=== PATIENT | male | born 1950 | race Caucasian/White ===

== ENCOUNTER 2017-12-23 18:12 | Emergency (ER) | payer MEDICARE, OTHER ==
[2017-12-23 18:33] VITALS: RESP 18
--- NOTE | 2017-12-23 18:52 | ED ---
General Adult HPI - General Chief complaint: Urogenital Stated complaint: hematuria Time Seen by Provider: 12/23/17 18:30 Source: patient, RN notes reviewed Mode of arrival: ambulatory Limitations: no limitations - History of Present Illness Initial comments: This a 67-year-old male presents emergency Department complaining of hematuria since Wednesday and urinary retention. Patient denies any blood thinners on board. Patient denies any fevers chills. Patient denies any swelling or redness. Patient denies any trauma to the ear. Patient states this happen once before a few years back and he had an infection any was treated and her breathing was okay since. 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 Patient denies any other symptoms at this time. - Related Data Previous Rx's Medication Instructions Recorded Sulfamethox-Tmp 800-160Mg [Bactrim 1 each PO Q12HR #14 tab 12/23/17 DS 800-160 mg] Allergies Allergy/AdvReac Type Severity Reaction Status Date / Time No Known Allergies Allergy Verified 12/23/17 20:33 Review of Systems ROS Statement: Those systems with pertinent positive or pertinent negative responses have been documented in the HPI. ROS Other: All systems not noted in ROS Statement are negative. 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 No history of previous myocardial infarction. No history of hypertension or diabetes. PT STATED HE DOES'NT HAVE A PCP. STATED WENT TO ER WHEN HE HAD A UTI BUT OUTSIDE OF THAT CAN'T REMEMBER WHEN HE SAW A DR LAST. 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 General Exam - General Exam Comments Initial Comments: GENERAL: Patient is well-developed and well-nourished. Patient is nontoxic and well- hydrated and is in mild distress. ENT: Neck is soft and supple. No significant lymphadenopathy is noted. Oropharynx is clear. Moist mucous membranes. Neck has full range of motion without eliciting any pain. EYES: The sclera were anicteric and conjunctiva were pink and moist. Extraocular movements were intact and pupils were equal round and reactive to light. Eyelids were unremarkable. PULMONARY: Unlabored respirations. Good breath sounds bilaterally. No audible rales rhonchi or wheezing was noted. CARDIOVASCULAR: There is a regular rate and rhythm without any murmurs gallops or rubs. ABDOMEN: Soft and nontender with normal bowel sounds. SKIN: Skin is clear with no lesions or rashes and otherwise unremarkable. NEUROLOGIC: Patient is alert and oriented x3. Cranial nerves II through XII are grossly intact. Motor and sensory are also intact. Normal speech, volume and content. Symmetrical smile. MUSCULOSKELETAL: Normal extremities with adequate strength and full range of motion. No lower extremity swelling or edema. No calf tenderness. LYMPHATICS: No significant lymphadenopathy is noted PSYCHIATRIC: Normal psychiatric evaluation. Normal interpersonal interactions appears functionally intact in deals appropriately with others. No signs of depression. No signs of anxiety. Limitations: no limitations Course Vital Signs 12/23/17 12/23/17 12/23/17 18:31 20:17 20:43 Temperature 98.0 F Pulse Rate 118 H 89 99 Respiratory 18 18 18 Rate Blood Pressure 136/80 116/68 120/79 O2 Sat by Pulse 99 97 96 Oximetry Medical Decision Making - Lab Data Result diagrams: 12/23/17 19:20 12/23/17 19:20 Lab Results 12/23/17 12/23/17 12/23/17 Range/Units 19:00 19:00 19:20 WBC 10.6 (3.8-10.6) k/uL RBC 4.53 (4.30-5.90) m/uL Hgb 13.2 (13.0-17.5) gm/dL Hct 39.9 (39.0-53.0) % MCV 88.2 (80.0-100.0) fL MCH 29.3 (25.0-35.0) pg MCHC 33.2 (31.0-37.0) g/dL RDW 13.3 (11.5-15.5) % Plt Count 364 (150-450) k/uL Neutrophils % 80 % Lymphocytes % 13 % Monocytes % 6 % Eosinophils % 0 % Basophils % 0 % Neutrophils # 8.5 H (1.3-7.7) k/uL Lymphocytes # 1.3 (1.0-4.8) k/uL Monocytes # 0.6 (0-1.0) k/uL Eosinophils # 0.0 (0-0.7) k/uL Basophils # 0.0 (0-0.2) k/uL PT 9.8 (9.0-12.0) sec INR 1.0 (<1.2) APTT 24.3 (22.0-30.0) sec Sodium (137-145) mmol/L Potassium (3.5-5.1) mmol/L Chloride (98-107) mmol/L Carbon Dioxide (22-30) mmol/L Anion Gap mmol/L BUN (9-20) mg/dL Creatinine (0.66-1.25) mg/dL Est GFR (CKD-EPI)AfAm (>60 ml/min/1.73 sqM) Est GFR (CKD-EPI)NonAf (>60 ml/min/1.73 sqM) Glucose (74-99) mg/dL Calcium (8.4-10.2) mg/dL Total Bilirubin (0.2-1.3) mg/dL AST (17-59) U/L ALT (21-72) U/L Alkaline Phosphatase (38-126) U/L Total Protein (6.3-8.2) g/dL Albumin (3.5-5.0) g/dL Urine Color Dark Red Urine Appearance Bloody (Clear) Urine RBC >182 H (0-5) /hpf 12/23/17 Range/Units 19:20 WBC (3.8-10.6) k/uL RBC (4.30-5.90) m/uL Hgb (13.0-17.5) gm/dL Hct (39.0-53.0) % MCV (80.0-100.0) fL MCH (25.0-35.0) pg MCHC (31.0-37.0) g/dL RDW (11.5-15.5) % Plt Count (150-450) k/uL Neutrophils % % Lymphocytes % % Monocytes % % Eosinophils % % Basophils % % Neutrophils # (1.3-7.7) k/uL Lymphocytes # (1.0-4.8) k/uL Monocytes # (0-1.0) k/uL Eosinophils # (0-0.7) k/uL Basophils # (0-0.2) k/uL PT (9.0-12.0) sec INR (<1.2) APTT (22.0-30.0) sec Sodium 139 (137-145) mmol/L Potassium 5.1 (3.5-5.1) mmol/L Chloride 106 (98-107) mmol/L Carbon Dioxide 23 (22-30) mmol/L Anion Gap 10 mmol/L BUN 20 (9-20) mg/dL Creatinine 1.20 (0.66-1.25) mg/dL Est GFR (CKD-EPI)AfAm 73 (>60 ml/min/1.73 sqM) Est GFR (CKD-EPI)NonAf 63 (>60 ml/min/1.73 sqM) Glucose 118 H (74-99) mg/dL Calcium 9.2 (8.4-10.2) mg/dL Total Bilirubin 0.3 (0.2-1.3) mg/dL AST 24 (17-59) U/L ALT 26 (21-72) U/L Alkaline Phosphatase 62 (38-126) U/L Total Protein 6.3 (6.3-8.2) g/dL Albumin 4.0 (3.5-5.0) g/dL Urine Color Urine Appearance (Clear) Urine RBC (0-5) /hpf Disposition Clinical Impression: Hematuria Disposition: HOME SELF-CARE Condition: Good Instructions: Urinary Tract Infection in Men (ED) Prescriptions: Sulfamethox-Tmp 800-160Mg [Bactrim DS 800-160 mg] 1 each PO Q12HR #14 tab Is patient prescribed a controlled substance at d/c from ED?: No Referrals: Dorian Kendrick MD [STAFF PHYSICIAN] - 1-2 days Time of Disposition: 20:56
[2017-12-23 19:35] LABS: RBC,Urine >182 /hpf (0-5)
[2017-12-23 19:42] LABS: Partial Thromboplastin Time 24.3 sec (22.0-30.0); Prothrombin Time 9.8 sec (9.0-12.0)
[2017-12-23 19:42] LABS: Calcium 9.2 mg/dL (8.4-10.2); Potassium 5.1 mmol/L (3.5-5.1); Total Bilirubin 0.3 mg/dL (0.2-1.3); Total Protein 6.3 g/dL (6.3-8.2)
[2017-12-23 19:53] LABS: Color,Urine Dark Red
[2017-12-23 19:54] LABS: Appearance,Urine Bloody (Clear)
[2017-12-23] MEDS ORDERED: cefTRIAXone 2,000 MG in SODIUM CHLORIDE 0.9% 100 ML IVPB STA (20:09)
[2017-12-23] MEDS ORDERED: cefTRIAXone IN SWFI 2,000 MG/20 ML SYRINGE IVP STA (20:11)
[2017-12-23 20:17] LABS: Basophils % (A) 0 %; Eosinophils % (A) 0 %; HCT 39.9 % (39.0-53.0); HGB 13.2 gm/dL (13.0-17.5); Lymphocytes # (A) 1.3 k/uL (1.0-4.8); Lymphocytes % (A) 13 %; MCH 29.3 pg (25.0-35.0); MCHC 33.2 g/dL (31.0-37.0); MCV 88.2 fL (80.0-100.0); Mean Platelet Volume 6.5; Monocytes # (A) 0.6 k/uL (0-1.0); Monocytes % (A) 6 %; Neutrophils # (A) 8.5 k/uL (1.3-7.7); Neutrophils % (A) 80 %; Platelet Count 364 k/uL (150-450); RBC 4.53 m/uL (4.30-5.90); RDW 13.3 % (11.5-15.5); WBC 10.6 k/uL (3.8-10.6)
[2017-12-23 21:22] VITALS: BP 135/79; PULSE 100; TEMP 97.5
== END 2017-12-23 21:34 | disposition home or self-care (01) ==
LOC: EC 18:12
DX: R31.9 Hematuria, unspecified (principal); R33.9 Retention of urine, unspecified; F17.200 Nicotine dependence, unspecified, uncomplicated; Z90.5 Acquired absence of kidney; Z95.5 Presence of coronary angioplasty implant and graft; Z98.890 Other specified postprocedural states
CPT/HCPCS: 51798; 36415; 80053; 85025; 85610; 85730; 81001; 87040; 87086; 99284; 51702; 96374; J0696

== ENCOUNTER 2017-12-25 00:03 | Inpatient (IN) | payer MEDICARE ==
--- NOTE | 2017-12-25 00:11 | ED ---
General Adult HPI - General Stated complaint: Blood in Urine Time Seen by Provider: 12/25/17 00:03 Source: RN notes reviewed - History of Present Illness Initial comments: This is a 67-year-old male who presents emergency Department with what he believes to be a catheter failure. Patient was in the emergency department yesterday for hematuria and was started on an antibiotic and had a catheter placed because he was having some urinary retention. Patient states all of a sudden tonight his bloody urine started to go around the catheter and down into his pants he did not reduce it came to the emergency department by ambulance. Patient denies any abdominal pain. Patient denies any fever chills. Patient states he has had bloody urine all day but not a lot. Patient states when the urine was going around his catheter he did feel little lightheaded but he does not feel lightheaded currently. Patient denies any shortness of breath or difficulty breathing. Patient denies any nausea vomiting or abdominal pain. - Related Data Previous Rx's Medication Instructions Recorded Sulfamethox-Tmp 800-160Mg [Bactrim 1 each PO Q12HR #14 tab 12/23/17 DS 800-160 mg] Allergies Allergy/AdvReac Type Severity Reaction Status Date / Time No Known Allergies Allergy Verified 12/23/17 20:33 Review of Systems ROS Statement: Those systems with pertinent positive or pertinent negative responses have been documented in the HPI. ROS Other: All systems not noted in ROS Statement are negative. 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 No history of previous myocardial infarction. No history of hypertension or diabetes. PT STATED HE DOES'NT HAVE A PCP. STATED WENT TO ER WHEN HE HAD A UTI BUT OUTSIDE OF THAT CAN'T REMEMBER WHEN HE SAW A DR GUERO. 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 General Exam - General Exam Comments Initial Comments: GENERAL: Patient is well-developed and well-nourished. Patient is nontoxic and well- hydrated and is in no acute distress. ENT: Neck is soft and supple. No significant lymphadenopathy is noted. Oropharynx is clear. Moist mucous membranes. EYES: The sclera were anicteric and conjunctiva were pink and moist. Extraocular movements were intact and pupils were equal round and reactive to light. Eyelids were unremarkable. PULMONARY: Unlabored respirations. Good breath sounds bilaterally. No audible rales rhonchi or wheezing was noted. CARDIOVASCULAR: There is a regular rate and rhythm without any murmurs gallops or rubs. ABDOMEN: Soft and nontender with normal bowel sounds. SKIN: Skin is clear with no lesions or rashes and otherwise unremarkable. NEUROLOGIC: Patient is alert and oriented x3. Cranial nerves II through XII are grossly intact. Motor and sensory are also intact. Normal speech, volume and content. Symmetrical smile. MUSCULOSKELETAL: Normal extremities with adequate strength and full range of motion. LYMPHATICS: No significant lymphadenopathy is noted PSYCHIATRIC: Normal psychiatric evaluation. Course Vital Signs 12/25/17 00:09 Temperature 98 F Pulse Rate 118 H Respiratory 18 Rate Blood Pressure 138/64 O2 Sat by Pulse 99 Oximetry Medical Decision Making - Medical Decision Making I spoke with Dr. Landaverde and he agreed to admit the patient admitted the patient consult neurology. I repeated CBCs every 6 hours - Lab Data Result diagrams: 12/25/17 00:34 Lab Results 12/25/17 Range/Units 00:34 WBC 13.5 H (3.8-10.6) k/uL RBC 3.04 L (4.30-5.90) m/uL Hgb 9.0 L D (13.0-17.5) gm/dL Hct 26.2 L (39.0-53.0) % MCV 86.3 (80.0-100.0) fL MCH 29.7 (25.0-35.0) pg MCHC 34.4 (31.0-37.0) g/dL RDW 13.6 (11.5-15.5) % Plt Count 333 (150-450) k/uL Neutrophils % 82 % Lymphocytes % 9 % Monocytes % 7 % Eosinophils % 1 % Basophils % 0 % Neutrophils # 11.1 H (1.3-7.7) k/uL Lymphocytes # 1.2 (1.0-4.8) k/uL Monocytes # 0.9 (0-1.0) k/uL Eosinophils # 0.1 (0-0.7) k/uL Basophils # 0.0 (0-0.2) k/uL Disposition Clinical Impression: Gross hematuria Disposition: ADMITTED IP TO THIS HOSP Referrals: None,Stated [Primary Care Provider] - 1-2 days Time of Disposition: 01:04
[2017-12-25] MEDS ORDERED: SODIUM CHLORIDE 0.9% 500 ML IV ONE (00:29)
[2017-12-25 00:47] LABS: Basophils % (A) 0 %; Eosinophils # (A) 0.1 k/uL (0-0.7); Eosinophils % (A) 1 %; HCT 26.2 % (39.0-53.0); Lymphocytes # (A) 1.2 k/uL (1.0-4.8); Lymphocytes % (A) 9 %; MCH 29.7 pg (25.0-35.0); MCHC 34.4 g/dL (31.0-37.0); MCV 86.3 fL (80.0-100.0); Mean Platelet Volume 6.9; Monocytes # (A) 0.9 k/uL (0-1.0); Monocytes % (A) 7 %; Neutrophils # (A) 11.1 k/uL (1.3-7.7); Neutrophils % (A) 82 %; Platelet Count 333 k/uL (150-450); RBC 3.04 m/uL (4.30-5.90); RDW 13.6 % (11.5-15.5); WBC 13.5 k/uL (3.8-10.6)
[2017-12-25 01:04] LABS: Albumin 3.5 g/dL (3.5-5.0); Calcium 8.5 mg/dL (8.4-10.2); Potassium 5.1 mmol/L (3.5-5.1); Total Bilirubin 0.2 mg/dL (0.2-1.3); Total Protein 5.5 g/dL (6.3-8.2)
[2017-12-25] MEDS ORDERED: SODIUM CHLORIDE 0.9% 1,000 ML IV ONE (01:04)
[2017-12-25] MEDS ORDERED: cefTRIAXone IN SWFI 1,000 MG/10 ML SYRINGE IVP STA (01:09)
--- NOTE | 2017-12-25 01:52 | US ---
EXAMINATION TYPE: US kidneys/renal and bladder DATE OF EXAM: 12/25/2017 COMPARISON: NONE CLINICAL HISTORY: pain. bladder pain, h/o left nephrectomy, gross hematuria that comes and goes EXAM MEASUREMENTS: Right Kidney: 9.9 x 4.3 x 4.0 cm Left Kidney: Surgically absent Right Kidney: No hydronephrosis or masses seen Left Kidney: Surgically absent Bladder: bae cath seen, extensive 8cm complex mass like area surrounding bae There is no evidence for hydronephrosis at this point in time. No nephrolithiasis is seen. No nanda s are identified. The urinary bladder is anechoic. Bilateral ureteral jets are seen. IMPRESSION: Right kidney appears normal without evidence of obstruction. The urinary bladder is filled with compl ex density that could be all blood clot that measures 9 x 8 cm. Bladder tumor is possible.
[2017-12-25] MEDS ORDERED: NALOXONE 0.4 MG/ML 1 ML VIAL IV PRN (06:42)
--- NOTE | 2017-12-25 06:55 | P.HPIM ---
History of Present Illness H&P Date: 12/25/17 Chief Complaint: hematuria 67-year-old male with history of CAD status post stents in 2016. Patient presented to the ER due to symptoms of dizziness lightheadedness almost passing out and exertional dyspnea along with worsening hematuria. He reports that ever since he donated the kidney back in 1999 he had felt bladder fullness and then eventually 2013 he had his first episode of hematuria for which he was diagnosed with UTI and treated with antibiotics. Since then he had couple other episodes of mild hematuria where he was treated with antibiotics. But this time for the past 3 days he started having dedrick hematuria with some bladder fullness without any dysuria fevers or chills without any nausea or vomiting without any abdominal pain he presented to the ED 2 days ago and was given antibiotics and Tierney catheter was discharged home. However his symptoms has worsened he started bleeding from around the Tierney catheter for which she decided to come back to the hospital. In the emergency department this time he was found to have dropped his hemoglobin by 4 g. And that his hematuria has worsened he was admitted also due to finding acute kidney injury. Renal ultrasound suggested healthy right kidney with no evidence of hydronephrosis, also found surgically removed left kidney. Multiple shadows found in the bladder suggestive of clots. Patient otherwise takes no blood thinners no aspirin no Plavix. He is not on anticoagulation. Patient is a smoker where he smokes a pack a day Patient denies any other sources of bleeding including GI bleeding. Patient denies any weight loss and he reports that over the past 20 years he he has been thin and around his weight Review of Systems Pertinent positives as noted in HPI. All other systems were reviewed and are negative Past Medical History Past Medical History: Myocardial Infarction ([place]) Additional Past Medical History / Comment(s): 07-08-15 ADMITTED WITH CHEST PAIN- WENT TO SOUND ENGINE[employer] HAD STENT PLACED TO RCA. No history of previous myocardial infarction. 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 Last Myocardial Infarction Date:: 06/2015 History of Any Multi-Drug Resistant Organisms: None Reported Past Surgical History: Heart Catheterization With Stent, Orthopedic Surgery Additional Past Surgical History / Comment(s): LT kidney donation 1999, finger surgery ON LT HAND, RHINOPLASY Past Anesthesia/Blood Transfusion Reactions: No Reported Reaction Date of Last Stent Placement:: 2015 Past Psychological History: No Psychological Hx Reported Smoking Status: Current every day smoker Past Alcohol Use History: None Reported Additional Past Alcohol Use History / Comment(s): STARTED SMOKING AT AGE 9, WORKED UP TO 1.5 PPD.(ROLLS HIS OWN) Past Drug Use History: None Reported Additional Drug Use History / Comment(s): DAILY USE - Past Family History Father Additional Family Medical History / Comment(s): FROM A BRAIN TUMOR and tb Mother Additional Family Medical History / Comment(s): FROM INJURIES SUSTAINED FROM MVA. Medications and Allergies Home Medications Medication Instructions Recorded Confirmed Type Sulfamethox-Tmp 800-160Mg [Bactrim 1 each PO Q12HR #14 tab 12/23/17 12/25/17 Rx DS 800-160 mg] Allergies Allergy/AdvReac Type Severity Reaction Status Date / Time No Known Allergies Allergy Verified 12/23/17 20:33 Physical Exam Vitals: Vital Signs Temp Pulse Pulse Resp BP BP Pulse Ox 12/25/17 02:23 98.1 F 106 H 18 131/59 100 12/25/17 01:46 99 F 104 H 16 119/58 97 12/25/17 00:09 98 F 118 H 18 138/64 99 Intake and Output 12/24/17 12/24/17 12/25/17 14:59 22:59 06:59 Intake Total 300 Output Total 475 Balance -175 Intake: IV 300 Sodium Chloride 0.9% 1, 300 000 ml @ 75 mls/hr IV . [id number] ONE Rx#:[id number] Output: Urine 475 Other: Voiding Method Indwelling Catheter Weight 44.5 kg Constitutional: No acute distress, conversant, pleasant Eyes: Anicteric sclerae, moist conjunctiva, no lid-lag Pupils equal round reactive to light ENMT: NC/AT Oropharynx clear, no erythema, or exudates Neck: Supple, FROM, no masses, or JVD No carotid bruits No thyromegaly Lungs: Clear to auscultation Clear to percussion Normal respiratory effort, no accessory muscle use Cardiovascular: Heart regular rhythm, tachycardia No murmurs, gallops, or rubs No peripheral edema Abdominal: Soft, discomfort to palpation of the suprapubic region Nontender, no guarding, rebound or rigidity Abdomen moving with respiration Normoactive bowel sounds No hepatomegaly, No splenomegaly No palpable mass No abdominal wall hernia noted Tierney catheter in place Skin: Normal temperature, tone, texture, turgor No induration No subcutaneous nodules No rash, lesions No ulcers Extremities: No digital cyanosis No clubbing Pedal pulses intact and symmetrical Radial pulses intact and symmetrical No calf tenderness Psychiatric: Alert and oriented to person, place and time Appropriate affect fair judgment Neuro Muscles Strength 5/5 in all 4 extremities Sensation to light touch grossly present throughout Cranial nerves II-XII grossly intact No focal sensory deficits Lymphatics: no palpable cervical or supraclavicular , or inguinal lymph nodes Results CBC & Chem 7: 12/25/17 00:34 12/25/17 00:34 Labs: Abnormal Lab Results - Last 24 Hours (Table) 12/25/17 12/25/17 Range/Units 00:34 00:34 WBC 13.5 H (3.8-10.6) k/uL RBC 3.04 L (4.30-5.90) m/uL Hgb 9.0 L D (13.0-17.5) gm/dL Hct 26.2 L (39.0-53.0) % Neutrophils # 11.1 H (1.3-7.7) k/uL Sodium 132 L (137-145) mmol/L Carbon Dioxide 17 L (22-30) mmol/L BUN 37 H (9-20) mg/dL Creatinine 2.60 H (0.66-1.25) mg/dL Glucose 116 H (74-99) mg/dL Total Protein 5.5 L (6.3-8.2) g/dL Thrombosis Risk Factor Assmnt - Choose All That Apply Any of the Below Risk Factors Present?: No Other Risk Factors: Yes Each Risk Factor Represents 2 Points: Age 61-74 years Other congenital or acquired thrombophilia - If yes, enter type in comment: No Thrombosis Risk Factor Assessment Total Risk Factor Score: 2 Thrombosis Risk Factor Assessment Level: Low Risk Assessment and Plan Assessment: 67 year old male with history of CAD, admitted as inpatient with anticipated length of stay of more than 48 hours for MANUELA, dedrick hematuria , and symptomatic anemia due to acute blood loss Plan: #Symptomatic anemia due to acute blood loss #Dedrick hematuria #Acute kidney injury Flush Tierney catheter Currently on Rocephin IV fluid hydration Renal ultrasound showed no evidence of hydronephrosis Urology consult History of CAD patient status post stent in 2016 Currently not on any aspirin or statin Patient is not taking any Plavix #Smoking Counseled to quit smoking Nicotine replacement therapy offered Unilateral kidney disease history of left kidney donation DVT prophylaxis mechanical due to active bleeding avoid pharmacologic dvT prophylaxis Surrogate decision-maker: Patient needs Manuela CODE STATUS: Full code Anticipated discharge: 48-[address]: Home A total of 50 minutes was spent on the care of this complex patient more than 50 % of the time was spent in counseling and care coordination.
[2017-12-25 07:46] LABS: Prothrombin Time 9.9 sec (9.0-12.0)
[2017-12-25 07:55] LABS: Basophils % (A) 0 %; Eosinophils % (A) 0 %; HCT 22.6 % (39.0-53.0); HGB 7.6 gm/dL (13.0-17.5); Lymphocytes # (A) 2.2 k/uL (1.0-4.8); Lymphocytes % (A) 18 %; MCH 29.4 pg (25.0-35.0); MCHC 33.7 g/dL (31.0-37.0); MCV 87.3 fL (80.0-100.0); Mean Platelet Volume 6.7; Monocytes # (A) 1.1 k/uL (0-1.0); Monocytes % (A) 9 %; Neutrophils # (A) 8.3 k/uL (1.3-7.7); Neutrophils % (A) 70 %; Platelet Count 311 k/uL (150-450); RBC 2.59 m/uL (4.30-5.90); RDW 13.5 % (11.5-15.5); WBC 11.9 k/uL (3.8-10.6)
[2017-12-25 07:59] LABS: Calcium 7.6 mg/dL (8.4-10.2); Potassium 4.6 mmol/L (3.5-5.1)
--- NOTE | 2017-12-25 09:53 | P.GSCN ---
History of Present Illness Consult date: 12/25/17 Reason for Consult: Hematuria Requesting physician: Ankit Miles History of present illness: The patient is a 67-year-old white male who presents with a six-day history of dysuria and gross hematuria. He was evaluated in the emergency room, but the urine was so bloody it was not possible to determine whether or not he had infection. He was placed on antibiotics, but returned 1 day later with persistent hematuria. A urine culture dated December 23 was negative. The hemoglobin level dropped from 13.2 to 9, and he was subsequently admitted. The hemoglobin level has decreased further to 7.6 this morning. Ultrasound shows a normal right kidney. A large echogenic masses seen within the bladder, representing clot and/or tumor. He reports suprapubic and right lower quadrant abdominal pain. He states that he has had intermittent hematuria since 2013. 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 He smokes 1 pack of cigarettes daily. Review of Systems - Constitutional Reports chills, Reports sweats, Denies fever - Cardiovascular Reports dyspnea on exertion, Denies chest pain - Gastrointestinal Denies nausea, Denies vomiting - Genitourinary Reports dysuria, Reports hematuria Past Medical History Past Medical History: Myocardial Infarction ([place]) Additional Past Medical History / Comment(s): 07-08-15 ADMITTED WITH CHEST PAIN- WENT TO [facility] FUN[facility] HAD STENT PLACED TO RCA. No history of previous myocardial infarction. 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 Last Myocardial Infarction Date:: 06/2015 History of Any Multi-Drug Resistant Organisms: None Reported Past Surgical History: Heart Catheterization With Stent, Orthopedic Surgery Additional Past Surgical History / Comment(s): LT kidney donation 1999, finger surgery ON LT HAND, RHINOPLASY Past Anesthesia/Blood Transfusion Reactions: No Reported Reaction Date of Last Stent Placement:: 2015 Past Psychological History: No Psychological Hx Reported Smoking Status: Current every day smoker Past Alcohol Use History: None Reported Additional Past Alcohol Use History / Comment(s): STARTED SMOKING AT AGE 9, WORKED UP TO 1.5 PPD.(ROLLS HIS OWN) Past Drug Use History: None Reported Additional Drug Use History / Comment(s): DAILY USE - Past Family History Father Additional Family Medical History / Comment(s): FROM A BRAIN TUMOR and tb Mother Additional Family Medical History / Comment(s): FROM INJURIES SUSTAINED FROM MVA. Medications and Allergies Home Medications Medication Instructions Recorded Confirmed Type Sulfamethox-Tmp 800-160Mg [Bactrim 1 each PO Q12HR #14 tab 12/23/17 12/25/17 Rx DS 800-160 mg] Allergies Allergy/AdvReac Type Severity Reaction Status Date / Time No Known Allergies Allergy Verified 12/23/17 20:33 Surgical - Exam Vital Signs Temp Pulse Resp BP Pulse Ox 98 F 118 H 18 138/64 99 12/25/17 00:09 12/25/17 00:09 12/25/17 00:09 12/25/17 00:09 12/25/17 00:09 - General well developed, well nourished, moderate distress - Respiratory normal respiratory effort - Abdomen Abdomen: soft, tender (Moderate suprapubic and right lower quadrant tenderness to palpation), no guarding, no rigid, no rebound, no distended - Genitourinary normal penis with no external lesions, testicles non-tender - Psychiatric oriented to time, oriented to person, oriented to place, speech is normal, memory intact Results - Labs 12/25/17 06:56 12/25/17 06:56 Abnormal Lab Results - Last 24 Hours (Table) 12/25/17 12/25/17 12/25/17 Range/Units 00:34 00:34 06:56 WBC 13.5 H (3.8-10.6) k/uL RBC 3.04 L (4.30-5.90) m/uL Hgb 9.0 L D (13.0-17.5) gm/dL Hct 26.2 L (39.0-53.0) % Neutrophils # 11.1 H (1.3-7.7) k/uL Monocytes # (0-1.0) k/uL Sodium 132 L 132 L (137-145) mmol/L Carbon Dioxide 17 L 17 L (22-30) mmol/L BUN 37 H 36 H (9-20) mg/dL Creatinine 2.60 H 2.34 H (0.66-1.25) mg/dL Glucose 116 H (74-99) mg/dL Calcium 7.6 L (8.4-10.2) mg/dL Total Protein 5.5 L (6.3-8.2) g/dL 12/25/17 Range/Units 06:56 WBC 11.9 H (3.8-10.6) k/uL RBC 2.59 L (4.30-5.90) m/uL Hgb 7.6 L (13.0-17.5) gm/dL Hct 22.6 L (39.0-53.0) % Neutrophils # 8.3 H (1.3-7.7) k/uL Monocytes # 1.1 H (0-1.0) k/uL Sodium (137-145) mmol/L Carbon Dioxide (22-30) mmol/L BUN (9-20) mg/dL Creatinine (0.66-1.25) mg/dL Glucose (74-99) mg/dL Calcium (8.4-10.2) mg/dL Total Protein (6.3-8.2) g/dL Diabetes panel 12/25/17 12/25/17 Range/Units 00:34 06:56 Sodium 132 L 132 L (137-145) mmol/L Potassium 5.1 4.6 (3.5-5.1) mmol/L Chloride 99 104 (98-107) mmol/L Carbon Dioxide 17 L 17 L (22-30) mmol/L BUN 37 H 36 H (9-20) mg/dL Creatinine 2.60 H 2.34 H (0.66-1.25) mg/dL Glucose 116 H 99 (74-99) mg/dL Calcium 8.5 7.6 L (8.4-10.2) mg/dL AST 32 (17-59) U/L ALT 26 (21-72) U/L Alkaline Phosphatase 45 (38-126) U/L Total Protein 5.5 L (6.3-8.2) g/dL Albumin 3.5 (3.5-5.0) g/dL Calcium panel 12/25/17 12/25/17 Range/Units 00:34 06:56 Calcium 8.5 7.6 L (8.4-10.2) mg/dL Albumin 3.5 (3.5-5.0) g/dL Pituitary panel 12/25/17 12/25/17 Range/Units 00:34 06:56 Sodium 132 L 132 L (137-145) mmol/L Potassium 5.1 4.6 (3.5-5.1) mmol/L Chloride 99 104 (98-107) mmol/L Carbon Dioxide 17 L 17 L (22-30) mmol/L BUN 37 H 36 H (9-20) mg/dL Creatinine 2.60 H 2.34 H (0.66-1.25) mg/dL Glucose 116 H 99 (74-99) mg/dL Calcium 8.5 7.6 L (8.4-10.2) mg/dL Adrenal panel 12/25/17 12/25/17 Range/Units 00:34 06:56 Sodium 132 L 132 L (137-145) mmol/L Potassium 5.1 4.6 (3.5-5.1) mmol/L Chloride 99 104 (98-107) mmol/L Carbon Dioxide 17 L 17 L (22-30) mmol/L BUN 37 H 36 H (9-20) mg/dL Creatinine 2.60 H 2.34 H (0.66-1.25) mg/dL Glucose 116 H 99 (74-99) mg/dL Calcium 8.5 7.6 L (8.4-10.2) mg/dL Total Bilirubin 0.2 (0.2-1.3) mg/dL AST 32 (17-59) U/L ALT 26 (21-72) U/L Alkaline Phosphatase 45 (38-126) U/L Total Protein 5.5 L (6.3-8.2) g/dL Albumin 3.5 (3.5-5.0) g/dL - Imaging US - kidney/bladder: report reviewed Assessment and Plan (1) Gross hematuria Current Visit: Yes Status: Acute Code(s): R31.0 - GROSS HEMATURIA SNOMED Code(s): 975541047 Plan: Cystoscopy, evacuation of clot. If the source of bleeding is intravesical, indicated procedures will be performed (ie, fulguration or bladder tumor resection). If urine is effluxing from the right ureter is bloody, a retrograde pyelogram and possible ureteroscopy will be performed. The rationale for this approach was discussed in detail with the patient. Potential risks were also reviewed. These include anesthesia, persistent bleeding, infection, bladder perforation, and ureteral injury. Time with Patient: Greater than 30
[2017-12-25] MEDS ORDERED: IV FLUID CONTINUATION 1,000 ML IV ONE (10:15)
[2017-12-25] MEDS ORDERED: ONDANSETRON 4 MG/2 ML VIAL ONE (10:29)
[2017-12-25] MEDS ORDERED: PROPOFOL 10 MG/ML 20 ML VIAL IV ONE (10:29)
[2017-12-25] MEDS ORDERED: PHENYLEPHRINE-0.9% NACL SYG 1 MG/10 ML SYRINGE ONE (10:29)
[2017-12-25] MEDS ORDERED: NEOSTIGMINE 1 MG/ML 10 ML VIAL ONE (10:29)
[2017-12-25] MEDS ORDERED: ePHEDrine SULFATE/0.9% NACL/PF 50 MG/5 ML SYRINGE IV ONE (10:29)
[2017-12-25] MEDS ORDERED: GLYCOPYRROLATE 0.2 MG/ML 2 ML VIAL ONE (10:29)
[2017-12-25] MEDS ORDERED: LIDOCAINE 1% INJ 10MG/ML (20 ML MDV) ONE (10:29)
[2017-12-25] MEDS ORDERED: fentaNYL (PF) 50 MCG/ML 2 ML AMP ONE (10:29)
[2017-12-25] MEDS ORDERED: ROCURONIUM BROMIDE 10 MG/ML 10 ML VIAL IV ONE (10:29)
[2017-12-25] MEDS ORDERED: MIDAZOLAM 2 MG/2 ML VIAL ONE (10:29)
[2017-12-25] MEDS ORDERED: LACTATED RINGERS 1,000 ML IV ONE ×3 (11:10→13:47)
--- NOTE | 2017-12-25 13:47 | P.OP ---
Date of Procedure: 12/25/17 Preoperative Diagnosis: Urinary Clot Retention Postoperative Diagnosis: Bladder Tumor, Bladder Perforation Procedure(s) Performed: Cystoscopy, evacuation of clot, transurethral resection of bladder tumor (Medium ), exploratory laparotomy, closure of bladder perforation Anesthesia: BRIAN Surgeon: Hong Kenny Estimated Blood Loss (ml): 75 IV fluids (ml): 1,300 Pathology: other (Bladder tumor fragments) Condition: stable Disposition: PACU Indications for Procedure: The patient is a 67-year-old male admitted with gross hematuria and clots. His hemoglobin level has dropped from 13.2 to 7.6 in the past 36 hours. Ultrasound shows a large echogenic structure within the bladder, representing tumor and/or clots. Operative Findings: 1) Approximately 1 L of clot was removed from the bladder. 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 3) Anterior bladder wall perforation. Description of Procedure: The patient was taken in the operating room and placed in the dorsal lithotomy position, with his legs supported in Bladimir stirrups. The external genitalia was prepped and draped sterilely. The 30 lens was used to introduce the 22- [place] Stortz cystoscopic sheath through the urethra and into the bladder under direct vision. the anterior urethra appeared normal. The prostatic urethra was unremarkable, showing no significant obstruction. Upon entering the bladder , a large amount of clot was noted. The Respi evacuator was used to remove approximately 1 L of clot from the bladder. The bladder was then inspected. A papillary tumor overlying the right hemitrigone, obscuring the right ureteral orifice. This was not actively bleeding. The left ureteral orifice appeared normal. No tumors were seen elsewhere in the bladder. The cystoscope was removed, and the 26-[place] Stortz resectoscope sheath was advanced into the bladder. Using the cutting loop, the tumor was resected down to the muscle. The resected tissue was saved and sent for pathologic analysis. There was no evidence of bladder perforation. The right ureteral orifice was not identified with certainty, so the use of electrocautery was avoided in the anticipated area of the right ureteral orifice. Excellent hemostasis was attained. At this time, the abdomen was noted to be distended. The bladder was inspected, and an apparent perforation was noted on the anterior bladder wall. An 18-[place] Tierney catheter was inserted. The return was blood-tinged. The abdomen was prepped and draped sterilely. The scalpel was used to make a midline infraumbilical skin incision. The Bovie electrocautery was used to incise the subcutaneous fat and linea alba in the midline. The space of Retzius was entered. The bladder was readily identified, and the anterior bladder perforation was seen. Fluid was drained from the space of Retzius. However, it was apparent that there was intraperitoneal fluid. A small opening was made in the peritoneum, and this fluid was drained. The peritoneal opening was then closed using 3-0 chromic suture in a running fashion. The bladder was carefully inspected. No additional perforations were seen. The anterior bladder wall perforation was closed in 2 layers. The mucosa was closed using 3- 0 Vicryl suture in a running fashion, and the muscle was closed using 2-0 Vicryl suture in a running fashion. A Miguel Angel-Elder drain was left within the space of Retzius. This was brought out through a separate stab incision to the right of the midline surgical incision. The drain was sutured to the skin using nylon suture, and was later attached to bulb suction. The linea alba was closed using #1 Vicryl suture in a running fashion. Hemostasis within the subcutaneous tissues was excellent. The skin was closed using francisco. A sterile gauze dressing was applied over the incision. All sponge and needle counts were correct. The patient tolerated the procedure well was taken to recovery was stable condition. As stated, approximately 1 L of clot was removed from the bladder. The tumor was not actively bleeding. The patient was quite tender preoperatively, and it is unclear whether the bladder perforation occurred spontaneously ( preoperatively) or intraoperatively. Blood loss during the procedure was minimal. He was transfused 1 unit of packed RBCs intraoperatively. A CBC will be checked in the recovery room.
[2017-12-25] MEDS ORDERED: LABETALOL 5 MG/ML VIAL MDV IV ONE ×2 (14:20→14:30)
[2017-12-25] MEDS ORDERED: FLUMAZENIL 0.1 MG/ML 5 ML VIAL IVP ONE (14:50)
[2017-12-25] MEDS ORDERED: hydrALAZINE HCL 20 MG/ML 1 ML VIAL IV ONE (14:55)
[2017-12-25 15:04] LABS: HCT 27.4 % (39.0-53.0); MCH 31.2 pg (25.0-35.0); MCHC 34.1 g/dL (31.0-37.0); MCV 91.6 fL (80.0-100.0); Mean Platelet Volume 7.2; Platelet Count 253 k/uL (150-450); RDW 14.7 % (11.5-15.5); WBC 24.9 k/uL (3.8-10.6)
[2017-12-25 15:09] LABS: HGB 9.4 gm/dL (13.0-17.5)
[2017-12-25 15:12] LABS: Calcium 6.2 mg/dL (8.4-10.2)
[2017-12-25] MEDS ORDERED: MIDAZOLAM 2 MG/2 ML VIAL IV ONE (15:20)
[2017-12-25 15:22] LABS: Band Neutrophils % 4 %; Eosinophils # (M) 0.25 k/uL (0-0.7); Lymphocytes # (M) 2.49 k/uL (1.0-4.8); Monocytes # (M) 1.99 k/uL (0-1.0); Neutrophils % (M) 78 %; Nucleated Red Blood Cells 0 /100 WBC (0-0); Total Cells Counted 200
[2017-12-25] MEDS: PROPOFOL 1,000 MG in EMPTY BAG 1 BAG IV SCH ×4 (15:30→23:42)
[2017-12-25 15:53] LABS: Potassium 5.3 mmol/L (3.5-5.1)
[2017-12-25 15:58] LABS: ABG Base Excess -13.2 mmol/L; ABG HCO3 15 mmol/L (21-25); ABG PCO2 39 mmHg (35-45); ABG PO2 339 mmHg (83-108); ABG TCO2 16 mmol/L (19-24)
[2017-12-25 16:08] LABS: ABG PH 7.19 (7.35-7.45)
--- NOTE | 2017-12-25 16:56 | P.CNPUL ---
History of Present Illness Consult date: 12/25/17 Reason for consult: other Chief complaint: Acute respiratory failure, History of present illness: 87-year-old male patient who is being seen in the recovery room as the patient failed postoperative extubation. The patient was taken to the operating room for gross hematuria. The patient was having significant amount of hematuria associated with drop in hemoglobin from 13.2 down to 9.0 since this current admission and earlier this morning his hemoglobin was down to 7.6. The patient has intermittent hematuria since 2013. 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 He is a chronic smoker. The patient underwent a cystoscopy and the patient was found to have a bladder tumor that was resected using a transurethral approach. Following that the patient was found to have a bladder perforation. This was not related to the tumor resection and apparently the tumor was a 4 cm papillary tumor overlying the right trigone of securing the right ureteral orifice and the perforation was in the anterior bladder wall. In any rate, the patient underwent expiratory laparotomy, evacuation of intra-abdominal fluid collection and closure of a bladder perforation. Estimated blood loss was 75 mL. Total amount of fluid was 1.3 L given during the surgery. The patient also received a total of 2 units of packed RBCs. I saw this patient in the recovery room. Apparently he was extubated in recovery however he had weak breathing effort and he subsequently went into respiratory failure. He was reintubated within 10 minutes. Post intubation blood gas showed a pH of 7.19 with a pCO2 of 39 and pO2 of 339. The patient accordingly was placed on assist controlled rate of 22 tidal volume was brought up from 350 up to 500 and FiO2 is up to 60%. Pulse ox remains above 90% on the monitor. The patient is on no pressors at this point in time. A triple-lumen catheter was inserted. An outlying catheter was inserted. The patient has a component of non-anion gap metabolic acidosis with a bicarb level of 14 and a anion gap level of 9 and the patient was started on bicarb drip with D5 3 amps of bicarb at the rate of 1 100 mL an hour. Note that the patient was in acute kidney injury in the creatinine was up to 0.6 and dropped down to 1.9 and his calcium level was at 8 point further down to 6.2 total non-ionize. Post intubation chest x-ray showed questionable air under the left hemidiaphragm. ET tube is in a good location. 2 triple-lumen cath is also in good location. Coagulation profile is within normal limits. The patient is known to have coronary artery disease. 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 Patient has a single kidney a day patient has an elevated a kidney many years back Last Myocardial Infarction Date:: 06/2015 History of Any Multi-Drug Resistant Organisms: None Reported Past Surgical History: Heart Catheterization With Stent, Orthopedic Surgery Additional Past Surgical History / Comment(s): LT kidney donation 1999, finger surgery ON LT HAND, RHINOPLASY Past Anesthesia/Blood Transfusion Reactions: No Reported Reaction Date of Last Stent Placement:: 2015 Past Psychological History: No Psychological Hx Reported Smoking Status: Current every day smoker Past Alcohol Use History: None Reported Additional Past Alcohol Use History / Comment(s): STARTED SMOKING AT AGE 9, WORKED UP TO 1.5 PPD.(ROLLS HIS OWN) Past Drug Use History: None Reported Additional Drug Use History / Comment(s): DAILY USE - Past Family History Father Additional Family Medical History / Comment(s): FROM A BRAIN TUMOR and tb Mother Additional Family Medical History / Comment(s): FROM INJURIES SUSTAINED FROM MVA. Medications and Allergies Home Medications Medication Instructions Recorded Confirmed Type Sulfamethox-Tmp 800-160Mg [Bactrim 1 each PO Q12HR #14 tab 12/23/17 12/25/17 Rx DS 800-160 mg] Allergies Allergy/AdvReac Type Severity Reaction Status Date / Time No Known Allergies Allergy Verified 12/25/17 11:25 Physical Exam Vitals: Vital Signs Temp Pulse Pulse Resp BP BP Pulse Ox 12/25/17 14:00 96.8 F L 93 10 L 182/86 100 12/25/17 10:16 99 F 96 16 124/67 98 12/25/17 08:35 98.1 F 96 20 135/78 98 12/25/17 02:23 98.1 F 106 H 18 131/59 100 12/25/17 01:46 99 F 104 H 16 119/58 97 12/25/17 00:09 98 F 118 H 18 138/64 99 Intake and Output 12/25/17 12/25/17 12/25/17 06:59 14:59 22:59 Intake Total 300 2020 0 Output Total 475 75 Balance -175 1945 0 Intake: IV 300 1400 Sodium Chloride 0.9% 1, 300 000 ml @ 75 mls/hr IV . [id number] ONE Rx#:[id number] Blood Product 620 0 Rc As-1 Unit 310 [id number] Rc As-1 Unit 0 [id number] Output: Urine 475 Estimated Blood Loss 75 Other: Voiding Method Indwelling Catheter Indwelling Catheter Weight 44.5 kg 44.5 kg Sedated, comfortable intubated on a mechanical ventilator. Looks older than his stated age. Head exam was generally normal. There was no scleral icterus or corneal arcus. Mucous membranes were moist. Endotracheal tube in place. Neck was supple and with jugular venous distension, thyromegaly, or carotid bruits. Carotids were easily palpable bilaterally. There was no adenopathy. Lungs were clear to auscultation and percussion, and with normal diaphragmatic excursion. No wheezes or rales were noted. Cardiac exam revealed the PMI to be normally situated and sized. The rhythm was regular and no extrasystoles were noted during several minutes of auscultation. The first and second heart sounds were normal and physiologic splitting of the second heart sound was noted. There were no murmurs, rubs, clicks, or gallops. abdomen is soft. There is a mid abdominal incision that is dry clean and intact and the JERMAINE drain is also in place. Abdomen is slightly distended. No direct tenderness. No rebound tenderness. No guarding. Hypoactive bowel sounds. Examination of the extremities revealed diminished pulses in all 4 extremities including radial, femoral and pedal pulses. There was no cyanosis, clubbing or edema. Neurologically the patient is sedated, comfortable Results - Laboratory Findings CBC and BMP: 12/25/17 14:45 12/25/17 14:45 ABG ABG pH 7.19 (7.35-7.45) L* 12/25/17 15:53 ABG pCO2 39 mmHg (35-45) 12/25/17 15:53 ABG pO2 339 mmHg (83-108) H 12/25/17 15:53 ABG O2 Saturation 100.0 % (94-97) H 12/25/17 15:53 PT/INR, D-dimer PT 9.9 sec (9.0-12.0) 12/25/17 06:57 INR 1.0 (<1.2) 12/25/17 06:57 Abnormal lab findings: Abnormal Labs 12/25/17 12/25/17 12/25/17 00:34 00:34 01:39 WBC 13.5 H RBC 3.04 L Hgb 9.0 L D Hct 26.2 L Neutrophils # 11.1 H Neutrophils # (Manual) Monocytes # Monocytes # (Manual) ABG pH ABG pO2 ABG HCO3 ABG Total CO2 ABG O2 Saturation Sodium 132 L Potassium Carbon Dioxide 17 L BUN 37 H Creatinine 2.60 H Glucose 116 H Calcium Total Protein 5.5 L Crossmatch See Detail 12/25/17 12/25/17 12/25/17 06:56 06:56 14:45 WBC 11.9 H 24.9 H RBC 2.59 L 3.00 L Hgb 7.6 L 9.4 L D Hct 22.6 L 27.4 L Neutrophils # 8.3 H Neutrophils # (Manual) 20.40 H Monocytes # 1.1 H Monocytes # (Manual) 1.99 H ABG pH ABG pO2 ABG HCO3 ABG Total CO2 ABG O2 Saturation Sodium 132 L Potassium Carbon Dioxide 17 L BUN 36 H Creatinine 2.34 H Glucose Calcium 7.6 L Total Protein Crossmatch 12/25/17 12/25/17 14:45 15:53 WBC RBC Hgb Hct Neutrophils # Neutrophils # (Manual) Monocytes # Monocytes # (Manual) ABG pH 7.19 L* ABG pO2 339 H ABG HCO3 15 L ABG Total CO2 16 L ABG O2 Saturation 100.0 H Sodium 123 L Potassium 5.3 H Carbon Dioxide 14 L BUN 31 H Creatinine 1.90 H Glucose 171 H Calcium 6.2 L* Total Protein Crossmatch - Diagnostic Findings Chest x-ray: image reviewed Assessment and Plan Plan: Assessment 1 acute hypoxic respiratory failure post general anesthesia, post bladder surgery. Exact cause is not clear. Could be that the patient was extubated prematurely prior to compared to being recovered from his anesthetic agents. Other causes need to be considered including severe metabolic acidosis which we have attributed to his respiratory failure. No history of any myasthenia gravis of any neuromuscular weakness or neuromuscular disorders. Neurologically , the patient was stated to be awake prior to surgery and the patient was apparently was moving all 4 extremities without any limitation. 2 massive hematuria secondary to bladder tumor 3 resection of a bladder tumor from the trigone, the patient underwent transurethral resection of the bladder tumor and the patient is postop day #0 4 bladder perforation, involving the anterior bladder wall, status post expiratory laparotomy and repair of a laceration. Patient is postop day #0 5 severe and non-anion gap metabolic acidosis 6 acute kidney injury, improving and creatinine is down to 1.9 7 anemia, secondary to blood loss from massive hematuria 8 coronary artery disease with decreased VT and stenting of RCA 9 smoker with possible COPD 10 hyponatremia, probably dilutional Plan Keep the patient sedated for now and the patient will be kept on Diprivan with the rest score of 0 to -1. The patient will be placed on a Bivona breast units [id number] 4 times a day. SCD for DVT prophylaxis. IV Protonix for GI prophylaxis. IV Zosyn as empiric antibiotic coverage. Monitor the hemoglobin and the patient is ready received 2 units of packed RBC transfusion. Put the patient on bicarb drip with D5 water and 3 ampules of of bicarb at the rate of 100 mL an hour. Monitor the blood gases in the necessary vent changes. Chest x -ray was noted. Condition is critical. We'll continue to follow.
[2017-12-25] MEDS ORDERED: SODIUM CHLORIDE 0.9% 1,000 ML IV SCH (17:00)
--- NOTE | 2017-12-25 17:05 | XR ---
EXAMINATION TYPE: XR chest 1V confirm line cox monett DATE OF EXAM: 12/25/2017 CLINICAL HISTORY: Tube and line placement. TECHNIQUE: Single AP portable supine view of the chest is obtained. COMPARISON: None FINDINGS: There is endotracheal tube with tip at superior aortic knob level, approximately 5 to 6 cm above brenna. There is new left subclavian central venous catheter terminating in right atrium. Ther e is increased left lung opacity with Annette B lines in the periphery. Right lung is clear. There is more focal left basilar atelectasis and/or infiltrate. Cardiac silhouette size is within normal limit s. Slight S-shaped scoliosis of spine is present. Surgical clips epigastric region are seen. There is suspicious lucent liver sign consistent with pneumoperitoneum in supine patient. IMPRESSION: 1. Endotracheal tube satisfactory in position. 2. Left subclavian central venous catheter terminating in right atrium. No convincing evidence of siz able pneumothorax on supine x-ray. 3. Suspect background mild interstitial fibrosis with mild increased left lung interstitial edema and probable mild alveolar edema and/or early infiltrates. Progress study advised. More focal left basil ar atelectasis and/or infiltrate is noted. 4. Pneumoperitoneum identified. Case discussed with oncology nurse, patient had intra-abdominal bladder surgery earlier today account ing for pneumoperitoneum.
[2017-12-25 17:20] LABS: Basophils % (A) 0 %; Eosinophils # (A) 0.1 k/uL (0-0.7); Eosinophils % (A) 1 %; HCT 25.4 % (39.0-53.0); HGB 8.9 gm/dL (13.0-17.5); Lymphocytes % (A) 8 %; MCH 32.2 pg (25.0-35.0); MCHC 34.9 g/dL (31.0-37.0); MCV 92.4 fL (80.0-100.0); Mean Platelet Volume 6.7; Monocytes # (A) 0.7 k/uL (0-1.0); Monocytes % (A) 5 %; Neutrophils % (A) 86 %; Platelet Count 185 k/uL (150-450); RBC 2.75 m/uL (4.30-5.90); RDW 14.6 % (11.5-15.5); WBC 12.8 k/uL (3.8-10.6)
[2017-12-25 17:58] LABS: Glucose,Whole Blood 144 mg/dL (75-99)
[2017-12-25] MEDS: DEXTROSE 5% IN WATER 1,000 ML with SODIUM BICARB (1 MEQ/ML) 150 ML IV SCH (18:00)
--- NOTE | 2017-12-25 18:02 | PCN ---
PROCEDURE NOTE PREOPERATIVE DIAGNOSIS: Acute respiratory failure. POSTOPERATIVE DIAGNOSIS: Acute respiratory failure. PROCEDURE #1: Insertion of triple-lumen catheter. Indication Hemodynamic monitoring/Intravenous access. A time-out was completed verifying correct patient, procedure, site, positioning, and implant(s) or special equipment if applicable. The patient was placed in a dependent position appropriate for triple lumen catheter placement based on the vein to be cannulated. The patient's left shoulder was prepped and draped in sterile fashion. 1% Lidocaine was used to anesthetize the surrounding skin area. A triple lumen 9F Cordis catheter was introduced into the subclavian vein using Seldinger technique. The catheter was threaded smoothly over the guide wire and appropriate blood return was obtained. Each lumen of the catheter was evacuated of air and flushed with sterile saline. The catheter was then sutured in place to the skin and a sterile dressing applied. Perfusion to the extremity distal to the point of catheter insertion was checked and found to be adequate. No complications. PROCEDURE #2: Arterial line placement Indications: Hemodynamic monitoring. A time-out was completed verifying correct patient, procedure, site, positioning, and implant(s) or special equipment if applicable. Bladimir's test was performed to ensure adequate perfusion. The patient's left wrist was prepped and draped in sterile fashion. 1% Lidocaine was used to anesthetize the area. An 18G Arrow arterial line was introduced into the radial artery. The catheter was threaded over the guide wire and the needle was removed with appropriate pulsatile blood return. Blood loss was minimal. The catheter was then sutured in place to the skin and a sterile dressing applied. Perfusion to the extremity distal to the point of catheter insertion was checked and found to be adequate. The patient tolerated the procedure well and there were no complications. MMODL / IJN: [id number] /
[2017-12-25 18:20] LABS: HCT 27.9 % (39.0-53.0); HGB 10.1 gm/dL (13.0-17.5); MCH 32.5 pg (25.0-35.0); MCHC 36.3 g/dL (31.0-37.0); MCV 89.4 fL (80.0-100.0); Mean Platelet Volume 6.6; Platelet Count 207 k/uL (150-450); RBC 3.12 m/uL (4.30-5.90); RDW 14.3 % (11.5-15.5); WBC 15.8 k/uL (3.8-10.6)
[2017-12-25 18:35] LABS: ABG Base Excess -11.3 mmol/L; ABG HCO3 15 mmol/L (21-25); ABG PCO2 29 mmHg (35-45); ABG PH 7.32 (7.35-7.45); ABG PO2 228 mmHg (83-108); ABG TCO2 16 mmol/L (19-24)
[2017-12-25] MEDS ORDERED: ACETAMINOPHEN IV (For NPO) 1,000 MG in EMPTY BAG 1 BAG IVPB PRN (18:41)
[2017-12-25 18:42] LABS: ALT 27 U/L (21-72); AST 104 U/L (17-59); Albumin 2.2 g/dL (3.5-5.0); Alkaline Phosphatase <20 U/L (38-126); Anion Gap 6 mmol/L; Blood Urea Nitrogen 30 mg/dL (9-20); Carbon Dioxide 16 mmol/L (22-30); Chloride 98 mmol/L (98-107); Glucose 109 mg/dL (74-99); Magnesium 1.2 mg/dL (1.6-2.3); Total Bilirubin 1.4 mg/dL (0.2-1.3); Total Protein 4.2 g/dL (6.3-8.2)
[2017-12-25 18:47] LABS: Calcium 5.8 mg/dL (8.4-10.2); Potassium 4.9 mmol/L (3.5-5.1); Sodium 120 mmol/L (137-145)
[2017-12-25] MEDS ORDERED: Magnesium Replacement Protocol 1 EACH MISC MISCELLANE PRN (18:50)
[2017-12-25] MEDS ORDERED: CALCIUM CHLORIDE 500 MG in SODIUM CHLORIDE 0.9% 50 ML IVPB ONE ×2 (18:50→22:21)
[2017-12-25] MEDS ORDERED: ONDANSETRON 4 MG/2 ML VIAL IVP PRN (18:55)
[2017-12-25] MEDS ORDERED: ALBUTEROL NEBULIZED 2.5 MG/3 ML INHALATION PRN (18:55)
--- NOTE | 2017-12-25 19:00 | P.PN ---
Subjective Progress Note Date: 12/25/17 Principal diagnosis: Hematuria Interval note: For full note on 12/25 see H and p by Dr. 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 On arrival to the ER he was tachycardic with a pulse of 118. Initial laboratory analysis showed a leukocytosis of 13.5, anemia with a hemoglobin of 9 (down from 13.2 in 48 hours) . He underwent ultrasound of the kidneys and bladder which showed normal- appearing right kidney without evidence of obstruction and a urinary bladder filled with complex density that could be blood clot versus bladder tumor. After admission his hemoglobin continued to downtrend. He was seen by Dr. Jose in the morning of 12/25 and taken for cystoscopy. Cystoscopy is on have a bladder tumor and anterior bladder perforation. He subsequently had an open closure of his latter perforation as well as a transurethral resection of his bladder tumor. He failed postoperative extubation, was reintubated, and was sent to the ICU. Dr. Wing saw the patient in PACU in order to serum bicarb drip after he found have a pH of 7.19. On arrival to the ICU he was 93.4 F and had lost a tooth. Patient seen and examined in the ICU he is sedated on the vent and unable to give any history. Objective - Vital Signs Vital signs: Vital Signs Temp 96.8 F L 12/25/17 14:00 Pulse 93 12/25/17 14:00 Resp 10 L 12/25/17 14:00 BP 182/86 12/25/17 14:00 Pulse Ox 100 12/25/17 14:00 Intake & Output 12/24/17 12/25/17 12/25/17 18:59 06:59 18:59 Intake Total 300 2020 Output Total 475 75 Balance -175 194 Weight 44.5 kg 44.5 kg Intake: IV 300 1400 Sodium Chloride 0.9% 1, 300 000 ml @ 75 mls/hr IV . [id number] ONE Rx#:[id number] Blood Product 620 Rc As-1 Unit 310 [id number] Rc As-1 Unit 0 [id number] Output: Urine 475 Estimated Blood Loss 75 Other: Voiding Method Indwelling Catheter Indwelling Catheter - Labs CBC & Chem 7: 12/25/17 16:50 12/25/17 14:45 Labs: Abnormal Lab Results - Last 24 Hours (Table) 12/25/17 12/25/17 12/25/17 Range/Units 00:34 00:34 01:39 WBC 13.5 H (3.8-10.6) k/uL RBC 3.04 L (4.30-5.90) m/uL Hgb 9.0 L D (13.0-17.5) gm/dL Hct 26.2 L (39.0-53.0) % Neutrophils # 11.1 H (1.3-7.7) k/uL Neutrophils # (Manual) (1.3-7.7) k/uL Monocytes # (0-1.0) k/uL Monocytes # (Manual) (0-1.0) k/uL ABG pH (7.35-7.45) ABG pO2 (83-108) mmHg ABG HCO3 (21-25) mmol/L ABG Total CO2 (19-24) mmol/L ABG O2 Saturation (94-97) % Sodium 132 L (137-145) mmol/L Potassium (3.5-5.1) mmol/L Carbon Dioxide 17 L (22-30) mmol/L BUN 37 H (9-20) mg/dL Creatinine 2.60 H (0.66-1.25) mg/dL Glucose 116 H (74-99) mg/dL Calcium (8.4-10.2) mg/dL Total Protein 5.5 L (6.3-8.2) g/dL Crossmatch See Detail 12/25/17 12/25/17 12/25/17 Range/Units 06:56 06:56 14:45 WBC 11.9 H 24.9 H (3.8-10.6) k/uL RBC 2.59 L 3.00 L (4.30-5.90) m/uL Hgb 7.6 L 9.4 L D (13.0-17.5) gm/dL Hct 22.6 L 27.4 L (39.0-53.0) % Neutrophils # 8.3 H (1.3-7.7) k/uL Neutrophils # (Manual) 20.40 H (1.3-7.7) k/uL Monocytes # 1.1 H (0-1.0) k/uL Monocytes # (Manual) 1.99 H (0-1.0) k/uL ABG pH (7.35-7.45) ABG pO2 (83-108) mmHg ABG HCO3 (21-25) mmol/L ABG Total CO2 (19-24) mmol/L ABG O2 Saturation (94-97) % Sodium 132 L (137-145) mmol/L Potassium (3.5-5.1) mmol/L Carbon Dioxide 17 L (22-30) mmol/L BUN 36 H (9-20) mg/dL Creatinine 2.34 H (0.66-1.25) mg/dL Glucose (74-99) mg/dL Calcium 7.6 L (8.4-10.2) mg/dL Total Protein (6.3-8.2) g/dL Crossmatch 12/25/17 12/25/17 12/25/17 Range/Units 14:45 15:53 16:50 WBC 12.8 H (3.8-10.6) k/uL RBC 2.75 L (4.30-5.90) m/uL Hgb 8.9 L (13.0-17.5) gm/dL Hct 25.4 L (39.0-53.0) % Neutrophils # 11.0 H (1.3-7.7) k/uL Neutrophils # (Manual) (1.3-7.7) k/uL Monocytes # (0-1.0) k/uL Monocytes # (Manual) (0-1.0) k/uL ABG pH 7.19 L* (7.35-7.45) ABG pO2 339 H (83-108) mmHg ABG HCO3 15 L (21-25) mmol/L ABG Total CO2 16 L (19-24) mmol/L ABG O2 Saturation 100.0 H (94-97) % Sodium 123 L (137-145) mmol/L Potassium 5.3 H (3.5-5.1) mmol/L Carbon Dioxide 14 L (22-30) mmol/L BUN 31 H (9-20) mg/dL Creatinine 1.90 H (0.66-1.25) mg/dL Glucose 171 H (74-99) mg/dL Calcium 6.2 L* (8.4-10.2) mg/dL Total Protein (6.3-8.2) g/dL Crossmatch Assessment and Plan Assessment: Bladder tumor and anterior latter perforation-status post repair and TURBT -Management per urology -Zosyn for prophylaxis Acute blood loss anemia -Status post 2 units of packed red blood cells -Follow with serial CBCs -Transfuse as needed Severe metabolic acidosis -On serum bicarb drip -Check stat electrolytes Hyperkalemia, mild -Should correct with sodium bicarb drip -Follow serial electrolytes Acute kidney injury -Has been improving throughout hospitalization -Avoid additional nephrotoxic agents -Renal ultrasound with bowel medical renal disease -If worsens in a.m. Will consult nephrology -Patient was on Bactrim as an outpatient for possible UTI and this was held on admission Coronary artery disease -No aspirin at this time secondary to bleeding DVT prophylaxis: SCDs Discussed with: Patient's RN in the ICU, additional hospitalist Anticipated discharge: undetermined Anticipated discharge place: undetermined A total of 45 minutes was spent on the care of this complex patient more than 50 % of the time was spent in counseling and care coordination. Stat lab reviewed Sodium 120 on bicarb at 100, ? pseudohyponatremia due to bladder irrigation low magnesium replacement protocol ordered Hypocacemia- Calcium chloride 500mg ordered Recheck bmp in 2 hours and then q4 hours
[2017-12-25 19:05] LABS: INR 1.1 (<1.2); Partial Thromboplastin Time 27.2 sec (22.0-30.0); Prothrombin Time 10.3 sec (9.0-12.0)
--- NOTE | 2017-12-25 19:37 | XR ---
EXAMINATION TYPE: XR chest 1V portable DATE OF EXAM: 12/25/2017 CLINICAL HISTORY: Diminished lung sounds TECHNIQUE: Single AP portable upright view of the chest is obtained. COMPARISON: Chest x-ray from earlier today FINDINGS: There is new orogastric tube projecting below left hemidiaphragm. There is stable appearan ce of endotracheal tube and left subclavian central venous catheter. Cardiac silhouette size is stable and within normal limits. S-shaped scoliosis is redemonstrated. Mi gical clips epigastric region are again seen. Pneumoperitoneum is once again noted. There is chronic emphysematous change with increased interstitial prominence in the left lung. Suspect focal left basi lar atelectasis and/or infiltrate with silhouetting of left hemidiaphragm redemonstrated. IMPRESSION: 1. New orogastric tube satisfactory in position. 2. Background chronic emphysematous change with scattered fibrosis, there is asymmetric more prominen t left lung interstitial edema redemonstrated. There is patchy left basilar atelectasis and/or infilt rate redemonstrated. Pneumoperitoneum is once again noted patient had abdominal surgery earlier today .
[2017-12-25] MEDS: IPRATROPIUM-ALBUTEROL 3 ML NEB INHALATION SCH (19:46)
[2017-12-25 19:47] LABS: T4, Free (Free Thyroxine) 1.91 ng/dL (0.78-2.19)
[2017-12-25] MEDS: MAGNESIUM SULFATE-D5W PMX 1 GM in DEXTROSE/WATER 1 100ML.BAG IVPB SCH ×4 (19:57→22:05)
[2017-12-25] MEDS: PANTOPRAZOLE 40 MG/10 ML VIAL IVP SCH (20:26)
[2017-12-25] MEDS: PIPERACILLIN-TAZOBACTAM 3.375 GM in DEXTROSE/WATER 1 50ML.BAG IVPB SCH (20:27)
[2017-12-25] MEDS: CHLORHEXIDINE GLUCONATE 15 ML CUP MUCOUS MEM SCH (20:27)
[2017-12-25] MEDS ORDERED: SODIUM CHLORIDE 0.9% 2,000 ML IV ONE (21:20)
[2017-12-25 22:13] LABS: Calcium 5.6 mg/dL (8.4-10.2)
[2017-12-26] MEDS: HYDROmorphone 0.5 MG/0.5 ML SYRINGE IVP PRN ×3 (01:38→14:44)
[2017-12-26 01:50] LABS: HCT 24.9 % (39.0-53.0); HGB 9.1 gm/dL (13.0-17.5); MCHC 36.6 g/dL (31.0-37.0); MCV 87.5 fL (80.0-100.0); Mean Platelet Volume 6.9; Platelet Count 172 k/uL (150-450); RBC 2.84 m/uL (4.30-5.90); RDW 14.3 % (11.5-15.5); WBC 9.8 k/uL (3.8-10.6)
[2017-12-26 02:02] LABS: Calcium 6.7 mg/dL (8.4-10.2); Potassium 4.1 mmol/L (3.5-5.1)
[2017-12-26 04:48] LABS: ABG Base Excess -6.2 mmol/L; ABG HCO3 18 mmol/L (21-25); ABG Oxygen Saturation 98.7 % (94-97); ABG PCO2 29 mmHg (35-45); ABG PH 7.41 (7.35-7.45); ABG PO2 105 mmHg (83-108); ABG TCO2 19 mmol/L (19-24)
[2017-12-26 05:19] LABS: Ionized Calcium 4.1 mg/dL (4.5-5.3)
[2017-12-26 05:28] LABS: Albumin 1.7 g/dL (3.5-5.0); Magnesium 2.6 mg/dL (1.6-2.3); Phosphorus 3.3 mg/dL (2.5-4.5); Potassium 4.1 mmol/L (3.5-5.1); Total Bilirubin 0.8 mg/dL (0.2-1.3); Total Protein 3.4 g/dL (6.3-8.2)
[2017-12-26] MEDS: NOREPINEPHRIN 16 MG-0.9%NS PMX 16 MG/250 ML ML IV SCH (05:35)
[2017-12-26 05:47] LABS: Calcium 6.3 mg/dL (8.4-10.2)
[2017-12-26 05:49] LABS: HCT 26.2 % (39.0-53.0); MCH 30.8 pg (25.0-35.0); MCHC 34.5 g/dL (31.0-37.0); MCV 89.2 fL (80.0-100.0); Mean Platelet Volume 6.9; Platelet Count 192 k/uL (150-450); RBC 2.93 m/uL (4.30-5.90); RDW 14.4 % (11.5-15.5)
[2017-12-26 08:00] LABS: Band Neutrophils % 9 %; Metamyelocytes % 1 %; Myelocytes % 1 %; Neutrophils % (M) 71 %; Nucleated Red Blood Cells 0 /100 WBC (0-0); Total Cells Counted 200; Toxic Granulation Present
--- NOTE | 2017-12-26 08:05 | XR ---
EXAMINATION TYPE: XR chest 1V portable DATE OF EXAM: 12/26/2017 HISTORY: Tube placement. REFERENCE: Previous study dated 12/25/2017. FINDINGS: The patient's nasogastric tube remains in place. Its tip is within the stomach. There is worsening left basilar airspace disease. The right lung remains clear. The heart is not enla rged. I cannot exclude a small left effusion. IMPRESSION: WORSENING LEFT BASILAR AIRSPACE DISEASE +/- SMALL EFFUSION.
[2017-12-26] MEDS ORDERED: CALCIUM CHLORIDE 1,000 MG in SODIUM CHLORIDE 0.9% 100 ML IVPB ONE (09:00)
[2017-12-26] MEDS ORDERED: CALCIUM CHLORIDE 500 MG in SODIUM CHLORIDE 0.9% 50 ML IVPB ONE (09:00)
[2017-12-26] MEDS: IPRATROPIUM-ALBUTEROL 3 ML NEB INHALATION SCH ×4 (09:04→20:39)
[2017-12-26] MEDS: DEXTROSE 5% IN WATER 1,000 ML with SODIUM BICARB (1 MEQ/ML) 150 ML IV SCH (09:04)
[2017-12-26] MEDS: PANTOPRAZOLE 40 MG/10 ML VIAL IVP SCH (09:13)
[2017-12-26] MEDS: CHLORHEXIDINE GLUCONATE 15 ML CUP MUCOUS MEM SCH ×2 (09:14→20:35)
[2017-12-26] MEDS: PIPERACILLIN-TAZOBACTAM 3.375 GM in DEXTROSE/WATER 1 50ML.BAG IVPB SCH ×2 (09:36→20:35)
--- NOTE | 2017-12-26 10:04 | P.PN ---
Subjective Progress Note Date: 12/26/17 Principal diagnosis: Hematuria Interval note: For full note on 12/25 see H and p by Dr. 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 On arrival to the ER he was tachycardic with a pulse of 118. Initial laboratory analysis showed a leukocytosis of 13.5, anemia with a hemoglobin of 9 (down from 13.2 in 48 hours) . He underwent ultrasound of the kidneys and bladder which showed normal- appearing right kidney without evidence of obstruction and a urinary bladder filled with complex density that could be blood clot versus bladder tumor. After admission his hemoglobin continued to downtrend. He was seen by Dr. Jose in the morning of 12/25 and taken for cystoscopy. Cystoscopy is on have a bladder tumor and anterior bladder perforation. He subsequently had an open closure of his latter perforation as well as a transurethral resection of his bladder tumor. He failed postoperative extubation, was reintubated, and was sent to the ICU. Dr. Wing saw the patient in PACU in order to serum bicarb drip after he found have a pH of 7.19. On arrival to the ICU he was 93.4 F and had lost a tooth. He was started on zosyn as prophylaxis. His blood pressure dropped early in the monring on 12/26 and he was started on levophed. Patient seen and examined in the ICU he is sedated all info from nursing. He was waking up and moving this morning but pulling at tubes and is sedated at this time. Objective - Vital Signs Vital signs: Vital Signs Temp 97.9 F 12/26/17 09:00 Pulse 81 12/26/17 09:15 Resp 22 12/26/17 09:00 BP 86/55 12/26/17 09:00 Pulse Ox 99 12/26/17 09:00 Intake & Output 12/25/17 12/26/17 12/26/17 18:59 06:59 18:59 Intake Total 3100 4818.639 318 Output Total 685 1603 520 Balance 2415 3215.639 -202 Weight 44.5 kg 54.4 kg Intake: IV 2480 4756.5 318 0.9 NaCl for Fluid Bolus 3000 Calcium Chloride 500 mg 150 In Sodium Chloride 0.9% 50 ml @ 200 mls/hr IVPB ONCE ONE Rx#:[id number] Dextrose 5% in Water 1, 75 1100 300 000 ml @ 100 mls/hr IV . [id number] THI with Sodium Bicarb (1 Meq/ml) 150 ml Rx#:[id number] Magnesium Sulfate-D5w Pmx 400 1 gm In Dextrose/Water 1 100ml.bag @ 100 mls/hr IVPB Q1H [facility] Rx#: [id number] Piperacillin-Tazobactam 3 37.5 .375 gm In Dextrose/Water 1 50ml.bag @ 12.5 mls/hr IVPB Q12HR [facility] Rx#: [id number] Pressure bag of 0.9 NaCl- 69 18 Intake, IV Titration 62.139 Amount Norepinephrin 16 mg-0.9% 1.719 Ns Pmx 16 mg In 250 ml @ Titrate IV .Q0M [facility] Rx#: [id number] Propofol 1,000 mg In 60.42 Empty Bag 1 bag @ Per Protocol IV .Q0M [facility] Rx#: [id number] Blood Product 620 Rc As-1 Unit 310 [id number] Rc As-1 Unit 0 [id number] Output: Drainage 110 85 60 Abdomen 110 85 60 Urine 500 1388 460 Oral Regurgitation 130 Estimated Blood Loss 75 Other: Voiding Method Indwelling Catheter Indwelling Catheter Indwelling Catheter ABP, PAP, CO, CI - Last Documented Arterial Blood Pressure 87/74 - Exam General: non toxic, mild distress, cachetic, appears older than stated age, appears at stated age Derm: warm, dry Head: atraumatic, normocephalic, symmetric Eyes: EOMI, no lid lag, anicteric sclera Mouth: no lip lesion, ET tube in place Cardiovascular: S1S2 reg, no murmur, positive posterior tibial pulse bilateral, Lungs: Course b/l, no rhonchi, no rales , no accessory muscle use Abdominal: soft, non distended, dressing and JERMAINE drain in placed. , no appreciable organomegaly Ext: no gross muscle atrophy, no edema, no contractures Neuro: moving b/l UE independently, Psych: Sedated on vent - Labs CBC & Chem 7: 12/26/17 04:48 12/26/17 04:48 Labs: Abnormal Lab Results - Last 24 Hours (Table) 12/25/17 12/25/17 12/25/17 Range/Units 01:39 14:45 14:45 WBC 24.9 H (3.8-10.6) k/uL RBC 3.00 L (4.30-5.90) m/uL Hgb 9.4 L D (13.0-17.5) gm/dL Hct 27.4 L (39.0-53.0) % Neutrophils # (1.3-7.7) k/uL Neutrophils # (Manual) 20.40 H (1.3-7.7) k/uL Monocytes # (Manual) 1.99 H (0-1.0) k/uL Metamyelocytes # (Man) (0) k/uL Myelocytes # (Manual) (0) k/uL ABG pH (7.35-7.45) ABG pCO2 (35-45) mmHg ABG pO2 (83-108) mmHg ABG HCO3 (21-25) mmol/L ABG Total CO2 (19-24) mmol/L ABG O2 Saturation (94-97) % Sodium 123 L (137-145) mmol/L Potassium 5.3 H (3.5-5.1) mmol/L Carbon Dioxide 14 L (22-30) mmol/L BUN 31 H (9-20) mg/dL Creatinine 1.90 H (0.66-1.25) mg/dL Glucose 171 H (74-99) mg/dL POC Glucose (mg/dL) (75-99) mg/dL Osmolality (280-301) mosm/kg Calcium 6.2 L* (8.4-10.2) mg/dL Ionized Calcium Salazar (4.5-5.3) mg/dL Magnesium (1.6-2.3) mg/dL Total Bilirubin (0.2-1.3) mg/dL AST (17-59) U/L Alkaline Phosphatase (38-126) U/L Total Protein (6.3-8.2) g/dL Albumin (3.5-5.0) g/dL Crossmatch See Detail 12/25/17 12/25/17 12/25/17 Range/Units 15:53 16:50 17:57 WBC 12.8 H (3.8-10.6) k/uL RBC 2.75 L (4.30-5.90) m/uL Hgb 8.9 L (13.0-17.5) gm/dL Hct 25.4 L (39.0-53.0) % Neutrophils # 11.0 H (1.3-7.7) k/uL Neutrophils # (Manual) (1.3-7.7) k/uL Monocytes # (Manual) (0-1.0) k/uL Metamyelocytes # (Man) (0) k/uL Myelocytes # (Manual) (0) k/uL ABG pH 7.19 L* (7.35-7.45) ABG pCO2 (35-45) mmHg ABG pO2 339 H (83-108) mmHg ABG HCO3 15 L (21-25) mmol/L ABG Total CO2 16 L (19-24) mmol/L ABG O2 Saturation 100.0 H (94-97) % Sodium (137-145) mmol/L Potassium (3.5-5.1) mmol/L Carbon Dioxide (22-30) mmol/L BUN (9-20) mg/dL Creatinine (0.66-1.25) mg/dL Glucose (74-99) mg/dL POC Glucose (mg/dL) 144 H (75-99) mg/dL Osmolality (280-301) mosm/kg Calcium (8.4-10.2) mg/dL Ionized Calcium Salazar (4.5-5.3) mg/dL Magnesium (1.6-2.3) mg/dL Total Bilirubin (0.2-1.3) mg/dL AST (17-59) U/L Alkaline Phosphatase (38-126) U/L Total Protein (6.3-8.2) g/dL Albumin (3.5-5.0) g/dL Crossmatch 12/25/17 12/25/17 12/25/17 Range/Units 18:05 18:05 18:33 WBC 15.8 H (3.8-10.6) k/uL RBC 3.12 L (4.30-5.90) m/uL Hgb 10.1 L (13.0-17.5) gm/dL Hct 27.9 L (39.0-53.0) % Neutrophils # (1.3-7.7) k/uL Neutrophils # (Manual) (1.3-7.7) k/uL Monocytes # (Manual) (0-1.0) k/uL Metamyelocytes # (Man) (0) k/uL Myelocytes # (Manual) (0) k/uL ABG pH 7.32 L (7.35-7.45) ABG pCO2 29 L (35-45) mmHg ABG pO2 228 H (83-108) mmHg ABG HCO3 15 L (21-25) mmol/L ABG Total CO2 16 L (19-24) mmol/L ABG O2 Saturation 100.0 H (94-97) % Sodium 120 L* (137-145) mmol/L Potassium (3.5-5.1) mmol/L Carbon Dioxide 16 L (22-30) mmol/L BUN 30 H (9-20) mg/dL Creatinine 1.73 H (0.66-1.25) mg/dL Glucose 109 H (74-99) mg/dL POC Glucose (mg/dL) (75-99) mg/dL Osmolality (280-301) mosm/kg Calcium 5.8 L* (8.4-10.2) mg/dL Ionized Calcium Salazar (4.5-5.3) mg/dL Magnesium 1.2 L (1.6-2.3) mg/dL Total Bilirubin 1.4 H (0.2-1.3) mg/dL AST 104 H (17-59) U/L Alkaline Phosphatase <20 L (38-126) U/L Total Protein 4.2 L (6.3-8.2) g/dL Albumin 2.2 L (3.5-5.0) g/dL Crossmatch 12/25/17 12/25/17 12/26/17 Range/Units 21:40 21:40 01:30 WBC (3.8-10.6) k/uL RBC 2.84 L (4.30-5.90) m/uL Hgb 9.1 L (13.0-17.5) gm/dL Hct 24.9 L (39.0-53.0) % Neutrophils # (1.3-7.7) k/uL Neutrophils # (Manual) (1.3-7.7) k/uL Monocytes # (Manual) (0-1.0) k/uL Metamyelocytes # (Man) (0) k/uL Myelocytes # (Manual) (0) k/uL ABG pH (7.35-7.45) ABG pCO2 (35-45) mmHg ABG pO2 (83-108) mmHg ABG HCO3 (21-25) mmol/L ABG Total CO2 (19-24) mmol/L ABG O2 Saturation (94-97) % Sodium 119 L* (137-145) mmol/L Potassium (3.5-5.1) mmol/L Carbon Dioxide 16 L (22-30) mmol/L BUN 29 H (9-20) mg/dL Creatinine 1.70 H (0.66-1.25) mg/dL Glucose 188 H (74-99) mg/dL POC Glucose (mg/dL) (75-99) mg/dL Osmolality 259 L (280-301) mosm/kg Calcium 5.6 L* (8.4-10.2) mg/dL Ionized Calcium Salazar (4.5-5.3) mg/dL Magnesium (1.6-2.3) mg/dL Total Bilirubin (0.2-1.3) mg/dL AST (17-59) U/L Alkaline Phosphatase (38-126) U/L Total Protein (6.3-8.2) g/dL Albumin (3.5-5.0) g/dL Crossmatch 12/26/17 12/26/17 12/26/17 Range/Units 01:30 04:46 04:48 WBC (3.8-10.6) k/uL RBC (4.30-5.90) m/uL Hgb (13.0-17.5) gm/dL Hct (39.0-53.0) % Neutrophils # (1.3-7.7) k/uL Neutrophils # (Manual) (1.3-7.7) k/uL Monocytes # (Manual) (0-1.0) k/uL Metamyelocytes # (Man) (0) k/uL Myelocytes # (Manual) (0) k/uL ABG pH (7.35-7.45) ABG pCO2 29 L (35-45) mmHg ABG pO2 (83-108) mmHg ABG HCO3 18 L (21-25) mmol/L ABG Total CO2 (19-24) mmol/L ABG O2 Saturation 98.7 H (94-97) % Sodium 121 L 122 L (137-145) mmol/L Potassium (3.5-5.1) mmol/L Carbon Dioxide 17 L 17 L (22-30) mmol/L BUN 29 H 27 H (9-20) mg/dL Creatinine 1.80 H 1.80 H (0.66-1.25) mg/dL Glucose 140 H 121 H (74-99) mg/dL POC Glucose (mg/dL) (75-99) mg/dL Osmolality (280-301) mosm/kg Calcium 6.7 L 6.3 L* (8.4-10.2) mg/dL Ionized Calcium Salazar 4.1 L (4.5-5.3) mg/dL Magnesium 2.6 H (1.6-2.3) mg/dL Total Bilirubin (0.2-1.3) mg/dL AST 102 H (17-59) U/L Alkaline Phosphatase 22 L (38-126) U/L Total Protein 3.4 L (6.3-8.2) g/dL Albumin 1.7 L (3.5-5.0) g/dL Crossmatch 12/26/17 Range/Units 04:48 WBC (3.8-10.6) k/uL RBC 2.93 L (4.30-5.90) m/uL Hgb 9.0 L (13.0-17.5) gm/dL Hct 26.2 L (39.0-53.0) % Neutrophils # (1.3-7.7) k/uL Neutrophils # (Manual) 8.00 H (1.3-7.7) k/uL Monocytes # (Manual) (0-1.0) k/uL Metamyelocytes # (Man) 0.10 H (0) k/uL Myelocytes # (Manual) 0.10 H (0) k/uL ABG pH (7.35-7.45) ABG pCO2 (35-45) mmHg ABG pO2 (83-108) mmHg ABG HCO3 (21-25) mmol/L ABG Total CO2 (19-24) mmol/L ABG O2 Saturation (94-97) % Sodium (137-145) mmol/L Potassium (3.5-5.1) mmol/L Carbon Dioxide (22-30) mmol/L BUN (9-20) mg/dL Creatinine (0.66-1.25) mg/dL Glucose (74-99) mg/dL POC Glucose (mg/dL) (75-99) mg/dL Osmolality (280-301) mosm/kg Calcium (8.4-10.2) mg/dL Ionized Calcium Salazar (4.5-5.3) mg/dL Magnesium (1.6-2.3) mg/dL Total Bilirubin (0.2-1.3) mg/dL AST (17-59) U/L Alkaline Phosphatase (38-126) U/L Total Protein (6.3-8.2) g/dL Albumin (3.5-5.0) g/dL Crossmatch Assessment and Plan Assessment: Hyponatremia - exact etiology undetermined with low serum osmol - nephrology consult - serial lytes - maintain current fluids - seizure precuations Bladder tumor and anterior Bladder perforation-status post repair and TURBT -Management per urology -Zosyn for prophylaxis Hypotension - exact etiology undermined - sepsis being ruled out - continue with levophed. Acute blood loss anemia secondary to tumor -Status post 2 units of packed red blood cells -Follow with serial CBCs -Transfuse as needed Metabolic acidosis -On serum bicarb drip -follow lytes Hypocalcemia - replace and continue to follow ionized calcium levels. Acute hypoxic respiratory failure - management as per pulmonary team Acute kidney injury seondary to ATN -IV fluids -Avoid additional nephrotoxic agents -Renal ultrasound without medical renal disease -nephrology recs - MAP optimized >65 -Patient was on Bactrim as an outpatient for possible UTI and this was held on admission Coronary artery disease -No aspirin at this time secondary to bleeding Hyperkalemia, resolved DVT prophylaxis: SCDs Discussed with: Patient's RN in the ICU, nephrology, Pulm/cc Anticipated discharge: undetermined Anticipated discharge place: undetermined A total of 45 minutes was spent on the care of this complex patient more than 50 % of the time was spent in counseling and care coordination.
[2017-12-26] MEDS: PROPOFOL 1,000 MG in EMPTY BAG 1 BAG IV SCH ×2 (10:08→18:14)
--- NOTE | 2017-12-26 10:58 | P.PN ---
Subjective Progress Note Date: 12/26/17 87-year-old male patient who is being seen in the recovery room as the patient failed postoperative extubation. The patient was taken to the operating room for gross hematuria. The patient was having significant amount of hematuria associated with drop in hemoglobin from 13.2 down to 9.0 since this current admission and earlier this morning his hemoglobin was down to 7.6. The patient has intermittent hematuria since 2013. 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 He is a chronic smoker. The patient underwent a cystoscopy and the patient was found to have a bladder tumor that was resected using a transurethral approach. Following that the patient was found to have a bladder perforation. This was not related to the tumor resection and apparently the tumor was a 4 cm papillary tumor overlying the right trigone of securing the right ureteral orifice and the perforation was in the anterior bladder wall. In any rate, the patient underwent expiratory laparotomy, evacuation of intra-abdominal fluid collection and closure of a bladder perforation. Estimated blood loss was 75 mL. Total amount of fluid was 1.3 L given during the surgery. The patient also received a total of 2 units of packed RBCs. I saw this patient in the recovery room. Apparently he was extubated in recovery however he had weak breathing effort and he subsequently went into respiratory failure. He was reintubated within 10 minutes. Post intubation blood gas showed a pH of 7.19 with a pCO2 of 39 and pO2 of 339. The patient accordingly was placed on assist controlled rate of 22 tidal volume was brought up from 350 up to 500 and FiO2 is up to 60%. Pulse ox remains above 90% on the monitor. The patient is on no pressors at this point in time. A triple-lumen catheter was inserted. An outlying catheter was inserted. The patient has a component of non-anion gap metabolic acidosis with a bicarb level of 14 and a anion gap level of 9 and the patient was started on bicarb drip with D5 3 amps of bicarb at the rate of 1 100 mL an hour. Note that the patient was in acute kidney injury in the creatinine was up to 0.6 and dropped down to 1.9 and his calcium level was at 8 point further down to 6.2 total non-ionize. Post intubation chest x-ray showed questionable air under the left hemidiaphragm. ET tube is in a good location. 2 triple-lumen cath is also in good location. Coagulation profile is within normal limits. The patient is known to have coronary artery disease. On 12/27/2007 and I'm seeing this patient for a follow-up. The patient remains intubated on a mechanical ventilator. Currently is an assist-control mode at the rate of 22 with a tidal volume of 500 and FiO2 has been weaned down to order percent with a PEEP of 5. Morning blood gases showed a pH of 7.41 with a pCO2 of 29 and pO2 of 105. The patient's chest x-ray shows adequate positioning of the 82. The patient has a small left-sided pleural effusion. He is sedated with propofol and is calm and comfortable. Abdominal wound is dry clean and intact. There is some bruising around the JERMAINE drain site. The drain has without approximately 200 mL of serosanguineous and bloody drainage over the past 8 hours. The patient is producing adequate amount of urine output. And the urine output for now is approximately 2.2 L since he arrived to the intensive care units. The patient overnight was resuscitated with IV fluids. He received several boluses and he remained borderline lower blood pressure with a systolic in the mid 90s. Subsequently this morning he dropped down to a systolic of 78. He was started on and after infusion and currently the patient's BP is under better control with a map of around 65-70. The patient has also component of non-anion gap metabolic acidosis and hyponatremia. The hyponatremia probably due to excessive fluid irrigation of the bladder which probably get absorbed into his system and intravascular system and his sodium is at 122. The patient is currently on a bicarb drip with D5 with 3 ampules of bicarb running at 100 mL an hour. The patient also is on empiric antibiotic coverage with IV Zosyn. The patient was noted to have a low calcium and he will be given a gram of calcium chloride. Not ready for any weaning at this point in time. Function continues to improve and the creatinine is down to 1.8 from a baseline of 2.6 at time of admission. The hematuria is also improving. Objective - Vital Signs Vital signs: Vital Signs Temp 97.9 F 12/26/17 09:00 Pulse 84 12/26/17 10:00 Resp 22 12/26/17 10:00 BP 78/51 12/26/17 10:00 Pulse Ox 100 12/26/17 10:00 Intake & Output 12/25/17 12/26/17 12/26/17 18:59 06:59 18:59 Intake Total 3100 4818.639 681.344 Output Total 685 1603 570 Balance 2415 3215.639 111.344 Weight 44.5 kg 54.4 kg Intake: IV 2480 4756.5 536.5 0.9 NaCl for Fluid Bolus 3000 Calcium Chloride 100 Calcium Chloride 500 mg 150 In Sodium Chloride 0.9% 50 ml @ 200 mls/hr IVPB ONCE ONE Rx#:[id number] Dextrose 5% in Water 1, 75 1100 400 000 ml @ 100 mls/hr IV . [id number] THI with Sodium Bicarb (1 Meq/ml) 150 ml Rx#:[id number] Magnesium Sulfate-D5w Pmx 400 1 gm In Dextrose/Water 1 100ml.bag @ 100 mls/hr IVPB Q1H [facility] Rx#: [id number] Piperacillin-Tazobactam 3 37.5 12.5 .375 gm In Dextrose/Water 1 50ml.bag @ 12.5 mls/hr IVPB Q12HR [facility] Rx#: [id number] Pressure bag of 0.9 NaCl- 69 24 Intake, IV Titration 62.139 144.844 Amount Norepinephrin 16 mg-0.9% 1.719 44.844 Ns Pmx 16 mg In 250 ml @ Titrate IV .Q0M [facility] Rx#: [id number] Propofol 1,000 mg In 60.42 100 Empty Bag 1 bag @ Per Protocol IV .Q0M [facility] Rx#: [id number] Blood Product 620 As-1 Unit 310 [id number] As-1 Unit 0 [id number] Output: Drainage 110 85 60 Abdomen 110 85 60 Urine 500 1388 510 Oral Regurgitation 130 Estimated Blood Loss 75 Other: Voiding Method Indwelling Catheter Indwelling Catheter Indwelling Catheter ABP, PAP, CO, CI - Last Documented Arterial Blood Pressure 91/79 - Exam Sedated, comfortable intubated on a mechanical ventilator. Looks older than his stated age. Head exam was generally normal. There was no scleral icterus or corneal arcus. Mucous membranes were moist. Endotracheal tube in place. Neck was supple and with jugular venous distension, thyromegaly, or carotid bruits. Carotids were easily palpable bilaterally. There was no adenopathy. Lungs were clear to auscultation and percussion, and with normal diaphragmatic excursion. No wheezes or rales were noted. Cardiac exam revealed the PMI to be normally situated and sized. The rhythm was regular and no extrasystoles were noted during several minutes of auscultation. The first and second heart sounds were normal and physiologic splitting of the second heart sound was noted. There were no murmurs, rubs, clicks, or gallops. abdomen is soft. There is a mid abdominal incision that is dry clean and intact and the JERMAINE drain is also in place. Abdomen is slightly distended. No direct tenderness. No rebound tenderness. No guarding. Hypoactive bowel sounds. Examination of the extremities revealed diminished pulses in all 4 extremities including radial, femoral and pedal pulses. There was no cyanosis, clubbing or edema. Neurologically the patient is sedated, comfortable - Labs CBC & Chem 7: 12/26/17 04:48 12/26/17 04:48 Labs: Abnormal Lab Results - Last 24 Hours (Table) 12/25/17 12/25/17 12/25/17 Range/Units 01:39 14:45 14:45 WBC 24.9 H (3.8-10.6) k/uL RBC 3.00 L (4.30-5.90) m/uL Hgb 9.4 L D (13.0-17.5) gm/dL Hct 27.4 L (39.0-53.0) % Neutrophils # (1.3-7.7) k/uL Neutrophils # (Manual) 20.40 H (1.3-7.7) k/uL Monocytes # (Manual) 1.99 H (0-1.0) k/uL Metamyelocytes # (Man) (0) k/uL Myelocytes # (Manual) (0) k/uL ABG pH (7.35-7.45) ABG pCO2 (35-45) mmHg ABG pO2 (83-108) mmHg ABG HCO3 (21-25) mmol/L ABG Total CO2 (19-24) mmol/L ABG O2 Saturation (94-97) % Sodium 123 L (137-145) mmol/L Potassium 5.3 H (3.5-5.1) mmol/L Carbon Dioxide 14 L (22-30) mmol/L BUN 31 H (9-20) mg/dL Creatinine 1.90 H (0.66-1.25) mg/dL Glucose 171 H (74-99) mg/dL POC Glucose (mg/dL) (75-99) mg/dL Osmolality (280-301) mosm/kg Calcium 6.2 L* (8.4-10.2) mg/dL Ionized Calcium Salazar (4.5-5.3) mg/dL Magnesium (1.6-2.3) mg/dL Total Bilirubin (0.2-1.3) mg/dL AST (17-59) U/L Alkaline Phosphatase (38-126) U/L Total Protein (6.3-8.2) g/dL Albumin (3.5-5.0) g/dL Crossmatch See Detail 12/25/17 12/25/17 12/25/17 Range/Units 15:53 16:50 17:57 WBC 12.8 H (3.8-10.6) k/uL RBC 2.75 L (4.30-5.90) m/uL Hgb 8.9 L (13.0-17.5) gm/dL Hct 25.4 L (39.0-53.0) % Neutrophils # 11.0 H (1.3-7.7) k/uL Neutrophils # (Manual) (1.3-7.7) k/uL Monocytes # (Manual) (0-1.0) k/uL Metamyelocytes # (Man) (0) k/uL Myelocytes # (Manual) (0) k/uL ABG pH 7.19 L* (7.35-7.45) ABG pCO2 (35-45) mmHg ABG pO2 339 H (83-108) mmHg ABG HCO3 15 L (21-25) mmol/L ABG Total CO2 16 L (19-24) mmol/L ABG O2 Saturation 100.0 H (94-97) % Sodium (137-145) mmol/L Potassium (3.5-5.1) mmol/L Carbon Dioxide (22-30) mmol/L BUN (9-20) mg/dL Creatinine (0.66-1.25) mg/dL Glucose (74-99) mg/dL POC Glucose (mg/dL) 144 H (75-99) mg/dL Osmolality (280-301) mosm/kg Calcium (8.4-10.2) mg/dL Ionized Calcium Salazar (4.5-5.3) mg/dL Magnesium (1.6-2.3) mg/dL Total Bilirubin (0.2-1.3) mg/dL AST (17-59) U/L Alkaline Phosphatase (38-126) U/L Total Protein (6.3-8.2) g/dL Albumin (3.5-5.0) g/dL Crossmatch 12/25/17 12/25/17 12/25/17 Range/Units 18:05 18:05 18:33 WBC 15.8 H (3.8-10.6) k/uL RBC 3.12 L (4.30-5.90) m/uL Hgb 10.1 L (13.0-17.5) gm/dL Hct 27.9 L (39.0-53.0) % Neutrophils # (1.3-7.7) k/uL Neutrophils # (Manual) (1.3-7.7) k/uL Monocytes # (Manual) (0-1.0) k/uL Metamyelocytes # (Man) (0) k/uL Myelocytes # (Manual) (0) k/uL ABG pH 7.32 L (7.35-7.45) ABG pCO2 29 L (35-45) mmHg ABG pO2 228 H (83-108) mmHg ABG HCO3 15 L (21-25) mmol/L ABG Total CO2 16 L (19-24) mmol/L ABG O2 Saturation 100.0 H (94-97) % Sodium 120 L* (137-145) mmol/L Potassium (3.5-5.1) mmol/L Carbon Dioxide 16 L (22-30) mmol/L BUN 30 H (9-20) mg/dL Creatinine 1.73 H (0.66-1.25) mg/dL Glucose 109 H (74-99) mg/dL POC Glucose (mg/dL) (75-99) mg/dL Osmolality (280-301) mosm/kg Calcium 5.8 L* (8.4-10.2) mg/dL Ionized Calcium Salazar (4.5-5.3) mg/dL Magnesium 1.2 L (1.6-2.3) mg/dL Total Bilirubin 1.4 H (0.2-1.3) mg/dL AST 104 H (17-59) U/L Alkaline Phosphatase <20 L (38-126) U/L Total Protein 4.2 L (6.3-8.2) g/dL Albumin 2.2 L (3.5-5.0) g/dL Crossmatch 12/25/17 12/25/17 12/26/17 Range/Units 21:40 21:40 01:30 WBC (3.8-10.6) k/uL RBC 2.84 L (4.30-5.90) m/uL Hgb 9.1 L (13.0-17.5) gm/dL Hct 24.9 L (39.0-53.0) % Neutrophils # (1.3-7.7) k/uL Neutrophils # (Manual) (1.3-7.7) k/uL Monocytes # (Manual) (0-1.0) k/uL Metamyelocytes # (Man) (0) k/uL Myelocytes # (Manual) (0) k/uL ABG pH (7.35-7.45) ABG pCO2 (35-45) mmHg ABG pO2 (83-108) mmHg ABG HCO3 (21-25) mmol/L ABG Total CO2 (19-24) mmol/L ABG O2 Saturation (94-97) % Sodium 119 L* (137-145) mmol/L Potassium (3.5-5.1) mmol/L Carbon Dioxide 16 L (22-30) mmol/L BUN 29 H (9-20) mg/dL Creatinine 1.70 H (0.66-1.25) mg/dL Glucose 188 H (74-99) mg/dL POC Glucose (mg/dL) (75-99) mg/dL Osmolality 259 L (280-301) mosm/kg Calcium 5.6 L* (8.4-10.2) mg/dL Ionized Calcium Salazar (4.5-5.3) mg/dL Magnesium (1.6-2.3) mg/dL Total Bilirubin (0.2-1.3) mg/dL AST (17-59) U/L Alkaline Phosphatase (38-126) U/L Total Protein (6.3-8.2) g/dL Albumin (3.5-5.0) g/dL Crossmatch 12/26/17 12/26/17 12/26/17 Range/Units 01:30 04:46 04:48 WBC (3.8-10.6) k/uL RBC (4.30-5.90) m/uL Hgb (13.0-17.5) gm/dL Hct (39.0-53.0) % Neutrophils # (1.3-7.7) k/uL Neutrophils # (Manual) (1.3-7.7) k/uL Monocytes # (Manual) (0-1.0) k/uL Metamyelocytes # (Man) (0) k/uL Myelocytes # (Manual) (0) k/uL ABG pH (7.35-7.45) ABG pCO2 29 L (35-45) mmHg ABG pO2 (83-108) mmHg ABG HCO3 18 L (21-25) mmol/L ABG Total CO2 (19-24) mmol/L ABG O2 Saturation 98.7 H (94-97) % Sodium 121 L 122 L (137-145) mmol/L Potassium (3.5-5.1) mmol/L Carbon Dioxide 17 L 17 L (22-30) mmol/L BUN 29 H 27 H (9-20) mg/dL Creatinine 1.80 H 1.80 H (0.66-1.25) mg/dL Glucose 140 H 121 H (74-99) mg/dL POC Glucose (mg/dL) (75-99) mg/dL Osmolality (280-301) mosm/kg Calcium 6.7 L 6.3 L* (8.4-10.2) mg/dL Ionized Calcium Salazar 4.1 L (4.5-5.3) mg/dL Magnesium 2.6 H (1.6-2.3) mg/dL Total Bilirubin (0.2-1.3) mg/dL AST 102 H (17-59) U/L Alkaline Phosphatase 22 L (38-126) U/L Total Protein 3.4 L (6.3-8.2) g/dL Albumin 1.7 L (3.5-5.0) g/dL Crossmatch 12/26/17 Range/Units 04:48 WBC (3.8-10.6) k/uL RBC 2.93 L (4.30-5.90) m/uL Hgb 9.0 L (13.0-17.5) gm/dL Hct 26.2 L (39.0-53.0) % Neutrophils # (1.3-7.7) k/uL Neutrophils # (Manual) 8.00 H (1.3-7.7) k/uL Monocytes # (Manual) (0-1.0) k/uL Metamyelocytes # (Man) 0.10 H (0) k/uL Myelocytes # (Manual) 0.10 H (0) k/uL ABG pH (7.35-7.45) ABG pCO2 (35-45) mmHg ABG pO2 (83-108) mmHg ABG HCO3 (21-25) mmol/L ABG Total CO2 (19-24) mmol/L ABG O2 Saturation (94-97) % Sodium (137-145) mmol/L Potassium (3.5-5.1) mmol/L Carbon Dioxide (22-30) mmol/L BUN (9-20) mg/dL Creatinine (0.66-1.25) mg/dL Glucose (74-99) mg/dL POC Glucose (mg/dL) (75-99) mg/dL Osmolality (280-301) mosm/kg Calcium (8.4-10.2) mg/dL Ionized Calcium Salazar (4.5-5.3) mg/dL Magnesium (1.6-2.3) mg/dL Total Bilirubin (0.2-1.3) mg/dL AST (17-59) U/L Alkaline Phosphatase (38-126) U/L Total Protein (6.3-8.2) g/dL Albumin (3.5-5.0) g/dL Crossmatch Assessment and Plan Plan: Assessment 1 acute hypoxic respiratory failure post general anesthesia, post bladder surgery. Exact cause is not clear. Could be that the patient was extubated prematurely prior to compared to being recovered from his anesthetic agents. Other causes need to be considered including severe metabolic acidosis which we have attributed to his respiratory failure. No history of any myasthenia gravis of any neuromuscular weakness or neuromuscular disorders. Neurologically , the patient was stated to be awake prior to surgery and the patient was apparently was moving all 4 extremities without any limitation. 2 massive hematuria secondary to bladder tumor, status post transurethral resection of a bladder tumor 3 resection of a bladder tumor from the trigone, the patient underwent transurethral resection of the bladder tumor and the patient is postop day #1 4 bladder perforation, involving the anterior bladder wall, status post expiratory laparotomy and repair of a laceration. Patient is postop day #1 5 severe and non-anion gap metabolic acidosis him a currently on a bicarb drip 6 acute kidney injury, improving and creatinine is down trending for now 7 anemia, secondary to blood loss from massive hematuria, status post packed RBC transfusion the patient's hemoglobin is stable 8 coronary artery disease with decreased MO and stenting of RCA 9 smoker with possible COPD 10 hyponatremia, probably dilutional, secondary to extensive letter irrigation and fluid leaking into the abdominal cavity. The patient is currently on a bicarb drip. Sodium level is at 122. Nephrology has been consult on the case. 11 hypocalcemia 12 hypotension currently on pressors after being resuscitated adequately with IV fluids. Rule out underlying septic event and the patient is covered with empiric antibiotics with IV Zosyn. Echocardiogram in a.m. Plan Keep sedation. Continue vent support. Continue bicarb drip is continued IV Zosyn. Monitor hemoglobin. Monitor renal function. Nephrology consultation. Ultrasound the kidneys. Initiate tube feeds. Contusion remains critical and the patient will be continued to be monitored here in the ICU. No weaning trials for today especially with his underlying hyponatremia and ongoing metabolic acidosis and hemodynamic instability. Echo in a.m. Wean off pressors if possible. Continue IV fluids. We'll continue to follow. Cardiac evaluation more than 30 minutes. Time with Patient: Greater than 30
--- NOTE | 2017-12-26 11:04 | P.NPCON ---
History of Present Illness - Reason for Consult hyponatremia - History of Present Illness Reason for consultation: Acute kidney injury and hyponatremia History of present illness: Patient is a 67-year-old male seen in renal consultation for hyponatremia and acute kidney injury. Patient has chronic kidney disease stage III with baseline creatinine near 1.2 secondary to solitary right kidney. Patient's sodium on admission was 132. Patient had noticed hematuria around his catheter site which prompted him to come to the hospital. Patient was taken to the or by urology on December 25 and underwent a cystoscopy and evacuation of 1 L of clot from the bladder. Additionally he was noted to have anterior bladder wall perforation which was repaired. Patient was given 3 L of IV fluids intraoperatively and received an additional 3 L post surgery. His sodium level before surgery was 132 and was down to 119 after the surgery. He is currently maintained on isotonic sodium bicarbonate drip and sodium levels of 122 this morning. He is requiring 12 mics of Levophed. He is also received FFP and blood transfusion. He is nonoliguric. He is currently intubated and sedated. Vital signs: Stable. Currently on vasopressors. General: The patient appeared well nourished and normally developed. Intubated. HEENT: Head exam is unremarkable. Neck is without jugular venous distension. LUNGS: Lungs are clear to auscultation and percussion. Breath sounds decreased. HEART: Rate and Rhythm are regular. First and second heart sounds normal. No murmurs, rubs or gallops. ABDOMEN: Abdominal exam reveals normal bowel sounds. Non-tender and non- distended. No evidence of peritonitis. EXTREMITITES: No clubbing, cyanosis, or edema. 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 Patient has a single kidney a day patient has an elevated a kidney many years back Last Myocardial Infarction Date:: 06/2015 History of Any Multi-Drug Resistant Organisms: None Reported Past Surgical History: Heart Catheterization With Stent, Orthopedic Surgery Additional Past Surgical History / Comment(s): LT kidney donation 1999, finger surgery ON LT HAND, RHINOPLASY Past Anesthesia/Blood Transfusion Reactions: No Reported Reaction Date of Last Stent Placement:: 2015 Past Psychological History: No Psychological Hx Reported Smoking Status: Current every day smoker Past Alcohol Use History: None Reported Additional Past Alcohol Use History / Comment(s): STARTED SMOKING AT AGE 9, WORKED UP TO 1.5 PPD.(ROLLS HIS OWN) Past Drug Use History: None Reported Additional Drug Use History / Comment(s): DAILY USE - Past Family History Father Additional Family Medical History / Comment(s): FROM A BRAIN TUMOR and tb Mother Additional Family Medical History / Comment(s): FROM INJURIES SUSTAINED FROM MVA. Medications and Allergies Home Medications Medication Instructions Recorded Confirmed Type Sulfamethox-Tmp 800-160Mg [Bactrim 1 each PO Q12HR #14 tab 12/23/17 12/25/17 Rx DS 800-160 mg] Allergies Allergy/AdvReac Type Severity Reaction Status Date / Time No Known Allergies Allergy Verified 12/25/17 11:25 Physical Exam Vitals: Vital Signs Temp Pulse Pulse Resp BP BP Pulse Ox 12/26/17 10:00 84 22 78/51 100 12/26/17 09:30 104 H 22 91/55 100 12/26/17 09:15 81 12/26/17 09:04 79 12/26/17 09:00 97.9 F 99 22 86/55 99 12/26/17 08:30 77 22 98/61 100 12/26/17 08:00 77 22 92/58 100 12/26/17 07:30 73 22 94/55 100 12/26/17 07:00 77 22 109/63 100 12/26/17 06:30 79 24 99/60 100 12/26/17 06:00 79 22 98/58 100 12/26/17 05:30 74 22 100 12/26/17 05:00 73 22 100 12/26/17 04:30 75 22 100 12/26/17 04:00 97.9 F 77 22 85/52 100 12/26/17 03:30 72 22 100 12/26/17 03:00 73 22 82/55 100 12/26/17 02:30 79 22 100 12/26/17 02:00 77 22 92/53 100 12/26/17 01:30 70 22 107/64 100 07/15/18 01:00 72 22 107/64 100 07/15/18 00:30 71 22 101/58 100 07/15/18 00:00 98.4 F 76 22 101/58 100 07/14/18 23:30 78 22 101/63 100 07/14/18 23:00 76 22 101/63 100 07/14/18 22:30 80 22 97/60 100 07/14/18 22:00 87 22 97/60 99 07/14/18 21:30 98 22 102/63 98 07/14/18 21:00 99.1 F 91 22 102/63 99 07/14/18 20:30 84 22 100 07/14/18 20:20 82 22 100 07/14/18 20:10 81 22 100 07/14/18 20:00 79 22 114/76 100 07/14/18 19:58 80 07/14/18 19:50 81 22 100 /14/18 19:46 81 /14/18 19:40 77 22 100 07/14/18 19:30 76 22 100 07/14/18 19:20 78 22 100 07/14/18 19:10 75 22 100 07/14/18 19:00 71 22 113/75 100 07/14/18 18:50 71 22 100 07/14/18 18:40 70 22 100 07/14/18 18:30 93.4 F L 67 22 100 07/14/18 18:20 68 22 100 07/14/18 18:10 69 22 135/80 100 07/14/18 17:45 62 10 L 110/67 100 14/18 17:30 63 14 108/59 10 L 14/18 17:00 61 14 114/62 10 L 07/14/18 16:45 61 119/68 07/14/18 16:30 64 14 119/64 100 07/14/18 16:15 62 14 139/70 100 07/14/18 16:00 63 14 149/68 100 14/18 15:45 65 14 155/75 100 07/14/18 15:30 79 14 160/79 100 07/14/18 15:15 79 14 180/69 95 07/14/18 15:00 80 14 172/89 93 L 07/14/18 14:45 63 14 168/90 93 L 07/14/18 14:30 69 14 179/111 12/25/17 14:28 69 179/111 12/25/17 14:20 71 10 L 166/102 100 12/25/17 14:15 92 10 L 194/106 100 12/25/17 14:10 99 10 L 199/101 100 12/25/17 14:05 96 10 L 206/105 100 12/25/17 14:00 96.8 F L 93 10 L 182/86 100 Intake and Output 12/25/17 12/26/17 12/26/17 22:59 06:59 14:59 Intake Total 1976.0 2922.639 681.344 Output Total 758 1455 570 Balance 1218.0 1467.639 111.344 Intake: IV 1976.0 2860.5 536.5 0.9 NaCl for Fluid Bolus 1000 2000 Calcium Chloride 100 Calcium Chloride 500 mg 50 100 In Sodium Chloride 0.9% 50 ml @ 200 mls/hr IVPB ONCE ONE Rx#:[id number] Dextrose 5% in Water 1, 475 700 400 000 ml @ 100 mls/hr IV . [id number] THI with Sodium Bicarb (1 Meq/ml) 150 ml Rx#:[id number] Magnesium Sulfate-D5w Pmx 400 1 gm In Dextrose/Water 1 100ml.bag @ 100 mls/hr IVPB Q1H [facility] Rx#: [id number] Piperacillin-Tazobactam 3 25.0 12.5 12.5 .375 gm In Dextrose/Water 1 50ml.bag @ 12.5 mls/hr IVPB Q12HR [facility] Rx#: [id number] Pressure bag of 0.9 NaCl- 21 48 24 Intake, IV Titration 62.139 144.844 Amount Norepinephrin 16 mg-0.9% 1.719 44.844 Ns Pmx 16 mg In 250 ml @ Titrate IV .Q0M [facility] Rx#: [id number] Propofol 1,000 mg In 60.42 100 Empty Bag 1 bag @ Per Protocol IV .Q0M [facility] Rx#: [id number] Blood Product 0 Rc As-1 Unit 0 [id number] Output: Drainage 110 85 60 Abdomen 110 85 60 Urine 648 1240 510 Oral Regurgitation 130 Other: Voiding Method Indwelling Catheter Indwelling Catheter Indwelling Catheter Weight 53.2 kg 54.4 kg ABP, PAP, CO, CI - Last 8 Hours Arterial Blood Pressure 91/79 Arterial Blood Pressure 87/74 Arterial Blood Pressure 119/78 Arterial Blood Pressure 139/56 Arterial Blood Pressure 82/76 Arterial Blood Pressure 92/53 Arterial Blood Pressure 116/54 Arterial Blood Pressure 110/50 Arterial Blood Pressure 110/51 Results - Lab Results Most recent lab results ABG pH 7.41 (7.35-7.45) 12/26/17 04:46 ABG pCO2 29 mmHg (35-45) L 12/26/17 04:46 ABG pO2 105 mmHg (83-108) 12/26/17 04:46 ABG HCO3 18 mmol/L (21-25) L 12/26/17 04:46 ABG O2 Saturation 98.7 % (94-97) H 12/26/17 04:46 Calcium 6.3 mg/dL (8.4-10.2) L* 12/26/17 04:48 Phosphorus 3.3 mg/dL (2.5-4.5) 12/26/17 04:48 Magnesium 2.6 mg/dL (1.6-2.3) H 12/26/17 04:48 12/26/17 04:48 12/26/17 04:48 Assessment and Plan Plan: Assessment: 1. Acute hyponatremia. Serum osmolality is low. There was concern that the patient had absorbed the irrigation solution used during the surgery yesterday into his extracellular space leading to transurethral resection syndrome. However the serum osmolality would be expected to be near normal as the solution used for irrigation is typically isosmotic but nonsodium containing. He is currently maintained on sodium bicarbonate drip. Sodium level is up to 122 this morning. 2. Bladder cancer status post cystoscopy, evacuation of clot, transurethral resection of bladder tumor and closure of bladder perforation on 12/25/2017. 3. Acute blood loss anemia status post blood transfusion. 4. Nonoliguric acute kidney injury secondary to ATN secondary to hemodynamic instability and anemia. Creatinine 1.8 today. 5. Chronic kidney disease stage III with baseline creatinine near 1.2 secondary to solitary right kidney. 6. Metabolic acidosis secondary to acute kidney injury and IV fluids maintained on bicarb drip. 7. Hypocalcemia secondary to acute kidney injury and chelation from blood transfusion. However his albumin is also low and his corrected sodium this morning is 7.9. Plan: Continue bicarb drip at 100 mL an hour. Wean vasopressors. Check urine sodium and urine osmolality. Repeat electrolytes this afternoon. Continue to monitor renal function and urine output. Avoid nephrotoxic agents and hypotensive episodes. Check iron studies. There is no need to slowly correct the sodium as this is acute hyponatremia. Thank you for the consultation. I will continue to follow the patient with you during his hospital stay.
--- NOTE | 2017-12-26 11:22 | P.PN ---
Subjective Progress Note Date: 12/26/17 Principal diagnosis: POD #1, s/p TUR-BT and Closure of Bladder Laceration Mr. Merchant remains on the ventilator, and is currently sedated. He continues to receive Levothroid for his hypotension. His Tierney catheter required irrigation overnight, but is now draining clear yellow urine. Objective - Vital Signs Vital signs: Vital Signs Temp 97.9 F 12/26/17 09:00 Pulse 84 12/26/17 10:00 Resp 22 12/26/17 10:00 BP 78/51 12/26/17 10:00 Pulse Ox 100 12/26/17 10:00 Intake & Output 12/25/17 12/26/17 12/26/17 18:59 06:59 18:59 Intake Total 3100 4818.639 683.594 Output Total 685 1603 570 Balance 2415 3215.639 113.594 Weight 44.5 kg 54.4 kg Intake: IV 2480 4756.5 536.5 0.9 NaCl for Fluid Bolus 3000 Calcium Chloride 100 Calcium Chloride 500 mg 150 In Sodium Chloride 0.9% 50 ml @ 200 mls/hr IVPB ONCE ONE Rx#:[id number] Dextrose 5% in Water 1, 75 1100 400 000 ml @ 100 mls/hr IV . [id number] THI with Sodium Bicarb (1 Meq/ml) 150 ml Rx#:[id number] Magnesium Sulfate-D5w Pmx 400 1 gm In Dextrose/Water 1 100ml.bag @ 100 mls/hr IVPB Q1H [facility] Rx#: [id number] Piperacillin-Tazobactam 3 37.5 12.5 .375 gm In Dextrose/Water 1 50ml.bag @ 12.5 mls/hr IVPB Q12HR [facility] Rx#: [id number] Pressure bag of 0.9 NaCl- 69 24 Intake, IV Titration 62.139 147.094 Amount Norepinephrin 16 mg-0.9% 1.719 47.094 Ns Pmx 16 mg In 250 ml @ Titrate IV .Q0M [facility] Rx#: [id number] Propofol 1,000 mg In 60.42 100 Empty Bag 1 bag @ Per Protocol IV .Q0M [facility] Rx#: [id number] Blood Product 620 Rc As-1 Unit 310 [id number] Rc As-1 Unit 0 [id number] Output: Drainage 110 85 60 Abdomen 110 85 60 Urine 500 1388 510 Oral Regurgitation 130 Estimated Blood Loss 75 Other: Voiding Method Indwelling Catheter Indwelling Catheter Indwelling Catheter ABP, PAP, CO, CI - Last Documented Arterial Blood Pressure 91/79 - Constitutional General appearance: Present: cooperative, no acute distress - Gastrointestinal Gastrointestinal Comment(s): Incision intact, with minimal serous drainage. General gastrointestinal: Present: soft - Labs CBC & Chem 7: 12/26/17 04:48 12/26/17 04:48 Labs: Abnormal Lab Results - Last 24 Hours (Table) 12/25/17 12/25/17 12/25/17 Range/Units 01:39 14:45 14:45 WBC 24.9 H (3.8-10.6) k/uL RBC 3.00 L (4.30-5.90) m/uL Hgb 9.4 L D (13.0-17.5) gm/dL Hct 27.4 L (39.0-53.0) % Neutrophils # (1.3-7.7) k/uL Neutrophils # (Manual) 20.40 H (1.3-7.7) k/uL Monocytes # (Manual) 1.99 H (0-1.0) k/uL Metamyelocytes # (Man) (0) k/uL Myelocytes # (Manual) (0) k/uL ABG pH (7.35-7.45) ABG pCO2 (35-45) mmHg ABG pO2 (83-108) mmHg ABG HCO3 (21-25) mmol/L ABG Total CO2 (19-24) mmol/L ABG O2 Saturation (94-97) % Sodium 123 L (137-145) mmol/L Potassium 5.3 H (3.5-5.1) mmol/L Carbon Dioxide 14 L (22-30) mmol/L BUN 31 H (9-20) mg/dL Creatinine 1.90 H (0.66-1.25) mg/dL Glucose 171 H (74-99) mg/dL POC Glucose (mg/dL) (75-99) mg/dL Osmolality (280-301) mosm/kg Calcium 6.2 L* (8.4-10.2) mg/dL Ionized Calcium Salazar (4.5-5.3) mg/dL Magnesium (1.6-2.3) mg/dL Total Bilirubin (0.2-1.3) mg/dL AST (17-59) U/L Alkaline Phosphatase (38-126) U/L Total Protein (6.3-8.2) g/dL Albumin (3.5-5.0) g/dL Crossmatch See Detail 12/25/17 12/25/17 12/25/17 Range/Units 15:53 16:50 17:57 WBC 12.8 H (3.8-10.6) k/uL RBC 2.75 L (4.30-5.90) m/uL Hgb 8.9 L (13.0-17.5) gm/dL Hct 25.4 L (39.0-53.0) % Neutrophils # 11.0 H (1.3-7.7) k/uL Neutrophils # (Manual) (1.3-7.7) k/uL Monocytes # (Manual) (0-1.0) k/uL Metamyelocytes # (Man) (0) k/uL Myelocytes # (Manual) (0) k/uL ABG pH 7.19 L* (7.35-7.45) ABG pCO2 (35-45) mmHg ABG pO2 339 H (83-108) mmHg ABG HCO3 15 L (21-25) mmol/L ABG Total CO2 16 L (19-24) mmol/L ABG O2 Saturation 100.0 H (94-97) % Sodium (137-145) mmol/L Potassium (3.5-5.1) mmol/L Carbon Dioxide (22-30) mmol/L BUN (9-20) mg/dL Creatinine (0.66-1.25) mg/dL Glucose (74-99) mg/dL POC Glucose (mg/dL) 144 H (75-99) mg/dL Osmolality (280-301) mosm/kg Calcium (8.4-10.2) mg/dL Ionized Calcium Salazar (4.5-5.3) mg/dL Magnesium (1.6-2.3) mg/dL Total Bilirubin (0.2-1.3) mg/dL AST (17-59) U/L Alkaline Phosphatase (38-126) U/L Total Protein (6.3-8.2) g/dL Albumin (3.5-5.0) g/dL Crossmatch 12/25/17 12/25/17 12/25/17 Range/Units 18:05 18:05 18:33 WBC 15.8 H (3.8-10.6) k/uL RBC 3.12 L (4.30-5.90) m/uL Hgb 10.1 L (13.0-17.5) gm/dL Hct 27.9 L (39.0-53.0) % Neutrophils # (1.3-7.7) k/uL Neutrophils # (Manual) (1.3-7.7) k/uL Monocytes # (Manual) (0-1.0) k/uL Metamyelocytes # (Man) (0) k/uL Myelocytes # (Manual) (0) k/uL ABG pH 7.32 L (7.35-7.45) ABG pCO2 29 L (35-45) mmHg ABG pO2 228 H (83-108) mmHg ABG HCO3 15 L (21-25) mmol/L ABG Total CO2 16 L (19-24) mmol/L ABG O2 Saturation 100.0 H (94-97) % Sodium 120 L* (137-145) mmol/L Potassium (3.5-5.1) mmol/L Carbon Dioxide 16 L (22-30) mmol/L BUN 30 H (9-20) mg/dL Creatinine 1.73 H (0.66-1.25) mg/dL Glucose 109 H (74-99) mg/dL POC Glucose (mg/dL) (75-99) mg/dL Osmolality (280-301) mosm/kg Calcium 5.8 L* (8.4-10.2) mg/dL Ionized Calcium Salazar (4.5-5.3) mg/dL Magnesium 1.2 L (1.6-2.3) mg/dL Total Bilirubin 1.4 H (0.2-1.3) mg/dL AST 104 H (17-59) U/L Alkaline Phosphatase <20 L (38-126) U/L Total Protein 4.2 L (6.3-8.2) g/dL Albumin 2.2 L (3.5-5.0) g/dL Crossmatch 12/25/17 12/25/17 12/26/17 Range/Units 21:40 21:40 01:30 WBC (3.8-10.6) k/uL RBC 2.84 L (4.30-5.90) m/uL Hgb 9.1 L (13.0-17.5) gm/dL Hct 24.9 L (39.0-53.0) % Neutrophils # (1.3-7.7) k/uL Neutrophils # (Manual) (1.3-7.7) k/uL Monocytes # (Manual) (0-1.0) k/uL Metamyelocytes # (Man) (0) k/uL Myelocytes # (Manual) (0) k/uL ABG pH (7.35-7.45) ABG pCO2 (35-45) mmHg ABG pO2 (83-108) mmHg ABG HCO3 (21-25) mmol/L ABG Total CO2 (19-24) mmol/L ABG O2 Saturation (94-97) % Sodium 119 L* (137-145) mmol/L Potassium (3.5-5.1) mmol/L Carbon Dioxide 16 L (22-30) mmol/L BUN 29 H (9-20) mg/dL Creatinine 1.70 H (0.66-1.25) mg/dL Glucose 188 H (74-99) mg/dL POC Glucose (mg/dL) (75-99) mg/dL Osmolality 259 L (280-301) mosm/kg Calcium 5.6 L* (8.4-10.2) mg/dL Ionized Calcium Salazar (4.5-5.3) mg/dL Magnesium (1.6-2.3) mg/dL Total Bilirubin (0.2-1.3) mg/dL AST (17-59) U/L Alkaline Phosphatase (38-126) U/L Total Protein (6.3-8.2) g/dL Albumin (3.5-5.0) g/dL Crossmatch 12/26/17 12/26/17 12/26/17 Range/Units 01:30 04:46 04:48 WBC (3.8-10.6) k/uL RBC (4.30-5.90) m/uL Hgb (13.0-17.5) gm/dL Hct (39.0-53.0) % Neutrophils # (1.3-7.7) k/uL Neutrophils # (Manual) (1.3-7.7) k/uL Monocytes # (Manual) (0-1.0) k/uL Metamyelocytes # (Man) (0) k/uL Myelocytes # (Manual) (0) k/uL ABG pH (7.35-7.45) ABG pCO2 29 L (35-45) mmHg ABG pO2 (83-108) mmHg ABG HCO3 18 L (21-25) mmol/L ABG Total CO2 (19-24) mmol/L ABG O2 Saturation 98.7 H (94-97) % Sodium 121 L 122 L (137-145) mmol/L Potassium (3.5-5.1) mmol/L Carbon Dioxide 17 L 17 L (22-30) mmol/L BUN 29 H 27 H (9-20) mg/dL Creatinine 1.80 H 1.80 H (0.66-1.25) mg/dL Glucose 140 H 121 H (74-99) mg/dL POC Glucose (mg/dL) (75-99) mg/dL Osmolality (280-301) mosm/kg Calcium 6.7 L 6.3 L* (8.4-10.2) mg/dL Ionized Calcium Salazar 4.1 L (4.5-5.3) mg/dL Magnesium 2.6 H (1.6-2.3) mg/dL Total Bilirubin (0.2-1.3) mg/dL AST 102 H (17-59) U/L Alkaline Phosphatase 22 L (38-126) U/L Total Protein 3.4 L (6.3-8.2) g/dL Albumin 1.7 L (3.5-5.0) g/dL Crossmatch 12/26/17 Range/Units 04:48 WBC (3.8-10.6) k/uL RBC 2.93 L (4.30-5.90) m/uL Hgb 9.0 L (13.0-17.5) gm/dL Hct 26.2 L (39.0-53.0) % Neutrophils # (1.3-7.7) k/uL Neutrophils # (Manual) 8.00 H (1.3-7.7) k/uL Monocytes # (Manual) (0-1.0) k/uL Metamyelocytes # (Man) 0.10 H (0) k/uL Myelocytes # (Manual) 0.10 H (0) k/uL ABG pH (7.35-7.45) ABG pCO2 (35-45) mmHg ABG pO2 (83-108) mmHg ABG HCO3 (21-25) mmol/L ABG Total CO2 (19-24) mmol/L ABG O2 Saturation (94-97) % Sodium (137-145) mmol/L Potassium (3.5-5.1) mmol/L Carbon Dioxide (22-30) mmol/L BUN (9-20) mg/dL Creatinine (0.66-1.25) mg/dL Glucose (74-99) mg/dL POC Glucose (mg/dL) (75-99) mg/dL Osmolality (280-301) mosm/kg Calcium (8.4-10.2) mg/dL Ionized Calcium Salazar (4.5-5.3) mg/dL Magnesium (1.6-2.3) mg/dL Total Bilirubin (0.2-1.3) mg/dL AST (17-59) U/L Alkaline Phosphatase (38-126) U/L Total Protein (6.3-8.2) g/dL Albumin (3.5-5.0) g/dL Crossmatch Assessment and Plan (1) Gross hematuria Current Visit: Yes Status: Acute Code(s): R31.0 - GROSS HEMATURIA SNOMED Code(s): 892410294 Plan: Mr. Merchant is urologically stable. His hyponatremia is due to the fact that sterile water was used as a bladder irrigant during his procedure, and some of this fluid undoubtedly remained intraperitoneal following his laparotomy. The cause of his hypotension is somewhat unclear. Urine and blood cultures obtained December 23 are negative. However, the Tierney catheter was placed on December 23, and he presented back to the ER the following evening due to catheter occlusion. He may have had bacterial colonization of the bladder prior to his bladder tumor resection, that one would not expect that to result in sepsis this early. The Tierney catheter is currently draining clear yellow urine, and the catheter may be irrigated to maintain patency.
[2017-12-26 14:55] LABS: Calcium 7.1 mg/dL (8.4-10.2); Potassium 4.1 mmol/L (3.5-5.1)
[2017-12-26] MEDS: SODIUM CHLORIDE 0.9% 1,000 ML IV SCH (18:12)
--- NOTE | 2017-12-26 18:29 | CT ---
EXAMINATION TYPE: CT brain wo con DATE OF EXAM: 12/26/2017 COMPARISON: HISTORY: Seizure activity CT DLP: 1031.6 mGycm Automated exposure control for dose reduction was used. Helical imaging through the brain FINDINGS: Cortical atrophy is likely age-related. Periventricular white matter low-attenuation likely represent s demyelination. Cerebral vascular calcifications are present. The orbits show symmetric appearance. Calvarium is intact. Left frontal sinus, ethmoid air cells, sphenoid sinuses show inflammatory change as does the left maxillary sinus. IMPRESSION: AGE-RELATED CHANGES OF ATROPHY AND PROBABLE CHRONIC SMALL VESSEL ISCHEMIA. SINUS DISEASE. CONSIDER MR I INDICATED.
[2017-12-26 21:29] LABS: Potassium 4.1 mmol/L (3.5-5.1)
[2017-12-27 04:25] LABS: Albumin 2.1 g/dL (3.5-5.0); Calcium 7.1 mg/dL (8.4-10.2); Magnesium 2.6 mg/dL (1.6-2.3); Phosphorus 3.4 mg/dL (2.5-4.5); Potassium 4.4 mmol/L (3.5-5.1); Total Bilirubin 0.8 mg/dL (0.2-1.3); Total Protein 3.9 g/dL (6.3-8.2)
[2017-12-27 04:34] LABS: Ionized Calcium 4.3 mg/dL (4.5-5.3)
[2017-12-27 05:57] LABS: ABG Base Excess 0.7 mmol/L; ABG HCO3 24 mmol/L (21-25); ABG Oxygen Saturation 99.1 % (94-97); ABG PCO2 33 mmHg (35-45); ABG PH 7.48 (7.35-7.45); ABG PO2 108 mmHg (83-108); ABG TCO2 25 mmol/L (19-24)
[2017-12-27 06:05] LABS: Basophils % (A) 0 %; Eosinophils # (A) 0.1 k/uL (0-0.7); Eosinophils % (A) 1 %; HCT 25.7 % (39.0-53.0); HGB 8.7 gm/dL (13.0-17.5); Lymphocytes # (A) 1.3 k/uL (1.0-4.8); Lymphocytes % (A) 9 %; MCH 30.6 pg (25.0-35.0); MCHC 33.9 g/dL (31.0-37.0); MCV 90.3 fL (80.0-100.0); Mean Platelet Volume 6.9; Monocytes # (A) 1.2 k/uL (0-1.0); Monocytes % (A) 8 %; Neutrophils # (A) 11.5 k/uL (1.3-7.7); Neutrophils % (A) 80 %; Platelet Count 230 k/uL (150-450); RBC 2.85 m/uL (4.30-5.90); RDW 15.4 % (11.5-15.5); WBC 14.3 k/uL (3.8-10.6)
[2017-12-27] MEDS: NOREPINEPHRIN 16 MG-0.9%NS PMX 16 MG/250 ML ML IV SCH (07:41)
[2017-12-27] MEDS: IPRATROPIUM-ALBUTEROL 3 ML NEB INHALATION SCH ×4 (07:48→19:46)
--- NOTE | 2017-12-27 07:49 | XR ---
EXAMINATION TYPE: XR chest 1V portable DATE OF EXAM: 12/27/2017 COMPARISON: 12/26/2017 HISTORY: Ventilatory dependent respiratory failure TECHNIQUE: Single frontal view of the chest is obtained. FINDINGS: There is improved aeration of the left lung base in comparison the prior exam with persist ent obscuration of the left costophrenic angle and blurring of the hemidiaphragm. Remainder the lungs appear clear. Endotracheal tube and enteric tubes are similar in position, properly placed. Cardia m ediastinal silhouette is within normal limits. Osseous structures appear intact. Note sizable pneumot horax. IMPRESSION: Improved aeration of the left lung base with persistent trace left pleural effusion and retrocardiac airspace disease that may represent pneumonia or atelectasis.
[2017-12-27] MEDS: PIPERACILLIN-TAZOBACTAM 3.375 GM in DEXTROSE/WATER 1 50ML.BAG IVPB SCH ×2 (08:41→20:18)
[2017-12-27] MEDS: PANTOPRAZOLE 40 MG/10 ML VIAL IVP SCH ×2 (08:43→20:15)
[2017-12-27] MEDS: PROPOFOL 1,000 MG in EMPTY BAG 1 BAG IV SCH ×2 (08:43→20:11)
[2017-12-27] MEDS: CHLORHEXIDINE GLUCONATE 15 ML CUP MUCOUS MEM SCH ×2 (08:43→20:17)
--- NOTE | 2017-12-27 09:37 | P.PN ---
Subjective Patient is seen in follow-up for acute kidney injury and hyponatremia. Patient had developed acute hyponatremia after bladder surgery which is improving with IV hydration. Sodium level up to 1:30 this morning. Patient's currently intubated and sedated. Creatinine a little improved at 1.7. Currently on 8 mics of Levophed. Patient has chronic kidney disease stage III secondary to solitary right kidney with baseline creatinine near 1.2. Patient was noted to have seizure-like activity yesterday. CT of the brain was negative. Vital signs are stable. On vasopressors. General: The patient appeared well nourished and normally developed. HEENT: Head exam is unremarkable. Neck is without jugular venous distension. Intubated. LUNGS: Lungs are clear to auscultation and percussion. Breath sounds decreased. HEART: Rate and Rhythm are regular. First and second heart sounds normal. No murmurs, rubs or gallops. ABDOMEN: Abdominal exam reveals normal bowel sounds. Non-tender and non- distended. No evidence of peritonitis. EXTREMITITES: No clubbing, cyanosis, or edema. Objective - Vital Signs Vital signs: Vital Signs Temp 98.7 F 12/27/17 08:00 Pulse 68 12/27/17 08:45 Resp 20 12/27/17 08:45 BP 98/52 12/27/17 08:45 Pulse Ox 100 12/27/17 08:45 Intake & Output 12/26/17 12/27/17 12/27/17 18:59 06:59 18:59 Intake Total 1712.879 957.262 124.25 Output Total 1730 1630 265 Balance -17.121 -672.738 -140.75 Weight 54.2 kg Intake: IV 1384.5 751.5 106 0.9 NACL 50 650 100 Calcium Chloride 100 Dextrose 5% in Water 1, 1100 000 ml @ 100 mls/hr IV . [id number] THI with Sodium Bicarb (1 Meq/ml) 150 ml Rx#:[id number] Piperacillin-Tazobactam 3 62.5 62.5 .375 gm In Dextrose/Water 1 50ml.bag @ 12.5 mls/hr IVPB Q12HR THI Rx#: [id number] Pressure bag of 0.9 NaCl- 72 39 6 Intake, IV Titration 328.379 205.762 18.25 Amount Norepinephrin 16 mg-0.9% 142.519 105.762 18.25 Ns Pmx 16 mg In 250 ml @ Titrate IV .Q0M THI Rx#: [id number] Propofol 1,000 mg In 185.860 100.000 Empty Bag 1 bag @ Per Protocol IV .Q0M THI Rx#: [id number] Output: Drainage 60 Abdomen 60 Urine 1670 1630 265 Other: Voiding Method Indwelling Catheter Indwelling Catheter ABP, PAP, CO, CI - Last Documented Arterial Blood Pressure 91/79 - Labs CBC & Chem 7: 12/27/17 05:43 12/27/17 04:04 Labs: Abnormal Lab Results - Last 24 Hours (Table) 12/26/17 12/26/17 12/27/17 Range/Units 14:36 20:50 04:04 WBC (3.8-10.6) k/uL RBC (4.30-5.90) m/uL Hgb (13.0-17.5) gm/dL Hct (39.0-53.0) % Neutrophils # (1.3-7.7) k/uL Monocytes # (0-1.0) k/uL ABG pH (7.35-7.45) ABG pCO2 (35-45) mmHg ABG Total CO2 (19-24) mmol/L ABG O2 Saturation (94-97) % Sodium 128 L 129 L 130 L (137-145) mmol/L BUN 25 H 23 H (9-20) mg/dL Creatinine 1.79 H 1.70 H (0.66-1.25) mg/dL Glucose 115 H 107 H (74-99) mg/dL Calcium 7.1 L 7.1 L (8.4-10.2) mg/dL Ionized Calcium Salazar 4.3 L (4.5-5.3) mg/dL Magnesium 2.6 H (1.6-2.3) mg/dL AST 117 H (17-59) U/L Total Protein 3.9 L (6.3-8.2) g/dL Albumin 2.1 L (3.5-5.0) g/dL 12/27/17 12/27/17 Range/Units 05:43 05:52 WBC 14.3 H (3.8-10.6) k/uL RBC 2.85 L (4.30-5.90) m/uL Hgb 8.7 L (13.0-17.5) gm/dL Hct 25.7 L (39.0-53.0) % Neutrophils # 11.5 H (1.3-7.7) k/uL Monocytes # 1.2 H (0-1.0) k/uL ABG pH 7.48 H (7.35-7.45) ABG pCO2 33 L (35-45) mmHg ABG Total CO2 25 H (19-24) mmol/L ABG O2 Saturation 99.1 H (94-97) % Sodium (137-145) mmol/L BUN (9-20) mg/dL Creatinine (0.66-1.25) mg/dL Glucose (74-99) mg/dL Calcium (8.4-10.2) mg/dL Ionized Calcium Salazar (4.5-5.3) mg/dL Magnesium (1.6-2.3) mg/dL AST (17-59) U/L Total Protein (6.3-8.2) g/dL Albumin (3.5-5.0) g/dL Assessment and Plan Plan: Assessment: 1. Acute hyponatremia. Serum osmolality is low. There was concern that the patient had absorbed the irrigation solution used during the surgery yesterday into his extracellular space leading to transurethral resection syndrome. However the serum osmolality would be expected to be near normal as the solution used for irrigation is typically isosmotic but nonsodium containing. He is currently maintained on normal saline at 50 mL an hour. Sodium level is up to 130 this morning. Urine osmolality low at 117. 2. Bladder cancer status post cystoscopy, evacuation of clot, transurethral resection of bladder tumor and closure of bladder perforation on 12/25/2017. 3. Acute blood loss anemia status post blood transfusion. 4. Nonoliguric acute kidney injury secondary to ATN secondary to hemodynamic instability and anemia. Creatinine 1.7 today. 5. Chronic kidney disease stage III with baseline creatinine near 1.2 secondary to solitary right kidney. 6. Metabolic acidosis secondary to acute kidney injury and IV fluids. Improved. 7. Hypocalcemia secondary to acute kidney injury and chelation from blood transfusion. However his albumin is also low and his corrected sodium this morning is 8.7. Plan: Continue normal saline at 50 mL an hour. Wean vasopressors. Continue to monitor renal function and urine output. Avoid nephrotoxic agents and hypotensive episodes. Follow-up iron studies. EEG pending.
[2017-12-27] MEDS ORDERED: SODIUM CHLORIDE 0.9% 1,000 ML IV ONE (09:45)
[2017-12-27] MEDS ORDERED: HYDROCORTISONE SUCCINATE 100 MG/2 ML VIAL IV STA (09:51)
--- NOTE | 2017-12-27 10:20 | ECHOF ---
Referral Reason:hypotension MEASUREMENTS -------- HEIGHT: 160.0 cm WEIGHT: 54.0 kg BP: 108/50 RVIDd: 2.2 cm (< 3.3) IVSd: 0.8 cm (0.6 - 1.1) LVIDd: 3.2 cm (3.9 - 5.3) LVPWd: 0.8 cm (0.6 - 1.1) IVSs: 1.0 cm LVIDs: 2.3 cm LVPWs: 1.4 cm Ao Diam: 3.8 cm (2.0 - 3.7) AV Cusp: 2.1 cm (1.5 - 2.6) LA Diam: 2.2 cm (2.7 - 3.8) MV EXCURSION: 18.221 mm (> 18.000) MV EF SLOPE: 115 mm/s (70 - 150) EPSS: 1.0 cm MV E Donte: 0.93 m/s MV DecT: 222 ms MV A Donte: 0.69 m/s MV E/A Ratio: 1.35 RAP: 5.00 mmHg RVSP: 34.50 mmHg FINDINGS -------- Sinus rhythm. This was a technically adequate study. Pt. on a vent. The left ventricular size is normal. Left ventricular wall thickness is normal. Overall left vent ricular systolic function is normal with, an EF between 55 - 60 %. The right ventricle is normal in size and function. The left atrium is normal in size. The right atrium is normal in size. The aortic valve is trileaflet, and appears structurally normal. No aortic stenosis or regurgitation. There is trace mitral regurgitation. Trace tricuspid regurgitation present. The right ventricular systolic pressure, as measured by Dopp ler, is 34.50mmHg. Pulmonic valve appears structurally normal. 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 CONCLUSIONS -------- 1. Sinus rhythm. 2. This was a technically adequate study. 3. Pt. on a vent. 4. The left ventricular size is normal. 5. Left ventricular wall thickness is normal. 6. Overall left ventricular systolic function is normal with, an EF between 55 - 60 %. 7. The right ventricle is normal in size and function. 8. The left atrium is normal in size. 9. The right atrium is normal in size. 10. The aortic valve is trileaflet, and appears structurally normal. No aortic stenosis or regurgitat ion. 11. There is trace mitral regurgitation. 12. Trace tricuspid regurgitation present. 13. The right ventricular systolic pressure, as measured by Doppler, is 34.50mmHg. 14. Pulmonic valve appears structurally normal. 15. The aortic root is dilated measuring 3.8 cm 16. The pericardium is normal. HAMMERSMITH HELPER: Shi Otero RDCS
[2017-12-27 10:42] LABS: Iron Saturation 74.02 (15.00-50.00)
--- NOTE | 2017-12-27 11:04 | P.PN ---
Subjective Progress Note Date: 12/27/17 Principal diagnosis: Acute hypoxic respiratory failure post-bladder surgery. 87-year-old male patient who is being seen in the recovery room as the patient failed postoperative extubation. The patient was taken to the operating room for gross hematuria. The patient was having significant amount of hematuria associated with drop in hemoglobin from 13.2 down to 9.0 since this current admission and earlier this morning his hemoglobin was down to 7.6. The patient has intermittent hematuria since 2013. 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 He is a chronic smoker. The patient underwent a cystoscopy and the patient was found to have a bladder tumor that was resected using a transurethral approach. Following that the patient was found to have a bladder perforation. This was not related to the tumor resection and apparently the tumor was a 4 cm papillary tumor overlying the right trigone of securing the right ureteral orifice and the perforation was in the anterior bladder wall. In any rate, the patient underwent expiratory laparotomy, evacuation of intra-abdominal fluid collection and closure of a bladder perforation. Estimated blood loss was 75 mL. Total amount of fluid was 1.3 L given during the surgery. The patient also received a total of 2 units of packed RBCs. I saw this patient in the recovery room. Apparently he was extubated in recovery however he had weak breathing effort and he subsequently went into respiratory failure. He was reintubated within 10 minutes. Post intubation blood gas showed a pH of 7.19 with a pCO2 of 39 and pO2 of 339. The patient accordingly was placed on assist controlled rate of 22 tidal volume was brought up from 350 up to 500 and FiO2 is up to 60%. Pulse ox remains above 90% on the monitor. The patient is on no pressors at this point in time. A triple-lumen catheter was inserted. An outlying catheter was inserted. The patient has a component of non-anion gap metabolic acidosis with a bicarb level of 14 and a anion gap level of 9 and the patient was started on bicarb drip with D5 3 amps of bicarb at the rate of 1 100 mL an hour. Note that the patient was in acute kidney injury in the creatinine was up to 0.6 and dropped down to 1.9 and his calcium level was at 8 point further down to 6.2 total non-ionize. Post intubation chest x-ray showed questionable air under the left hemidiaphragm. ET tube is in a good location. 2 triple-lumen cath is also in good location. Coagulation profile is within normal limits. The patient is known to have coronary artery disease. On 12/27/2007 and I'm seeing this patient for a follow-up. The patient remains intubated on a mechanical ventilator. Currently is an assist-control mode at the rate of 22 with a tidal volume of 500 and FiO2 has been weaned down to order percent with a PEEP of 5. Morning blood gases showed a pH of 7.41 with a pCO2 of 29 and pO2 of 105. The patient's chest x-ray shows adequate positioning of the 82. The patient has a small left-sided pleural effusion. He is sedated with propofol and is calm and comfortable. Abdominal wound is dry clean and intact. There is some bruising around the JERMAINE drain site. The drain has without approximately 200 mL of serosanguineous and bloody drainage over the past 8 hours. The patient is producing adequate amount of urine output. And the urine output for now is approximately 2.2 L since he arrived to the intensive care units. The patient overnight was resuscitated with IV fluids. He received several boluses and he remained borderline lower blood pressure with a systolic in the mid 90s. Subsequently this morning he dropped down to a systolic of 78. He was started on and after infusion and currently the patient's BP is under better control with a map of around 65-70. The patient has also component of non-anion gap metabolic acidosis and hyponatremia. The hyponatremia probably due to excessive fluid irrigation of the bladder which probably get absorbed into his system and intravascular system and his sodium is at 122. The patient is currently on a bicarb drip with D5 with 3 ampules of bicarb running at 100 mL an hour. The patient also is on empiric antibiotic coverage with IV Zosyn. The patient was noted to have a low calcium and he will be given a gram of calcium chloride. Not ready for any weaning at this point in time. Function continues to improve and the creatinine is down to 1.8 from a baseline of 2.6 at time of admission. The hematuria is also improving. Reevaluated today on 12/27/2017, patient remains on mechanical ventilation, and his ventilator settings are assist control rate of 22, tidal volume of 500, FiO2 of 40%, and PEEP is 5. Patient is hemodynamically unstable, requiring levo fed at 40 mcg/m. Patient will be given more fluid boluses, apparently he received so far at least 6 L of fluids his urine output is over 200 mL per hour. Remains on antibiotics empirically, today I recommended a dose of Solu- Cortef, and I plan to change his arterial line since it doesn't seem to be functional. Family is at bedside including his 2 nieces, and his condition was discussed with both of them. ABG showed a pO2 of 108 pCO2 of 33 pH of 7.48. Patient is arousable, and he was following simple instructions quite well. Noted to have some coffee ground material in the nasogastric tube, hence his Protonix dose was doubled. Labs were reviewed, sodium is a bit low at 130. BUN is 23 creatinine is 1.70. WBC count is 14.3 hemoglobin is 8.7. Gastric aspirate is Hemoccult positive. Chest x-ray showed minimal left pleural effusion and minimal atelectasis at the left base. No evidence of pneumonia. His echocardiogram is relatively normal. Surgical pathology is still pending from his bladder tumor. Brain CT is unremarkable, EEG is being done for questionable witnessed seizure, results of which are pending. Blood cultures were sent, and urine cultures were sent today. Patient is presently off propofol, arousable, followed simple instructions, but blood pressure remains low. Hence we will continue norepinephrine and continue fluid boluses. Objective - Vital Signs Vital signs: Vital Signs Temp 98.7 F 12/27/17 08:00 Pulse 87 12/27/17 10:30 Resp 21 12/27/17 10:30 BP 115/48 12/27/17 10:30 Pulse Ox 97 12/27/17 10:30 Intake & Output 12/26/17 12/27/17 12/27/17 18:59 06:59 18:59 Intake Total 1712.879 957.262 134.32 Output Total 1730 1630 265 Balance -17.121 -672.738 -130.68 Weight 54.2 kg 54.2 kg Intake: IV 1384.5 751.5 106 0.9 NACL 50 650 100 Calcium Chloride 100 Dextrose 5% in Water 1, 1100 000 ml @ 100 mls/hr IV . [id number] THI with Sodium Bicarb (1 Meq/ml) 150 ml Rx#:[id number] Piperacillin-Tazobactam 3 62.5 62.5 .375 gm In Dextrose/Water 1 50ml.bag @ 12.5 mls/hr IVPB Q12HR THI Rx#: [id number] Pressure bag of 0.9 NaCl- 72 39 6 Intake, IV Titration 328.379 205.762 28.32 Amount Norepinephrin 16 mg-0.9% 142.519 105.762 18.25 Ns Pmx 16 mg In 250 ml @ Titrate IV .Q0M THI Rx#: [id number] Propofol 1,000 mg In 185.860 100.000 10.07 Empty Bag 1 bag @ Per Protocol IV .Q0M THI Rx#: [id number] Output: Drainage 60 Abdomen 60 Urine 1670 1630 265 Other: Voiding Method Indwelling Catheter Indwelling Catheter Indwelling Catheter ABP, PAP, CO, CI - Last Documented Arterial Blood Pressure 91/79 - Exam Physical Exam: Revealed a 67-year-old white male, in no distress, remains on mechanical ventilation. Looks a bit older than his stated age. Head: Atraumatic, normocephalic. Endotracheal tube and orogastric tube are both intact. HEENT:[Neck is supple.] [No neck masses.] [No thyromegaly.] [No JVD.] Moist mucous membranes, no icterus, PERRLA, EOMI. Tubes were noted to be intact. Chest: [Clear throughout, no crackles, no rhonchi, no wheezes.] Cardiac Exam: [Normal S1 and S2, no S3 gallop, no murmur.] Abdomen: [Soft, nontender, no megaly, no rebound, no guarding,] Mid abdominal incision is dry clean and intact, JERMAINE drain is noted in place. No rebound no guarding. Hypoactive bowel sounds. Extremities: [No clubbing, no edema, no cyanosis.] Neurological Exam: [No focal neurologic deficit. Patient is arousable, sleepy, followed simple instructions like wiggling his toes. Psychiatric: Patient is arousable, but sleepy. Cannot be fully assessed. Lymphatics: No lymphadenopathy. Musculoskeletal: Grossly intact.] - Labs CBC & Chem 7: 12/27/17 05:43 12/27/17 04:04 Labs: Abnormal Lab Results - Last 24 Hours (Table) 12/26/17 12/26/17 12/27/17 Range/Units 14:36 20:50 04:04 WBC (3.8-10.6) k/uL RBC (4.30-5.90) m/uL Hgb (13.0-17.5) gm/dL Hct (39.0-53.0) % Neutrophils # (1.3-7.7) k/uL Monocytes # (0-1.0) k/uL ABG pH (7.35-7.45) ABG pCO2 (35-45) mmHg ABG Total CO2 (19-24) mmol/L ABG O2 Saturation (94-97) % Sodium 128 L 129 L 130 L (137-145) mmol/L BUN 25 H 23 H (9-20) mg/dL Creatinine 1.79 H 1.70 H (0.66-1.25) mg/dL Glucose 115 H 107 H (74-99) mg/dL Calcium 7.1 L 7.1 L (8.4-10.2) mg/dL Ionized Calcium Salazar 4.3 L (4.5-5.3) mg/dL Magnesium 2.6 H (1.6-2.3) mg/dL AST 117 H (17-59) U/L Total Protein 3.9 L (6.3-8.2) g/dL Albumin 2.1 L (3.5-5.0) g/dL 12/27/17 12/27/17 Range/Units 05:43 05:52 WBC 14.3 H (3.8-10.6) k/uL RBC 2.85 L (4.30-5.90) m/uL Hgb 8.7 L (13.0-17.5) gm/dL Hct 25.7 L (39.0-53.0) % Neutrophils # 11.5 H (1.3-7.7) k/uL Monocytes # 1.2 H (0-1.0) k/uL ABG pH 7.48 H (7.35-7.45) ABG pCO2 33 L (35-45) mmHg ABG Total CO2 25 H (19-24) mmol/L ABG O2 Saturation 99.1 H (94-97) % Sodium (137-145) mmol/L BUN (9-20) mg/dL Creatinine (0.66-1.25) mg/dL Glucose (74-99) mg/dL Calcium (8.4-10.2) mg/dL Ionized Calcium Salazar (4.5-5.3) mg/dL Magnesium (1.6-2.3) mg/dL AST (17-59) U/L Total Protein (6.3-8.2) g/dL Albumin (3.5-5.0) g/dL Assessment and Plan Assessment: 1 acute hypoxic respiratory failure post general anesthesia, post bladder surgery. Exact cause is not clear. Could be that the patient was extubated prematurely prior to compared to being recovered from his anesthetic agents. Other causes need to be considered including severe metabolic acidosis which we have attributed to his respiratory failure. No history of any myasthenia gravis of any neuromuscular weakness or neuromuscular disorders. Neurologically , the patient was stated to be awake prior to surgery and the patient was apparently was moving all 4 extremities without any limitation. 2 massive hematuria secondary to bladder tumor, status post transurethral resection of a bladder tumor 3 resection of a bladder tumor from the trigone, the patient underwent transurethral resection of the bladder tumor and the patient is postop day #2 4 bladder perforation, involving the anterior bladder wall, status post expiratory laparotomy and repair of a laceration. Patient is postop day #2 5 severe and non-anion gap metabolic acidosis him a currently on a bicarb drip 6 acute kidney injury, improving and creatinine is down trending for now 7 anemia, secondary to blood loss from massive hematuria, status post packed RBC transfusion the patient's hemoglobin is stable 8 coronary artery disease with decreased NH and stenting of RCA 9 smoker with possible COPD 10 hyponatremia, probably dilutional, secondary to extensive letter irrigation and fluid leaking into the abdominal cavity. The patient is currently on a bicarb drip. Sodium level is at 122. Nephrology has been consult on the case. 11 hypocalcemia 12 hypotension currently on pressors after being resuscitated adequately with IV fluids. Rule out underlying septic event and the patient is covered with empiric antibiotics with IV Zosyn. Echocardiogram is unremarkable 13 suspected upper GI bleeding, has Protonix dose was doubled. Continue to monitor closely, if bleeding gets any worse, may have to consider EGD. Recommendation: Continue ventilatory support, continue antibiotics empirically, continue to monitor renal status closely, address nutritional support today, patient will be placed on enteral feeding, considering his hypertension, patient remains critically ill, requiring a high dose of norepinephrine, not quite ready for weaning, more fluid boluses will be given, serum cortisol level was ordered, patient will be given Solu-Cortef as a test dose 100 mg IV push 1 , may or may not continue Solu-Cortef depending on response of blood pressure. We'll continue to follow closely. Discussed his condition with family/niece is at bedside, critical care time is 45 minutes. Time with Patient: Greater than 30
--- NOTE | 2017-12-27 11:44 | P.PN ---
Subjective Progress Note Date: 12/27/17 Principal diagnosis: POD #2, s/p TUR-BT and Closure of Bladder Laceration Mr. Merchant remains on the ventilator, and is currently sedated. He continues to receive Levothroid for his hypotension. His Tierney catheter is draining clear yellow urine. Objective - Vital Signs Vital signs: Vital Signs Temp 98.7 F 12/27/17 08:00 Pulse 80 12/27/17 11:15 Resp 22 12/27/17 11:15 BP 122/62 12/27/17 11:15 Pulse Ox 100 12/27/17 11:15 Intake & Output 12/26/17 12/27/17 12/27/17 18:59 06:59 18:59 Intake Total 1712.879 777.443 9916.664 Output Total 1730 1630 790 Balance -17.121 -672.738 491.664 Weight 54.2 kg 54.2 kg Intake: IV 1384.5 751.5 1212 0.9 NACL 50 650 200 Calcium Chloride 100 Dextrose 5% in Water 1, 1100 000 ml @ 100 mls/hr IV . [id number] THI with Sodium Bicarb (1 Meq/ml) 150 ml Rx#:[id number] Piperacillin-Tazobactam 3 62.5 62.5 .375 gm In Dextrose/Water 1 50ml.bag @ 12.5 mls/hr IVPB Q12HR [facility] Rx#: [id number] Pressure bag of 0.9 NaCl- 72 39 12 Sodium Chloride 0.9% 1, 1000 000 ml @ 999 mls/hr IV . Q1H1M ONE Rx#:[id number] Intake, IV Titration 328.379 205.762 69.664 Amount Norepinephrin 16 mg-0.9% 142.519 105.762 59.594 Ns Pmx 16 mg In 250 ml @ Titrate IV .Q0M [facility] Rx#: [id number] Propofol 1,000 mg In 185.860 100.000 10.07 Empty Bag 1 bag @ Per Protocol IV .Q0M [facility] Rx#: [id number] Output: Gastric Drainage 200 Drainage 60 Abdomen 60 Urine 1670 1630 590 Other: Voiding Method Indwelling Catheter Indwelling Catheter Indwelling Catheter ABP, PAP, CO, CI - Last Documented Arterial Blood Pressure 91/79 - Gastrointestinal Gastrointestinal Comment(s): Soft, nondistended. The incision is intact, with no erythema. There is no incisional drainage, but serous drainage around the JERMAINE drain is noted. Abdomen with minimal ecchymosis is noted within the lateral aspects of the abdomen and extending onto the left thigh. - Labs CBC & Chem 7: 12/27/17 05:43 12/27/17 04:04 Labs: Abnormal Lab Results - Last 24 Hours (Table) 12/26/17 12/26/17 12/26/17 Range/Units 01:30 14:36 20:50 WBC (3.8-10.6) k/uL RBC (4.30-5.90) m/uL Hgb (13.0-17.5) gm/dL Hct (39.0-53.0) % Neutrophils # (1.3-7.7) k/uL Monocytes # (0-1.0) k/uL ABG pH (7.35-7.45) ABG pCO2 (35-45) mmHg ABG Total CO2 (19-24) mmol/L ABG O2 Saturation (94-97) % Sodium 128 L 129 L (137-145) mmol/L BUN 25 H (9-20) mg/dL Creatinine 1.79 H (0.66-1.25) mg/dL Glucose 115 H (74-99) mg/dL Calcium 7.1 L (8.4-10.2) mg/dL Ionized Calcium Salazar (4.5-5.3) mg/dL Magnesium (1.6-2.3) mg/dL TIBC 204 L (228-460) ug/dL Iron Saturation 74.02 H (15.00-50.00) AST (17-59) U/L Total Protein (6.3-8.2) g/dL Albumin (3.5-5.0) g/dL 12/27/17 12/27/17 12/27/17 Range/Units 04:04 05:43 05:52 WBC 14.3 H (3.8-10.6) k/uL RBC 2.85 L (4.30-5.90) m/uL Hgb 8.7 L (13.0-17.5) gm/dL Hct 25.7 L (39.0-53.0) % Neutrophils # 11.5 H (1.3-7.7) k/uL Monocytes # 1.2 H (0-1.0) k/uL ABG pH 7.48 H (7.35-7.45) ABG pCO2 33 L (35-45) mmHg ABG Total CO2 25 H (19-24) mmol/L ABG O2 Saturation 99.1 H (94-97) % Sodium 130 L (137-145) mmol/L BUN 23 H (9-20) mg/dL Creatinine 1.70 H (0.66-1.25) mg/dL Glucose 107 H (74-99) mg/dL Calcium 7.1 L (8.4-10.2) mg/dL Ionized Calcium Salazar 4.3 L (4.5-5.3) mg/dL Magnesium 2.6 H (1.6-2.3) mg/dL TIBC (228-460) ug/dL Iron Saturation (15.00-50.00) AST 117 H (17-59) U/L Total Protein 3.9 L (6.3-8.2) g/dL Albumin 2.1 L (3.5-5.0) g/dL Assessment and Plan (1) Gross hematuria Current Visit: Yes Status: Acute Code(s): R31.0 - GROSS HEMATURIA SNOMED Code(s): 402184594 Plan: Mr. Merchant is urologically stable. The cause of his hypotension remains unclear. I am hopeful that he will begin to mobilize some of the third spaced fluid in the next 24-48 hours, and this may help this hypotension. He may also benefit from administration of albumin, but I will defer this decision to Dr. Hinton.
--- NOTE | 2017-12-27 13:06 | P.PN ---
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 On arrival to the ER he was tachycardic with a pulse of 118. Initial laboratory analysis showed a leukocytosis of 13.5, anemia with a hemoglobin of 9 (down from 13.2 in 48 hours) . He underwent ultrasound of the kidneys and bladder which showed normal- appearing right kidney without evidence of obstruction and a urinary bladder filled with complex density that could be blood clot versus bladder tumor. After admission his hemoglobin continued to downtrend. He was seen by Dr. Jose in the morning of 12/25 and taken for cystoscopy. Cystoscopy is on have a bladder tumor and anterior bladder perforation. He subsequently had an open closure of his latter perforation as well as a transurethral resection of his bladder tumor. He failed postoperative extubation, was reintubated, and was sent to the ICU. Dr. Wing saw the patient in PACU in order to serum bicarb drip after he found have a pH of 7.19. On arrival to the ICU he was 93.4 F and had lost a tooth. He was started on zosyn as prophylaxis. His blood pressure dropped early in the monring on 12/26 and he was started on levophed Patient is currently mechanically ventilated and intubated, and sedated on propofol, and did well with his sedation vacation. But continues to be hemodynamically stable requiring levophed. Patient apparently had a positive occult from his OG tube and was started on Protonix. His leukocytosis continues to improve as well as his hyponatremia afebrile, with good urine output Objective - Vital Signs Vital signs: Vital Signs Temp 98.7 F 12/27/17 08:00 Pulse 72 12/27/17 12:05 Resp 22 12/27/17 12:05 BP 122/62 12/27/17 11:15 Pulse Ox 100 12/27/17 11:15 Intake & Output 12/26/17 12/27/17 12/27/17 18:59 06:59 18:59 Intake Total 1712.879 035.428 0500.664 Output Total 1730 1630 920 Balance -17.121 -672.738 464.664 Weight 54.2 kg 54.2 kg Intake: IV 1384.5 751.5 1315 0.9 NACL 50 650 250 Calcium Chloride 100 Dextrose 5% in Water 1, 1100 000 ml @ 100 mls/hr IV . [id number] [facility] with Sodium Bicarb (1 Meq/ml) 150 ml Rx#:[id number] Piperacillin-Tazobactam 3 62.5 62.5 50 .375 gm In Dextrose/Water 1 50ml.bag @ 12.5 mls/hr IVPB Q12HR [facility] Rx#: [id number] Pressure bag of 0.9 NaCl- 72 39 15 Sodium Chloride 0.9% 1, 1000 000 ml @ 999 mls/hr IV . Q1H1M [facility] Rx#:[id number] Intake, IV Titration 328.379 205.762 69.664 Amount Norepinephrin 16 mg-0.9% 142.519 105.762 59.594 Ns Pmx 16 mg In 250 ml @ Titrate IV .Q0M [facility] Rx#: [id number] Propofol 1,000 mg In 185.860 100.000 10.07 Empty Bag 1 bag @ Per Protocol IV .Q0M [facility] Rx#: [id number] Output: Gastric Drainage 200 Drainage 60 Abdomen 60 Urine 1670 1630 720 Other: Voiding Method Indwelling Catheter Indwelling Catheter Indwelling Catheter ABP, PAP, CO, CI - Last Documented Arterial Blood Pressure 91/79 - Exam General: non toxic, mild distress, cachetic, appears older than stated age, appears at stated age Derm: warm, dry Head: atraumatic, normocephalic, symmetric Eyes: EOMI, no lid lag, anicteric sclera Mouth: no lip lesion, ET tube in place Cardiovascular: S1S2 reg, no murmur, positive posterior tibial pulse bilateral, Lungs: Course b/l, no rhonchi, no rales , no accessory muscle use Abdominal: soft, non distended, dressing and JERMAINE drain in placed. , no appreciable organomegaly Ext: no gross muscle atrophy, no edema, no contractures Neuro: moving b/l UE independently, Psych: Sedated on vent - Labs CBC & Chem 7: 12/27/17 05:43 12/27/17 04:04 Labs: Abnormal Lab Results - Last 24 Hours (Table) 12/26/17 12/26/17 12/26/17 Range/Units 01:30 14:36 20:50 WBC (3.8-10.6) k/uL RBC (4.30-5.90) m/uL Hgb (13.0-17.5) gm/dL Hct (39.0-53.0) % Neutrophils # (1.3-7.7) k/uL Monocytes # (0-1.0) k/uL ABG pH (7.35-7.45) ABG pCO2 (35-45) mmHg ABG Total CO2 (19-24) mmol/L ABG O2 Saturation (94-97) % Sodium 128 L 129 L (137-145) mmol/L BUN 25 H (9-20) mg/dL Creatinine 1.79 H (0.66-1.25) mg/dL Glucose 115 H (74-99) mg/dL Calcium 7.1 L (8.4-10.2) mg/dL Ionized Calcium Salazar (4.5-5.3) mg/dL Magnesium (1.6-2.3) mg/dL TIBC 204 L (228-460) ug/dL Iron Saturation 74.02 H (15.00-50.00) AST (17-59) U/L Total Protein (6.3-8.2) g/dL Albumin (3.5-5.0) g/dL 12/27/17 12/27/17 12/27/17 Range/Units 04:04 05:43 05:52 WBC 14.3 H (3.8-10.6) k/uL RBC 2.85 L (4.30-5.90) m/uL Hgb 8.7 L (13.0-17.5) gm/dL Hct 25.7 L (39.0-53.0) % Neutrophils # 11.5 H (1.3-7.7) k/uL Monocytes # 1.2 H (0-1.0) k/uL ABG pH 7.48 H (7.35-7.45) ABG pCO2 33 L (35-45) mmHg ABG Total CO2 25 H (19-24) mmol/L ABG O2 Saturation 99.1 H (94-97) % Sodium 130 L (137-145) mmol/L BUN 23 H (9-20) mg/dL Creatinine 1.70 H (0.66-1.25) mg/dL Glucose 107 H (74-99) mg/dL Calcium 7.1 L (8.4-10.2) mg/dL Ionized Calcium Salazar 4.3 L (4.5-5.3) mg/dL Magnesium 2.6 H (1.6-2.3) mg/dL TIBC (228-460) ug/dL Iron Saturation (15.00-50.00) AST 117 H (17-59) U/L Total Protein 3.9 L (6.3-8.2) g/dL Albumin 2.1 L (3.5-5.0) g/dL Assessment and Plan Plan: Hyponatremia - exact etiology undetermined with low serum osmol - nephrology consult - serial lytes - maintain current fluids - seizure precuations Bladder tumor and anterior Bladder perforation-status post repair and TURBT -Management per urology -Zosyn for prophylaxis Hypotension - exact etiology undermined - sepsis being ruled out - continue with levophed. Acute blood loss anemia secondary to tumor -Status post 2 units of packed red blood cells -Follow with serial CBCs -Transfuse as needed Metabolic acidosis -On serum bicarb drip -follow lytes Hypocalcemia - replace and continue to follow ionized calcium levels. Acute hypoxic respiratory failure - management as per pulmonary team Acute kidney injury seondary to ATN -IV fluids -Avoid additional nephrotoxic agents -Renal ultrasound without medical renal disease -nephrology recs - MAP optimized >65 -Patient was on Bactrim as an outpatient for possible UTI and this was held on admission Coronary artery disease -No aspirin at this time secondary to bleeding Hyperkalemia, resolved DVT prophylaxis: SCDs Discussed with: Patient's RN in the ICU, nephrology, Pulm/cc Anticipated discharge: undetermined Anticipated discharge place: undetermined
[2017-12-27] MEDS: SODIUM CHLORIDE 0.9% 1,000 ML IV SCH (14:11)
[2017-12-28] MEDS: PROPOFOL 1,000 MG in EMPTY BAG 1 BAG IV SCH (03:23)
[2017-12-28 04:42] LABS: Basophils % (A) 0 %; Eosinophils # (A) 0.1 k/uL (0-0.7); Eosinophils % (A) 1 %; HCT 21.6 % (39.0-53.0); HGB 7.4 gm/dL (13.0-17.5); Lymphocytes # (A) 1.5 k/uL (1.0-4.8); Lymphocytes % (A) 12 %; MCH 31.1 pg (25.0-35.0); MCHC 34.3 g/dL (31.0-37.0); MCV 90.8 fL (80.0-100.0); Mean Platelet Volume 7.1; Monocytes # (A) 0.8 k/uL (0-1.0); Monocytes % (A) 7 %; Neutrophils # (A) 9.3 k/uL (1.3-7.7); Neutrophils % (A) 79 %; Platelet Count 228 k/uL (150-450); RBC 2.38 m/uL (4.30-5.90); RDW 15.4 % (11.5-15.5); WBC 11.9 k/uL (3.8-10.6)
[2017-12-28 04:50] LABS: Ionized Calcium 4.5 mg/dL (4.5-5.3)
[2017-12-28 04:54] LABS: Albumin 1.9 g/dL (3.5-5.0); Magnesium 2.6 mg/dL (1.6-2.3); Phosphorus 3.2 mg/dL (2.5-4.5); Potassium 3.7 mmol/L (3.5-5.1); Total Bilirubin 0.4 mg/dL (0.2-1.3); Total Protein 3.7 g/dL (6.3-8.2)
[2017-12-28] MEDS ORDERED: POTASSIUM BICARBONATE/CIT AC 20 MEQ TABLET.EFF NG-TUBE SCH (07:00)
[2017-12-28] MEDS: IPRATROPIUM-ALBUTEROL 3 ML NEB INHALATION SCH ×4 (07:34→19:12)
[2017-12-28 07:40] LABS: ABG Base Excess -0.8 mmol/L; ABG HCO3 23 mmol/L (21-25); ABG Oxygen Saturation 99.6 % (94-97); ABG PCO2 30 mmHg (35-45); ABG PH 7.48 (7.35-7.45); ABG PO2 164 mmHg (83-108); ABG TCO2 24 mmol/L (19-24)
--- NOTE | 2017-12-28 07:47 | P.PN ---
Subjective Progress Note Date: 12/28/17 Principal diagnosis: POD #3, s/p TUR-BT and Closure of Bladder Laceration Mr. Merchant remains on the ventilator, and is currently sedated. He continues to receive Levophed for his hypotension, but the Levophed dosage has been decreased. His Tierney catheter is draining clear yellow urine. Objective - Vital Signs Vital signs: Vital Signs Temp 98.0 F 12/28/17 04:00 Pulse 70 12/28/17 07:43 Resp 21 12/28/17 07:00 BP 112/65 12/28/17 07:00 Pulse Ox 100 12/28/17 04:15 Intake & Output 12/27/17 12/28/17 12/28/17 18:59 06:59 18:59 Intake Total 2094.704 1219.960 73 Output Total 1310 565 50 Balance 784.704 654.960 23 Weight 54.2 kg 57.8 kg Intake: IV 1583 686 53 0.9 NACL 500 600 50 Piperacillin-Tazobactam 3 50 50 .375 gm In Dextrose/Water 1 50ml.bag @ 12.5 mls/hr IVPB Q12HR [facility] Rx#: [id number] Pressure bag of 0.9 NaCl- 33 36 3 Sodium Chloride 0.9% 1, 1000 000 ml @ 999 mls/hr IV . Q1H1M [facility] Rx#:[id number] Intake, IV Titration 191.704 243.960 Amount Norepinephrin 16 mg-0.9% 113.594 128.470 Ns Pmx 16 mg In 250 ml @ Titrate IV .Q0M [facility] Rx#: [id number] Propofol 1,000 mg In 78.110 115.49 Empty Bag 1 bag @ Per Protocol IV .Q0M [facility] Rx#: [id number] Tube Feeding 10 200 20 Blood Product 310 Rc As-1 Unit 310 [id number] Other 90 Output: Gastric Drainage 200 Urine 1110 565 50 Other: Voiding Method Indwelling Catheter Indwelling Catheter ABP, PAP, CO, CI - Last Documented Arterial Blood Pressure 91/79 - Constitutional General appearance: Present: no acute distress - Gastrointestinal General gastrointestinal: Present: soft. Absent: distended (The incision is clean and dry. Mild serous drainage around the JERMAINE drain is noted. Edema with mild ecchymosis is noted in the dependent lateral abdomen and the proximal thighs.) - Labs CBC & Chem 7: 12/28/17 03:55 12/28/17 03:55 Labs: Abnormal Lab Results - Last 24 Hours (Table) 12/25/17 12/26/17 12/28/17 Range/Units 01:39 01:30 03:55 WBC 11.9 H (3.8-10.6) k/uL RBC 2.38 L (4.30-5.90) m/uL Hgb 7.4 L (13.0-17.5) gm/dL Hct 21.6 L (39.0-53.0) % Neutrophils # 9.3 H (1.3-7.7) k/uL ABG pH (7.35-7.45) ABG pCO2 (35-45) mmHg ABG pO2 (83-108) mmHg ABG O2 Saturation (94-97) % Sodium (137-145) mmol/L Chloride (98-107) mmol/L Carbon Dioxide (22-30) mmol/L Creatinine (0.66-1.25) mg/dL Calcium (8.4-10.2) mg/dL Magnesium (1.6-2.3) mg/dL TIBC 204 L (228-460) ug/dL Iron Saturation 74.02 H (15.00-50.00) AST (17-59) U/L Total Protein (6.3-8.2) g/dL Albumin (3.5-5.0) g/dL Crossmatch See Detail 12/28/17 12/28/17 Range/Units 03:55 07:39 WBC (3.8-10.6) k/uL RBC (4.30-5.90) m/uL Hgb (13.0-17.5) gm/dL Hct (39.0-53.0) % Neutrophils # (1.3-7.7) k/uL ABG pH 7.48 H (7.35-7.45) ABG pCO2 30 L (35-45) mmHg ABG pO2 164 H (83-108) mmHg ABG O2 Saturation 99.6 H (94-97) % Sodium 136 L (137-145) mmol/L Chloride 109 H (98-107) mmol/L Carbon Dioxide 21 L (22-30) mmol/L Creatinine 1.60 H (0.66-1.25) mg/dL Calcium 7.0 L (8.4-10.2) mg/dL Magnesium 2.6 H (1.6-2.3) mg/dL TIBC (228-460) ug/dL Iron Saturation (15.00-50.00) AST 96 H (17-59) U/L Total Protein 3.7 L (6.3-8.2) g/dL Albumin 1.9 L (3.5-5.0) g/dL Crossmatch Assessment and Plan (1) Gross hematuria Current Visit: Yes Status: Acute Code(s): R31.0 - GROSS HEMATURIA SNOMED Code(s): 831542479 Plan: Mr. Merchant is urologically stable. The cause of his hypotension remains unclear , but the Levophed dosage has been decreased and I remain hopeful that he will begin to mobilize some of the third spaced fluid soon. I believe the decrease in his hemoglobin level is delusional. Continue medical management per Dr. Hinton.
--- NOTE | 2017-12-28 08:00 | P.PN ---
Subjective Patient is seen in follow-up for acute kidney injury and hyponatremia. Patient had developed acute hyponatremia after bladder surgery which is improving with IV hydration. Sodium level up to 136 this morning. Patient's currently intubated and sedated. Creatinine down to 1.6. Still requiring Levophed. Patient has chronic kidney disease stage III secondary to solitary right kidney with baseline creatinine near 1.2. Vital signs are stable. On vasopressors. General: The patient appeared well nourished and normally developed. HEENT: Head exam is unremarkable. Neck is without jugular venous distension. Intubated. LUNGS: Lungs are clear to auscultation and percussion. Breath sounds decreased. HEART: Rate and Rhythm are regular. First and second heart sounds normal. No murmurs, rubs or gallops. ABDOMEN: Abdominal exam reveals normal bowel sounds. Non-tender and non- distended. No evidence of peritonitis. EXTREMITITES: No clubbing, cyanosis, or edema. Objective - Vital Signs Vital signs: Vital Signs Temp 98.0 F 12/28/17 04:00 Pulse 70 12/28/17 07:43 Resp 21 12/28/17 07:00 BP 112/65 12/28/17 07:00 Pulse Ox 100 12/28/17 04:15 Intake & Output 12/27/17 12/28/17 12/28/17 18:59 06:59 18:59 Intake Total 2094.704 1219.960 73 Output Total 1310 565 50 Balance 784.704 654.960 23 Weight 54.2 kg 57.8 kg Intake: IV 1583 686 53 0.9 NACL 500 600 50 Piperacillin-Tazobactam 3 50 50 .375 gm In Dextrose/Water 1 50ml.bag @ 12.5 mls/hr IVPB Q12HR [facility] Rx#: [id number] Pressure bag of 0.9 NaCl- 33 36 3 Sodium Chloride 0.9% 1, 1000 000 ml @ 999 mls/hr IV . Q1H1M [facility] Rx#:[id number] Intake, IV Titration 191.704 243.960 Amount Norepinephrin 16 mg-0.9% 113.594 128.470 Ns Pmx 16 mg In 250 ml @ Titrate IV .Q0M [facility] Rx#: [id number] Propofol 1,000 mg In 78.110 115.49 Empty Bag 1 bag @ Per Protocol IV .Q0M [facility] Rx#: [id number] Tube Feeding 10 200 20 Blood Product 310 Rc As-1 Unit 310 [id number] Other 90 Output: Gastric Drainage 200 Urine 1110 565 50 Other: Voiding Method Indwelling Catheter Indwelling Catheter ABP, PAP, CO, CI - Last Documented Arterial Blood Pressure 91/79 - Labs CBC & Chem 7: 12/28/17 03:55 12/28/17 03:55 Labs: Abnormal Lab Results - Last 24 Hours (Table) 12/25/17 12/26/17 12/28/17 Range/Units 01:39 01:30 03:55 WBC 11.9 H (3.8-10.6) k/uL RBC 2.38 L (4.30-5.90) m/uL Hgb 7.4 L (13.0-17.5) gm/dL Hct 21.6 L (39.0-53.0) % Neutrophils # 9.3 H (1.3-7.7) k/uL ABG pH (7.35-7.45) ABG pCO2 (35-45) mmHg ABG pO2 (83-108) mmHg ABG O2 Saturation (94-97) % Sodium (137-145) mmol/L Chloride (98-107) mmol/L Carbon Dioxide (22-30) mmol/L Creatinine (0.66-1.25) mg/dL Calcium (8.4-10.2) mg/dL Magnesium (1.6-2.3) mg/dL TIBC 204 L (228-460) ug/dL Iron Saturation 74.02 H (15.00-50.00) AST (17-59) U/L Total Protein (6.3-8.2) g/dL Albumin (3.5-5.0) g/dL Crossmatch See Detail 12/28/17 12/28/17 Range/Units 03:55 07:39 WBC (3.8-10.6) k/uL RBC (4.30-5.90) m/uL Hgb (13.0-17.5) gm/dL Hct (39.0-53.0) % Neutrophils # (1.3-7.7) k/uL ABG pH 7.48 H (7.35-7.45) ABG pCO2 30 L (35-45) mmHg ABG pO2 164 H (83-108) mmHg ABG O2 Saturation 99.6 H (94-97) % Sodium 136 L (137-145) mmol/L Chloride 109 H (98-107) mmol/L Carbon Dioxide 21 L (22-30) mmol/L Creatinine 1.60 H (0.66-1.25) mg/dL Calcium 7.0 L (8.4-10.2) mg/dL Magnesium 2.6 H (1.6-2.3) mg/dL TIBC (228-460) ug/dL Iron Saturation (15.00-50.00) AST 96 H (17-59) U/L Total Protein 3.7 L (6.3-8.2) g/dL Albumin 1.9 L (3.5-5.0) g/dL Crossmatch Assessment and Plan Plan: Assessment: 1. Acute hyponatremia. Serum osmolality is low. There was concern that the patient had absorbed the irrigation solution used during the surgery yesterday into his extracellular space leading to transurethral resection syndrome. However the serum osmolality would be expected to be near normal as the solution used for irrigation is typically isosmotic but nonsodium containing. He is currently maintained on normal saline at 50 mL an hour. Sodium level is up to 136 this morning. Urine osmolality low at 117. 2. Bladder cancer status post cystoscopy, evacuation of clot, transurethral resection of bladder tumor and closure of bladder perforation on 12/25/2017. 3. Acute blood loss anemia status post blood transfusion. Iron replete. 4. Nonoliguric acute kidney injury secondary to ATN secondary to hemodynamic instability and anemia. Creatinine 1.6 today. 5. Chronic kidney disease stage III with baseline creatinine near 1.2 secondary to solitary right kidney. 6. Metabolic acidosis secondary to acute kidney injury and IV fluids. Improved. 7. Hypocalcemia secondary to acute kidney injury and chelation from blood transfusion. His corrected calcium for albumin is in the normal range. Plan: Continue normal saline at 50 mL an hour. Wean vasopressors. Continue to monitor renal function and urine output. Avoid nephrotoxic agents and hypotensive episodes.
--- NOTE | 2017-12-28 08:14 | XR ---
EXAMINATION TYPE: XR chest 1V portable DATE OF EXAM: 12/28/2017 Comparison: 12/27/2017 Clinical History: 67-year-old male tube placement. Findings: ET tube is satisfactory. NG tube courses below the diaphragm. Left subclavian CVC tip at the uppermos t right atrium. Heart remains normal size. Upper lungs remain clear. Small bilateral pleural effusions, left greater than right with adjacent opacities increased in the interval. Impression: Small left greater than right pleural effusions with adjacent atelectasis and/or consolidation slight ly increased in the interval.
[2017-12-28] MEDS: PIPERACILLIN-TAZOBACTAM 3.375 GM in DEXTROSE/WATER 1 50ML.BAG IVPB SCH ×2 (09:31→22:42)
[2017-12-28] MEDS: CHLORHEXIDINE GLUCONATE 15 ML CUP MUCOUS MEM SCH (09:32)
[2017-12-28] MEDS: PANTOPRAZOLE 40 MG/10 ML VIAL IVP SCH ×2 (09:32→22:49)
[2017-12-28] MEDS: SODIUM CHLORIDE 0.9% 1,000 ML IV SCH (09:35)
[2017-12-28] MEDS: NOREPINEPHRIN 16 MG-0.9%NS PMX 16 MG/250 ML ML IV SCH (10:04)
--- NOTE | 2017-12-28 10:47 | CDI ---
zzLast Revision, May 2017 Documentation Clarification Form Date: 12/28/2017 12:00:00 AM From: Yvette Leblanc RN, CCDS Admit Date: 12/25/2017 1:04:00 AM Patient Name: Spencer Merchant Visit Number: [id number] Discharge Date: ATTENTION: The Clinical Documentation Specialists (CDI) and [facility] Coding Staff appreciate your assistance in clarifying documentation. Please respond to the clarification below the line at the bottom and electronically sign. The CDI & [facility] Coding staff will review the response and follow-up if needed. Please note: Queries are made part of the Legal Health Record. If you have any questions, please contact the author of this message via ITS. Dr. Hong Kenny Closure of bladder perforation is documented in the operative note on 12/25/17 12/26/17 closure of bladder Laceration is in your ongoing progress notes Patients Admitting Diagnosis: Urinary clot retention, Bladder Tumor Post-Operative Diagnosis: Urinary clot retention, Bladder Tumor Procedure performed: Cystoscopy, evacuation of clot, transurethral resection of bladder tumor (Medium), exploratory laparotomy, and closure of bladder perforation History/Risk Factors: Hematuria, CKD stage III, Coronary Artery disease, MD, Clinical Indicators: Present with gross hematuria and clots. A papillary tumor overlying the right hemitrigone, obscuring the right ureteral orifice was resected. Initially no evidence of bladder perforation was noted. On reevaluation an anterior bladder wall perforation was found. Treatment: Fluid was drained from the space of Retzius and the anterior bladder perforation was closed. Consult: Pulmonary: (Dr. Wing) Following (resected bladder tumor) the patient was found to have a bladder perforation. This was not related to the tumor resection and apparently the tumor was a 4 cm papillary tumor overlying the right trigone of the right ureteral orifice and the perforation was in the anterior wall. In order to accurately reflect this patients severity of illness, please further clarify if the post-operative diagnosis anterior bladder perforation/ laceration is? An expected post-procedural or post-surgical condition; Integral to the procedure; Inherent to the procedure; An unexpected post-procedural or post-surgical condition related to surgical care; Other, please specify Unable to determine Please continue to document in your progress notes and discharge summary in order to capture severity of illness and risk of mortality. Include clinical findings that support your diagnosis. The bladder perforation is an unexpected post-procedural condition. It is not clear that it resulted from the surgery. The bladder was markedly distended with clots prior to surgery, and the rupture may have occurred pre-operatively. The perforation was recognized intraoperatively. CLEMENTE
[2017-12-28] MEDS: HYDROmorphone 0.5 MG/0.5 ML SYRINGE IVP PRN (10:57)
--- NOTE | 2017-12-28 11:23 | EEG ---
ELECTROENCEPHALOGRAM REPORT DATE OF EE12/27/2017 ELECTROENCEPHALOGRAPHIC EXAMINATION REPORT: INDICATION FOR EXAMINATION: This patient is a 67-year-old male being evaluated for new onset seizure activity. AGE: 67. EEG FINDINGS: A routine 21 channel awake digital EEG recording was accomplished utilizing the 10-20 international system with bipolar and referential montages. The background activity in the most alert resting state consists of a poorly-developed and poorly-sustained 3-4 Hz activity over the posterior head regions. Muscle and movement artifact was observed on several occasions throughout the tracing. Hyperventilation was not performed. Photic stimulation at flash frequencies of 2-30 Hz produced a minimal occipital driving response. Toward the latter portion of the tracing, the patient does drift into spontaneous drowsiness. No epileptiform discharges were seen. IMPRESSION: This EEG gives evidence of a severe widespread diffuse disturbance in cerebral function. The EEG failed to reveal any focal, lateralized, or epileptiform abnormalities. If clinically indicated, a followup EEG is recommended. Clinical correlation is recommended. MMWINSOME / JESSICAN: [id number] /
[2017-12-28 11:36] LABS: ABG Base Excess -0.1 mmol/L; ABG HCO3 24 mmol/L (21-25); ABG Oxygen Saturation 99.3 % (94-97); ABG PCO2 33 mmHg (35-45); ABG PH 7.46 (7.35-7.45); ABG PO2 124 mmHg (83-108); ABG TCO2 25 mmol/L (19-24)
[2017-12-28] MEDS ORDERED: SODIUM CHLORIDE 0.9% 500 ML IV ONE ×2 (12:20→14:26)
--- NOTE | 2017-12-28 13:02 | P.PN ---
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 On arrival to the ER he was tachycardic with a pulse of 118. Initial laboratory analysis showed a leukocytosis of 13.5, anemia with a hemoglobin of 9 (down from 13.2 in 48 hours) . He underwent ultrasound of the kidneys and bladder which showed normal- appearing right kidney without evidence of obstruction and a urinary bladder filled with complex density that could be blood clot versus bladder tumor. After admission his hemoglobin continued to downtrend. He was seen by Dr. Jose in the morning of 12/25 and taken for cystoscopy. Cystoscopy is on have a bladder tumor and anterior bladder perforation. He subsequently had an open closure of his latter perforation as well as a transurethral resection of his bladder tumor. He failed postoperative extubation, was reintubated, and was sent to the ICU. Dr. Wing saw the patient in PACU in order to serum bicarb drip after he found have a pH of 7.19. On arrival to the ICU he was 93.4 F and had lost a tooth. He was started on zosyn as prophylaxis. His blood pressure dropped early in the monring on 12/26 and he was started on levophed Patient is currently mechanically ventilated and intubated, and sedated on propofol, and did well with his sedation vacation. Able to follow commands squeezing my hand, still on Levophed now down to 8 mcg/min Patient apparently had a positive occult from his OG tube and was started on Protonix. His leukocytosis continues to improve as well as his hyponatremia afebrile, with good urine output Objective - Vital Signs Vital signs: Vital Signs Temp 97.9 F 12/28/17 12:00 Pulse 103 H 12/28/17 12:15 Resp 18 12/28/17 12:15 BP 122/64 12/28/17 12:15 Pulse Ox 98 12/28/17 12:15 Intake & Output 12/27/17 12/28/17 12/28/17 18:59 06:59 18:59 Intake Total 2094.704 1219.960 515.936 Output Total 1310 565 435 Balance 784.704 654.960 80.936 Weight 54.2 kg 57.8 kg Intake: IV 1583 686 318 0.9 NACL 500 600 300 Piperacillin-Tazobactam 3 50 50 .375 gm In Dextrose/Water 1 50ml.bag @ 12.5 mls/hr IVPB Q12HR [facility] Rx#: [id number] Pressure bag of 0.9 NaCl- 33 36 18 Sodium Chloride 0.9% 1, 1000 000 ml @ 999 mls/hr IV . Q1H1M [facility] Rx#:[id number] Intake, IV Titration 191.704 243.960 7.936 Amount Norepinephrin 16 mg-0.9% 113.594 128.470 7.936 Ns Pmx 16 mg In 250 ml @ Titrate IV .Q0M [facility] Rx#: [id number] Propofol 1,000 mg In 78.110 115.49 Empty Bag 1 bag @ Per Protocol IV .Q0M [facility] Rx#: [id number] Tube Feeding 10 200 100 Blood Product 310 Rc As-1 Unit 310 [id number] Other 90 90 Output: Gastric Drainage 200 Drainage 20 Abdomen 20 Urine 1110 565 415 Other: Voiding Method Indwelling Catheter Indwelling Catheter Indwelling Catheter ABP, PAP, CO, CI - Last Documented Arterial Blood Pressure 91/79 - Exam General: non toxic, mild distress, cachetic, appears older than stated age, appears at stated age Derm: warm, dry Head: atraumatic, normocephalic, symmetric Eyes: EOMI, no lid lag, anicteric sclera Mouth: no lip lesion, ET tube in place Cardiovascular: S1S2 reg, no murmur, positive posterior tibial pulse bilateral, Lungs: Course b/l, no rhonchi, no rales , no accessory muscle use Abdominal: soft, non distended, dressing and JERMAINE drain in placed. , no appreciable organomegaly, his incisions and francisco look clean dry and intact Ext: no gross muscle atrophy, no edema, no contractures Neuro: moving b/l UE independently, Psych: Sedated on vent - Labs CBC & Chem 7: 12/28/17 03:55 12/28/17 03:55 Labs: Abnormal Lab Results - Last 24 Hours (Table) 12/25/17 12/28/17 12/28/17 Range/Units 01:39 03:55 03:55 WBC 11.9 H (3.8-10.6) k/uL RBC 2.38 L (4.30-5.90) m/uL Hgb 7.4 L (13.0-17.5) gm/dL Hct 21.6 L (39.0-53.0) % Neutrophils # 9.3 H (1.3-7.7) k/uL ABG pH (7.35-7.45) ABG pCO2 (35-45) mmHg ABG pO2 (83-108) mmHg ABG Total CO2 (19-24) mmol/L ABG O2 Saturation (94-97) % Sodium 136 L (137-145) mmol/L Chloride 109 H (98-107) mmol/L Carbon Dioxide 21 L (22-30) mmol/L Creatinine 1.60 H (0.66-1.25) mg/dL Calcium 7.0 L (8.4-10.2) mg/dL Magnesium 2.6 H (1.6-2.3) mg/dL AST 96 H (17-59) U/L Total Protein 3.7 L (6.3-8.2) g/dL Albumin 1.9 L (3.5-5.0) g/dL Crossmatch See Detail 12/28/17 12/28/17 Range/Units 07:39 11:35 WBC (3.8-10.6) k/uL RBC (4.30-5.90) m/uL Hgb (13.0-17.5) gm/dL Hct (39.0-53.0) % Neutrophils # (1.3-7.7) k/uL ABG pH 7.48 H 7.46 H (7.35-7.45) ABG pCO2 30 L 33 L (35-45) mmHg ABG pO2 164 H 124 H (83-108) mmHg ABG Total CO2 25 H (19-24) mmol/L ABG O2 Saturation 99.6 H 99.3 H (94-97) % Sodium (137-145) mmol/L Chloride (98-107) mmol/L Carbon Dioxide (22-30) mmol/L Creatinine (0.66-1.25) mg/dL Calcium (8.4-10.2) mg/dL Magnesium (1.6-2.3) mg/dL AST (17-59) U/L Total Protein (6.3-8.2) g/dL Albumin (3.5-5.0) g/dL Crossmatch Assessment and Plan Plan: Hyponatremia - exact etiology undetermined with low serum osmol - nephrology consult - serial lytes - maintain current fluids - seizure precuations Bladder tumor and anterior Bladder perforation-status post repair and TURBT -Management per urology -Zosyn for prophylaxis Hypotension - exact etiology undermined - sepsis being ruled out - continue with levophed. Acute blood loss anemia secondary to tumor -Hemoglobin 7.4 today we'll type and cross transfuse 1 unit of packed RBCs this will be his third unit -Follow with serial CBCs -Transfuse as needed Metabolic acidosis -On serum bicarb drip -follow lytes Hypocalcemia - replace and continue to follow ionized calcium levels. Acute hypoxic respiratory failure - management as per pulmonary team Acute kidney injury seondary to ATN * Creatinine improving -IV fluids -Avoid additional nephrotoxic agents -Renal ultrasound without medical renal disease -nephrology recs - MAP optimized >65 -Patient was on Bactrim as an outpatient for possible UTI and this was held on admission Coronary artery disease -No aspirin at this time secondary to bleeding Hyperkalemia, resolved DVT prophylaxis: SCDs Discussed with: Patient's RN in the ICU, nephrology, Pulm/cc Anticipated discharge: undetermined Anticipated discharge place: undetermined
--- NOTE | 2017-12-28 13:30 | P.PN ---
Subjective Progress Note Date: 12/28/17 Principal diagnosis: Acute hypoxic respiratory failure post-bladder surgery. 87-year-old male patient who is being seen in the recovery room as the patient failed postoperative extubation. The patient was taken to the operating room for gross hematuria. The patient was having significant amount of hematuria associated with drop in hemoglobin from 13.2 down to 9.0 since this current admission and earlier this morning his hemoglobin was down to 7.6. The patient has intermittent hematuria since 2013. 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 He is a chronic smoker. The patient underwent a cystoscopy and the patient was found to have a bladder tumor that was resected using a transurethral approach. Following that the patient was found to have a bladder perforation. This was not related to the tumor resection and apparently the tumor was a 4 cm papillary tumor overlying the right trigone of securing the right ureteral orifice and the perforation was in the anterior bladder wall. In any rate, the patient underwent expiratory laparotomy, evacuation of intra-abdominal fluid collection and closure of a bladder perforation. Estimated blood loss was 75 mL. Total amount of fluid was 1.3 L given during the surgery. The patient also received a total of 2 units of packed RBCs. I saw this patient in the recovery room. Apparently he was extubated in recovery however he had weak breathing effort and he subsequently went into respiratory failure. He was reintubated within 10 minutes. Post intubation blood gas showed a pH of 7.19 with a pCO2 of 39 and pO2 of 339. The patient accordingly was placed on assist controlled rate of 22 tidal volume was brought up from 350 up to 500 and FiO2 is up to 60%. Pulse ox remains above 90% on the monitor. The patient is on no pressors at this point in time. A triple-lumen catheter was inserted. An outlying catheter was inserted. The patient has a component of non-anion gap metabolic acidosis with a bicarb level of 14 and a anion gap level of 9 and the patient was started on bicarb drip with D5 3 amps of bicarb at the rate of 1 100 mL an hour. Note that the patient was in acute kidney injury in the creatinine was up to 0.6 and dropped down to 1.9 and his calcium level was at 8 point further down to 6.2 total non-ionize. Post intubation chest x-ray showed questionable air under the left hemidiaphragm. ET tube is in a good location. 2 triple-lumen cath is also in good location. Coagulation profile is within normal limits. The patient is known to have coronary artery disease. On 12/27/2007 and I'm seeing this patient for a follow-up. The patient remains intubated on a mechanical ventilator. Currently is an assist-control mode at the rate of 22 with a tidal volume of 500 and FiO2 has been weaned down to order percent with a PEEP of 5. Morning blood gases showed a pH of 7.41 with a pCO2 of 29 and pO2 of 105. The patient's chest x-ray shows adequate positioning of the 82. The patient has a small left-sided pleural effusion. He is sedated with propofol and is calm and comfortable. Abdominal wound is dry clean and intact. There is some bruising around the JERMAINE drain site. The drain has without approximately 200 mL of serosanguineous and bloody drainage over the past 8 hours. The patient is producing adequate amount of urine output. And the urine output for now is approximately 2.2 L since he arrived to the intensive care units. The patient overnight was resuscitated with IV fluids. He received several boluses and he remained borderline lower blood pressure with a systolic in the mid 90s. Subsequently this morning he dropped down to a systolic of 78. He was started on and after infusion and currently the patient's BP is under better control with a map of around 65-70. The patient has also component of non-anion gap metabolic acidosis and hyponatremia. The hyponatremia probably due to excessive fluid irrigation of the bladder which probably get absorbed into his system and intravascular system and his sodium is at 122. The patient is currently on a bicarb drip with D5 with 3 ampules of bicarb running at 100 mL an hour. The patient also is on empiric antibiotic coverage with IV Zosyn. The patient was noted to have a low calcium and he will be given a gram of calcium chloride. Not ready for any weaning at this point in time. Function continues to improve and the creatinine is down to 1.8 from a baseline of 2.6 at time of admission. The hematuria is also improving. Reevaluated today on 12/27/2017, patient remains on mechanical ventilation, and his ventilator settings are assist control rate of 22, tidal volume of 500, FiO2 of 40%, and PEEP is 5. Patient is hemodynamically unstable, requiring levo fed at 40 mcg/m. Patient will be given more fluid boluses, apparently he received so far at least 6 L of fluids his urine output is over 200 mL per hour. Remains on antibiotics empirically, today I recommended a dose of Solu- Cortef, and I plan to change his arterial line since it doesn't seem to be functional. Family is at bedside including his 2 nieces, and his condition was discussed with both of them. ABG showed a pO2 of 108 pCO2 of 33 pH of 7.48. Patient is arousable, and he was following simple instructions quite well. Noted to have some coffee ground material in the nasogastric tube, hence his Protonix dose was doubled. Labs were reviewed, sodium is a bit low at 130. BUN is 23 creatinine is 1.70. WBC count is 14.3 hemoglobin is 8.7. Gastric aspirate is Hemoccult positive. Chest x-ray showed minimal left pleural effusion and minimal atelectasis at the left base. No evidence of pneumonia. His echocardiogram is relatively normal. Surgical pathology is still pending from his bladder tumor. Brain CT is unremarkable, EEG is being done for questionable witnessed seizure, results of which are pending. Blood cultures were sent, and urine cultures were sent today. Patient is presently off propofol, arousable, followed simple instructions, but blood pressure remains low. Hence we will continue norepinephrine and continue fluid boluses. Reevaluated today on 12/28/2017, remains on mechanical ventilation, sedated, on propofol, remains on levo fed at 70 mcg/m. His ventilator settings are tidal volume of 500 assist control rate of 2240% FiO2 and PEEP of 5. His ABG showed a pO2 of 164, pCO2 of 30, PH of 7.48. Hence the patient was cut down to FiO2 of 30%, and INR of the patient, with held his propofol, and I'm planning to give him a spontaneous breathing trial, and possibly extubate the patient today. Chest x-ray was reviewed all left-sided pleural effusion was noted, and a smaller effusion was noted on the right side. Rest of the labs were noted to be unremarkable, creatinine is improving down to 1.60. Basic metabolic profile is normal CBC is relatively normal except for hemoglobin of 7.4. Objective - Vital Signs Vital signs: Vital Signs Temp 97.9 F 12/28/17 12:00 Pulse 103 H 12/28/17 12:15 Resp 18 12/28/17 12:15 BP 122/64 12/28/17 12:15 Pulse Ox 98 12/28/17 12:15 Intake & Output 12/27/17 12/28/17 12/28/17 18:59 06:59 18:59 Intake Total 2094.704 1219.960 515.936 Output Total 1310 565 435 Balance 784.704 654.960 80.936 Weight 54.2 kg 57.8 kg Intake: IV 1583 686 318 0.9 NACL 500 600 300 Piperacillin-Tazobactam 3 50 50 .375 gm In Dextrose/Water 1 50ml.bag @ 12.5 mls/hr IVPB Q12HR [facility] Rx#: [id number] Pressure bag of 0.9 NaCl- 33 36 18 Sodium Chloride 0.9% 1, 1000 000 ml @ 999 mls/hr IV . Q1H1M [facility] Rx#:[id number] Intake, IV Titration 191.704 243.960 7.936 Amount Norepinephrin 16 mg-0.9% 113.594 128.470 7.936 Ns Pmx 16 mg In 250 ml @ Titrate IV .Q0M [facility] Rx#: [id number] Propofol 1,000 mg In 78.110 115.49 Empty Bag 1 bag @ Per Protocol IV .Q0M [facility] Rx#: [id number] Tube Feeding 10 200 100 Blood Product 310 Rc As-1 Unit 310 [id number] Other 90 90 Output: Gastric Drainage 200 Drainage 20 Abdomen 20 Urine 1110 565 415 Other: Voiding Method Indwelling Catheter Indwelling Catheter Indwelling Catheter ABP, PAP, CO, CI - Last Documented Arterial Blood Pressure 91/79 - Exam Physical Exam: Revealed a 67-year-old white male, in no distress, remains on mechanical ventilation. Head: Atraumatic, normocephalic. Endotracheal tube and orogastric tube are both intact. HEENT:[Neck is supple.] [No neck masses.] [No thyromegaly.] [No JVD.] Moist mucous membranes, no icterus, PERRLA, EOMI. Tubes were noted to be intact. Chest: [Clear throughout, no crackles, no rhonchi, no wheezes.] Cardiac Exam: [Normal S1 and S2, no S3 gallop, no murmur.] Abdomen: [Soft, nontender, no megaly, no rebound, no guarding,] Mid abdominal incision is dry clean and intact, JERMAINE drain is noted in place. No rebound no guarding. Hypoactive bowel sounds. Extremities: [No clubbing, no edema, no cyanosis.] Neurological Exam: [No focal neurologic deficit. Patient is arousable, sleepy, Psychiatric: Patient is arousable, but sleepy. Lymphatics: No lymphadenopathy. Musculoskeletal: Grossly intact.] - Labs CBC & Chem 7: 12/28/17 03:55 12/28/17 03:55 Labs: Abnormal Lab Results - Last 24 Hours (Table) 12/25/17 12/28/17 12/28/17 Range/Units 01:39 03:55 03:55 WBC 11.9 H (3.8-10.6) k/uL RBC 2.38 L (4.30-5.90) m/uL Hgb 7.4 L (13.0-17.5) gm/dL Hct 21.6 L (39.0-53.0) % Neutrophils # 9.3 H (1.3-7.7) k/uL ABG pH (7.35-7.45) ABG pCO2 (35-45) mmHg ABG pO2 (83-108) mmHg ABG Total CO2 (19-24) mmol/L ABG O2 Saturation (94-97) % Sodium 136 L (137-145) mmol/L Chloride 109 H (98-107) mmol/L Carbon Dioxide 21 L (22-30) mmol/L Creatinine 1.60 H (0.66-1.25) mg/dL Calcium 7.0 L (8.4-10.2) mg/dL Magnesium 2.6 H (1.6-2.3) mg/dL AST 96 H (17-59) U/L Total Protein 3.7 L (6.3-8.2) g/dL Albumin 1.9 L (3.5-5.0) g/dL Crossmatch See Detail 12/28/17 12/28/17 Range/Units 07:39 11:35 WBC (3.8-10.6) k/uL RBC (4.30-5.90) m/uL Hgb (13.0-17.5) gm/dL Hct (39.0-53.0) % Neutrophils # (1.3-7.7) k/uL ABG pH 7.48 H 7.46 H (7.35-7.45) ABG pCO2 30 L 33 L (35-45) mmHg ABG pO2 164 H 124 H (83-108) mmHg ABG Total CO2 25 H (19-24) mmol/L ABG O2 Saturation 99.6 H 99.3 H (94-97) % Sodium (137-145) mmol/L Chloride (98-107) mmol/L Carbon Dioxide (22-30) mmol/L Creatinine (0.66-1.25) mg/dL Calcium (8.4-10.2) mg/dL Magnesium (1.6-2.3) mg/dL AST (17-59) U/L Total Protein (6.3-8.2) g/dL Albumin (3.5-5.0) g/dL Crossmatch Assessment and Plan Assessment: 1 acute hypoxic respiratory failure post general anesthesia, post bladder surgery. Exact cause is not clear. Could be that the patient was extubated prematurely prior to compared to being recovered from his anesthetic agents. Other causes need to be considered including severe metabolic acidosis which we have attributed to his respiratory failure. No history of any myasthenia gravis of any neuromuscular weakness or neuromuscular disorders. Neurologically , the patient was stated to be awake prior to surgery and the patient was apparently was moving all 4 extremities without any limitation. 2 massive hematuria secondary to bladder tumor, status post transurethral resection of a bladder tumor 3 resection of a bladder tumor from the trigone, the patient underwent transurethral resection of the bladder tumor and the patient is postop day #2 4 bladder perforation, involving the anterior bladder wall, status post expiratory laparotomy and repair of a laceration. Patient is postop day #2 5 severe and non-anion gap metabolic acidosis him a currently on a bicarb drip 6 acute kidney injury, improving and creatinine is down trending for now 7 anemia, secondary to blood loss from massive hematuria, status post packed RBC transfusion the patient's hemoglobin is stable 8 coronary artery disease with decreased CT and stenting of RCA 9 smoker with possible COPD 10 hyponatremia, probably dilutional, secondary to extensive letter irrigation and fluid leaking into the abdominal cavity. The patient is currently on a bicarb drip. Sodium level is at 122. Nephrology has been consult on the case. 11 hypocalcemia 12 hypotension currently on pressors after being resuscitated adequately with IV fluids. Rule out underlying septic event and the patient is covered with empiric antibiotics with IV Zosyn. Echocardiogram is unremarkable 13 suspected upper GI bleeding, has Protonix dose was doubled. Continue to monitor closely, if bleeding gets any worse, may have to consider EGD. Recommendation: My plan today is to consider spontaneous breathing trial and propofol will be placed on hold. Continue norepinephrine for the time being, and titrate accordingly keep a mean arterial pressure of 65, another fluid bolus will be given today, and if the patient tolerates a good spontaneous breathing trial, I may proceed to extubating the patient. Discussed his condition with his niece at bedside. Patient will be monitored in the ICU post extubation for few hours and may have to be transferred out of the ICU if he continues to do well and if we could get him off norepinephrine. We'll continue to follow closely. Critical care time is 35 minutes. Time with Patient: Greater than 30
[2017-12-28 22:46] LABS: Calcium 7.2 mg/dL (8.4-10.2); Potassium 3.8 mmol/L (3.5-5.1)
[2017-12-29] MEDS ORDERED: HYDROmorphone 0.5 MG/0.5 ML SYRINGE ONE (01:26)
[2017-12-29 02:32] LABS: Basophils % (A) 0 %; Eosinophils # (A) 0.1 k/uL (0-0.7); Eosinophils % (A) 1 %; HCT 24.9 % (39.0-53.0); HGB 8.2 gm/dL (13.0-17.5); Lymphocytes # (A) 1.3 k/uL (1.0-4.8); Lymphocytes % (A) 13 %; MCHC 32.8 g/dL (31.0-37.0); MCV 94.6 fL (80.0-100.0); Mean Platelet Volume 6.9; Monocytes # (A) 0.7 k/uL (0-1.0); Monocytes % (A) 7 %; Neutrophils # (A) 7.6 k/uL (1.3-7.7); Neutrophils % (A) 77 %; Platelet Count 307 k/uL (150-450); RBC 2.63 m/uL (4.30-5.90); RDW 15.9 % (11.5-15.5); WBC 9.9 k/uL (3.8-10.6)
[2017-12-29 02:39] LABS: Ionized Calcium 4.8 mg/dL (4.5-5.3)
[2017-12-29 04:10] LABS: Albumin 2.2 g/dL (3.5-5.0); Calcium 7.5 mg/dL (8.4-10.2); Magnesium 2.3 mg/dL (1.6-2.3); Phosphorus 2.8 mg/dL (2.5-4.5); Total Bilirubin 0.5 mg/dL (0.2-1.3); Total Protein 4.1 g/dL (6.3-8.2)
[2017-12-29 05:24] LABS: Creatine Kinase MB 2.3 ng/mL (0.0-2.4); Troponin I 0.025 ng/mL (0.000-0.034)
[2017-12-29 05:52] LABS: Glucose,Whole Blood 92 mg/dL (75-99)
[2017-12-29] MEDS: SODIUM CHLORIDE 0.9% 1,000 ML IV SCH (06:54)
[2017-12-29] MEDS: DILTIAZEM 50 MG in SODIUM CHLORIDE 0.9% 40 ML IV SCH ×4 (06:55→20:51)
--- NOTE | 2017-12-29 07:02 | P.PN ---
Progress Note - Text Progress Note Date: 12/29/17 patient developed afib with RVR, increase oxygen requirement , and chest pain EKG showed afib with rvr, st depression over lateral precordial leads afib with RVR did not respond to 1 L ns bolus Cardizem drip started, and bolus dose of cardizem given , this has helped bringing his heart rate to low 100s labs showed improvement in Hgb after blood transfusion on 12/28 cardiac enzymes negative continue to monitor vital signs, and cardiac enzymes case discussed with cardiology
--- NOTE | 2017-12-29 07:54 | P.PN ---
Subjective Progress Note Date: 12/29/17 Principal diagnosis: POD #4, s/p TUR-BT and Closure of Bladder Laceration Mr. Merchant was extubated yesterday and transferred out of the ICU. This morning , he developed atrial fibrillation with RVR. He is currently receiving oxygen. He is resting in bed, and reports only minimal incisional discomfort. His Tierney catheter is draining clear yellow urine. Objective - Vital Signs Vital signs: Vital Signs Temp 98 F 12/29/17 00:00 Pulse 124 H 12/29/17 06:07 Resp 14 12/29/17 04:00 BP 105/63 12/29/17 04:00 Pulse Ox 92 L 12/29/17 00:00 Intake & Output 12/28/17 12/29/17 12/29/17 18:59 06:59 18:59 Intake Total 1774.686 203 Output Total 1350 1650 Balance 424.686 -1447 Weight 58.5 kg Intake: IV 1544 53 0.9 NACL 1520 50 Pressure bag of 0.9 NaCl- 24 3 Intake, IV Titration 40.686 Amount Norepinephrin 16 mg-0.9% 40.686 Ns Pmx 16 mg In 250 ml @ Titrate IV .Q0M [facility] Rx#: [id number] Oral 150 Tube Feeding 100 Other 90 Output: Drainage 20 Abdomen 20 Urine 1330 1650 Other: Voiding Method Indwelling Catheter Indwelling Catheter ABP, PAP, CO, CI - Last Documented Arterial Blood Pressure 91/79 - Constitutional General appearance: Present: cooperative, no acute distress - Gastrointestinal Gastrointestinal Comment(s): Soft, nondistended. Incision clean and dry. Mild serous drainage around JERMAINE drain. Lateral abdominal wall edema and edema of the thigh appears to be somewhat improved. - Labs CBC & Chem 7: 12/29/17 02:26 12/29/17 02:26 Labs: Abnormal Lab Results - Last 24 Hours (Table) 12/28/17 12/28/17 12/28/17 Range/Units 11:35 14:37 22:20 RBC (4.30-5.90) m/uL Hgb (13.0-17.5) gm/dL Hct (39.0-53.0) % RDW (11.5-15.5) % ABG pH 7.46 H (7.35-7.45) ABG pCO2 33 L (35-45) mmHg ABG pO2 124 H (83-108) mmHg ABG Total CO2 25 H (19-24) mmol/L ABG O2 Saturation 99.3 H (94-97) % Chloride 116 H (98-107) mmol/L Creatinine 1.40 H (0.66-1.25) mg/dL Glucose 68 L (74-99) mg/dL Calcium 7.2 L (8.4-10.2) mg/dL AST (17-59) U/L Total Creatine Kinase (55-170) U/L Total Protein (6.3-8.2) g/dL Albumin (3.5-5.0) g/dL Crossmatch See Detail 12/29/17 12/29/17 12/29/17 Range/Units 02:26 02:26 02:26 RBC 2.63 L (4.30-5.90) m/uL Hgb 8.2 L (13.0-17.5) gm/dL Hct 24.9 L (39.0-53.0) % RDW 15.9 H (11.5-15.5) % ABG pH (7.35-7.45) ABG pCO2 (35-45) mmHg ABG pO2 (83-108) mmHg ABG Total CO2 (19-24) mmol/L ABG O2 Saturation (94-97) % Chloride 115 H (98-107) mmol/L Creatinine 1.40 H (0.66-1.25) mg/dL Glucose 61 L (74-99) mg/dL Calcium 7.5 L (8.4-10.2) mg/dL AST 96 H (17-59) U/L Total Creatine Kinase 2124 H (55-170) U/L Total Protein 4.1 L (6.3-8.2) g/dL Albumin 2.2 L (3.5-5.0) g/dL Crossmatch Assessment and Plan (1) Gross hematuria Current Visit: Yes Status: Acute Code(s): R31.0 - GROSS HEMATURIA SNOMED Code(s): 879221565 Plan: Mr. Merchant is urologically stable. Clear liquid diet was started, as he passed a swallowing study. However, his oral intake should be minimal at this time. The atrial fibrillation will be managed by Internal Medicine.
--- NOTE | 2017-12-29 08:30 | XR ---
EXAMINATION TYPE: XR chest 1V portable DATE OF EXAM: 12/29/2017 CLINICAL HISTORY: Difficulty breathing progress study. TECHNIQUE: Single AP portable frontal view of the chest is obtained. COMPARISON: Chest x-ray from one day earlier and older studies. FINDINGS: There is interval removal of endotracheal and orogastric tubes. There is stable left-sided subclavian central venous catheter. There is background chronic emphysematous change with small bilateral pleural effusions and left grea ter than right bibasilar opacity felt to reflect atelectasis and/or infiltrate. There is background c hronic emphysematous change with developing bilateral mild to moderate interstitial edema, some more focal developing interstitial infiltrate right suprahilar region is difficult to exclude. Osseous str uctures are intact. Resolving pneumoperitoneum felt present with improving lucent liver sign noted. IMPRESSION: Interval extubation. Persistent small bilateral pleural effusions with left greater than right bibasilar atelectasis and/or infiltrate. New mild to moderate bilateral interstitial edema with possible developing focal right suprahilar interstitial infiltrate. Progress study advised.
[2017-12-29] MEDS ORDERED: FUROSEMIDE 10 MG/ML 4 ML VIAL IV STA (08:43)
[2017-12-29] MEDS: IPRATROPIUM-ALBUTEROL 3 ML NEB INHALATION SCH ×4 (09:14→20:14)
[2017-12-29] MEDS: PIPERACILLIN-TAZOBACTAM 3.375 GM in DEXTROSE/WATER 1 50ML.BAG IVPB SCH ×2 (09:35→20:52)
[2017-12-29] MEDS: PANTOPRAZOLE 40 MG/10 ML VIAL IVP SCH ×2 (09:35→20:52)
[2017-12-29] MEDS: HYDROmorphone 0.5 MG/0.5 ML SYRINGE IVP PRN (09:40)
--- NOTE | 2017-12-29 10:01 | P.PN ---
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 On arrival to the ER he was tachycardic with a pulse of 118. Initial laboratory analysis showed a leukocytosis of 13.5, anemia with a hemoglobin of 9 (down from 13.2 in 48 hours) . He underwent ultrasound of the kidneys and bladder which showed normal- appearing right kidney without evidence of obstruction and a urinary bladder filled with complex density that could be blood clot versus bladder tumor. After admission his hemoglobin continued to downtrend. He was seen by Dr. Jose in the morning of 12/25 and taken for cystoscopy. Cystoscopy is on have a bladder tumor and anterior bladder perforation. He subsequently had an open closure of his latter perforation as well as a transurethral resection of his bladder tumor. He failed postoperative extubation, was reintubated, and was sent to the ICU. Dr. Wing saw the patient in PACU in order to serum bicarb drip after he found have a pH of 7.19. On arrival to the ICU he was 93.4 F and had lost a tooth. He was started on zosyn as prophylaxis. His blood pressure dropped early in the monring on 12/26 and he was started on levophed Patient extubated yesterday and was transferred to the medical floor, apparently last night the patient might can complain of chest pain, and was noted to be in A. fib with RVR was started on Cardizem. Patient also in respiratory distress having increasing oxygen requirements. Rapid response team called Objective - Vital Signs Vital signs: Vital Signs Temp 97.6 F 12/29/17 08:56 Pulse 128 H 12/29/17 09:27 Resp 14 12/29/17 04:00 BP 114/67 12/29/17 08:56 Pulse Ox 92 L 12/29/17 08:56 Intake & Output 12/28/17 12/29/17 12/29/17 18:59 06:59 18:59 Intake Total 1774.686 203 Output Total 1350 1650 Balance 424.686 -1447 Weight 58.5 kg Intake: IV 1544 53 0.9 NACL 1520 50 Pressure bag of 0.9 NaCl- 24 3 Intake, IV Titration 40.686 Amount Norepinephrin 16 mg-0.9% 40.686 Ns Pmx 16 mg In 250 ml @ Titrate IV .[facility] Rx#: [id number] Oral 150 Tube Feeding 100 Other 90 Output: Drainage 20 Abdomen 20 Urine 1330 1650 Other: Voiding Method Indwelling Catheter Indwelling Catheter ABP, PAP, CO, CI - Last Documented Arterial Blood Pressure 91/79 - Exam General: non toxic, moderate to severe respiratory distress, cachetic, appears older than stated age, appears at stated age Derm: warm, dry Head: atraumatic, normocephalic, symmetric Eyes: EOMI, no lid lag, anicteric sclera Mouth: no lip lesion, ET tube in place Cardiovascular: Irregularly irregular no murmur, positive posterior tibial pulse bilateral, Lungs: Course b/l, no rhonchi, no rales , using accessory muscle currently on airvlo @ 45 L / min Abdominal: soft, non distended, dressing and JERMAINE drain in placed. , no appreciable organomegaly, his incisions and francisco look clean dry and intact Ext: no gross muscle atrophy, no edema, no contractures Neuro: moving b/l UE independently, Psych: Sedated on vent - Labs CBC & Chem 7: 12/29/17 02:26 12/29/17 02:26 Labs: Abnormal Lab Results - Last 24 Hours (Table) 12/28/17 12/28/17 12/28/17 Range/Units 11:35 14:37 22:20 RBC (4.30-5.90) m/uL Hgb (13.0-17.5) gm/dL Hct (39.0-53.0) % RDW (11.5-15.5) % ABG pH 7.46 H (7.35-7.45) ABG pCO2 33 L (35-45) mmHg ABG pO2 124 H (83-108) mmHg ABG Total CO2 25 H (19-24) mmol/L ABG O2 Saturation 99.3 H (94-97) % Chloride 116 H (98-107) mmol/L Creatinine 1.40 H (0.66-1.25) mg/dL Glucose 68 L (74-99) mg/dL Calcium 7.2 L (8.4-10.2) mg/dL AST (17-59) U/L Total Creatine Kinase (55-170) U/L Total Protein (6.3-8.2) g/dL Albumin (3.5-5.0) g/dL Crossmatch See Detail 12/29/17 12/29/17 12/29/17 Range/Units 02:26 02:26 02:26 RBC 2.63 L (4.30-5.90) m/uL Hgb 8.2 L (13.0-17.5) gm/dL Hct 24.9 L (39.0-53.0) % RDW 15.9 H (11.5-15.5) % ABG pH (7.35-7.45) ABG pCO2 (35-45) mmHg ABG pO2 (83-108) mmHg ABG Total CO2 (19-24) mmol/L ABG O2 Saturation (94-97) % Chloride 115 H (98-107) mmol/L Creatinine 1.40 H (0.66-1.25) mg/dL Glucose 61 L (74-99) mg/dL Calcium 7.5 L (8.4-10.2) mg/dL AST 96 H (17-59) U/L Total Creatine Kinase 2124 H (55-170) U/L Total Protein 4.1 L (6.3-8.2) g/dL Albumin 2.2 L (3.5-5.0) g/dL Crossmatch Assessment and Plan Plan: A. fib with RVR * Cardiology consulted for further recommendations * Continue Cardizem drip, patient will likely not a candidate for anticoagulation given his anemia and requiring multiple blood transfusions * Echocardiogram showing a normal ejection fraction of 55-60% Acute hypoxic respiratory failure -Patient on airflow in significant respiratory distress * Chest x-ray showing volume overload moderate bilateral interstitial edema with possible developing right focal suprahilar infiltrate * Continue with Lasix 40 mg IV twice a day Acute blood loss anemia secondary to tumor -Hemoglobin 8.2 today s/p 3 u pRBCS transfusion -Follow with serial CBCs -Transfuse as needed Hyponatremia - exact etiology undetermined with low serum osmol - nephrology consult - serial lytes - maintain current fluids - seizure precuations Bladder tumor and anterior Bladder perforation-status post repair and TURBT -Management per urology -Zosyn for prophylaxis Hypotension with shock (resolved) - Multifactorial due to acute blood anemia superimposed on hematuria - sepsis ruled out - doing well off levophed Metabolic acidosis -On serum bicarb drip -follow lytes Hypocalcemia - replace and continue to follow ionized calcium levels. Acute kidney injury seondary to ATN * Creatinine improving -IV fluids -Avoid additional nephrotoxic agents -Renal ultrasound without medical renal disease -nephrology recs - MAP optimized >65 -Patient was on Bactrim as an outpatient for possible UTI and this was held on admission Coronary artery disease -No aspirin at this time secondary to bleeding Hyperkalemia, resolved DVT prophylaxis: SCDs Discussed with: Patient's RN in the ICU, nephrology, Pulm/cc Anticipated discharge: undetermined Anticipated discharge place: undetermined
--- NOTE | 2017-12-29 10:31 | P.PN ---
Subjective Patient is seen in follow-up for acute kidney injury and hyponatremia. Patient had developed acute hyponatremia after bladder surgery which is improved with IV hydration. Sodium level up to 140 this morning. Patient was extubated on December 28 and has been transferred out of the intensive care unit. Creatinine down to 1.4. Patient has chronic kidney disease stage III secondary to solitary right kidney with baseline creatinine near 1.2. Feels dyspneic. He has been started on Lasix 40 mg IV twice daily. Currently maintained on Cardizem drip for A. fib with RVR. Vital signs are stable. General: The patient appeared well nourished and normally developed. HEENT: Head exam is unremarkable. Neck is without jugular venous distension. LUNGS: Lungs are clear to auscultation and percussion. Breath sounds decreased. HEART: Irregular rate and rhythm. ABDOMEN: Abdominal exam reveals normal bowel sounds. Non-tender and non- distended. No evidence of peritonitis. EXTREMITITES: No clubbing, cyanosis, or edema. Objective - Vital Signs Vital signs: Vital Signs Temp 97.6 F 12/29/17 08:56 Pulse 128 H 12/29/17 09:27 Resp 28 H 12/29/17 08:56 BP 114/67 12/29/17 08:56 Pulse Ox 92 L 12/29/17 08:56 Intake & Output 12/28/17 12/29/17 12/29/17 18:59 06:59 18:59 Intake Total 1774.686 203 Output Total 1350 1650 Balance 424.686 -1447 Weight 58.5 kg Intake: IV 1544 53 0.9 NACL 1520 50 Pressure bag of 0.9 NaCl- 24 3 Intake, IV Titration 40.686 Amount Norepinephrin 16 mg-0.9% 40.686 Ns Pmx 16 mg In 250 ml @ Titrate IV .Q0M [facility] Rx#: [id number] Oral 150 Tube Feeding 100 Other 90 Output: Drainage 20 Abdomen 20 Urine 1330 1650 Other: Voiding Method Indwelling Catheter Indwelling Catheter ABP, PAP, CO, CI - Last Documented Arterial Blood Pressure 91/79 - Labs CBC & Chem 7: 12/29/17 02:26 12/29/17 02:26 Labs: Abnormal Lab Results - Last 24 Hours (Table) 12/28/17 12/28/17 12/28/17 Range/Units 11:35 14:37 22:20 RBC (4.30-5.90) m/uL Hgb (13.0-17.5) gm/dL Hct (39.0-53.0) % RDW (11.5-15.5) % ABG pH 7.46 H (7.35-7.45) ABG pCO2 33 L (35-45) mmHg ABG pO2 124 H (83-108) mmHg ABG Total CO2 25 H (19-24) mmol/L ABG O2 Saturation 99.3 H (94-97) % Chloride 116 H (98-107) mmol/L Creatinine 1.40 H (0.66-1.25) mg/dL Glucose 68 L (74-99) mg/dL Calcium 7.2 L (8.4-10.2) mg/dL AST (17-59) U/L Total Creatine Kinase (55-170) U/L Total Protein (6.3-8.2) g/dL Albumin (3.5-5.0) g/dL Crossmatch See Detail 12/29/17 12/29/17 12/29/17 Range/Units 02:26 02:26 02:26 RBC 2.63 L (4.30-5.90) m/uL Hgb 8.2 L (13.0-17.5) gm/dL Hct 24.9 L (39.0-53.0) % RDW 15.9 H (11.5-15.5) % ABG pH (7.35-7.45) ABG pCO2 (35-45) mmHg ABG pO2 (83-108) mmHg ABG Total CO2 (19-24) mmol/L ABG O2 Saturation (94-97) % Chloride 115 H (98-107) mmol/L Creatinine 1.40 H (0.66-1.25) mg/dL Glucose 61 L (74-99) mg/dL Calcium 7.5 L (8.4-10.2) mg/dL AST 96 H (17-59) U/L Total Creatine Kinase 2124 H (55-170) U/L Total Protein 4.1 L (6.3-8.2) g/dL Albumin 2.2 L (3.5-5.0) g/dL Crossmatch Assessment and Plan Plan: Assessment: 1. Acute hyponatremia. Serum osmolality is low. There was concern that the patient had absorbed the irrigation solution used during the surgery yesterday into his extracellular space leading to transurethral resection syndrome. However the serum osmolality would be expected to be near normal as the solution used for irrigation is typically isosmotic but nonsodium containing. Improved with IV fluids. Sodium level is up to 140 this morning. Urine osmolality low at 117. 2. Bladder cancer status post cystoscopy, evacuation of clot, transurethral resection of bladder tumor and closure of bladder perforation on 12/25/2017. 3. Acute blood loss anemia status post blood transfusion. Iron replete. 4. Nonoliguric acute kidney injury secondary to ATN secondary to hemodynamic instability and anemia. Creatinine 1.6 today. 5. Chronic kidney disease stage III with baseline creatinine near 1.2 secondary to solitary right kidney. 6. Metabolic acidosis secondary to acute kidney injury and IV fluids. Improved. 7. Hypocalcemia secondary to acute kidney injury and chelation from blood transfusion. His corrected calcium for albumin is in the normal range. 8. Volume overload. 9. A. fib with RVR maintain on Cardizem drip. Plan: Continue Lasix 40 mg IV twice daily. Continue to monitor renal function and urine output. Avoid nephrotoxic agents and hypotensive episodes.
--- NOTE | 2017-12-29 11:48 | P.PN ---
Subjective Progress Note Date: 12/29/17 Principal diagnosis: Acute hypoxic respiratory failure secondary to fluid volume overload. 87-year-old male patient who is being seen in the recovery room as the patient failed postoperative extubation. The patient was taken to the operating room for gross hematuria. The patient was having significant amount of hematuria associated with drop in hemoglobin from 13.2 down to 9.0 since this current admission and earlier this morning his hemoglobin was down to 7.6. The patient has intermittent hematuria since 2013. 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 He is a chronic smoker. The patient underwent a cystoscopy and the patient was found to have a bladder tumor that was resected using a transurethral approach. Following that the patient was found to have a bladder perforation. This was not related to the tumor resection and apparently the tumor was a 4 cm papillary tumor overlying the right trigone of securing the right ureteral orifice and the perforation was in the anterior bladder wall. In any rate, the patient underwent expiratory laparotomy, evacuation of intra-abdominal fluid collection and closure of a bladder perforation. Estimated blood loss was 75 mL. Total amount of fluid was 1.3 L given during the surgery. The patient also received a total of 2 units of packed RBCs. I saw this patient in the recovery room. Apparently he was extubated in recovery however he had weak breathing effort and he subsequently went into respiratory failure. He was reintubated within 10 minutes. Post intubation blood gas showed a pH of 7.19 with a pCO2 of 39 and pO2 of 339. The patient accordingly was placed on assist controlled rate of 22 tidal volume was brought up from 350 up to 500 and FiO2 is up to 60%. Pulse ox remains above 90% on the monitor. The patient is on no pressors at this point in time. A triple-lumen catheter was inserted. An outlying catheter was inserted. The patient has a component of non-anion gap metabolic acidosis with a bicarb level of 14 and a anion gap level of 9 and the patient was started on bicarb drip with D5 3 amps of bicarb at the rate of 1 100 mL an hour. Note that the patient was in acute kidney injury in the creatinine was up to 0.6 and dropped down to 1.9 and his calcium level was at 8 point further down to 6.2 total non-ionize. Post intubation chest x-ray showed questionable air under the left hemidiaphragm. ET tube is in a good location. 2 triple-lumen cath is also in good location. Coagulation profile is within normal limits. The patient is known to have coronary artery disease. On 12/27/2007 and I'm seeing this patient for a follow-up. The patient remains intubated on a mechanical ventilator. Currently is an assist-control mode at the rate of 22 with a tidal volume of 500 and FiO2 has been weaned down to order percent with a PEEP of 5. Morning blood gases showed a pH of 7.41 with a pCO2 of 29 and pO2 of 105. The patient's chest x-ray shows adequate positioning of the 82. The patient has a small left-sided pleural effusion. He is sedated with propofol and is calm and comfortable. Abdominal wound is dry clean and intact. There is some bruising around the JERMAINE drain site. The drain has without approximately 200 mL of serosanguineous and bloody drainage over the past 8 hours. The patient is producing adequate amount of urine output. And the urine output for now is approximately 2.2 L since he arrived to the intensive care units. The patient overnight was resuscitated with IV fluids. He received several boluses and he remained borderline lower blood pressure with a systolic in the mid 90s. Subsequently this morning he dropped down to a systolic of 78. He was started on and after infusion and currently the patient's BP is under better control with a map of around 65-70. The patient has also component of non-anion gap metabolic acidosis and hyponatremia. The hyponatremia probably due to excessive fluid irrigation of the bladder which probably get absorbed into his system and intravascular system and his sodium is at 122. The patient is currently on a bicarb drip with D5 with 3 ampules of bicarb running at 100 mL an hour. The patient also is on empiric antibiotic coverage with IV Zosyn. The patient was noted to have a low calcium and he will be given a gram of calcium chloride. Not ready for any weaning at this point in time. Function continues to improve and the creatinine is down to 1.8 from a baseline of 2.6 at time of admission. The hematuria is also improving. Reevaluated today on 12/27/2017, patient remains on mechanical ventilation, and his ventilator settings are assist control rate of 22, tidal volume of 500, FiO2 of 40%, and PEEP is 5. Patient is hemodynamically unstable, requiring levo fed at 40 mcg/m. Patient will be given more fluid boluses, apparently he received so far at least 6 L of fluids his urine output is over 200 mL per hour. Remains on antibiotics empirically, today I recommended a dose of Solu- Cortef, and I plan to change his arterial line since it doesn't seem to be functional. Family is at bedside including his 2 nieces, and his condition was discussed with both of them. ABG showed a pO2 of 108 pCO2 of 33 pH of 7.48. Patient is arousable, and he was following simple instructions quite well. Noted to have some coffee ground material in the nasogastric tube, hence his Protonix dose was doubled. Labs were reviewed, sodium is a bit low at 130. BUN is 23 creatinine is 1.70. WBC count is 14.3 hemoglobin is 8.7. Gastric aspirate is Hemoccult positive. Chest x-ray showed minimal left pleural effusion and minimal atelectasis at the left base. No evidence of pneumonia. His echocardiogram is relatively normal. Surgical pathology is still pending from his bladder tumor. Brain CT is unremarkable, EEG is being done for questionable witnessed seizure, results of which are pending. Blood cultures were sent, and urine cultures were sent today. Patient is presently off propofol, arousable, followed simple instructions, but blood pressure remains low. Hence we will continue norepinephrine and continue fluid boluses. Reevaluated today on 12/28/2017, remains on mechanical ventilation, sedated, on propofol, remains on levo fed at 70 mcg/m. His ventilator settings are tidal volume of 500 assist control rate of 2240% FiO2 and PEEP of 5. His ABG showed a pO2 of 164, pCO2 of 30, PH of 7.48. Hence the patient was cut down to FiO2 of 30%, and INR of the patient, with held his propofol, and I'm planning to give him a spontaneous breathing trial, and possibly extubate the patient today. Chest x-ray was reviewed all left-sided pleural effusion was noted, and a smaller effusion was noted on the right side. Rest of the labs were noted to be unremarkable, creatinine is improving down to 1.60. Basic metabolic profile is normal CBC is relatively normal except for hemoglobin of 7.4. The patient is seen today 12/29/2017 in follow-up on the selective care unit. He was extubated yesterday and transferred here last evening. Earlier this morning he developed increasing shortness of breath. His chest x-ray showed persistent small bilateral effusions left greater than right with bibasilar atelectasis. There was a new mild to moderate bilateral interstitial edema and developing focal right suprahilar interstitial infiltrate. He did receive 40 mg of Lasix IV push and placed on AirVo oxygenation high flow at 45 L and 65% FiO2. Ultrasound of the left chest with markings are pending. White count 9.9. Hemoglobin 8.2. Bicarb 22. Creatinine 1.40. Currently in a -1550 ML balance. Remains in atrial fibrillation somewhat tachycardic and Cardizem drip is at 10 mg per hour. Objective - Vital Signs Vital signs: Vital Signs Temp 97.6 F 12/29/17 08:56 Pulse 128 H 12/29/17 09:27 Resp 28 H 12/29/17 08:56 BP 114/67 12/29/17 08:56 Pulse Ox 92 L 12/29/17 08:56 Intake & Output 12/28/17 12/29/17 12/29/17 18:59 06:59 18:59 Intake Total 1774.686 203 41.333 Output Total 1350 1650 Balance 424.686 -1447 41.333 Weight 58.5 kg Intake: IV 1544 53 0.9 NACL 1520 50 Pressure bag of 0.9 NaCl- 24 3 Intake, IV Titration 40.686 41.333 Amount Diltiazem 50 mg In Sodium 41.333 Chloride 0.9% 40 ml @ 10 MG/HR 10 mls/hr IV .Q5H [facility] Rx#:[id number] Norepinephrin 16 mg-0.9% 40.686 Ns Pmx 16 mg In 250 ml @ Titrate IV .Q0M [facility] Rx#: [id number] Oral 150 Tube Feeding 100 Other 90 Output: Drainage 20 Abdomen 20 Urine 1330 1650 Other: Voiding Method Indwelling Catheter Indwelling Catheter ABP, PAP, CO, CI - Last Documented Arterial Blood Pressure 91/79 - Exam GENERAL EXAM: Frail, cachectic. Alert, fairly comfortable in slight respiratory distress. HEAD: Normocephalic. EYES: Normal reaction of pupils, equal size. NOSE: Clear with pink turbinates. THROAT: No erythema or exudates. NECK: No masses, no JVD. CHEST: No chest wall deformity. LUNGS: Equal air entry with a basilar crackles more so on the left. CVS: S1 and S2 normal with no audible murmur, irregular rhythm. ABDOMEN: Surgical site clean dry well approximate. JERMAINE drain in place. . SPINE: No scoliosis or deformity SKIN: No rashes CENTRAL NERVOUS SYSTEM: No focal deficits, tone is normal in all 4 extremities. EXTREMITIES: There is no peripheral edema. No clubbing, no cyanosis. Peripheral pulses are intact. - Labs CBC & Chem 7: 12/29/17 02:26 12/29/17 02:26 Labs: Abnormal Lab Results - Last 24 Hours (Table) 12/28/17 12/28/17 12/28/17 Range/Units 11:35 14:37 22:20 RBC (4.30-5.90) m/uL Hgb (13.0-17.5) gm/dL Hct (39.0-53.0) % RDW (11.5-15.5) % ABG pH 7.46 H (7.35-7.45) ABG pCO2 33 L (35-45) mmHg ABG pO2 124 H (83-108) mmHg ABG Total CO2 25 H (19-24) mmol/L ABG O2 Saturation 99.3 H (94-97) % Chloride 116 H (98-107) mmol/L Creatinine 1.40 H (0.66-1.25) mg/dL Glucose 68 L (74-99) mg/dL Calcium 7.2 L (8.4-10.2) mg/dL AST (17-59) U/L Total Creatine Kinase (55-170) U/L Total Protein (6.3-8.2) g/dL Albumin (3.5-5.0) g/dL Crossmatch See Detail 12/29/17 12/29/17 12/29/17 Range/Units 02:26 02:26 02:26 RBC 2.63 L (4.30-5.90) m/uL Hgb 8.2 L (13.0-17.5) gm/dL Hct 24.9 L (39.0-53.0) % RDW 15.9 H (11.5-15.5) % ABG pH (7.35-7.45) ABG pCO2 (35-45) mmHg ABG pO2 (83-108) mmHg ABG Total CO2 (19-24) mmol/L ABG O2 Saturation (94-97) % Chloride 115 H (98-107) mmol/L Creatinine 1.40 H (0.66-1.25) mg/dL Glucose 61 L (74-99) mg/dL Calcium 7.5 L (8.4-10.2) mg/dL AST 96 H (17-59) U/L Total Creatine Kinase 2124 H (55-170) U/L Total Protein 4.1 L (6.3-8.2) g/dL Albumin 2.2 L (3.5-5.0) g/dL Crossmatch Assessment and Plan Assessment: 1 acute hypoxic respiratory failure post general anesthesia, post bladder surgery. Exact cause is not clear. Could be that the patient was extubated prematurely prior to compared to being recovered from his anesthetic agents. Other causes need to be considered including severe metabolic acidosis which we have attributed to his respiratory failure. No history of any myasthenia gravis of any neuromuscular weakness or neuromuscular disorders. Neurologically , the patient was stated to be awake prior to surgery and the patient was apparently was moving all 4 extremities without any limitation. 12/29/2017: The patient was extubated yesterday to 4 L/m per nasal cannula. He developed increasing shortness of breath requiring AirVo high flow oxygenation at 45 L and 65% FiO2. Chest x-ray reveals evidence of pulmonary edema. 2 massive hematuria secondary to bladder tumor, status post transurethral resection of a bladder tumor 3 resection of a bladder tumor from the trigone, the patient underwent transurethral resection of the bladder tumor and the patient is postop day #2 4 bladder perforation, involving the anterior bladder wall, status post expiratory laparotomy and repair of a laceration. Patient is postop day #2 5 severe and non-anion gap metabolic acidosis him a currently on a bicarb drip 6 acute kidney injury, improving and creatinine is down trending for now 7 anemia, secondary to blood loss from massive hematuria, status post packed RBC transfusion the patient's hemoglobin is stable 8 coronary artery disease with decreased ME and stenting of RCA 9 smoker with possible COPD 10 hyponatremia, probably dilutional, secondary to extensive letter irrigation and fluid leaking into the abdominal cavity. Nephrology has been consult on the case. 11 hypocalcemia 12 hypotension currently on pressors after being resuscitated adequately with IV fluids. Rule out underlying septic event and the patient is covered with empiric antibiotics with IV Zosyn. Echocardiogram is unremarkable 13 suspected upper GI bleeding, has Protonix dose was doubled. Continue to monitor closely, if bleeding gets any worse, may have to consider EGD. Recommendation: The patient was seen and evaluated by Dr. Hinton. We did give Lasix 40 mg IV push times one. Continue every 12 hours. Initiated AirVo high flow oxygen currently at 65% FiO2. Obtain an ultrasound of the left chest to rule out significant fluid that may require thoracentesis. He remains on Cardizem drip at 10 mg per hour for rate control. We'll repeat a chest x-ray in the a.m. Overall prognosis remains guarded. We'll continue to follow. I, the cosigning physician, performed a history & physical examination of the patient. Lungs sounds have bilateral crackles more so on the left. Maintaining good O2 saturations in the 90s on 625% FiO2. I discussed the assessment and plan of care with my nurse practitioner, Constance May. I attest to the above note as dictated by her.
--- NOTE | 2017-12-29 14:20 | US ---
EXAMINATION TYPE: US chest DATE OF EXAM: 12/29/2017 COMPARISON: Same day chest x-ray CLINICAL HISTORY: Left pleural effusion, hypoxia. EXAM MEASUREMENTS: Left Pleural Effusion fluid pocket: 1.5 cm Left skin to fluid thickness: 5.9 cm Left side marked for possible thoracentesis outside the dept. Pulmonologists are able to review the images in the patient?s EMR. Last 6 images confirm at least moderate size left pleural effusion or fluid collection slightly more prominent than suspected on comparison chest x-ray IMPRESSIONS: As above
[2017-12-29] MEDS ORDERED: LIDOCAINE 2% INJ 20 MG/ML (20 ML MDV) ONE (15:11)
[2017-12-29] MEDS ORDERED: LIDOCAINE 1% INJ 10MG/ML (20 ML MDV) SQ ONE (15:17)
--- NOTE | 2017-12-29 15:18 | P.CRDCN ---
History of Present Illness Consult date: 12/29/17 Requesting physician: Jeremias Ortiz Reason for Consult (text): Bowen. 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 Initially presented to the emergency room with complaints of lightheadedness, dizziness and hematuria. He was tachycardic and found to have leukocytosis and anemia with a hemoglobin of 9 which is down from 13.2 48 hours prior. He underwent cystoscopy which showed a bladder tumor and anterior bladder perforation. He subsequently underwent open closure of the bladder perforation as well as transurethral resection of his bladder tumor. Had a complicated postoperative course with difficulties extubation. Patient was extubated yesterday and was transferred to the medical floor. We were consulted due to patient going into atrial fibrillation with rapid ventricular response. Complaining of chest burning and shortness of breath was found to be in respiratory distress and having increased oxygen requirements. On Cardizem drip at 10 mg an hour. TSH was normal at 2.42. Echocardiogram done during this admission showed normal LV systolic function with ejection fraction between 55-60% and no significant valvular abnormalities. On examination, patient is resting comfortably in bed with high flow oxygen. She denies further complaints of chest burning, shortness of breath, denies palpitations, dizziness or lightheadedness. 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 Patient has a single kidney a day patient has an elevated a kidney many years back Last Myocardial Infarction Date:: 06/2015 History of Any Multi-Drug Resistant Organisms: None Reported Past Surgical History: Heart Catheterization With Stent, Orthopedic Surgery Additional Past Surgical History / Comment(s): LT kidney donation 1999, finger surgery ON LT HAND, RHINOPLASY Past Anesthesia/Blood Transfusion Reactions: No Reported Reaction Date of Last Stent Placement:: 2015 Past Psychological History: No Psychological Hx Reported Smoking Status: Current every day smoker Past Alcohol Use History: None Reported Additional Past Alcohol Use History / Comment(s): STARTED SMOKING AT AGE 9, WORKED UP TO 1.5 PPD.(ROLLS HIS OWN) Past Drug Use History: None Reported Additional Drug Use History / Comment(s): DAILY USE - Past Family History Father Additional Family Medical History / Comment(s): FROM A BRAIN TUMOR and tb Mother Additional Family Medical History / Comment(s): FROM INJURIES SUSTAINED FROM MVA. Medications and Allergies Home Medications Medication Instructions Recorded Confirmed Type Sulfamethox-Tmp 800-160Mg [Bactrim 1 each PO Q12HR #14 tab 12/23/17 12/25/17 Rx DS 800-160 mg] Allergies Allergy/AdvReac Type Severity Reaction Status Date / Time No Known Allergies Allergy Verified 12/25/17 11:25 Physical Exam Vitals: Vital Signs Temp Pulse Pulse Pulse Resp BP BP 12/29/17 14:01 92 12/29/17 13:45 87 12/29/17 09:27 128 H 12/29/17 09:15 124 H 12/29/17 08:56 97.6 F 139 H 28 H 114/67 12/29/17 08:40 12/29/17 06:07 124 H 12/29/17 05:51 127 H 12/29/17 04:00 138 H 14 105/63 12/29/17 00:00 98 F 79 14 117/58 12/28/17 21:40 12/28/17 21:19 97.6 F 103 H 16 124/59 12/28/17 18:00 84 16 99/59 12/28/17 17:00 90 16 113/58 12/28/17 16:00 97.9 F 92 14 96/54 12/28/17 15:39 78 12/28/17 15:24 78 12/28/17 15:18 25 H 12/28/17 15:00 98 25 H 96/53 Pulse Ox 12/29/17 14:01 12/29/17 13:45 12/29/17 09:27 12/29/17 09:15 12/29/17 08:56 92 L 12/29/17 08:40 90 L 12/29/17 06:07 12/29/17 05:51 12/29/17 04:00 12/29/17 00:00 92 L 12/28/17 21:40 98 12/28/17 21:19 87 L 12/28/17 18:00 99 12/28/17 17:00 96 12/28/17 16:00 98 12/28/17 15:39 12/28/17 15:24 12/28/17 15:18 12/28/17 15:00 98 Intake and Output 12/28/17 12/29/17 12/29/17 22:59 06:59 14:59 Intake Total 1349 41.333 Output Total 665 1550 Balance 684 -1550 41.333 Intake: IV 1199 0.9 NACL 1190 Pressure bag of 0.9 NaCl- 9 Intake, IV Titration 41.333 Amount Diltiazem 50 mg In Sodium 41.333 Chloride 0.9% 40 ml @ 10 MG/HR 10 mls/hr IV .Q5H [facility] Rx#:[id number] Oral 150 Output: Urine 665 1550 Other: Voiding Method Indwelling Catheter Indwelling Catheter Weight 58.5 kg PHYSICAL EXAMINATION: HEENT: Head is atraumatic, normocephalic. Pupils equal, round. Neck is supple. There is no elevated jugular venous pressure. HEART EXAMINATION: Heart sounds irregularly irregular, S1 and S2 normal. No murmur or gallop heard. CHEST EXAMINATION: Lungs reveal diminished air entry bilaterally. No chest wall tenderness is noted on palpation or with deep breathing. ABDOMEN: Soft, nontender. Bowel sounds are heard. No organomegaly noted. Incision and francisco clean and dry, intact. EXTREMITIES: 2+ peripheral pulses with no evidence of peripheral edema and no calf tenderness noted. NEUROLOGIC patient is awake, alert and oriented x3. . Results 12/29/17 02:26 12/29/17 02:26 Cardiac Enzymes 12/29/17 12/29/17 Range/Units 02:26 02:26 AST 96 H (17-59) U/L CK-MB (CK-2) 2.3 (0.0-2.4) ng/mL Troponin I 0.025 (0.000-0.034) ng/mL CBC 12/29/17 Range/Units 02:26 WBC 9.9 (3.8-10.6) k/uL RBC 2.63 L (4.30-5.90) m/uL Hgb 8.2 L (13.0-17.5) gm/dL Hct 24.9 L (39.0-53.0) % Plt Count 307 (150-450) k/uL Comprehensive Metabolic Panel 12/28/17 12/29/17 Range/Units 22:20 02:26 Sodium 140 140 (137-145) mmol/L Potassium 3.8 4.0 (3.5-5.1) mmol/L Chloride 116 H 115 H (98-107) mmol/L Carbon Dioxide 22 22 (22-30) mmol/L BUN 16 16 (9-20) mg/dL Creatinine 1.40 H 1.40 H (0.66-1.25) mg/dL Glucose 68 L 61 L (74-99) mg/dL Calcium 7.2 L 7.5 L (8.4-10.2) mg/dL AST 96 H (17-59) U/L ALT 50 (21-72) U/L Alkaline Phosphatase 56 (38-126) U/L Total Protein 4.1 L (6.3-8.2) g/dL Albumin 2.2 L (3.5-5.0) g/dL Current Medications Generic Name Dose Route Start Last Admin Trade Name Freq PRN Reason Stop Dose Admin Albuterol Sulfate 2.5 mg 12/25/17 18:55 12/29/17 05:51 Ventolin Nebulized INHALATION 2.5 mg RT-QID PRN Administration Shortness Of Breath Or Wheezing Albuterol/Ipratropium 3 ml 12/25/17 20:00 12/29/17 13:45 Duoneb 0.5 Mg-3 Mg/3 Ml Soln INHALATION 3 ml RT-QID [facility] Administration Furosemide 40 mg 12/29/17 21:00 Lasix IV Q12HR [facility] Hydromorphone HCl 0.5 mg 12/25/17 14:36 12/29/17 09:40 Dilaudid IVP 0.5 mg Q2HR PRN Administration Pain Piperacillin/Tazobactam/ 50 mls @ 12.5 mls/hr 12/25/17 21:00 12/29/17 09:35 Dextrose 3.375 gm/ IV Solution IVPB 12.5 mls/hr Q12HR [facility] Administration Acetaminophen 1,000 mg/ IV 100 mls @ 400 mls/hr 12/25/17 18:41 Solution IVPB Q6HR PRN Fever and/ or Pain Diltiazem HCl 50 mg/ Sodium 50 mls @ 10 mls/hr 12/29/17 04:45 12/29/17 11:03 Chloride IV 10 mg/hr .Q5H [facility] 10 mls/hr Administration 10 MG/HR Miscellaneous Information 1 each 12/25/17 18:50 Magnesium Per Protocol MISCELLANE DAILY PRN Per Protocol Protocol Naloxone HCl 0.2 mg 12/25/17 06:42 Narcan IV Q2M PRN Opioid Reversal Ondansetron HCl 4 mg 12/25/17 18:55 Zofran IVP Q6H PRN Nausea Pantoprazole Sodium 40 mg 12/27/17 21:00 12/29/17 09:35 Protonix IVP 40 mg BID [facility]I Administration Intake and Output 12/28/17 12/29/17 12/29/17 22:59 06:59 14:59 Intake Total 1349 41.333 Output Total 665 1550 Balance 684 -1550 41.333 Intake: IV 1199 0.9 NACL 1190 Pressure bag of 0.9 NaCl- 9 Intake, IV Titration 41.333 Amount Diltiazem 50 mg In Sodium 41.333 Chloride 0.9% 40 ml @ 10 MG/HR 10 mls/hr IV .Q5H [facility] Rx#:[id number] Oral 150 Output: Urine 665 1550 Other: Voiding Method Indwelling Catheter Indwelling Catheter Weight 58.5 kg 12/29/17 02:26 12/29/17 02:26 EKG Interpretations (text) Atrial fibrillation with rapid ventricular response Assessment and Plan Assessment: #1 new onset atrial fibrillation with rapid ventricular response, likely paroxysmal currently on Cardizem drip #2 acute hypoxic respiratory failure #3 acute blood loss anemia secondary to bladder tumor and perforation #4 hyponatremia #5 Bladder tumor and anterior bladder perforation, status post repair and TURBT #6 acute kidney injury Plan: From cardiology perspective, we will hold off on anticoagulation at this time due to anemia and positive gastric occult blood as well as hematuria. We will start by mouth metoprolol and attempt to wean Cardizem drip. We will continue to follow the patient provide further recommendations accordingly. VOUCHER CLERK note has been reviewed, I agree with a documented findings and plan of care. Patient was seen and examined.
--- NOTE | 2017-12-29 16:05 | XR ---
EXAMINATION TYPE: XR chest 1V portable DATE OF EXAM: 12/29/2017 CLINICAL HISTORY: Post left-sided thoracentesis. TECHNIQUE: Single AP portable upright view of the chest is obtained. COMPARISON: Chest x-ray from earlier today. FINDINGS: There is stable left subclavian central venous catheter. Improved aeration left lung base is seen after thoracentesis. No sizable pneumothorax. Stable right basilar opacity. Cardiac silhouett e size is stable and within normal limits. Osseous structures are intact. Surgical clips epigastric r egion are redemonstrated. IMPRESSION: No sizable left-sided pneumothorax after thoracentesis. Improved aeration left lung base noted.
[2017-12-29 16:17] LABS: Total Protein 4.1 g/dL (6.3-8.2)
[2017-12-29] MEDS ORDERED: HYDROmorphone 1 MG/ML 1 ML SYRINGE IVP PRN (18:18)
--- NOTE | 2017-12-29 18:42 | PCN ---
PROCEDURE NOTE PROCEDURE PERFORMED: Left-sided thoracentesis. PREOPERATIVE DIAGNOSIS: Left pleural effusion. POSTOP DIAGNOSIS: Left pleural effusion. ANESTHESIA: 4 mL of 1% lidocaine. PROCEDURE: Patient was placed in a sitting upright position, the area below the left scapula was prepared in a sterile fashion and drapes were applied. At the level of 9th intercostal space and tip of the scapula, the area was locally anesthetized and it was earlier localized by ultrasound guidance. Then, a 26-gauge needle was inserted at the same site, advanced into the pleural space. The fluid was localized by the needle. Then a standard thoracentesis catheter and needle were used. Needle inserted at the same site, advanced into the pleural space. Once the fluid was obtained, the catheter was advanced out of the needle into the pleural space, and the needle was pulled out of the pleural space. Free-flowing fluid was removed, roughly 1100 mL of slightly serosanguineous fluid was removed from the left pleural space. Procedure was well tolerated, no evidence of any immediate complications. Chest x-ray showed no postoperative complications and no evidence of pneumothorax with complete resolution of the pleural effusion. MMODL / IJN: [id number] /
[2017-12-29] MEDS: FUROSEMIDE 10 MG/ML 4 ML VIAL IV SCH (20:52)
[2017-12-29] MEDS: METOPROLOL TARTRATE 25 MG TAB PO SCH (20:53)
[2017-12-30] MEDS: DILTIAZEM 50 MG in SODIUM CHLORIDE 0.9% 40 ML IV SCH ×4 (00:42→16:03)
[2017-12-30] MEDS: IPRATROPIUM-ALBUTEROL 3 ML NEB INHALATION SCH ×4 (08:43→20:10)
[2017-12-30] MEDS: FUROSEMIDE 10 MG/ML 4 ML VIAL IV SCH (09:06)
[2017-12-30] MEDS: METOPROLOL TARTRATE 25 MG TAB PO SCH (09:06)
[2017-12-30] MEDS: PANTOPRAZOLE 40 MG/10 ML VIAL IVP SCH ×2 (09:07→19:50)
[2017-12-30] MEDS: PIPERACILLIN-TAZOBACTAM 3.375 GM in DEXTROSE/WATER 1 50ML.BAG IVPB SCH ×2 (09:11→16:06)
[2017-12-30 09:39] LABS: Calcium 7.5 mg/dL (8.4-10.2)
--- NOTE | 2017-12-30 09:40 | P.PN ---
Subjective Patient is seen in follow-up for acute kidney injury and hyponatremia. Patient had developed acute hyponatremia after bladder surgery which is improved with IV hydration. Sodium level up to 140 as of yesterday. Patient was extubated on December 28 and has been transferred out of the intensive care unit. Creatinine down to 1.4. Patient has chronic kidney disease stage III secondary to solitary right kidney with baseline creatinine near 1.2. Feels dyspneic. He has been started on Lasix 40 mg IV twice daily. Currently maintained on Cardizem drip for A. fib with RVR. HR controlled. Patient had left-sided thoracentesis done on December 29 with 1.1 L removed. Currently maintained on Lasix 40 mg IV twice daily. Urine output near 3 L. Vital signs are stable. General: The patient appeared well nourished and normally developed. HEENT: Head exam is unremarkable. Neck is without jugular venous distension. LUNGS: Lungs are clear to auscultation and percussion. Breath sounds decreased. HEART: Irregular rate and rhythm. ABDOMEN: Abdominal exam reveals normal bowel sounds. Non-tender and non- distended. No evidence of peritonitis. EXTREMITITES: No clubbing, cyanosis, or edema. Objective - Vital Signs Vital signs: Vital Signs Temp 97.9 F 12/30/17 08:00 Pulse 97 12/30/17 08:57 Resp 18 12/30/17 04:00 BP 104/60 12/30/17 04:00 Pulse Ox 92 L 12/30/17 08:44 Intake & Output 12/29/17 12/30/17 12/30/17 18:59 06:59 18:59 Intake Total 931.333 161.333 Output Total 4900 Balance -3968.667 161.333 Weight 51 kg Intake: IV 40 30 Invasive Line 2 20 30 Invasive Line 4 20 Intake, IV Titration 91.333 131.333 Amount Diltiazem 50 mg In Sodium 91.333 131.333 Chloride 0.9% 40 ml @ 10 MG/HR 10 mls/hr IV .Q5H [facility] Rx#:[id number] Oral 800 Output: Urine 4900 Other: Voiding Method Indwelling Catheter Indwelling Catheter # Bowel Movements 1 ABP, PAP, CO, CI - Last Documented Arterial Blood Pressure 91/79 - Labs CBC & Chem 7: 12/29/17 02:26 12/29/17 02:26 Labs: Abnormal Lab Results - Last 24 Hours (Table) 12/28/17 12/29/17 Range/Units 14:37 02:26 Lactate Dehydrogenase 1078 H (313-618) U/L Total Protein 4.1 L (6.3-8.2) g/dL Crossmatch See Detail Assessment and Plan Plan: Assessment: 1. Acute hyponatremia. Serum osmolality is low. There was concern that the patient had absorbed the irrigation solution used during the surgery yesterday into his extracellular space leading to transurethral resection syndrome. However the serum osmolality would be expected to be near normal as the solution used for irrigation is typically isosmotic but nonsodium containing. Improved with IV fluids. Sodium level is up to 140 this morning. Urine osmolality low at 117. 2. Bladder cancer status post cystoscopy, evacuation of clot, transurethral resection of bladder tumor and closure of bladder perforation on 12/25/2017. 3. Acute blood loss anemia status post blood transfusion. Iron replete. 4. Nonoliguric acute kidney injury secondary to ATN secondary to hemodynamic instability and anemia. Creatinine 1.4 yesterday. 5. Chronic kidney disease stage III with baseline creatinine near 1.2 secondary to solitary right kidney. 6. Metabolic acidosis secondary to acute kidney injury and IV fluids. Improved. 7. Hypocalcemia secondary to acute kidney injury and chelation from blood transfusion. His corrected calcium for albumin is in the normal range. 8. Volume overload. 9. A. fib with RVR maintained on Cardizem drip. Plan: I will decrease the dose of Lasix to 40 mg IV once daily. Continue to monitor renal function and urine output. Avoid nephrotoxic agents and hypotensive episodes. Morning labs pending.
--- NOTE | 2017-12-30 10:11 | P.PN ---
Subjective Progress Note Date: 12/30/17 Principal diagnosis: Hematuria Interval note: For full note on 12/25 see H and p by Dr. 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 On arrival to the ER he was tachycardic with a pulse of 118. Initial laboratory analysis showed a leukocytosis of 13.5, anemia with a hemoglobin of 9 (down from 13.2 in 48 hours) . He underwent ultrasound of the kidneys and bladder which showed normal- appearing right kidney without evidence of obstruction and a urinary bladder filled with complex density that could be blood clot versus bladder tumor. After admission his hemoglobin continued to downtrend. He was seen by Dr. Jose in the morning of 12/25 and taken for cystoscopy. Cystoscopy is on have a bladder tumor and anterior bladder perforation. He subsequently had an open closure of his latter perforation as well as a transurethral resection of his bladder tumor. He failed postoperative extubation, was reintubated, and was sent to the ICU. Dr. Wing saw the patient in PACU in order to serum bicarb drip after he found have a pH of 7.19. On arrival to the ICU he was 93.4 F and had lost a tooth. He was started on zosyn as prophylaxis. His blood pressure dropped early in the monring on 12/26 and he was started on levophed. He was extubated on the morning of 12/28 and transferred to selective care. He hen developed A fib with RVR and was placed on a cardizem gtt and cardio was consulted. He has a positive gastoroccult and was started on protonix. He had 1 episode of possible seizure activity but his EEG showed diffuse slowing no definitive seizure activity, he has not had any seizure since extubation. Patient seen and examined. He is feeling much better than yesterday. He denies any chest pain. He is not having any shortness of breath when laying flat but when he tries to move around he does feel short of breath. No lightheadedness or dizziness. He has not other complaints currently. Had bowel movement yesterday. Tolerating his clear liquid diet. Objective - Vital Signs Vital signs: Vital Signs Temp 97.9 F 12/30/17 08:00 Pulse 97 12/30/17 08:57 Resp 18 12/30/17 04:00 BP 104/60 12/30/17 04:00 Pulse Ox 92 L 12/30/17 08:44 Intake & Output 12/29/17 12/30/17 12/30/17 18:59 06:59 18:59 Intake Total 931.333 161.333 300 Output Total 4900 Balance -3968.667 161.333 300 Weight 51 kg Intake: IV 40 30 Invasive Line 2 20 30 Invasive Line 4 20 Intake, IV Titration 91.333 131.333 Amount Diltiazem 50 mg In Sodium 91.333 131.333 Chloride 0.9% 40 ml @ 10 MG/HR 10 mls/hr IV .Q5H [facility] Rx#:[id number] Oral 800 300 Output: Urine 4900 Other: Voiding Method Indwelling Catheter Indwelling Catheter # Bowel Movements 1 ABP, PAP, CO, CI - Last Documented Arterial Blood Pressure 91/79 - Exam General: ill appearing, mild distress, appears at stated age Derm: warm, dry Head: atraumatic, normocephalic, symmetric Eyes: EOMI, no lid lag, anicteric sclera Mouth: no lip lesion, mucus membranes moist Cardiovascular: S1S2 irreg, no murmur, positive posterior tibial pulse bilateral , Lungs: decreased bs b/l, no rhonchi, no rales , no accessory muscle use Abdominal: soft, + TTP LLQ and RLQ, no guarding, no appreciable organomegaly Ext: + gross muscle atrophy, no edema, no contractures Neuro: CN II-XI grossly intact, no focal neuro deficits Psych: Alert, oriented, appropriate affect - Labs CBC & Chem 7: 12/29/17 02:26 12/30/17 02:26 Labs: Abnormal Lab Results - Last 24 Hours (Table) 12/28/17 12/29/17 12/30/17 Range/Units 14:37 02:26 02:26 Chloride 116 H (98-107) mmol/L Carbon Dioxide 21 L (22-30) mmol/L Creatinine 1.39 H (0.66-1.25) mg/dL Glucose 62 L (74-99) mg/dL Calcium 7.5 L (8.4-10.2) mg/dL Lactate Dehydrogenase 1078 H (313-618) U/L Total Protein 4.1 L (6.3-8.2) g/dL Crossmatch See Detail Assessment and Plan Assessment: A fib with RVR - on cardizem gtt, d/w nurse giving morning metoprolol and decreasing gtt - no anticoagulation due to recent bleeding and surgery. Hypoglycemia in AM - start accucheck - encourage ora intake, advanced to full liquid diet today Bladder tumor and anterior Bladder perforation-status post repair and TURBT with urothelial carcinoma - d/w Dr. Negron plan will be to D/C with bae and follow-up in the office. -Urology recs appreciate -Zosyn for prophylaxis Possible GI bleed - on protonix - HgB stable. Will continue to follow Acute blood loss anemia secondary to tumor -Status post 2 units of packed red blood cells -Follow with serial CBCs Left Pleural effusion - s/p thora 12/28, likely due to fluid resuscitation - pulmonary recs Acute hypoxic respiratory failure - management as per pulmonary team Acute kidney injury seondary to ATN on CKD III baseline Cr 1.2 -Avoid additional nephrotoxic agents -Renal ultrasound without medical renal disease -nephrology recs Coronary artery disease -No aspirin at this time secondary to bleeding Hyperkalemia, resolved Hyponatremia, resolved Metabolic acidosis, improved Hypocalcemia, resolved Hypotension, resolved DVT prophylaxis: SCDs Discussed with: Patient's RN in the ICU, nephrology, Pulm/cc Anticipated discharge: undetermined Anticipated discharge place: undetermined A total of 45 minutes was spent on the care of this complex patient more than 50 % of the time was spent in counseling and care coordination.
--- NOTE | 2017-12-30 11:50 | P.PN ---
Subjective Progress Note Date: 12/30/17 Principal diagnosis: Acute hypoxic respiratory failure secondary to fluid volume overload. 87-year-old male patient who is being seen in the recovery room as the patient failed postoperative extubation. The patient was taken to the operating room for gross hematuria. The patient was having significant amount of hematuria associated with drop in hemoglobin from 13.2 down to 9.0 since this current admission and earlier this morning his hemoglobin was down to 7.6. The patient has intermittent hematuria since 2013. 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 He is a chronic smoker. The patient underwent a cystoscopy and the patient was found to have a bladder tumor that was resected using a transurethral approach. Following that the patient was found to have a bladder perforation. This was not related to the tumor resection and apparently the tumor was a 4 cm papillary tumor overlying the right trigone of securing the right ureteral orifice and the perforation was in the anterior bladder wall. In any rate, the patient underwent expiratory laparotomy, evacuation of intra-abdominal fluid collection and closure of a bladder perforation. Estimated blood loss was 75 mL. Total amount of fluid was 1.3 L given during the surgery. The patient also received a total of 2 units of packed RBCs. I saw this patient in the recovery room. Apparently he was extubated in recovery however he had weak breathing effort and he subsequently went into respiratory failure. He was reintubated within 10 minutes. Post intubation blood gas showed a pH of 7.19 with a pCO2 of 39 and pO2 of 339. The patient accordingly was placed on assist controlled rate of 22 tidal volume was brought up from 350 up to 500 and FiO2 is up to 60%. Pulse ox remains above 90% on the monitor. The patient is on no pressors at this point in time. A triple-lumen catheter was inserted. An outlying catheter was inserted. The patient has a component of non-anion gap metabolic acidosis with a bicarb level of 14 and a anion gap level of 9 and the patient was started on bicarb drip with D5 3 amps of bicarb at the rate of 1 100 mL an hour. Note that the patient was in acute kidney injury in the creatinine was up to 0.6 and dropped down to 1.9 and his calcium level was at 8 point further down to 6.2 total non-ionize. Post intubation chest x-ray showed questionable air under the left hemidiaphragm. ET tube is in a good location. 2 triple-lumen cath is also in good location. Coagulation profile is within normal limits. The patient is known to have coronary artery disease. On 12/27/2007 and I'm seeing this patient for a follow-up. The patient remains intubated on a mechanical ventilator. Currently is an assist-control mode at the rate of 22 with a tidal volume of 500 and FiO2 has been weaned down to order percent with a PEEP of 5. Morning blood gases showed a pH of 7.41 with a pCO2 of 29 and pO2 of 105. The patient's chest x-ray shows adequate positioning of the 82. The patient has a small left-sided pleural effusion. He is sedated with propofol and is calm and comfortable. Abdominal wound is dry clean and intact. There is some bruising around the JERMAINE drain site. The drain has without approximately 200 mL of serosanguineous and bloody drainage over the past 8 hours. The patient is producing adequate amount of urine output. And the urine output for now is approximately 2.2 L since he arrived to the intensive care units. The patient overnight was resuscitated with IV fluids. He received several boluses and he remained borderline lower blood pressure with a systolic in the mid 90s. Subsequently this morning he dropped down to a systolic of 78. He was started on and after infusion and currently the patient's BP is under better control with a map of around 65-70. The patient has also component of non-anion gap metabolic acidosis and hyponatremia. The hyponatremia probably due to excessive fluid irrigation of the bladder which probably get absorbed into his system and intravascular system and his sodium is at 122. The patient is currently on a bicarb drip with D5 with 3 ampules of bicarb running at 100 mL an hour. The patient also is on empiric antibiotic coverage with IV Zosyn. The patient was noted to have a low calcium and he will be given a gram of calcium chloride. Not ready for any weaning at this point in time. Function continues to improve and the creatinine is down to 1.8 from a baseline of 2.6 at time of admission. The hematuria is also improving. Reevaluated today on 12/27/2017, patient remains on mechanical ventilation, and his ventilator settings are assist control rate of 22, tidal volume of 500, FiO2 of 40%, and PEEP is 5. Patient is hemodynamically unstable, requiring levo fed at 40 mcg/m. Patient will be given more fluid boluses, apparently he received so far at least 6 L of fluids his urine output is over 200 mL per hour. Remains on antibiotics empirically, today I recommended a dose of Solu- Cortef, and I plan to change his arterial line since it doesn't seem to be functional. Family is at bedside including his 2 nieces, and his condition was discussed with both of them. ABG showed a pO2 of 108 pCO2 of 33 pH of 7.48. Patient is arousable, and he was following simple instructions quite well. Noted to have some coffee ground material in the nasogastric tube, hence his Protonix dose was doubled. Labs were reviewed, sodium is a bit low at 130. BUN is 23 creatinine is 1.70. WBC count is 14.3 hemoglobin is 8.7. Gastric aspirate is Hemoccult positive. Chest x-ray showed minimal left pleural effusion and minimal atelectasis at the left base. No evidence of pneumonia. His echocardiogram is relatively normal. Surgical pathology is still pending from his bladder tumor. Brain CT is unremarkable, EEG is being done for questionable witnessed seizure, results of which are pending. Blood cultures were sent, and urine cultures were sent today. Patient is presently off propofol, arousable, followed simple instructions, but blood pressure remains low. Hence we will continue norepinephrine and continue fluid boluses. Reevaluated today on 12/28/2017, remains on mechanical ventilation, sedated, on propofol, remains on levo fed at 70 mcg/m. His ventilator settings are tidal volume of 500 assist control rate of 2240% FiO2 and PEEP of 5. His ABG showed a pO2 of 164, pCO2 of 30, PH of 7.48. Hence the patient was cut down to FiO2 of 30%, and INR of the patient, with held his propofol, and I'm planning to give him a spontaneous breathing trial, and possibly extubate the patient today. Chest x-ray was reviewed all left-sided pleural effusion was noted, and a smaller effusion was noted on the right side. Rest of the labs were noted to be unremarkable, creatinine is improving down to 1.60. Basic metabolic profile is normal CBC is relatively normal except for hemoglobin of 7.4. The patient is seen today 12/29/2017 in follow-up on the selective care unit. He was extubated yesterday and transferred here last evening. Earlier this morning he developed increasing shortness of breath. His chest x-ray showed persistent small bilateral effusions left greater than right with bibasilar atelectasis. There was a new mild to moderate bilateral interstitial edema and developing focal right suprahilar interstitial infiltrate. He did receive 40 mg of Lasix IV push and placed on AirVo oxygenation high flow at 45 L and 65% FiO2. Ultrasound of the left chest with markings are pending. White count 9.9. Hemoglobin 8.2. Bicarb 22. Creatinine 1.40. Currently in a -1550 ML balance. Remains in atrial fibrillation somewhat tachycardic and Cardizem drip is at 10 mg per hour. The patient is seen again today 12/30/2017 in follow-up on the selective care unit. He is awake and alert in no acute distress. He is breathing quite a bit better today as compared to yesterday. He did undergo thoracentesis with Dr. Hinton in approximately 1100 ML's of serosanguineous fluid was removed. Analysis pending. He is continuing to require 15 L high flow nasal cannula to maintain O2 saturations in the 90s. Afebrile. His rate is better controlled. He remains on a Cardizem drip. Remains on IV Lasix. Creatinine 1.39. Objective - Vital Signs Vital signs: Vital Signs Temp 97.9 F 12/30/17 08:00 Pulse 97 12/30/17 08:57 Resp 18 12/30/17 04:00 BP 104/60 12/30/17 04:00 Pulse Ox 92 L 12/30/17 08:44 Intake & Output 12/29/17 12/30/17 12/30/17 18:59 06:59 18:59 Intake Total 931.333 161.333 510 Output Total 4900 Balance -3968.667 161.333 510 Weight 51 kg 51 kg Intake: IV 40 30 10 Invasive Line 2 20 30 10 Invasive Line 4 20 Intake, IV Titration 91.333 131.333 Amount Diltiazem 50 mg In Sodium 91.333 131.333 Chloride 0.9% 40 ml @ 10 MG/HR 10 mls/hr IV .Q5H [facility] Rx#:[id number] Oral 800 300 Tube Feeding 200 Output: Urine 4900 Other: Voiding Method Indwelling Catheter Indwelling Catheter Indwelling Catheter # Bowel Movements 1 ABP, PAP, CO, CI - Last Documented Arterial Blood Pressure 91/79 - Exam GENERAL EXAM: Frail, cachectic. Alert, fairly comfortable in slight respiratory distress. HEAD: Normocephalic. EYES: Normal reaction of pupils, equal size. NOSE: Clear with pink turbinates. THROAT: No erythema or exudates. NECK: No masses, no JVD. CHEST: No chest wall deformity. LUNGS: Equal air entry with a basilar crackles more so on the left. CVS: S1 and S2 normal with no audible murmur, irregular rhythm. ABDOMEN: Surgical site clean dry well approximate. JERMAINE drain in place. . SPINE: No scoliosis or deformity SKIN: No rashes CENTRAL NERVOUS SYSTEM: No focal deficits, tone is normal in all 4 extremities. EXTREMITIES: There is no peripheral edema. No clubbing, no cyanosis. Peripheral pulses are intact. - Labs CBC & Chem 7: 12/29/17 02:26 12/30/17 02:26 Labs: Abnormal Lab Results - Last 24 Hours (Table) 12/28/17 12/29/17 12/30/17 Range/Units 14:37 02:26 02:26 Chloride 116 H (98-107) mmol/L Carbon Dioxide 21 L (22-30) mmol/L Creatinine 1.39 H (0.66-1.25) mg/dL Glucose 62 L (74-99) mg/dL Calcium 7.5 L (8.4-10.2) mg/dL Lactate Dehydrogenase 1078 H (313-618) U/L Total Protein 4.1 L (6.3-8.2) g/dL Crossmatch See Detail Assessment and Plan Assessment: 1 acute hypoxic respiratory failure post general anesthesia, post bladder surgery. Exact cause is not clear. Could be that the patient was extubated prematurely prior to compared to being recovered from his anesthetic agents. Other causes need to be considered including severe metabolic acidosis which we have attributed to his respiratory failure. No history of any myasthenia gravis of any neuromuscular weakness or neuromuscular disorders. Neurologically , the patient was stated to be awake prior to surgery and the patient was apparently was moving all 4 extremities without any limitation. 12/29/2017: The patient was extubated yesterday to 4 L/m per nasal cannula. He developed increasing shortness of breath requiring AirVo high flow oxygenation at 45 L and 65% FiO2. Chest x-ray reveals evidence of pulmonary edema. 12/30/2017: Patient did undergo thoracentesis of the left chest with approximately 1100 ML's removed. Analysis pending. Breathing easier today. Currently on 15 L high flow nasal cannula. 2 massive hematuria secondary to bladder tumor, status post transurethral resection of a bladder tumor 3 resection of a bladder tumor from the trigone, the patient underwent transurethral resection of the bladder tumor and the patient is postop day #2 4 bladder perforation, involving the anterior bladder wall, status post expiratory laparotomy and repair of a laceration. Patient is postop day #2 5 severe and non-anion gap metabolic acidosis him a currently on a bicarb drip 6 acute kidney injury, improving and creatinine is down trending for now 7 anemia, secondary to blood loss from massive hematuria, status post packed RBC transfusion the patient's hemoglobin is stable 8 coronary artery disease with decreased [place] and stenting of RCA 9 smoker with possible COPD 10 hyponatremia, probably dilutional, secondary to extensive letter irrigation and fluid leaking into the abdominal cavity. Nephrology has been consult on the case. 11 hypocalcemia 12 hypotension currently on pressors after being resuscitated adequately with IV fluids. Rule out underlying septic event and the patient is covered with empiric antibiotics with IV Zosyn. Echocardiogram is unremarkable 13 suspected upper GI bleeding, has Protonix dose was doubled. Continue to monitor closely, if bleeding gets any worse, may have to consider EGD. Recommendation: The patient was seen and evaluated by Dr. Hinton. The patient is doing better status post left thoracentesis of 1100 ML's removed yesterday. Analysis is pending. He is currently on 15 L high flow nasal cannula. Continue IV Lasix. We'll continue to follow. I, the cosigning physician, performed a history & physical examination of the patient. Lungs sounds have bilateral crackles. Maintaining good O2 saturations in the 90s on 15 L high flow nasal cannula.. I discussed the assessment and plan of care with my nurse practitioner, Constance May. I attest to the above note as dictated by her.
--- NOTE | 2017-12-30 12:03 | P.PN ---
Subjective Progress Note Date: 12/30/17 Principal diagnosis: POD #5, s/p TUR-BT and Closure of Bladder Laceration Mr. Merchant underwent thoracentesis yesterday. He feels better today. He denies dyspnea. He reports minimal incisional pain. He is hungry, and is passing flatus. He states that he has had a bowel movement. He is weak. His Tierney catheter is draining clear yellow urine. Objective - Vital Signs Vital signs: Vital Signs Temp 97.9 F 12/30/17 08:00 Pulse 97 12/30/17 08:57 Resp 18 12/30/17 04:00 BP 104/60 12/30/17 04:00 Pulse Ox 92 L 12/30/17 08:44 Intake & Output 12/29/17 12/30/17 12/30/17 18:59 06:59 18:59 Intake Total 931.333 161.333 510 Output Total 4900 Balance -3968.667 161.333 510 Weight 51 kg 51 kg Intake: IV 40 30 10 Invasive Line 2 20 30 10 Invasive Line 4 20 Intake, IV Titration 91.333 131.333 Amount Diltiazem 50 mg In Sodium 91.333 131.333 Chloride 0.9% 40 ml @ 10 MG/HR 10 mls/hr IV .Q5H [facility] Rx#:[id number] Oral 800 300 Tube Feeding 200 Output: Urine 4900 Other: Voiding Method Indwelling Catheter Indwelling Catheter Indwelling Catheter # Bowel Movements 1 ABP, PAP, CO, CI - Last Documented Arterial Blood Pressure 91/79 - Constitutional General appearance: Present: cooperative, no acute distress - Gastrointestinal Gastrointestinal Comment(s): Soft, nondistended. Incision clean and dry. Minimal serous drainage around JERMAINE drain. The abdominal wall edema has resolved. - Labs CBC & Chem 7: 12/29/17 02:26 12/30/17 02:26 Labs: Abnormal Lab Results - Last 24 Hours (Table) 12/28/17 12/29/17 12/30/17 Range/Units 14:37 02:26 02:26 Chloride 116 H (98-107) mmol/L Carbon Dioxide 21 L (22-30) mmol/L Creatinine 1.39 H (0.66-1.25) mg/dL Glucose 62 L (74-99) mg/dL Calcium 7.5 L (8.4-10.2) mg/dL Lactate Dehydrogenase 1078 H (313-618) U/L Total Protein 4.1 L (6.3-8.2) g/dL Crossmatch See Detail Assessment and Plan (1) Gross hematuria Current Visit: Yes Status: Acute Code(s): R31.0 - GROSS HEMATURIA SNOMED Code(s): 554221049 Plan: Mr. Merchant is urologically stable. He is tolerating clear liquid diet, and diet will be advanced. 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 This was discussed with the patient. I explained to him that the chance of recurrent bladder cancer is diminished if he successfully quit smoking. Arrangements will be made for him to undergo surveillance cystoscopy in 3 months in the office.
--- NOTE | 2017-12-30 12:46 | P.PN ---
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 Initially presented to the emergency room with complaints of lightheadedness, dizziness and hematuria. He was tachycardic and found to have leukocytosis and anemia with a hemoglobin of 9 which is down from 13.2 48 hours prior. He underwent cystoscopy which showed a bladder tumor and anterior bladder perforation. He subsequently underwent open closure of the bladder perforation as well as transurethral resection of his bladder tumor. Had a complicated postoperative course with difficulties extubation. Patient was extubated yesterday and was transferred to the medical floor. We were consulted due to patient going into atrial fibrillation with rapid ventricular response. Complaining of chest burning and shortness of breath was found to be in respiratory distress and having increased oxygen requirements. Echocardiogram done during this admission showed normal LV systolic function with ejection fraction between 55-60% and no significant valvular abnormalities. on follow-up with the patient today, he is feeling overall better. He is converted to normal sinus mechanism. He is on metoprolol at 25 mg by mouth twice a day and Cardizem and drip at 10 mg per hour. I am going to increase the metoprolol to 50 mg by mouth 3 times a day and try to wean him from the Cardizem drip. The patient, be started on any anticoagulation at this point in view of the low hemoglobin and bleeding. Objective - Vital Signs Vital signs: Vital Signs Temp 97.9 F 12/30/17 08:00 Pulse 87 12/30/17 12:23 Resp 18 12/30/17 04:00 BP 104/60 12/30/17 04:00 Pulse Ox 98 12/30/17 12:17 Intake & Output 12/29/17 12/30/17 12/30/17 18:59 06:59 18:59 Intake Total 931.333 161.333 510 Output Total 4900 Balance -3968.667 161.333 510 Weight 51 kg 51 kg Intake: IV 40 30 10 Invasive Line 2 20 30 10 Invasive Line 4 20 Intake, IV Titration 91.333 131.333 Amount Diltiazem 50 mg In Sodium 91.333 131.333 Chloride 0.9% 40 ml @ 10 MG/HR 10 mls/hr IV .Q5H [facility] Rx#:[id number] Oral 800 300 Tube Feeding 200 Output: Urine 4900 Other: Voiding Method Indwelling Catheter Indwelling Catheter Indwelling Catheter # Bowel Movements 1 ABP, PAP, CO, CI - Last Documented Arterial Blood Pressure 91/79 - Constitutional General appearance: Present: no acute distress - Respiratory Respiratory: bilateral: diminished - Cardiovascular Rhythm: regular Heart sounds: normal: S1, S2 - Labs CBC & Chem 7: 12/29/17 02:26 12/30/17 02:26 Labs: Abnormal Lab Results - Last 24 Hours (Table) 12/28/17 12/29/17 12/30/17 Range/Units 14:37 02:26 02:26 Chloride 116 H (98-107) mmol/L Carbon Dioxide 21 L (22-30) mmol/L Creatinine 1.39 H (0.66-1.25) mg/dL Glucose 62 L (74-99) mg/dL Calcium 7.5 L (8.4-10.2) mg/dL Lactate Dehydrogenase 1078 H (313-618) U/L Total Protein 4.1 L (6.3-8.2) g/dL Crossmatch See Detail Assessment and Plan Assessment: assessment #1 paroxysmal atrial fibrillation #2 anemia secondary to bleeding #3 acute hypoxic respiratory failure which is better #4 coronary artery disease #5 multiple comorbid conditions Plan #1 the patient is converted to normal sinus mechanism #2 increase the dose of metoprolol and wean the patient from Cardizem #3 hold any kind of anticoagulation #4 follow-up with the patient
--- NOTE | 2017-12-30 14:17 | XR ---
EXAMINATION TYPE: XR chest 1V portable DATE OF EXAM: 12/30/2017 COMPARISON: Prior chest 12/29/2017 HISTORY: Pleural effusion, congestive heart failure TECHNIQUE: Single frontal view of the chest is obtained. FINDINGS: Left subclavian central venous catheter is present. There are overlying cardiac leads. No evident pneumothorax. Bibasilar increased density persists, there are likely effusions and associated atelectasis. Cardiomediastinal silhouette, pulmonary vascularity and ashlee show similar appearance. I nterstitium mildly increased. IMPRESSION: Findings similar to prior exam. Bibasilar effusions and associated atelectasis versus e dais, correlate to exclude pneumonia
[2017-12-30] MEDS: METOPROLOL TARTRATE 50 MG TAB PO SCH ×2 (14:49→22:37)
[2017-12-30] MEDS ORDERED: METOPROLOL TARTRATE 25 MG TAB PO SCH (16:00)
[2017-12-30] MEDS: methylPREDNISolone SOD SUCCI 40 MG/ML 1 ML VIAL IV SCH (16:06)
[2017-12-30 17:51] LABS: Glucose,Whole Blood 186 mg/dL (75-99)
[2017-12-30 20:53] LABS: Glucose,Whole Blood 211 mg/dL (75-99)
[2017-12-31] MEDS ORDERED: methylPREDNISolone SOD SUCCI 40 MG/ML 1 ML VIAL ONE
[2017-12-31] MEDS: PIPERACILLIN-TAZOBACTAM 3.375 GM in DEXTROSE/WATER 1 50ML.BAG IVPB SCH ×4 (05:23→23:13)
[2017-12-31] MEDS: methylPREDNISolone SOD SUCCI 40 MG/ML 1 ML VIAL IV SCH ×4 (05:23→23:14)
[2017-12-31] MEDS ORDERED: DILTIAZEM 50 MG in SODIUM CHLORIDE 0.9% 40 ML IV SCH (05:30)
[2017-12-31 05:47] LABS: Glucose,Whole Blood 180 mg/dL (75-99)
[2017-12-31 06:07] LABS: HGB 8.4 gm/dL (13.0-17.5); MCH 30.3 pg (25.0-35.0); MCHC 32.5 g/dL (31.0-37.0); MCV 93.4 fL (80.0-100.0); Mean Platelet Volume 6.7; Platelet Count 373 k/uL (150-450); RBC 2.78 m/uL (4.30-5.90); RDW 14.6 % (11.5-15.5); WBC 10.9 k/uL (3.8-10.6)
[2017-12-31 06:35] LABS: Calcium 8.3 mg/dL (8.4-10.2); Magnesium 1.7 mg/dL (1.6-2.3)
--- NOTE | 2017-12-31 07:33 | P.PN ---
Subjective Progress Note Date: 12/31/17 Principal diagnosis: POD #6, s/p TUR-BT and Closure of Bladder Laceration Mr. Merchant experienced tachycardia this morning, and is now on a Cardizem drip. He is tolerating diet. He is very weak and has yet to ambulate since his surgery. He is weak. His Tierney catheter is draining clear yellow urine. Objective - Vital Signs Vital signs: Vital Signs Temp 98.2 F 12/31/17 04:00 Pulse 129 H 12/31/17 04:00 Resp 22 12/31/17 04:00 BP 103/68 12/31/17 04:00 Pulse Ox 97 12/31/17 04:00 Intake & Output 12/30/17 12/31/17 12/31/17 18:59 06:59 18:59 Intake Total 2430 10 Output Total 800 5700 Balance 1630 -5690 Weight 51 kg 51 kg Intake: IV 190 10 0.9 NACL 160 Invasive Line 2 30 10 Intake, IV Titration 100 Amount Diltiazem 50 mg In Sodium 50 Chloride 0.9% 40 ml @ 10 MG/HR 10 mls/hr IV .Q5H [facility] Rx#:[id number] Piperacillin-Tazobactam 3 50 .375 gm In Dextrose/Water 1 50ml.bag @ 12.5 mls/hr IVPB Q8HR [facility] Rx#: [id number] Oral 1940 Tube Feeding 200 Output: Urine 800 5700 Uretheral (Tierney) 800 2700 Other: Voiding Method Indwelling Catheter Indwelling Catheter # Bowel Movements 1 2 ABP, PAP, CO, CI - Last Documented Arterial Blood Pressure 91/79 - Constitutional General appearance: Present: cooperative, no acute distress - Gastrointestinal Gastrointestinal Comment(s): Soft, nondistended. Incision clean and dry. Scant drainage around JERMAINE drain. - Labs CBC & Chem 7: 12/31/17 05:25 12/31/17 05:25 Labs: Abnormal Lab Results - Last 24 Hours (Table) 12/30/17 12/30/17 12/30/17 Range/Units 02:26 17:49 20:52 WBC (3.8-10.6) k/uL RBC (4.30-5.90) m/uL Hgb (13.0-17.5) gm/dL Hct (39.0-53.0) % Sodium (137-145) mmol/L Chloride 116 H (98-107) mmol/L Carbon Dioxide 21 L (22-30) mmol/L BUN (9-20) mg/dL Creatinine 1.39 H (0.66-1.25) mg/dL Glucose 62 L (74-99) mg/dL POC Glucose (mg/dL) 186 H 211 H (75-99) mg/dL Calcium 7.5 L (8.4-10.2) mg/dL Creatine Kinase (55-170) U/L 12/31/17 12/31/17 12/31/17 Range/Units 05:25 05:25 05:46 WBC 10.9 H (3.8-10.6) k/uL RBC 2.78 L (4.30-5.90) m/uL Hgb 8.4 L (13.0-17.5) gm/dL Hct 26.0 L (39.0-53.0) % Sodium 134 L (137-145) mmol/L Chloride (98-107) mmol/L Carbon Dioxide (22-30) mmol/L BUN 22 H (9-20) mg/dL Creatinine (0.66-1.25) mg/dL Glucose 155 H (74-99) mg/dL POC Glucose (mg/dL) 180 H (75-99) mg/dL Calcium 8.3 L (8.4-10.2) mg/dL Creatine Kinase 811 H (55-170) U/L Assessment and Plan (1) Gross hematuria Current Visit: Yes Status: Acute Code(s): R31.0 - GROSS HEMATURIA SNOMED Code(s): 850331795 Plan: Mr. Merchant is urologically stable. He is tolerating diet. His JERMAINE drain will be removed. Surgical francisco will be removed in several days. Arrangements will be made for him to undergo a cystogram next week, and if it shows no extravasation of contrast the Tierney catheter will be removed. He will undergo surveillance cystoscopy in 3 months.
[2017-12-31] MEDS: IPRATROPIUM-ALBUTEROL 3 ML NEB INHALATION SCH ×4 (09:01→19:48)
[2017-12-31] MEDS: FUROSEMIDE 10 MG/ML 4 ML VIAL IV SCH (09:33)
[2017-12-31] MEDS: METOPROLOL TARTRATE 50 MG TAB PO SCH ×3 (09:34→21:02)
[2017-12-31] MEDS: PANTOPRAZOLE 40 MG/10 ML VIAL IVP SCH ×2 (09:34→19:45)
--- NOTE | 2017-12-31 10:17 | P.PN ---
Subjective Progress Note Date: 12/31/17 Principal diagnosis: Hematuria Interval note: For full note on 12/25 see H and p by Dr. 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 On arrival to the ER he was tachycardic with a pulse of 118. Initial laboratory analysis showed a leukocytosis of 13.5, anemia with a hemoglobin of 9 (down from 13.2 in 48 hours) . He underwent ultrasound of the kidneys and bladder which showed normal- appearing right kidney without evidence of obstruction and a urinary bladder filled with complex density that could be blood clot versus bladder tumor. After admission his hemoglobin continued to downtrend. He was seen by Dr. Negron in the morning of 12/25 and taken for cystoscopy. On Cystoscopy he was found to have a bladder tumor and anterior bladder perforation. He subsequently had an open closure of his bladder perforation as well as a transurethral resection of his bladder tumor. He failed postoperative extubation, was reintubated, and was sent to the ICU. Dr. Wing saw the patient in PACU in order to serum bicarb drip after he found have a pH of 7.19. On arrival to the ICU he was 93.4 F and had lost a tooth. He was started on zosyn as prophylaxis. His blood pressure dropped early in the morning on 12/26 and he was started on levophed. He was extubated on the morning of 12/28 and transferred to selective care. He hen developed A fib with RVR and was placed on a cardizem gtt and cardio was consulted. He has a positive gastoroccult and was started on protonix. He had 1 episode of possible seizure activity but his EEG showed diffuse slowing no definitive seizure activity, he has not had any seizure since extubation. Has improved slowly. He converted to normal sinus rhythm. Patient seen and examined. Feeling well today. Able to walk to the bathroom. No shortness of breath or chest pain. No nausea or vomiting. No other complaints currently. Had a BM yesterday and is tolerating his diet without nausea. Objective - Vital Signs Vital signs: Vital Signs Temp 98.2 F 12/31/17 04:00 Pulse 80 12/31/17 09:15 Resp 22 12/31/17 04:00 BP 103/68 12/31/17 04:00 Pulse Ox 97 12/31/17 09:04 Intake & Output 12/30/17 12/31/17 12/31/17 18:59 06:59 18:59 Intake Total 2430 10 Output Total 800 5700 Balance 1630 -5690 Weight 51 kg 51 kg Intake: IV 190 10 0.9 NACL 160 Invasive Line 2 30 10 Intake, IV Titration 100 Amount Diltiazem 50 mg In Sodium 50 Chloride 0.9% 40 ml @ 10 MG/HR 10 mls/hr IV .Q5H [facility] Rx#:[id number] Piperacillin-Tazobactam 3 50 .375 gm In Dextrose/Water 1 50ml.bag @ 12.5 mls/hr IVPB Q8HR [facility] Rx#: [id number] Oral 1940 Tube Feeding 200 Output: Urine 800 5700 Uretheral (Bae) 800 2700 Other: Voiding Method Indwelling Catheter Indwelling Catheter # Bowel Movements 1 2 ABP, PAP, CO, CI - Last Documented Arterial Blood Pressure 91/79 - Exam General: ill appearing, no distress, appears at stated age Derm: warm, dry Head: atraumatic, normocephalic, symmetric Eyes: EOMI, no lid lag, anicteric sclera Mouth: no lip lesion, mucus membranes moist Cardiovascular: S1S2 irreg, no murmur, positive posterior tibial pulse bilateral , Lungs: decreased bs b/l, no rhonchi, no rales , no accessory muscle use Abdominal: soft, NTTP, no guarding, no appreciable organomegaly Ext: + gross muscle atrophy, no edema, no contractures Neuro: CN II-XI grossly intact, no focal neuro deficits Psych: Alert, oriented, appropriate affect - Labs CBC & Chem 7: 12/31/17 05:25 12/31/17 05:25 Labs: Abnormal Lab Results - Last 24 Hours (Table) 12/30/17 12/30/17 12/31/17 Range/Units 17:49 20:52 05:25 WBC (3.8-10.6) k/uL RBC (4.30-5.90) m/uL Hgb (13.0-17.5) gm/dL Hct (39.0-53.0) % Sodium 134 L (137-145) mmol/L BUN 22 H (9-20) mg/dL Glucose 155 H (74-99) mg/dL POC Glucose (mg/dL) 186 H 211 H (75-99) mg/dL Calcium 8.3 L (8.4-10.2) mg/dL Creatine Kinase 811 H (55-170) U/L 12/31/17 12/31/17 Range/Units 05:25 05:46 WBC 10.9 H (3.8-10.6) k/uL RBC 2.78 L (4.30-5.90) m/uL Hgb 8.4 L (13.0-17.5) gm/dL Hct 26.0 L (39.0-53.0) % Sodium (137-145) mmol/L BUN (9-20) mg/dL Glucose (74-99) mg/dL POC Glucose (mg/dL) 180 H (75-99) mg/dL Calcium (8.4-10.2) mg/dL Creatine Kinase (55-170) U/L Assessment and Plan Assessment: A fib with RVR - on cardizem gtt needs to come off - cardio recs - no anticoagulation due to recent bleeding and surgery. Bladder tumor and anterior Bladder perforation-status post repair and TURBT with urothelial carcinoma - d/w Dr. Negron plan will be to D/C with bae and follow-up in the office for cystoscopy -Urology recs appreciate -Zosyn for prophylaxis Leukocytosis due to steroids - follow for fevers - follow CBC Possible GI bleed - on protonix - HgB stable. Will continue to follow Acute blood loss anemia secondary to tumor -Status post 2 units of packed red blood cells -Follow with serial CBCs Left Pleural effusion - s/p thora 12/28, likely due to fluid resuscitation - pulmonary recs Acute hypoxic respiratory failure - management as per pulmonary team Acute kidney injury secondary to ATN on CKD III baseline Cr 1.2 -Avoid additional nephrotoxic agents -Renal ultrasound without medical renal disease -nephrology recs Coronary artery disease -No aspirin at this time secondary to bleeding Hyperkalemia, resolved Hyponatremia, resolved Metabolic acidosis, improved Hypocalcemia, resolved Hypotension, resolved Hypoglycemia, resolved DVT prophylaxis: SCDs Discussed with: Patient Anticipated discharge: undetermined Anticipated discharge place: undetermined A total of 25 minutes was spent on the care of this complex patient more than 50 % of the time was spent in counseling and care coordination.
[2017-12-31 10:43] LABS: Appearance,BF Cloudy; Color,BF Brown; Nucleated Cells, Body Fluid 1200 /uL; RBC, Body Fluid 6900 /uL
[2017-12-31 10:49] LABS: Mononuclear WBC,Body Fluid 31 %; Polynuclear WBC,Body Fluid 69 %; Total Cells Counted,Body Fluid 100
[2017-12-31 11:54] LABS: Glucose,Whole Blood 316 mg/dL (75-99)
--- NOTE | 2017-12-31 12:04 | CDI ---
Last Revision, May 2017 Documentation Clarification Form Date: 12/31/2017 12:00:00 AM From: Yvette Leblanc RN, CCDS Admit Date: 12/25/2017 1:04:00 AM Patient Name: Spencer Merchant Visit Number: [id number] Discharge Date: ATTENTION: The Clinical Documentation Specialists (CDI) and [facility] Coding Staff appreciate your assistance in clarifying documentation. Please respond to the clarification below the line at the bottom and electronically sign. The CDI & [facility] Coding staff will review the response and follow-up if needed. Please note: Queries are made part of the Legal Health Record. If you have any questions, please contact the author of this message via ITS. Dr. Dajuan Arrington A 67 year-old male patient with no prior history of atrial fibrillation was admitted for gross hematuria and bladder tumor, had cystoscopy, evacuation of clot, transuretheral resection of bladder tumor, exploratory laparotomy, closure of bladder perforation. Cardiology was consulted for "new onset atrial fibrillation with RVR". Your 12/31/17 progress notes has, this patient had a complicated postoperative course with difficulties extubation. The patient was four days post op. Patient history/risk factors: Coronary Artery disease, [place] 06/2005 ECHO: Normal LV systolic EF 55-60 % Vital signs (12/29/17 at 08:40)114/67 139 28 97.6 Treatment: Cardizem drip (titrate) Lopressor PO Telemetry/ Monitor In your professional opinion, and in order to accurately reflect this patient's severity of illness, please clarify if atrial fibrillation is a complication of the surgical procedure? Yes NO Other, please specify Unable to determine Please continue to document in your progress notes and discharge summary in order to capture severity of illness and risk of mortality. Include clinical findings that support your diagnosis. MTDD
--- NOTE | 2017-12-31 12:31 | P.CONS ---
History of Present Illness - Chief Complaint Medical debility - History of Present Illness I had the opportunity to see patient for inpatient rehab consultation with regard to medical debility. He was admitted to [facility] December 25 with syncope and hematuria. Seen by Dr. Kenny who did perform cystoscopy noted clot as well as papillary tumor, resected. Seen in ICU by Dr. Wing for acute respiratory failure and Dr. Hathaway for acute kidney injury. Seen by cardiology for new onset atrial fibrillation with rapid ventricular response. Chest x- rays followed for effusions and atelectasis. PT reports minimal assistance for functional debility and supervision for gait 100 feet with roller walker. OT reports supervision for upper and lower dressing and functional mobility. Minimal assistance for bathing and toileting. Previous functional history as elicited from patient: 67-year-old left-handed white male who is single lives in one floor home alone. Retired. Describes independent with own cooking, laundry, standing shower. Occasional needle standard cane. Does not drive. Smokes a pack per day and does not drink. Has no regular doctor. Family history father had brain tumor. Review of Systems Review of systems: ENT: Denies sneezes or discharge. Eyes: Denies discharge or photophobia. Cardiac: Denies chest pain or palpitation. Pulmonary: At least mild shortness of breath. Gastrointestinal: Denies nausea, emesis, constipation, diarrhea. Genitourinary: Bladder discomfort or fullness. Musculoskeletal: Denies muscle or bone aches. Neurologic: At least mild generalized weakness. Endocrine: Denies shakes or sweats. Oncology: Denies cancers. Dermatologic: Denies rash, itching, pruritus. ALLERGY/immunology: Denies sneezes, rashes. 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 Patient has a single kidney a day patient has an elevated a kidney many years back Last Myocardial Infarction Date:: 06/2015 History of Any Multi-Drug Resistant Organisms: None Reported Past Surgical History: Heart Catheterization With Stent, Orthopedic Surgery Additional Past Surgical History / Comment(s): LT kidney donation 1999, finger surgery ON LT HAND, RHINOPLASY Past Anesthesia/Blood Transfusion Reactions: No Reported Reaction Date of Last Stent Placement:: 2015 Past Psychological History: No Psychological Hx Reported Smoking Status: Current every day smoker Past Alcohol Use History: None Reported Additional Past Alcohol Use History / Comment(s): STARTED SMOKING AT AGE 9, WORKED UP TO 1.5 PPD.(ROLLS HIS OWN) Past Drug Use History: None Reported Additional Drug Use History / Comment(s): DAILY USE - Past Family History Father Additional Family Medical History / Comment(s): FROM A BRAIN TUMOR and tb Mother Additional Family Medical History / Comment(s): FROM INJURIES SUSTAINED FROM MVA. Medications and Allergies Home Medications Medication Instructions Recorded Confirmed Type Sulfamethox-Tmp 800-160Mg [Bactrim 1 each PO Q12HR #14 tab 12/23/17 12/25/17 Rx DS 800-160 mg] Allergies Allergy/AdvReac Type Severity Reaction Status Date / Time No Known Allergies Allergy Verified 12/25/17 11:25 Physical Exam Vitals: Vital Signs Temp Pulse Pulse Resp BP Pulse Ox 12/31/17 12:15 82 12/31/17 12:08 86 12/31/17 09:15 80 12/31/17 09:04 84 97 12/31/17 04:00 98.2 F 129 H 22 103/68 97 12/31/17 00:00 99.6 F 84 20 110/63 96 12/30/17 20:23 89 12/30/17 20:10 86 94 L 12/30/17 20:00 87 18 12/30/17 19:48 99.9 F H 87 18 105/55 93 L 12/30/17 16:31 98 12/30/17 16:23 96 12/30/17 16:20 96 12/30/17 16:00 98.2 F 90 24 99/57 94 L Intake and Output 12/30/17 12/31/17 12/31/17 22:59 06:59 14:59 Intake Total 1700 Output Total 3100 3400 Balance -1400 -3400 Intake: IV 10 Invasive Line 2 10 Intake, IV Titration 50 Amount Piperacillin-Tazobactam 3 50 .375 gm In Dextrose/Water 1 50ml.bag @ 12.5 mls/hr IVPB Q8HR [facility] Rx#: [id number] Oral 1640 Output: Urine 3100 3400 Uretheral (Tierney) 1700 1800 Other: Voiding Method Indwelling Catheter Indwelling Catheter # Bowel Movements 2 Weight 51 kg Skin: Good color, texture, turgor. General: Thin build and comfortable appearance. Head: Normocephalic, atraumatic. Eyes: Symmetric. Pupils equal round. Ears: Symmetric. Hearing within normal limits. Mouth: Clear. Neck: Supple. Carotid without bruit. Cardiac: Regular rate and rhythm. Lungs: Clear anteriorly and posteriorly. Abdomen: Soft active nontender. Indwelling catheter. Extremities: Normal tone. Thin limbs. Neurological: Mental status: Alert, cooperative, pleasant. Cranial nerves: Symmetric facial tone and trapezius. Motor: Actively elevates all 4 limbs. Sensation: Intact throughout. DTRs: Symmetric and equal throughout. Mobility: Did not attempt to sit or stand is just a breathing treatment. Results CBC & Chem 7: 12/31/17 05:25 12/31/17 05:25 Labs: Abnormal Lab Results - Last 24 Hours (Table) 12/30/17 12/30/17 12/31/17 Range/Units 17:49 20:52 05:25 WBC (3.8-10.6) k/uL RBC (4.30-5.90) m/uL Hgb (13.0-17.5) gm/dL Hct (39.0-53.0) % Sodium 134 L (137-145) mmol/L BUN 22 H (9-20) mg/dL Glucose 155 H (74-99) mg/dL POC Glucose (mg/dL) 186 H 211 H (75-99) mg/dL Calcium 8.3 L (8.4-10.2) mg/dL Creatine Kinase 811 H (55-170) U/L 12/31/17 12/31/17 12/31/17 Range/Units 05:25 05:46 11:34 WBC 10.9 H (3.8-10.6) k/uL RBC 2.78 L (4.30-5.90) m/uL Hgb 8.4 L (13.0-17.5) gm/dL Hct 26.0 L (39.0-53.0) % Sodium (137-145) mmol/L BUN (9-20) mg/dL Glucose (74-99) mg/dL POC Glucose (mg/dL) 180 H 316 H (75-99) mg/dL Calcium (8.4-10.2) mg/dL Creatine Kinase (55-170) U/L Chest x-ray: report reviewed (Chest x-rays followed for effusions and atelectasis.) Assessment and Plan (1) Gross hematuria Current Visit: Yes Status: Acute Code(s): R31.0 - GROSS HEMATURIA SNOMED Code(s): 427960957 Plan: Impression: 1. Medical debility. 2. Gross hematuria. 3. Papillary bladder tumor. 4. Acute respiratory failure, hypoxic. 5. Acute kidney injury. 6. New-onset atrial fibrillation with rapid ventricular response. 7. Cardiac disease with history of multiple stents and history of [place]. PT and OT ongoing. Safety concerns noted. Unsure of supports for discharge plan though.
--- NOTE | 2017-12-31 12:34 | P.PN ---
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 Initially presented to the emergency room with complaints of lightheadedness, dizziness and hematuria. He was tachycardic and found to have leukocytosis and anemia with a hemoglobin of 9 which is down from 13.2 48 hours prior. He underwent cystoscopy which showed a bladder tumor and anterior bladder perforation. He subsequently underwent open closure of the bladder perforation as well as transurethral resection of his bladder tumor. Had a complicated postoperative course with difficulties extubation. Patient was extubated yesterday and was transferred to the medical floor. We were consulted due to patient going into atrial fibrillation with rapid ventricular response. Complaining of chest burning and shortness of breath was found to be in respiratory distress and having increased oxygen requirements. Echocardiogram done during this admission showed normal LV systolic function with ejection fraction between 55-60% and no significant valvular abnormalities. On follow-up with the patient today, he is feeling better. The shortness of breath is better. He is in sinus rhythm with a heart rate between 80-100 beats per minutes. He is on metoprolol which was increased yesterday. Also he is on Lasix IV. The creatinine continues to be stable. The patient is not a candidate to be on anticoagulation at this point Objective - Vital Signs Vital signs: Vital Signs Temp 98.2 F 12/31/17 04:00 Pulse 82 12/31/17 12:15 Resp 22 12/31/17 04:00 BP 103/68 12/31/17 04:00 Pulse Ox 97 12/31/17 09:04 Intake & Output 12/30/17 12/31/17 12/31/17 18:59 06:59 18:59 Intake Total 2430 10 Output Total 800 5700 Balance 1630 -5690 Weight 51 kg 51 kg Intake: IV 190 10 0.9 NACL 160 Invasive Line 2 30 10 Intake, IV Titration 100 Amount Diltiazem 50 mg In Sodium 50 Chloride 0.9% 40 ml @ 10 MG/HR 10 mls/hr IV .Q5H [facility] Rx#:[id number] Piperacillin-Tazobactam 3 50 .375 gm In Dextrose/Water 1 50ml.bag @ 12.5 mls/hr IVPB Q8HR [facility] Rx#: [id number] Oral 1940 Tube Feeding 200 Output: Urine 800 5700 Uretheral (Tierney) 800 2700 Other: Voiding Method Indwelling Catheter Indwelling Catheter # Bowel Movements 1 2 ABP, PAP, CO, CI - Last Documented Arterial Blood Pressure 91/79 - Constitutional General appearance: Present: no acute distress - Respiratory Respiratory: bilateral: CTA - Cardiovascular Rhythm: regular Heart sounds: normal: S1, S2 - Labs CBC & Chem 7: 12/31/17 05:25 12/31/17 05:25 Labs: Abnormal Lab Results - Last 24 Hours (Table) 12/30/17 12/30/17 12/31/17 Range/Units 17:49 20:52 05:25 WBC (3.8-10.6) k/uL RBC (4.30-5.90) m/uL Hgb (13.0-17.5) gm/dL Hct (39.0-53.0) % Sodium 134 L (137-145) mmol/L BUN 22 H (9-20) mg/dL Glucose 155 H (74-99) mg/dL POC Glucose (mg/dL) 186 H 211 H (75-99) mg/dL Calcium 8.3 L (8.4-10.2) mg/dL Creatine Kinase 811 H (55-170) U/L 12/31/17 12/31/17 12/31/17 Range/Units 05:25 05:46 11:34 WBC 10.9 H (3.8-10.6) k/uL RBC 2.78 L (4.30-5.90) m/uL Hgb 8.4 L (13.0-17.5) gm/dL Hct 26.0 L (39.0-53.0) % Sodium (137-145) mmol/L BUN (9-20) mg/dL Glucose (74-99) mg/dL POC Glucose (mg/dL) 180 H 316 H (75-99) mg/dL Calcium (8.4-10.2) mg/dL Creatine Kinase (55-170) U/L Assessment and Plan Assessment: assessment #1 paroxysmal atrial fibrillation. The patient currently in normal sinus mechanism #2 anemia secondary to bleeding #3 acute hypoxic respiratory failure which is better #4 coronary artery disease #5 fluid overload. Plan #1 continue the current medical regimen including the current dose of metoprolol #2 hold anticoagulation at this point of time #3 follow-up with the patient.
--- NOTE | 2017-12-31 13:01 | P.PN ---
Subjective Patient is seen in follow-up for acute kidney injury and hyponatremia. Patient had developed acute hyponatremia after bladder surgery which is improved with IV hydration. Sodium level up to 141 yesterday and is 134 today. Creatinine down to 1.2. Patient has chronic kidney disease stage III secondary to solitary right kidney with baseline creatinine near 1.2. Patient had left-sided thoracentesis done on December 29 with 1.1 L removed. Currently maintained on Lasix 40 mg daily. Urine output near 5 L. dyspnea improved. Tolerating liquid diet. Vital signs are stable. General: The patient appeared well nourished and normally developed. HEENT: Head exam is unremarkable. Neck is without jugular venous distension. LUNGS: Lungs are clear to auscultation and percussion. Breath sounds decreased. HEART: Irregular rate and rhythm. ABDOMEN: Abdominal exam reveals normal bowel sounds. Non-tender and non- distended. No evidence of peritonitis. EXTREMITITES: No clubbing, cyanosis, or edema. Objective - Vital Signs Vital signs: Vital Signs Temp 98.2 F 12/31/17 04:00 Pulse 82 12/31/17 12:15 Resp 22 12/31/17 04:00 BP 103/68 12/31/17 04:00 Pulse Ox 97 12/31/17 09:04 Intake & Output 12/30/17 12/31/17 12/31/17 18:59 06:59 18:59 Intake Total 2430 10 Output Total 800 5700 Balance 1630 -5690 Weight 51 kg 51 kg Intake: IV 190 10 0.9 NACL 160 Invasive Line 2 30 10 Intake, IV Titration 100 Amount Diltiazem 50 mg In Sodium 50 Chloride 0.9% 40 ml @ 10 MG/HR 10 mls/hr IV .Q5H [facility] Rx#:[id number] Piperacillin-Tazobactam 3 50 .375 gm In Dextrose/Water 1 50ml.bag @ 12.5 mls/hr IVPB Q8HR [facility] Rx#: [id number] Oral 1940 Tube Feeding 200 Output: Urine 800 5700 Uretheral (Tierney) 800 2700 Other: Voiding Method Indwelling Catheter Indwelling Catheter # Bowel Movements 1 2 ABP, PAP, CO, CI - Last Documented Arterial Blood Pressure 91/79 - Labs CBC & Chem 7: 12/31/17 05:25 12/31/17 05:25 Labs: Abnormal Lab Results - Last 24 Hours (Table) 12/30/17 12/30/17 12/31/17 Range/Units 17:49 20:52 05:25 WBC (3.8-10.6) k/uL RBC (4.30-5.90) m/uL Hgb (13.0-17.5) gm/dL Hct (39.0-53.0) % Sodium 134 L (137-145) mmol/L BUN 22 H (9-20) mg/dL Glucose 155 H (74-99) mg/dL POC Glucose (mg/dL) 186 H 211 H (75-99) mg/dL Calcium 8.3 L (8.4-10.2) mg/dL Creatine Kinase 811 H (55-170) U/L 12/31/17 12/31/17 12/31/17 Range/Units 05:25 05:46 11:34 WBC 10.9 H (3.8-10.6) k/uL RBC 2.78 L (4.30-5.90) m/uL Hgb 8.4 L (13.0-17.5) gm/dL Hct 26.0 L (39.0-53.0) % Sodium (137-145) mmol/L BUN (9-20) mg/dL Glucose (74-99) mg/dL POC Glucose (mg/dL) 180 H 316 H (75-99) mg/dL Calcium (8.4-10.2) mg/dL Creatine Kinase (55-170) U/L Assessment and Plan Plan: Assessment: 1. Acute hyponatremia. Serum osmolality is low. There was concern that the patient had absorbed the irrigation solution used during the surgery yesterday into his extracellular space leading to transurethral resection syndrome. However the serum osmolality would be expected to be near normal as the solution used for irrigation is typically isosmotic but nonsodium containing. Improved with IV fluids. Sodium level is up to 141 yesterday and is 134 today which is mostly related to the liquid diet. Urine osmolality low at 117. 2. Bladder cancer status post cystoscopy, evacuation of clot, transurethral resection of bladder tumor and closure of bladder perforation on 12/25/2017. 3. Acute blood loss anemia status post blood transfusion. Iron replete. 4. Nonoliguric acute kidney injury secondary to ATN secondary to hemodynamic instability and anemia. Creatinine 1.4 yesterday. 5. Chronic kidney disease stage III with baseline creatinine near 1.2 secondary to solitary right kidney. 6. Metabolic acidosis secondary to acute kidney injury and IV fluids. Improved. 7. Hypocalcemia secondary to acute kidney injury and chelation from blood transfusion. His corrected calcium for albumin is in the normal range. 8. Volume overload. 9. A. fib with RVR maintained on Cardizem drip. Plan: Maintain Lasix 40 mg IV once daily. Continue to monitor renal function and urine output. Avoid nephrotoxic agents and hypotensive episodes. Expect improvement in sodium level as diet is advanced.
[2017-12-31] MEDS: INSULIN ASPART 100 UNIT/ML 1 ML 10 ML VIAL SQ SCH ×3 (14:00→22:03)
--- NOTE | 2017-12-31 14:21 | P.PN ---
Subjective Progress Note Date: 12/31/17 Principal diagnosis: Acute hypoxic respiratory failure secondary to fluid volume overload. 87-year-old male patient who is being seen in the recovery room as the patient failed postoperative extubation. The patient was taken to the operating room for gross hematuria. The patient was having significant amount of hematuria associated with drop in hemoglobin from 13.2 down to 9.0 since this current admission and earlier this morning his hemoglobin was down to 7.6. The patient has intermittent hematuria since 2013. 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 He is a chronic smoker. The patient underwent a cystoscopy and the patient was found to have a bladder tumor that was resected using a transurethral approach. Following that the patient was found to have a bladder perforation. This was not related to the tumor resection and apparently the tumor was a 4 cm papillary tumor overlying the right trigone of securing the right ureteral orifice and the perforation was in the anterior bladder wall. In any rate, the patient underwent expiratory laparotomy, evacuation of intra-abdominal fluid collection and closure of a bladder perforation. Estimated blood loss was 75 mL. Total amount of fluid was 1.3 L given during the surgery. The patient also received a total of 2 units of packed RBCs. I saw this patient in the recovery room. Apparently he was extubated in recovery however he had weak breathing effort and he subsequently went into respiratory failure. He was reintubated within 10 minutes. Post intubation blood gas showed a pH of 7.19 with a pCO2 of 39 and pO2 of 339. The patient accordingly was placed on assist controlled rate of 22 tidal volume was brought up from 350 up to 500 and FiO2 is up to 60%. Pulse ox remains above 90% on the monitor. The patient is on no pressors at this point in time. A triple-lumen catheter was inserted. An outlying catheter was inserted. The patient has a component of non-anion gap metabolic acidosis with a bicarb level of 14 and a anion gap level of 9 and the patient was started on bicarb drip with D5 3 amps of bicarb at the rate of 1 100 mL an hour. Note that the patient was in acute kidney injury in the creatinine was up to 0.6 and dropped down to 1.9 and his calcium level was at 8 point further down to 6.2 total non-ionize. Post intubation chest x-ray showed questionable air under the left hemidiaphragm. ET tube is in a good location. 2 triple-lumen cath is also in good location. Coagulation profile is within normal limits. The patient is known to have coronary artery disease. On 12/27/2007 and I'm seeing this patient for a follow-up. The patient remains intubated on a mechanical ventilator. Currently is an assist-control mode at the rate of 22 with a tidal volume of 500 and FiO2 has been weaned down to order percent with a PEEP of 5. Morning blood gases showed a pH of 7.41 with a pCO2 of 29 and pO2 of 105. The patient's chest x-ray shows adequate positioning of the 82. The patient has a small left-sided pleural effusion. He is sedated with propofol and is calm and comfortable. Abdominal wound is dry clean and intact. There is some bruising around the JERMAINE drain site. The drain has without approximately 200 mL of serosanguineous and bloody drainage over the past 8 hours. The patient is producing adequate amount of urine output. And the urine output for now is approximately 2.2 L since he arrived to the intensive care units. The patient overnight was resuscitated with IV fluids. He received several boluses and he remained borderline lower blood pressure with a systolic in the mid 90s. Subsequently this morning he dropped down to a systolic of 78. He was started on and after infusion and currently the patient's BP is under better control with a map of around 65-70. The patient has also component of non-anion gap metabolic acidosis and hyponatremia. The hyponatremia probably due to excessive fluid irrigation of the bladder which probably get absorbed into his system and intravascular system and his sodium is at 122. The patient is currently on a bicarb drip with D5 with 3 ampules of bicarb running at 100 mL an hour. The patient also is on empiric antibiotic coverage with IV Zosyn. The patient was noted to have a low calcium and he will be given a gram of calcium chloride. Not ready for any weaning at this point in time. Function continues to improve and the creatinine is down to 1.8 from a baseline of 2.6 at time of admission. The hematuria is also improving. Reevaluated today on 12/27/2017, patient remains on mechanical ventilation, and his ventilator settings are assist control rate of 22, tidal volume of 500, FiO2 of 40%, and PEEP is 5. Patient is hemodynamically unstable, requiring levo fed at 40 mcg/m. Patient will be given more fluid boluses, apparently he received so far at least 6 L of fluids his urine output is over 200 mL per hour. Remains on antibiotics empirically, today I recommended a dose of Solu- Cortef, and I plan to change his arterial line since it doesn't seem to be functional. Family is at bedside including his 2 nieces, and his condition was discussed with both of them. ABG showed a pO2 of 108 pCO2 of 33 pH of 7.48. Patient is arousable, and he was following simple instructions quite well. Noted to have some coffee ground material in the nasogastric tube, hence his Protonix dose was doubled. Labs were reviewed, sodium is a bit low at 130. BUN is 23 creatinine is 1.70. WBC count is 14.3 hemoglobin is 8.7. Gastric aspirate is Hemoccult positive. Chest x-ray showed minimal left pleural effusion and minimal atelectasis at the left base. No evidence of pneumonia. His echocardiogram is relatively normal. Surgical pathology is still pending from his bladder tumor. Brain CT is unremarkable, EEG is being done for questionable witnessed seizure, results of which are pending. Blood cultures were sent, and urine cultures were sent today. Patient is presently off propofol, arousable, followed simple instructions, but blood pressure remains low. Hence we will continue norepinephrine and continue fluid boluses. Reevaluated today on 12/28/2017, remains on mechanical ventilation, sedated, on propofol, remains on levo fed at 70 mcg/m. His ventilator settings are tidal volume of 500 assist control rate of 2240% FiO2 and PEEP of 5. His ABG showed a pO2 of 164, pCO2 of 30, PH of 7.48. Hence the patient was cut down to FiO2 of 30%, and INR of the patient, with held his propofol, and I'm planning to give him a spontaneous breathing trial, and possibly extubate the patient today. Chest x-ray was reviewed all left-sided pleural effusion was noted, and a smaller effusion was noted on the right side. Rest of the labs were noted to be unremarkable, creatinine is improving down to 1.60. Basic metabolic profile is normal CBC is relatively normal except for hemoglobin of 7.4. The patient is seen today 12/29/2017 in follow-up on the selective care unit. He was extubated yesterday and transferred here last evening. Earlier this morning he developed increasing shortness of breath. His chest x-ray showed persistent small bilateral effusions left greater than right with bibasilar atelectasis. There was a new mild to moderate bilateral interstitial edema and developing focal right suprahilar interstitial infiltrate. He did receive 40 mg of Lasix IV push and placed on AirVo oxygenation high flow at 45 L and 65% FiO2. Ultrasound of the left chest with markings are pending. White count 9.9. Hemoglobin 8.2. Bicarb 22. Creatinine 1.40. Currently in a -1550 ML balance. Remains in atrial fibrillation somewhat tachycardic and Cardizem drip is at 10 mg per hour. The patient is seen again today 12/30/2017 in follow-up on the selective care unit. He is awake and alert in no acute distress. He is breathing quite a bit better today as compared to yesterday. He did undergo thoracentesis with Dr. Hinton in approximately 1100 ML's of serosanguineous fluid was removed. Analysis pending. He is continuing to require 15 L high flow nasal cannula to maintain O2 saturations in the 90s. Afebrile. His rate is better controlled. He remains on a Cardizem drip. Remains on IV Lasix. Creatinine 1.39. The patient is seen again today 12/31/2017 in follow-up on the selective care unit. He is currently sitting up in a chair at the bedside. He is awake and alert in no acute distress. He is quite a bit stronger today as compared to yesterday. His breathing is easier as well. His been titrated down to 8 L high flow nasal cannula and maintaining good O2 saturations in the mid 90s. He remains in a negative balance. Approximately 5 L urine out today. A 6 had been decreased to 40 mg IV daily. White count 10.9. Hemoglobin 8.4. Creatinine 1.20. He is currently in sinus rhythm heart rate in the 80s. Objective - Vital Signs Vital signs: Vital Signs Temp 98.2 F 12/31/17 04:00 Pulse 82 12/31/17 12:15 Resp 22 12/31/17 04:00 BP 103/68 12/31/17 04:00 Pulse Ox 97 12/31/17 09:04 Intake & Output 12/30/17 12/31/17 12/31/17 18:59 06:59 18:59 Intake Total 2430 10 210 Output Total 800 5700 1500 Balance 1630 -5690 -1290 Weight 51 kg 51 kg Intake: IV 190 10 210 0.9 NACL 160 160 Invasive Line 2 30 10 Piperacillin-Tazobactam 3 50 .375 gm In Dextrose/Water 1 50ml.bag @ 12.5 mls/hr IVPB Q12HR [facility] Rx#: [id number] Intake, IV Titration 100 Amount Diltiazem 50 mg In Sodium 50 Chloride 0.9% 40 ml @ 10 MG/HR 10 mls/hr IV .Q5H [facility] Rx#:[id number] Piperacillin-Tazobactam 3 50 .375 gm In Dextrose/Water 1 50ml.bag @ 12.5 mls/hr IVPB Q8HR [facility] Rx#: [id number] Oral 1940 Tube Feeding 200 Output: Urine 800 5700 1500 Uretheral (Tierney) 800 2700 Other: Voiding Method Indwelling Catheter Indwelling Catheter # Bowel Movements 1 2 ABP, PAP, CO, CI - Last Documented Arterial Blood Pressure 91/79 - Exam GENERAL EXAM: Frail, cachectic. Alert, fairly comfortable in slight respiratory distress. HEAD: Normocephalic. EYES: Normal reaction of pupils, equal size. NOSE: Clear with pink turbinates. THROAT: No erythema or exudates. NECK: No masses, no JVD. CHEST: No chest wall deformity. LUNGS: Equal air entry with a basilar crackles more so on the left. CVS: S1 and S2 normal with no audible murmur, regular rhythm. ABDOMEN: Surgical site clean dry well approximate. SPINE: No scoliosis or deformity SKIN: No rashes CENTRAL NERVOUS SYSTEM: No focal deficits, tone is normal in all 4 extremities. EXTREMITIES: There is no peripheral edema. No clubbing, no cyanosis. Peripheral pulses are intact. - Labs CBC & Chem 7: 12/31/17 05:25 12/31/17 05:25 Labs: Abnormal Lab Results - Last 24 Hours (Table) 12/30/17 12/30/17 12/31/17 Range/Units 17:49 20:52 05:25 WBC (3.8-10.6) k/uL RBC (4.30-5.90) m/uL Hgb (13.0-17.5) gm/dL Hct (39.0-53.0) % Sodium 134 L (137-145) mmol/L BUN 22 H (9-20) mg/dL Glucose 155 H (74-99) mg/dL POC Glucose (mg/dL) 186 H 211 H (75-99) mg/dL Calcium 8.3 L (8.4-10.2) mg/dL Creatine Kinase 811 H (55-170) U/L 12/31/17 12/31/17 12/31/17 Range/Units 05:25 05:46 11:34 WBC 10.9 H (3.8-10.6) k/uL RBC 2.78 L (4.30-5.90) m/uL Hgb 8.4 L (13.0-17.5) gm/dL Hct 26.0 L (39.0-53.0) % Sodium (137-145) mmol/L BUN (9-20) mg/dL Glucose (74-99) mg/dL POC Glucose (mg/dL) 180 H 316 H (75-99) mg/dL Calcium (8.4-10.2) mg/dL Creatine Kinase (55-170) U/L Assessment and Plan Assessment: 1 acute hypoxic respiratory failure post general anesthesia, post bladder surgery. Exact cause is not clear. Could be that the patient was extubated prematurely prior to compared to being recovered from his anesthetic agents. Other causes need to be considered including severe metabolic acidosis which we have attributed to his respiratory failure. No history of any myasthenia gravis of any neuromuscular weakness or neuromuscular disorders. Neurologically , the patient was stated to be awake prior to surgery and the patient was apparently was moving all 4 extremities without any limitation. 12/29/2017: The patient was extubated yesterday to 4 L/m per nasal cannula. He developed increasing shortness of breath requiring AirVo high flow oxygenation at 45 L and 65% FiO2. Chest x-ray reveals evidence of pulmonary edema. 12/30/2017: Patient did undergo thoracentesis of the left chest with approximately 1100 ML's removed. Analysis pending. Breathing easier today. Currently on 15 L high flow nasal cannula. 12/31/2017: The patient is down to 8 L high flow nasal cannula. He sitting up in a chair at the bedside. He denies any shortness of breath, cough or congestion. 2 massive hematuria secondary to bladder tumor, status post transurethral resection of a bladder tumor 3 resection of a bladder tumor from the trigone, the patient underwent transurethral resection of the bladder tumor. 4 bladder perforation, involving the anterior bladder wall, status post expiratory laparotomy and repair of a laceration. 5 severe and non-anion gap metabolic acidosis him a currently on a bicarb drip 6 acute kidney injury, improving and creatinine is down trending for now 7 anemia, secondary to blood loss from massive hematuria, status post packed RBC transfusion the patient's hemoglobin is stable 8 coronary artery disease with decreased [place] and stenting of RCA 9 smoker with possible COPD 10 hyponatremia, probably dilutional, secondary to extensive letter irrigation and fluid leaking into the abdominal cavity. Nephrology has been consult on the case. 11 hypocalcemia 12 hypotension currently on pressors after being resuscitated adequately with IV fluids. Rule out underlying septic event and the patient is covered with empiric antibiotics with IV Zosyn. Echocardiogram is unremarkable 13 suspected upper GI bleeding, has Protonix dose was doubled. Continue to monitor closely, if bleeding gets any worse, may have to consider EGD. Recommendation: The patient was seen and evaluated by Dr. Hinton. The patient is down to 8 L high flow nasal cannula. Improving daily. Significant urine output. Continue IV Lasix 40 mg just daily now. We'll continue to follow. I, the cosigning physician, performed a history & physical examination of the patient. Lungs sounds have bilateral crackles. Maintaining good O2 saturations in the 90s on 8 L high flow nasal cannula.. I discussed the assessment and plan of care with my nurse practitioner, Constance May. I attest to the above note as dictated by her.
[2017-12-31 16:38] LABS: Glucose,Whole Blood 132 mg/dL (75-99)
[2017-12-31 17:05] LABS: Total Protein 4.7 g/dL (6.3-8.2)
[2017-12-31 20:40] LABS: Total Protein, Body Fluid 882 mg/dL
[2017-12-31 21:14] LABS: Glucose,Whole Blood 207 mg/dL (75-99)
[2018-01-01 06:29] LABS: Glucose,Whole Blood 148 mg/dL (75-99)
[2018-01-01] MEDS: INSULIN ASPART 100 UNIT/ML 1 ML 10 ML VIAL SQ SCH ×4 (06:34→21:25)
[2018-01-01 07:14] LABS: Calcium 8.3 mg/dL (8.4-10.2); Magnesium 1.7 mg/dL (1.6-2.3); Potassium 3.9 mmol/L (3.5-5.1)
[2018-01-01] MEDS ORDERED: INSULIN ASPART 100 UNIT/ML 1 ML 10 ML VIAL SQ SCH (07:30)
[2018-01-01] MEDS: IPRATROPIUM-ALBUTEROL 3 ML NEB INHALATION SCH ×4 (07:52→19:58)
--- NOTE | 2018-01-01 09:20 | P.PN ---
Subjective Progress Note Date: 01/01/18 Principal diagnosis: Hematuria Interval note: For full note on 12/25 see H and p by Dr. 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 On arrival to the ER he was tachycardic with a pulse of 118. Initial laboratory analysis showed a leukocytosis of 13.5, anemia with a hemoglobin of 9 (down from 13.2 in 48 hours) . He underwent ultrasound of the kidneys and bladder which showed normal- appearing right kidney without evidence of obstruction and a urinary bladder filled with complex density that could be blood clot versus bladder tumor. After admission his hemoglobin continued to downtrend. He was seen by Dr. Negron in the morning of 12/25 and taken for cystoscopy. On Cystoscopy he was found to have a bladder tumor and anterior bladder perforation. He subsequently had an open closure of his bladder perforation as well as a transurethral resection of his bladder tumor. He failed postoperative extubation, was reintubated, and was sent to the ICU. Dr. Wing saw the patient in PACU in order to serum bicarb drip after he found have a pH of 7.19. On arrival to the ICU he was 93.4 F and had lost a tooth. He was started on zosyn as prophylaxis. His blood pressure dropped early in the morning on 12/26 and he was started on levophed. He was extubated on the morning of 12/28 and transferred to selective care. He hen developed A fib with RVR and was placed on a cardizem gtt and cardio was consulted. He has a positive gastoroccult and was started on protonix. He had 1 episode of possible seizure activity but his EEG showed diffuse slowing no definitive seizure activity, he has not had any seizure since extubation. Has improved slowly. He converted to normal sinus rhythm. THey were unable to D/C his JERMAINE drain on 12/31 due to increased resistance. His diet was increased to regular for breakfast on 01/01. Patient seen and examined. Feeling well, doesn't think he will need rehab and reluctant to follow with doctors- d/w him chcf side effects and why he need close monitoring. No chest pain, no SOB, no nausea, soft BM, feeling stronger. Objective - Vital Signs Vital signs: Vital Signs Temp 97.7 F 01/01/18 03:30 Pulse 88 01/01/18 03:51 Resp 18 01/01/18 03:51 BP 111/56 01/01/18 03:30 Pulse Ox 92 L 01/01/18 03:30 Intake & Output 12/31/17 01/01/18 01/01/18 18:59 06:59 18:59 Intake Total 1410 50 360 Output Total 1500 1350 Balance -90 -1300 360 Weight 49 kg Intake: IV 210 0.9 NACL 160 Piperacillin-Tazobactam 3 50 .375 gm In Dextrose/Water 1 50ml.bag @ 12.5 mls/hr IVPB Q12HR THI Rx#: [id number] Intake, IV Titration 50 Amount Piperacillin-Tazobactam 3 50 .375 gm In Dextrose/Water 1 50ml.bag @ 12.5 mls/hr IVPB Q8HR THI Rx#: [id number] Oral 1200 360 Output: Urine 1500 1350 Other: Voiding Method Indwelling Catheter Indwelling Catheter ABP, PAP, CO, CI - Last Documented Arterial Blood Pressure 91/79 - Exam General: ill appearing, no distress, appears older than stated age Derm: warm, dry Head: atraumatic, normocephalic, symmetric Eyes: EOMI, no lid lag, anicteric sclera Mouth: no lip lesion, mucus membranes moist Cardiovascular: S1S2 irreg, no murmur, positive posterior tibial pulse bilateral , Lungs: decreased bs b/l, no rhonchi, no rales , no accessory muscle use Abdominal: soft, NTTP, no guarding, no appreciable organomegaly Ext: + gross muscle atrophy, no edema, no contractures Neuro: CN II-XI grossly intact, no focal neuro deficits Psych: Alert, oriented, appropriate affect - Labs CBC & Chem 7: 12/31/17 05:25 01/01/18 05:33 Labs: Abnormal Lab Results - Last 24 Hours (Table) 12/31/17 12/31/17 12/31/17 Range/Units 05:25 11:34 16:34 Sodium (137-145) mmol/L Carbon Dioxide (22-30) mmol/L BUN (9-20) mg/dL Creatinine (0.66-1.25) mg/dL Glucose (74-99) mg/dL POC Glucose (mg/dL) 316 H 132 H (75-99) mg/dL Calcium (8.4-10.2) mg/dL Lactate Dehydrogenase 1147 H (313-618) U/L Total Protein 4.7 L (6.3-8.2) g/dL 12/31/17 01/01/18 01/01/18 Range/Units 21:13 05:33 06:28 Sodium 135 L (137-145) mmol/L Carbon Dioxide 31 H (22-30) mmol/L BUN 32 H (9-20) mg/dL Creatinine 1.32 H (0.66-1.25) mg/dL Glucose 132 H (74-99) mg/dL POC Glucose (mg/dL) 207 H 148 H (75-99) mg/dL Calcium 8.3 L (8.4-10.2) mg/dL Lactate Dehydrogenase (313-618) U/L Total Protein (6.3-8.2) g/dL Microbiology - Last 24 Hours (Table) 12/29/17 15:43 Gram Stain - Preliminary Pleural Fluid Body Fluid Culture - Preliminary Assessment and Plan Assessment: Bladder tumor and anterior Bladder perforation-status post repair and TURBT with urothelial carcinoma - Per Dr. Negron plan will be to D/C with bae and follow-up in the office for cystoscopy -Urology recs appreciate -Zosyn for prophylaxis Steroid induced hyperglyucemia - SSI insulin - continue to follow - if remains elevated start long acting Leukocytosis due to steroids - follow for fevers - follow CBC Possible GI bleed - on protonix - HgB stable. Will continue to follow - if HgB remins stable then gastroccult + like due to irritation from OGT. A fib with RVR, resolved now in NSR. - Tele - Continue Metoprolol - no anticoagulation due to recent bleeding and surgery. Acute blood loss anemia secondary to tumor -Status post 2 units of packed red blood cells -Follow with serial CBCs Left Pleural effusion - s/p thora 12/28, likely due to fluid resuscitation - pulmonary recs Acute hypoxic respiratory failure - management as per pulmonary team - incentive spirometery Acute kidney injury secondary to ATN on CKD III baseline Cr 1.2 -Avoid additional nephrotoxic agents -Renal ultrasound without medical renal disease -nephrology recs Coronary artery disease -No aspirin at this time secondary to bleeding Hyperkalemia, resolved Hyponatremia, resolved Metabolic acidosis, improved Hypocalcemia, resolved Hypotension, resolved Hypoglycemia, resolved DVT prophylaxis: SCDs Discussed with: Patient Anticipated discharge: 3-[address]: rehab A total of 25 minutes was spent on the care of this complex patient more than 50 % of the time was spent in counseling and care coordination.
--- NOTE | 2018-01-01 09:33 | P.PN ---
Progress Note - Text Progress Note Date: 01/01/18 The patient is afebrile and more comfortable. He is reportedly back in normal sinus rhythm. His urine remains clear. Yesterday it was impossible to remove his Miguel Angel-Elder drain but I was able to remove this without much difficulty this morning. His incision appears to be healing well. The patient can be discharged but it's unclear whether he will return home or to a rehab facility. His catheter should remain in place. The patient should call Dr. Kenny on for instructions as to a follow-up appointment to remove the catheter. 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 He will need a follow-up cystoscopy in 3 months.
[2018-01-01] MEDS: methylPREDNISolone SOD SUCCI 40 MG/ML 1 ML VIAL IV SCH (09:46)
[2018-01-01] MEDS: PANTOPRAZOLE 40 MG/10 ML VIAL IVP SCH ×2 (09:46→20:55)
[2018-01-01] MEDS: PIPERACILLIN-TAZOBACTAM 3.375 GM in DEXTROSE/WATER 1 50ML.BAG IVPB SCH ×3 (09:47→23:10)
[2018-01-01] MEDS: METOPROLOL TARTRATE 50 MG TAB PO SCH ×3 (09:47→21:24)
[2018-01-01] MEDS: FUROSEMIDE 10 MG/ML 4 ML VIAL IV SCH (09:48)
[2018-01-01] MEDS ORDERED: methylPREDNISolone 4 MG TAB TAPER PO SCH (10:00)
[2018-01-01 11:51] LABS: Glucose,Whole Blood 342 mg/dL (75-99)
--- NOTE | 2018-01-01 13:48 | P.PN ---
Subjective Progress Note Date: 01/01/18 Principal diagnosis: Acute hypoxic respiratory failure post-bladder surgery. 87-year-old male patient who is being seen in the recovery room as the patient failed postoperative extubation. The patient was taken to the operating room for gross hematuria. The patient was having significant amount of hematuria associated with drop in hemoglobin from 13.2 down to 9.0 since this current admission and earlier this morning his hemoglobin was down to 7.6. The patient has intermittent hematuria since 2013. 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 He is a chronic smoker. The patient underwent a cystoscopy and the patient was found to have a bladder tumor that was resected using a transurethral approach. Following that the patient was found to have a bladder perforation. This was not related to the tumor resection and apparently the tumor was a 4 cm papillary tumor overlying the right trigone of securing the right ureteral orifice and the perforation was in the anterior bladder wall. In any rate, the patient underwent expiratory laparotomy, evacuation of intra-abdominal fluid collection and closure of a bladder perforation. Estimated blood loss was 75 mL. Total amount of fluid was 1.3 L given during the surgery. The patient also received a total of 2 units of packed RBCs. I saw this patient in the recovery room. Apparently he was extubated in recovery however he had weak breathing effort and he subsequently went into respiratory failure. He was reintubated within 10 minutes. Post intubation blood gas showed a pH of 7.19 with a pCO2 of 39 and pO2 of 339. The patient accordingly was placed on assist controlled rate of 22 tidal volume was brought up from 350 up to 500 and FiO2 is up to 60%. Pulse ox remains above 90% on the monitor. The patient is on no pressors at this point in time. A triple-lumen catheter was inserted. An outlying catheter was inserted. The patient has a component of non-anion gap metabolic acidosis with a bicarb level of 14 and a anion gap level of 9 and the patient was started on bicarb drip with D5 3 amps of bicarb at the rate of 1 100 mL an hour. Note that the patient was in acute kidney injury in the creatinine was up to 0.6 and dropped down to 1.9 and his calcium level was at 8 point further down to 6.2 total non-ionize. Post intubation chest x-ray showed questionable air under the left hemidiaphragm. ET tube is in a good location. 2 triple-lumen cath is also in good location. Coagulation profile is within normal limits. The patient is known to have coronary artery disease. On 12/27/2007 and I'm seeing this patient for a follow-up. The patient remains intubated on a mechanical ventilator. Currently is an assist-control mode at the rate of 22 with a tidal volume of 500 and FiO2 has been weaned down to order percent with a PEEP of 5. Morning blood gases showed a pH of 7.41 with a pCO2 of 29 and pO2 of 105. The patient's chest x-ray shows adequate positioning of the 82. The patient has a small left-sided pleural effusion. He is sedated with propofol and is calm and comfortable. Abdominal wound is dry clean and intact. There is some bruising around the JERMAINE drain site. The drain has without approximately 200 mL of serosanguineous and bloody drainage over the past 8 hours. The patient is producing adequate amount of urine output. And the urine output for now is approximately 2.2 L since he arrived to the intensive care units. The patient overnight was resuscitated with IV fluids. He received several boluses and he remained borderline lower blood pressure with a systolic in the mid 90s. Subsequently this morning he dropped down to a systolic of 78. He was started on and after infusion and currently the patient's BP is under better control with a map of around 65-70. The patient has also component of non-anion gap metabolic acidosis and hyponatremia. The hyponatremia probably due to excessive fluid irrigation of the bladder which probably get absorbed into his system and intravascular system and his sodium is at 122. The patient is currently on a bicarb drip with D5 with 3 ampules of bicarb running at 100 mL an hour. The patient also is on empiric antibiotic coverage with IV Zosyn. The patient was noted to have a low calcium and he will be given a gram of calcium chloride. Not ready for any weaning at this point in time. Function continues to improve and the creatinine is down to 1.8 from a baseline of 2.6 at time of admission. The hematuria is also improving. Reevaluated today on 12/27/2017, patient remains on mechanical ventilation, and his ventilator settings are assist control rate of 22, tidal volume of 500, FiO2 of 40%, and PEEP is 5. Patient is hemodynamically unstable, requiring levo fed at 40 mcg/m. Patient will be given more fluid boluses, apparently he received so far at least 6 L of fluids his urine output is over 200 mL per hour. Remains on antibiotics empirically, today I recommended a dose of Solu- Cortef, and I plan to change his arterial line since it doesn't seem to be functional. Family is at bedside including his 2 nieces, and his condition was discussed with both of them. ABG showed a pO2 of 108 pCO2 of 33 pH of 7.48. Patient is arousable, and he was following simple instructions quite well. Noted to have some coffee ground material in the nasogastric tube, hence his Protonix dose was doubled. Labs were reviewed, sodium is a bit low at 130. BUN is 23 creatinine is 1.70. WBC count is 14.3 hemoglobin is 8.7. Gastric aspirate is Hemoccult positive. Chest x-ray showed minimal left pleural effusion and minimal atelectasis at the left base. No evidence of pneumonia. His echocardiogram is relatively normal. Surgical pathology is still pending from his bladder tumor. Brain CT is unremarkable, EEG is being done for questionable witnessed seizure, results of which are pending. Blood cultures were sent, and urine cultures were sent today. Patient is presently off propofol, arousable, followed simple instructions, but blood pressure remains low. Hence we will continue norepinephrine and continue fluid boluses. Reevaluated today on 12/28/2017, remains on mechanical ventilation, sedated, on propofol, remains on levo fed at 70 mcg/m. His ventilator settings are tidal volume of 500 assist control rate of 2240% FiO2 and PEEP of 5. His ABG showed a pO2 of 164, pCO2 of 30, PH of 7.48. Hence the patient was cut down to FiO2 of 30%, and INR of the patient, with held his propofol, and I'm planning to give him a spontaneous breathing trial, and possibly extubate the patient today. Chest x-ray was reviewed all left-sided pleural effusion was noted, and a smaller effusion was noted on the right side. Rest of the labs were noted to be unremarkable, creatinine is improving down to 1.60. Basic metabolic profile is normal CBC is relatively normal except for hemoglobin of 7.4.The patient is seen today 12/29/2017 in follow-up on the selective care unit. He was extubated yesterday and transferred here last evening. Earlier this morning he developed increasing shortness of breath. His chest x-ray showed persistent small bilateral effusions left greater than right with bibasilar atelectasis. There was a new mild to moderate bilateral interstitial edema and developing focal right suprahilar interstitial infiltrate. He did receive 40 mg of Lasix IV push and placed on AirVo oxygenation high flow at 45 L and 65% FiO2. Ultrasound of the left chest with markings are pending. White count 9.9. Hemoglobin 8.2. Bicarb 22. Creatinine 1.40. Currently in a -1550 ML balance. Remains in atrial fibrillation somewhat tachycardic and Cardizem drip is at 10 mg per hour. The patient is seen again today 12/30/2017 in follow-up on the selective care unit. He is awake and alert in no acute distress. He is breathing quite a bit better today as compared to yesterday. He did undergo thoracentesis with Dr. Hinton in approximately 1100 ML's of serosanguineous fluid was removed. Analysis pending. He is continuing to require 15 L high flow nasal cannula to maintain O2 saturations in the 90s. Afebrile. His rate is better controlled. He remains on a Cardizem drip. Remains on IV Lasix. Creatinine 1.39. The patient is seen again today 12/31/2017 in follow-up on the selective care unit. He is currently sitting up in a chair at the bedside. He is awake and alert in no acute distress. He is quite a bit stronger today as compared to yesterday. His breathing is easier as well. His been titrated down to 8 L high flow nasal cannula and maintaining good O2 saturations in the mid 90s. He remains in a negative balance. Approximately 5 L urine out today. A 6 had been decreased to 40 mg IV daily. White count 10.9. Hemoglobin 8.4. Creatinine 1.20. He is currently in sinus rhythm heart rate in the 80s. Reevaluated today on 01/01/2018, patient seems to be doing well, were still tapering down his FiO2 I hope to get him down to at least 4 L via nasal cannula , patient is maintaining his O2 saturation while on 6 L today. Patient is already on low dose of Lasix 20 mg daily, I have switched his Solu-Medrol to Medrol Dosepak, plan to cut down his FiO2 to 2.4 L via nasal cannula, and we will anticipate discharge planning in the next 48 hours. Needs to be seen by physical therapy, and needs to ambulate. May eventually require referral to a rehab facility. Last chest x-ray 2 days ago was reassuring. Patient denies any shortness of breath, no cough no wheezing no chest pain. And his JERMAINE drain has been removed. Objective - Vital Signs Vital signs: Vital Signs Temp 98.4 F 01/01/18 12:00 Pulse 86 01/01/18 12:28 Resp 18 01/01/18 12:00 BP 121/60 01/01/18 12:00 Pulse Ox 95 01/01/18 12:00 Intake & Output 12/31/17 01/01/18 01/01/18 18:59 06:59 18:59 Intake Total 1410 50 360 Output Total 1500 1350 Balance -90 -1300 360 Weight 49 kg Intake: IV 210 0.9 NACL 160 Piperacillin-Tazobactam 3 50 .375 gm In Dextrose/Water 1 50ml.bag @ 12.5 mls/hr IVPB Q12HR THI Rx#: [id number] Intake, IV Titration 50 Amount Piperacillin-Tazobactam 3 50 .375 gm In Dextrose/Water 1 50ml.bag @ 12.5 mls/hr IVPB Q8HR THI Rx#: [id number] Oral 1200 360 Output: Urine 1500 1350 Other: Voiding Method Indwelling Catheter Indwelling Catheter Indwelling Catheter ABP, PAP, CO, CI - Last Documented Arterial Blood Pressure 91/79 - Exam Physical Exam: Revealed a 67-year-old white male, in no distress, on high flow nasal cannula. Head: Atraumatic, normocephalic. HEENT:[Neck is supple.] [No neck masses.] [No thyromegaly.] [No JVD.] Moist mucous membranes, no icterus, PERRLA, EOMI. Chest: [Clear throughout, no crackles, no rhonchi, no wheezes.] Cardiac Exam: [Normal S1 and S2, no S3 gallop, no murmur.] Abdomen: [Soft, nontender, no megaly, no rebound, no guarding,] postsurgical tenderness noted in the lower abdomen. Extremities: [No clubbing, no edema, no cyanosis.] Neurological Exam: [No focal neurologic deficit. Patient is arousable, sleepy, Psychiatric: Patient is arousable, but sleepy. Lymphatics: No lymphadenopathy. Musculoskeletal: Grossly intact.] - Labs CBC & Chem 7: 12/31/17 05:25 01/01/18 05:33 Labs: Abnormal Lab Results - Last 24 Hours (Table) 12/31/17 12/31/17 12/31/17 Range/Units 05:25 16:34 21:13 Sodium (137-145) mmol/L Carbon Dioxide (22-30) mmol/L BUN (9-20) mg/dL Creatinine (0.66-1.25) mg/dL Glucose (74-99) mg/dL POC Glucose (mg/dL) 132 H 207 H (75-99) mg/dL Calcium (8.4-10.2) mg/dL Lactate Dehydrogenase 1147 H (313-618) U/L Total Protein 4.7 L (6.3-8.2) g/dL 01/01/18 01/01/18 01/01/18 Range/Units 05:33 06:28 11:47 Sodium 135 L (137-145) mmol/L Carbon Dioxide 31 H (22-30) mmol/L BUN 32 H (9-20) mg/dL Creatinine 1.32 H (0.66-1.25) mg/dL Glucose 132 H (74-99) mg/dL POC Glucose (mg/dL) 148 H 342 H (75-99) mg/dL Calcium 8.3 L (8.4-10.2) mg/dL Lactate Dehydrogenase (313-618) U/L Total Protein (6.3-8.2) g/dL Microbiology - Last 24 Hours (Table) 12/29/17 15:43 Gram Stain - Preliminary Pleural Fluid Body Fluid Culture - Preliminary Assessment and Plan Assessment: 1 acute hypoxic respiratory failure post general anesthesia, post bladder surgery. Exact cause is not clear. Could be that the patient was extubated prematurely prior to compared to being recovered from his anesthetic agents. Other causes need to be considered including severe metabolic acidosis which we have attributed to his respiratory failure. No history of any myasthenia gravis of any neuromuscular weakness or neuromuscular disorders. Neurologically , the patient was stated to be awake prior to surgery and the patient was apparently was moving all 4 extremities without any limitation. 12/29/2017: The patient was extubated yesterday to 4 L/m per nasal cannula. He developed increasing shortness of breath requiring AirVo high flow oxygenation at 45 L and 65% FiO2. Chest x-ray reveals evidence of pulmonary edema. 12/30/2017: Patient did undergo thoracentesis of the left chest with approximately 1100 ML's removed. Analysis pending. Breathing easier today. Currently on 15 L high flow nasal cannula. 12/31/2017: The patient is down to 8 L high flow nasal cannula. He sitting up in a chair at the bedside. He denies any shortness of breath, cough or congestion. 2 massive hematuria secondary to bladder tumor, status post transurethral resection of a bladder tumor 3 resection of a bladder tumor from the trigone, the patient underwent transurethral resection of the bladder tumor. 4 bladder perforation, involving the anterior bladder wall, status post expiratory laparotomy and repair of a laceration. 5 severe and non-anion gap metabolic acidosis him a currently on a bicarb drip 6 acute kidney injury, improving and creatinine is down trending for now 7 anemia, secondary to blood loss from massive hematuria, status post packed RBC transfusion the patient's hemoglobin is stable 8 coronary artery disease with decreased IA and stenting of RCA 9 smoker with possible COPD 10 hyponatremia, probably dilutional, secondary to extensive letter irrigation and fluid leaking into the abdominal cavity. Nephrology has been consult on the case. 11 hypocalcemia 12 hypotension currently on pressors after being resuscitated adequately with IV fluids. Rule out underlying septic event and the patient is covered with empiric antibiotics with IV Zosyn. Echocardiogram is unremarkable 13 suspected upper GI bleeding, has Protonix dose was doubled. Continue to monitor closely, if bleeding gets any worse, may have to consider EGD. Recommendation: Continue treatment plan, taper down FiO2 keep saturation above 90%, may or may not require home O2, cut down the Lasix to 20 mg by mouth daily , ambulate, consider discharge to a rehab facility on Wednesday. Could have outpatient follow-up with me in the office for his underlying COPD and pleural effusion which was already drained and resolved. Time with Patient: Less than 30
--- NOTE | 2018-01-01 15:02 | P.PN ---
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 Initially presented to the emergency room with complaints of lightheadedness, dizziness and hematuria. He was tachycardic and found to have leukocytosis and anemia .He underwent cystoscopy which showed a bladder tumor and anterior bladder perforation. He subsequently underwent open closure of the bladder perforation as well as transurethral resection of his bladder tumor. Had a complicated postoperative course with difficulties extubation. Patient was extubated yesterday and was transferred to the medical floor. We were consulted due to patient going into atrial fibrillation with rapid ventricular response.Echocardiogram done during this admission showed normal LV systolic function with ejection fraction between 55-60% and no significant valvular abnormalities. Patient is in normal sinus rhythm today, continues to have hematuria. Not a candidate for anticoagulation. Objective - Vital Signs Vital signs: Vital Signs Temp 98.4 F 01/01/18 12:00 Pulse 86 01/01/18 12:28 Resp 18 01/01/18 12:00 BP 121/60 01/01/18 12:00 Pulse Ox 95 01/01/18 12:00 Intake & Output 12/31/17 01/01/18 01/01/18 18:59 06:59 18:59 Intake Total 1410 50 360 Output Total 1500 1350 Balance -90 -1300 360 Weight 49 kg Intake: IV 210 0.9 NACL 160 Piperacillin-Tazobactam 3 50 .375 gm In Dextrose/Water 1 50ml.bag @ 12.5 mls/hr IVPB Q12HR [facility] Rx#: [id number] Intake, IV Titration 50 Amount Piperacillin-Tazobactam 3 50 .375 gm In Dextrose/Water 1 50ml.bag @ 12.5 mls/hr IVPB Q8HR [facility] Rx#: [id number] Oral 1200 360 Output: Urine 1500 1350 Other: Voiding Method Indwelling Catheter Indwelling Catheter Indwelling Catheter ABP, PAP, CO, CI - Last Documented Arterial Blood Pressure 91/79 - Exam GENERAL EXAM: Frail, cachectic. Alert, fairly comfortable in slight respiratory distress. HEAD: Normocephalic. EYES: Normal reaction of pupils, equal size. NOSE: Clear with pink turbinates. THROAT: No erythema or exudates. NECK: No masses, no JVD. CHEST: No chest wall deformity. LUNGS: Equal air entry with a basilar crackles more so on the left. CVS: S1 and S2 normal with no audible murmur, regular rhythm. ABDOMEN: Surgical site clean dry well approximate. SPINE: No scoliosis or deformity SKIN: No rashes CENTRAL NERVOUS SYSTEM: No focal deficits, tone is normal in all 4 extremities. EXTREMITIES: There is no peripheral edema. No clubbing, no cyanosis. Peripheral pulses are intact. - Labs CBC & Chem 7: 12/31/17 05:25 01/01/18 05:33 Labs: Abnormal Lab Results - Last 24 Hours (Table) 12/31/17 12/31/17 12/31/17 Range/Units 05:25 16:34 21:13 Sodium (137-145) mmol/L Carbon Dioxide (22-30) mmol/L BUN (9-20) mg/dL Creatinine (0.66-1.25) mg/dL Glucose (74-99) mg/dL POC Glucose (mg/dL) 132 H 207 H (75-99) mg/dL Calcium (8.4-10.2) mg/dL Lactate Dehydrogenase 1147 H (313-618) U/L Total Protein 4.7 L (6.3-8.2) g/dL 01/01/18 01/01/18 01/01/18 Range/Units 05:33 06:28 11:47 Sodium 135 L (137-145) mmol/L Carbon Dioxide 31 H (22-30) mmol/L BUN 32 H (9-20) mg/dL Creatinine 1.32 H (0.66-1.25) mg/dL Glucose 132 H (74-99) mg/dL POC Glucose (mg/dL) 148 H 342 H (75-99) mg/dL Calcium 8.3 L (8.4-10.2) mg/dL Lactate Dehydrogenase (313-618) U/L Total Protein (6.3-8.2) g/dL Microbiology - Last 24 Hours (Table) 12/29/17 15:43 Gram Stain - Preliminary Pleural Fluid Body Fluid Culture - Preliminary Assessment and Plan Plan: Assessment #1 paroxysmal atrial fibrillation. The patient currently in normal sinus mechanism #2 anemia secondary to bleeding #3 acute hypoxic respiratory failure which is better #4 coronary artery disease #5 fluid overload. Plan Cardiology's perspective, we'll recommend to continue the patient on his current medications. He is not a candidate for anticoagulation, continues at this point to be in normal sinus rhythm. We will follow him along with you now on an as-needed basis only. Please don't hesitate to call if you have any questions at all. DNP note has been reviewed, I agree with a documented findings and plan of care. Patient was seen and examined.
--- NOTE | 2018-01-01 16:33 | PN ---
PROGRESS NOTE Patient is seen for followup for acute kidney injury and hyponatremia. The hyponatremia developed after recent bladder surgery. His sodium is up to 135 now. It had dropped to 119. The patient is not on any IV fluids. He is tolerating oral intake. He is maintained on a low dose of p.o. Lasix. PHYSICAL EXAMINATION: Blood pressure is 121/60, heart rate 92 per minute. Patient is afebrile. Examination of the heart: S1, S2. Examination lungs: Bilateral breath sounds are heard. Abdomen is soft, nontender. Examination lower extremities shows no significant edema. LABS: Show sodium 135, potassium 3.9, BUN 32, serum creatinine 1.32, calcium 8.3, magnesium 1.7. ASSESSMENT: 1. Hyponatremia associated with bladder irrigation, bladder surgery, currently improved. 2. Acute kidney injury, currently nonoliguric with significant improvement in renal function. 3. Bladder cancer status post cystoscopy, evacuation of clots and transurethral resection of bladder tumor and closure of bladder perforation on December 25. 4. Chronic kidney disease stage III with solitary right kidney and baseline creatinine 1.2. 5. Atrial fibrillation with rapid ventricular rate, currently with controlled ventricular response. PLAN: Maintain good oral intake. Continue with current dose of p.o. Lasix. MMODL / IJN: [id number] /
[2018-01-01 16:44] LABS: Glucose,Whole Blood 181 mg/dL (75-99)
[2018-01-01 21:14] LABS: Glucose,Whole Blood 170 mg/dL (75-99)
[2018-01-02 06:09] LABS: Glucose,Whole Blood 91 mg/dL (75-99)
[2018-01-02] MEDS: INSULIN ASPART 100 UNIT/ML 1 ML 10 ML VIAL SQ SCH ×4 (06:19→21:29)
[2018-01-02 06:36] LABS: HCT 25.6 % (39.0-53.0); HGB 8.2 gm/dL (13.0-17.5); Hypochromasia Slight; MCHC 32.2 g/dL (31.0-37.0); MCV 93.2 fL (80.0-100.0); Mean Platelet Volume 6.8; Platelet Count 498 k/uL (150-450); RBC 2.74 m/uL (4.30-5.90); RDW 14.6 % (11.5-15.5); WBC 15.2 k/uL (3.8-10.6)
[2018-01-02 06:52] LABS: Calcium 8.5 mg/dL (8.4-10.2); Magnesium 1.7 mg/dL (1.6-2.3); Potassium 3.9 mmol/L (3.5-5.1)
[2018-01-02] MEDS: IPRATROPIUM-ALBUTEROL 3 ML NEB INHALATION SCH ×4 (08:55→19:32)
[2018-01-02] MEDS: METOPROLOL TARTRATE 50 MG TAB PO SCH ×3 (09:25→19:57)
[2018-01-02] MEDS: methylPREDNISolone 4 MG TAB TAPER PO SCH (09:25)
[2018-01-02] MEDS: PANTOPRAZOLE 40 MG/10 ML VIAL IVP SCH ×2 (09:26→19:57)
[2018-01-02] MEDS: FUROSEMIDE 20 MG TAB PO SCH (09:34)
[2018-01-02] MEDS: PIPERACILLIN-TAZOBACTAM 3.375 GM in DEXTROSE/WATER 1 50ML.BAG IVPB SCH ×2 (09:34→16:44)
--- NOTE | 2018-01-02 10:19 | P.PN ---
Subjective Progress Note Date: 01/02/18 Principal diagnosis: Hematuria Interval note: For full note on 12/25 see H and p by Dr. 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 On arrival to the ER he was tachycardic with a pulse of 118. Initial laboratory analysis showed a leukocytosis of 13.5, anemia with a hemoglobin of 9 (down from 13.2 in 48 hours) . He underwent ultrasound of the kidneys and bladder which showed normal- appearing right kidney without evidence of obstruction and a urinary bladder filled with complex density that could be blood clot versus bladder tumor. After admission his hemoglobin continued to downtrend. He was seen by Dr. Negron in the morning of 12/25 and taken for cystoscopy. On Cystoscopy he was found to have a bladder tumor and anterior bladder perforation. He subsequently had an open closure of his bladder perforation as well as a transurethral resection of his bladder tumor. He failed postoperative extubation, was reintubated, and was sent to the ICU. Dr. Wing saw the patient in PACU in order to serum bicarb drip after he found have a pH of 7.19. On arrival to the ICU he was 93.4 F and had lost a tooth. He was started on zosyn as prophylaxis. His blood pressure dropped early in the morning on 12/26 and he was started on levophed. He was extubated on the morning of 12/28 and transferred to selective care. He hen developed A fib with RVR and was placed on a cardizem gtt and cardio was consulted. He has a positive gastoroccult and was started on protonix. He had 1 episode of possible seizure activity but his EEG showed diffuse slowing no definitive seizure activity, he has not had any seizure since extubation. Has improved slowly. He converted to normal sinus rhythm. They were unable to D/C his JERMAINE drain on 12/31 due to increased resistance. His diet was increased to regular for breakfast on 01/01. Urology pulled JERMAINE drain on 01/01. He has been doing well and improving dialy. Patient seen and examined.Had a sharp belly pain this morning X 1 now gone. Still SOB and fatigued. Had a BM today. No chest pain. Understands why he needs to go to rehab. Objective - Vital Signs Vital signs: Vital Signs Temp 96.9 F L 01/02/18 04:00 Pulse 91 01/02/18 08:56 Resp 17 01/02/18 08:00 BP 128/69 01/02/18 08:00 Pulse Ox 95 01/02/18 08:00 Intake & Output 01/01/18 01/02/18 01/02/18 18:59 06:59 18:59 Intake Total 1810 100 360 Output Total 600 475 Balance 1210 -375 360 Weight 49 kg Intake: IV 10 Invasive Line 6 10 Intake, IV Titration 100 Amount Piperacillin-Tazobactam 3 100 .375 gm In Dextrose/Water 1 50ml.bag @ 12.5 mls/hr IVPB Q8HR [facility] Rx#: [id number] Oral 1800 360 Output: Urine 600 475 Other: Voiding Method Indwelling Catheter Indwelling Catheter Indwelling Catheter ABP, PAP, CO, CI - Last Documented Arterial Blood Pressure 91/79 - Exam General: ill appearing, no distress, appears older than stated age Derm: warm, dry Head: atraumatic, normocephalic, symmetric Eyes: EOMI, no lid lag, anicteric sclera Mouth: no lip lesion, mucus membranes moist Cardiovascular: S1S2 irreg, no murmur, positive posterior tibial pulse bilateral , Lungs: decreased bs b/l, no rhonchi, no rales , no accessory muscle use Abdominal: soft, + TTP suprapubic, no guarding, no appreciable organomegaly Ext: + gross muscle atrophy, no edema, no contractures Neuro: CN II-XI grossly intact, no focal neuro deficits Psych: Alert, oriented, appropriate affect - Labs CBC & Chem 7: 01/02/18 05:40 01/02/18 05:40 Labs: Abnormal Lab Results - Last 24 Hours (Table) 01/01/18 01/01/18 01/01/18 Range/Units 11:47 16:23 21:12 WBC (3.8-10.6) k/uL RBC (4.30-5.90) m/uL Hgb (13.0-17.5) gm/dL Hct (39.0-53.0) % Plt Count (150-450) k/uL Carbon Dioxide (22-30) mmol/L BUN (9-20) mg/dL Creatinine (0.66-1.25) mg/dL POC Glucose (mg/dL) 342 H 181 H 170 H (75-99) mg/dL 01/02/18 01/02/18 Range/Units 05:40 05:40 WBC 15.2 H (3.8-10.6) k/uL RBC 2.74 L (4.30-5.90) m/uL Hgb 8.2 L (13.0-17.5) gm/dL Hct 25.6 L (39.0-53.0) % Plt Count 498 H (150-450) k/uL Carbon Dioxide 31 H (22-30) mmol/L BUN 42 H (9-20) mg/dL Creatinine 1.50 H (0.66-1.25) mg/dL POC Glucose (mg/dL) (75-99) mg/dL Microbiology - Last 24 Hours (Table) 12/29/17 15:43 Gram Stain - Preliminary Pleural Fluid Body Fluid Culture - Preliminary Assessment and Plan Assessment: Bladder tumor and anterior Bladder perforation-status post repair and TURBT with urothelial carcinoma - Per Dr. Negron plan will be to D/C with bae and follow-up in the office for cystoscopy -Urology recs appreciate -Zosyn for prophylaxis Steroid induced hyperglycemia, improving - SSI insulin maintain for 1 more day if sugars stay normal then D/C - continue to follow Leukocytosis due to steroids - anticipate will decrease in AM if not will need repeat cultures. - follow for fevers - follow CBC Possible GI bleed - on protonix - HgB stable. Will continue to follow - if HgB remins stable then gastroccult + like due to irritation from OGT. Paroxysmal A fib, now in NSR. - Tele - Continue Metoprolol - no anticoagulation due to recent bleeding and surgery. Acute blood loss anemia secondary to tumor -Status post 2 units of packed red blood cells -Follow with serial CBCs Left Pleural effusion - s/p thora 12/28, likely due to fluid resuscitation - pulmonary recs Acute hypoxic respiratory failure, improving - management as per pulmonary team - incentive spirometery Acute kidney injury secondary to ATN on CKD III baseline Cr 1.2 - diuretics decreased 01/02 repeat BMP 01/03 -Avoid additional nephrotoxic agents -Renal ultrasound without medical renal disease -nephrology recs Coronary artery disease -No aspirin at this time secondary to bleeding Hyperkalemia, resolved Hyponatremia, resolved Metabolic acidosis, improved Hypocalcemia, resolved Hypotension, resolved Hypoglycemia, resolved RVR resolved DVT prophylaxis: SCDs Discussed with: Patient Anticipated discharge: 24-[address]: rehab A total of 25 minutes was spent on the care of this complex patient more than 50 % of the time was spent in counseling and care coordination.
--- NOTE | 2018-01-02 10:37 | PN ---
PROGRESS NOTE Patient is seen for followup for acute kidney injury and hyponatremia. His serum creatinine has trended up. It was at 1.3 and is at 1.5 today. The patient has had good urine output. He has an indwelling Tierney catheter. He does have obstructive uropathy. His sodium, however, is well maintained. PHYSICAL EXAMINATION: Blood pressure is 128/69, heart rate 91 per minute. He is afebrile. Examination of the heart S1, S2. Examination of the lungs bilateral breath sounds are heard. Abdomen is soft, nontender. Examination of lower extremities shows no evidence of edema. BLOWER INSTALLER exam is grossly intact. LABS: Revealed a serum creatinine 1.5 and sodium 138, potassium 3.9. ASSESSMENT: 1. Acute kidney injury, currently improved. The serum creatinine is slightly higher than yesterday. I will start gentle IV hydration. 2. Chronic kidney disease stage 3 with solitary kidney. Baseline creatinine about 1.2. 3. Bladder cancer status post cystoscopy, evacuation of clots and transurethral resection of bladder tumor and closure of bladder perforation. 4. Atrial fibrillation with a RVR, currently with controlled ventricular response. PLAN: Start gentle IV hydration. Encourage increased oral intake. MMODL / IJN: [id number] /
[2018-01-02 11:53] LABS: Glucose,Whole Blood 148 mg/dL (75-99)
--- NOTE | 2018-01-02 12:15 | P.PN ---
Subjective Progress Note Date: 12/26/17 Principal diagnosis: Acute hypoxic respiratory failure post-bladder surgery. 87-year-old male patient who is being seen in the recovery room as the patient failed postoperative extubation. The patient was taken to the operating room for gross hematuria. The patient was having significant amount of hematuria associated with drop in hemoglobin from 13.2 down to 9.0 since this current admission and earlier this morning his hemoglobin was down to 7.6. The patient has intermittent hematuria since 2013. 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 He is a chronic smoker. The patient underwent a cystoscopy and the patient was found to have a bladder tumor that was resected using a transurethral approach. Following that the patient was found to have a bladder perforation. This was not related to the tumor resection and apparently the tumor was a 4 cm papillary tumor overlying the right trigone of securing the right ureteral orifice and the perforation was in the anterior bladder wall. In any rate, the patient underwent expiratory laparotomy, evacuation of intra-abdominal fluid collection and closure of a bladder perforation. Estimated blood loss was 75 mL. Total amount of fluid was 1.3 L given during the surgery. The patient also received a total of 2 units of packed RBCs. I saw this patient in the recovery room. Apparently he was extubated in recovery however he had weak breathing effort and he subsequently went into respiratory failure. He was reintubated within 10 minutes. Post intubation blood gas showed a pH of 7.19 with a pCO2 of 39 and pO2 of 339. The patient accordingly was placed on assist controlled rate of 22 tidal volume was brought up from 350 up to 500 and FiO2 is up to 60%. Pulse ox remains above 90% on the monitor. The patient is on no pressors at this point in time. A triple-lumen catheter was inserted. An outlying catheter was inserted. The patient has a component of non-anion gap metabolic acidosis with a bicarb level of 14 and a anion gap level of 9 and the patient was started on bicarb drip with D5 3 amps of bicarb at the rate of 1 100 mL an hour. Note that the patient was in acute kidney injury in the creatinine was up to 0.6 and dropped down to 1.9 and his calcium level was at 8 point further down to 6.2 total non-ionize. Post intubation chest x-ray showed questionable air under the left hemidiaphragm. ET tube is in a good location. 2 triple-lumen cath is also in good location. Coagulation profile is within normal limits. The patient is known to have coronary artery disease. On 12/27/2007 and I'm seeing this patient for a follow-up. The patient remains intubated on a mechanical ventilator. Currently is an assist-control mode at the rate of 22 with a tidal volume of 500 and FiO2 has been weaned down to order percent with a PEEP of 5. Morning blood gases showed a pH of 7.41 with a pCO2 of 29 and pO2 of 105. The patient's chest x-ray shows adequate positioning of the 82. The patient has a small left-sided pleural effusion. He is sedated with propofol and is calm and comfortable. Abdominal wound is dry clean and intact. There is some bruising around the JERMAINE drain site. The drain has without approximately 200 mL of serosanguineous and bloody drainage over the past 8 hours. The patient is producing adequate amount of urine output. And the urine output for now is approximately 2.2 L since he arrived to the intensive care units. The patient overnight was resuscitated with IV fluids. He received several boluses and he remained borderline lower blood pressure with a systolic in the mid 90s. Subsequently this morning he dropped down to a systolic of 78. He was started on and after infusion and currently the patient's BP is under better control with a map of around 65-70. The patient has also component of non-anion gap metabolic acidosis and hyponatremia. The hyponatremia probably due to excessive fluid irrigation of the bladder which probably get absorbed into his system and intravascular system and his sodium is at 122. The patient is currently on a bicarb drip with D5 with 3 ampules of bicarb running at 100 mL an hour. The patient also is on empiric antibiotic coverage with IV Zosyn. The patient was noted to have a low calcium and he will be given a gram of calcium chloride. Not ready for any weaning at this point in time. Function continues to improve and the creatinine is down to 1.8 from a baseline of 2.6 at time of admission. The hematuria is also improving. Reevaluated today on 12/27/2017, patient remains on mechanical ventilation, and his ventilator settings are assist control rate of 22, tidal volume of 500, FiO2 of 40%, and PEEP is 5. Patient is hemodynamically unstable, requiring levo fed at 40 mcg/m. Patient will be given more fluid boluses, apparently he received so far at least 6 L of fluids his urine output is over 200 mL per hour. Remains on antibiotics empirically, today I recommended a dose of Solu- Cortef, and I plan to change his arterial line since it doesn't seem to be functional. Family is at bedside including his 2 nieces, and his condition was discussed with both of them. ABG showed a pO2 of 108 pCO2 of 33 pH of 7.48. Patient is arousable, and he was following simple instructions quite well. Noted to have some coffee ground material in the nasogastric tube, hence his Protonix dose was doubled. Labs were reviewed, sodium is a bit low at 130. BUN is 23 creatinine is 1.70. WBC count is 14.3 hemoglobin is 8.7. Gastric aspirate is Hemoccult positive. Chest x-ray showed minimal left pleural effusion and minimal atelectasis at the left base. No evidence of pneumonia. His echocardiogram is relatively normal. Surgical pathology is still pending from his bladder tumor. Brain CT is unremarkable, EEG is being done for questionable witnessed seizure, results of which are pending. Blood cultures were sent, and urine cultures were sent today. Patient is presently off propofol, arousable, followed simple instructions, but blood pressure remains low. Hence we will continue norepinephrine and continue fluid boluses. Reevaluated today on 12/28/2017, remains on mechanical ventilation, sedated, on propofol, remains on levo fed at 70 mcg/m. His ventilator settings are tidal volume of 500 assist control rate of 2240% FiO2 and PEEP of 5. His ABG showed a pO2 of 164, pCO2 of 30, PH of 7.48. Hence the patient was cut down to FiO2 of 30%, and INR of the patient, with held his propofol, and I'm planning to give him a spontaneous breathing trial, and possibly extubate the patient today. Chest x-ray was reviewed all left-sided pleural effusion was noted, and a smaller effusion was noted on the right side. Rest of the labs were noted to be unremarkable, creatinine is improving down to 1.60. Basic metabolic profile is normal CBC is relatively normal except for hemoglobin of 7.4.The patient is seen today 12/29/2017 in follow-up on the selective care unit. He was extubated yesterday and transferred here last evening. Earlier this morning he developed increasing shortness of breath. His chest x-ray showed persistent small bilateral effusions left greater than right with bibasilar atelectasis. There was a new mild to moderate bilateral interstitial edema and developing focal right suprahilar interstitial infiltrate. He did receive 40 mg of Lasix IV push and placed on AirVo oxygenation high flow at 45 L and 65% FiO2. Ultrasound of the left chest with markings are pending. White count 9.9. Hemoglobin 8.2. Bicarb 22. Creatinine 1.40. Currently in a -1550 ML balance. Remains in atrial fibrillation somewhat tachycardic and Cardizem drip is at 10 mg per hour. The patient is seen again today 12/30/2017 in follow-up on the selective care unit. He is awake and alert in no acute distress. He is breathing quite a bit better today as compared to yesterday. He did undergo thoracentesis with Dr. Hinton in approximately 1100 ML's of serosanguineous fluid was removed. Analysis pending. He is continuing to require 15 L high flow nasal cannula to maintain O2 saturations in the 90s. Afebrile. His rate is better controlled. He remains on a Cardizem drip. Remains on IV Lasix. Creatinine 1.39. The patient is seen again today 12/31/2017 in follow-up on the selective care unit. He is currently sitting up in a chair at the bedside. He is awake and alert in no acute distress. He is quite a bit stronger today as compared to yesterday. His breathing is easier as well. His been titrated down to 8 L high flow nasal cannula and maintaining good O2 saturations in the mid 90s. He remains in a negative balance. Approximately 5 L urine out today. A 6 had been decreased to 40 mg IV daily. White count 10.9. Hemoglobin 8.4. Creatinine 1.20. He is currently in sinus rhythm heart rate in the 80s. Reevaluated today on 01/01/2018, patient seems to be doing well, were still tapering down his FiO2 I hope to get him down to at least 4 L via nasal cannula , patient is maintaining his O2 saturation while on 6 L today. Patient is already on low dose of Lasix 20 mg daily, I have switched his Solu-Medrol to Medrol Dosepak, plan to cut down his FiO2 to 2.4 L via nasal cannula, and we will anticipate discharge planning in the next 48 hours. Needs to be seen by physical therapy, and needs to ambulate. May eventually require referral to a rehab facility. Last chest x-ray 2 days ago was reassuring. Patient denies any shortness of breath, no cough no wheezing no chest pain. And his JERMAINE drain has been removed. Reevaluated today on 01/02/2018, patient continues to do gradually well, he is presently on 4 L nasal cannula, and his O2 saturation is 95%. He is hemodynamically stable, relatively asymptomatic, no cough no wheezing no shortness of breath even his abdominal pain is significantly improved. Labs from today showed WBC count of 15.2 hemoglobin is 8.2 electrolytes and renal profile were noted BUN is 42 creatinine is 1.5. His creatinine has been gradually improving, it was 2.60 on 12/25/2017, and has been gradually better and improved. Objective - Vital Signs Vital signs: Vital Signs Temp 96.9 F L 01/02/18 04:00 Pulse 88 01/02/18 12:04 Resp 17 01/02/18 08:00 BP 128/69 01/02/18 08:00 Pulse Ox 95 01/02/18 08:00 Intake & Output 01/01/18 01/02/18 01/02/18 18:59 06:59 18:59 Intake Total 1810 100 360 Output Total 600 475 Balance 1210 -375 360 Weight 49 kg Intake: IV 10 Invasive Line 6 10 Intake, IV Titration 100 Amount Piperacillin-Tazobactam 3 100 .375 gm In Dextrose/Water 1 50ml.bag @ 12.5 mls/hr IVPB Q8HR [facility] Rx#: [id number] Oral 1800 360 Output: Urine 600 475 Other: Voiding Method Indwelling Catheter Indwelling Catheter Indwelling Catheter ABP, PAP, CO, CI - Last Documented Arterial Blood Pressure 91/79 - Exam Physical Exam: Revealed a 67-year-old white male, in no distress, on 4 L nasal cannula O2 sat is 95% Head: Atraumatic, normocephalic. HEENT:[Neck is supple.] [No neck masses.] [No thyromegaly.] [No JVD.] Moist mucous membranes, no icterus, PERRLA, EOMI. Chest: [Clear throughout, no crackles, no rhonchi, no wheezes.] Cardiac Exam: [Normal S1 and S2, no S3 gallop, no murmur.] Abdomen: [Soft, nontender, no megaly, no rebound, no guarding,] postsurgical tenderness noted in the lower abdomen. Extremities: [No clubbing, no edema, no cyanosis.] Neurological Exam: [No focal neurologic deficit. Alert and oriented 3. Psychiatric: Patient is arousable, but sleepy. Lymphatics: No lymphadenopathy. Musculoskeletal: Grossly intact.] - Labs CBC & Chem 7: 01/02/18 05:40 01/02/18 05:40 Labs: Abnormal Lab Results - Last 24 Hours (Table) 01/01/18 01/01/18 01/02/18 Range/Units 16:23 21:12 05:40 WBC 15.2 H (3.8-10.6) k/uL RBC 2.74 L (4.30-5.90) m/uL Hgb 8.2 L (13.0-17.5) gm/dL Hct 25.6 L (39.0-53.0) % Plt Count 498 H (150-450) k/uL Carbon Dioxide (22-30) mmol/L BUN (9-20) mg/dL Creatinine (0.66-1.25) mg/dL POC Glucose (mg/dL) 181 H 170 H (75-99) mg/dL 01/02/18 01/02/18 Range/Units 05:40 11:52 WBC (3.8-10.6) k/uL RBC (4.30-5.90) m/uL Hgb (13.0-17.5) gm/dL Hct (39.0-53.0) % Plt Count (150-450) k/uL Carbon Dioxide 31 H (22-30) mmol/L BUN 42 H (9-20) mg/dL Creatinine 1.50 H (0.66-1.25) mg/dL POC Glucose (mg/dL) 148 H (75-99) mg/dL Microbiology - Last 24 Hours (Table) 12/29/17 15:43 Gram Stain - Preliminary Pleural Fluid Body Fluid Culture - Preliminary Assessment and Plan Assessment: 1 acute hypoxic respiratory failure post general anesthesia, post bladder surgery. Exact cause is not clear. Could be that the patient was extubated prematurely prior to compared to being recovered from his anesthetic agents. Other causes need to be considered including severe metabolic acidosis which we have attributed to his respiratory failure. No history of any myasthenia gravis of any neuromuscular weakness or neuromuscular disorders. Neurologically , the patient was stated to be awake prior to surgery and the patient was apparently was moving all 4 extremities without any limitation. 12/29/2017: The patient was extubated yesterday to 4 L/m per nasal cannula. He developed increasing shortness of breath requiring AirVo high flow oxygenation at 45 L and 65% FiO2. Chest x-ray reveals evidence of pulmonary edema. 12/30/2017: Patient did undergo thoracentesis of the left chest with approximately 1100 ML's removed. Analysis pending. Breathing easier today. Currently on 15 L high flow nasal cannula. 12/31/2017: The patient is down to 8 L high flow nasal cannula. He sitting up in a chair at the bedside. He denies any shortness of breath, cough or congestion. 2 massive hematuria secondary to bladder tumor, status post transurethral resection of a bladder tumor 3 resection of a bladder tumor from the trigone, the patient underwent transurethral resection of the bladder tumor. 4 bladder perforation, involving the anterior bladder wall, status post expiratory laparotomy and repair of a laceration. 5 severe and non-anion gap metabolic acidosis him a currently on a bicarb drip 6 acute kidney injury, improving and creatinine is down trending for now 7 anemia, secondary to blood loss from massive hematuria, status post packed RBC transfusion the patient's hemoglobin is stable 8 coronary artery disease with decreased MD and stenting of RCA 9 smoker with possible COPD 10 hyponatremia, probably dilutional, secondary to extensive letter irrigation and fluid leaking into the abdominal cavity. Nephrology has been consult on the case. 11 hypocalcemia 12 hypotension currently on pressors after being resuscitated adequately with IV fluids. Rule out underlying septic event and the patient is covered with empiric antibiotics with IV Zosyn. Echocardiogram is unremarkable 13 suspected upper GI bleeding, has Protonix dose was doubled. Continue to monitor closely, if bleeding gets any worse, may have to consider EGD. Recommendation: Continue present treatment plan, consider discharge planning in the next 24 hours, consider referral to a rehab facility. Patient should start ambulating and strongly suggest physical therapy. Time with Patient: Less than 30
[2018-01-02] MEDS: SODIUM CHLORIDE 0.9% 1,000 ML IV SCH (12:54)
[2018-01-02 16:28] LABS: Glucose,Whole Blood 157 mg/dL (75-99)
[2018-01-02 21:08] LABS: Glucose,Whole Blood 199 mg/dL (75-99)
[2018-01-03] MEDS: PIPERACILLIN-TAZOBACTAM 3.375 GM in DEXTROSE/WATER 1 50ML.BAG IVPB SCH ×2 (00:06→07:51)
[2018-01-03 01:45] VITALS: RESP 18
[2018-01-03] MEDS: SODIUM CHLORIDE 0.9% 1,000 ML IV SCH (04:08)
[2018-01-03] MEDS: INSULIN ASPART 100 UNIT/ML 1 ML 10 ML VIAL SQ SCH ×3 (06:20→17:29)
[2018-01-03 06:21] LABS: Glucose,Whole Blood 90 mg/dL (75-99)
[2018-01-03 06:54] LABS: Calcium 8.4 mg/dL (8.4-10.2); Potassium 4.1 mmol/L (3.5-5.1)
[2018-01-03] MEDS: IPRATROPIUM-ALBUTEROL 3 ML NEB INHALATION SCH ×3 (06:55→15:41)
[2018-01-03] MEDS: PANTOPRAZOLE 40 MG/10 ML VIAL IVP SCH (07:51)
[2018-01-03] MEDS: FUROSEMIDE 20 MG TAB PO SCH (07:51)
[2018-01-03] MEDS: methylPREDNISolone 4 MG TAB TAPER PO SCH (07:52)
[2018-01-03] MEDS: METOPROLOL TARTRATE 50 MG TAB PO SCH ×2 (07:53→17:29)
--- NOTE | 2018-01-03 09:02 | P.PN ---
Subjective Patient is seen in follow-up for acute kidney injury and hyponatremia. Patient had developed acute hyponatremia after bladder surgery which is improved with IV hydration. Creatinine down to 1.27 today with IVFs. Patient has chronic kidney disease stage III secondary to solitary right kidney with baseline creatinine near 1.2. Oral intake is good. No vomiting or diarrhea. Patient had left-sided thoracentesis done on December 29 with 1.1 L removed. Vital signs are stable. General: The patient appeared well nourished and normally developed. HEENT: Head exam is unremarkable. Neck is without jugular venous distension. LUNGS: Lungs are clear to auscultation and percussion. Breath sounds decreased. HEART: Irregular rate and rhythm. ABDOMEN: Abdominal exam reveals normal bowel sounds. Non-tender and non- distended. No evidence of peritonitis. EXTREMITITES: No clubbing, cyanosis, or edema. Objective - Vital Signs Vital signs: Vital Signs Temp 98.5 F 01/03/18 03:31 Pulse 76 01/03/18 07:10 Resp 18 01/03/18 06:57 BP 127/68 01/03/18 03:31 Pulse Ox 98 01/03/18 03:31 Intake & Output 01/02/18 01/03/18 01/03/18 18:59 06:59 18:59 Intake Total 1080 525 Output Total 1999 1100 Balance -920 -575 Weight 48 kg Intake: IV 300 0.9 NACL 300 Intake, IV Titration 100 Amount Piperacillin-Tazobactam 3 100 .375 gm In Dextrose/Water 1 50ml.bag @ 12.5 mls/hr IVPB Q8HR [facility] Rx#: [id number] Oral 1080 125 Output: Urine 1999 1099 Other: Voiding Method Indwelling Catheter Indwelling Catheter # Voids 600 ABP, PAP, CO, CI - Last Documented Arterial Blood Pressure 91/79 - Labs CBC & Chem 7: 01/02/18 05:40 01/03/18 05:32 Labs: Abnormal Lab Results - Last 24 Hours (Table) 01/02/18 01/02/18 01/02/18 Range/Units 11:52 16:23 21:06 Sodium (137-145) mmol/L Carbon Dioxide (22-30) mmol/L BUN (9-20) mg/dL Creatinine (0.66-1.25) mg/dL POC Glucose (mg/dL) 148 H 157 H 199 H (75-99) mg/dL 01/03/18 Range/Units 05:32 Sodium 134 L (137-145) mmol/L Carbon Dioxide 32 H (22-30) mmol/L BUN 41 H (9-20) mg/dL Creatinine 1.27 H (0.66-1.25) mg/dL POC Glucose (mg/dL) (75-99) mg/dL Microbiology - Last 24 Hours (Table) 12/29/17 15:43 Gram Stain - Preliminary Pleural Fluid Body Fluid Culture - Preliminary Assessment and Plan Plan: Assessment: 1. Acute hyponatremia. Serum osmolality is low. There was concern that the patient had absorbed the irrigation solution used during the surgery yesterday into his extracellular space leading to transurethral resection syndrome. However the serum osmolality would be expected to be near normal as the solution used for irrigation is typically isosmotic but nonsodium containing. Improved with IV fluids. Urine osmolality low at 117. 2. Bladder cancer status post cystoscopy, evacuation of clot, transurethral resection of bladder tumor and closure of bladder perforation on 12/25/2017. 3. Acute blood loss anemia status post blood transfusion. Iron replete. 4. Nonoliguric acute kidney injury secondary to ATN secondary to hemodynamic instability and anemia. Improved. 5. Chronic kidney disease stage III with baseline creatinine near 1.2 secondary to solitary right kidney. 6. Metabolic acidosis secondary to acute kidney injury and IV fluids. Improved. 7. Hypocalcemia secondary to acute kidney injury and chelation from blood transfusion. His corrected calcium for albumin is in the normal range. 8. Volume overload. 9. A. fib with RVR maintained on beta jose antonio. Plan: Hep-Lock IV fluids. Maintain Lasix 20 mg IV once daily. Continue to monitor renal function and urine output. Avoid nephrotoxic agents and hypotensive episodes.
[2018-01-03 11:39] LABS: Glucose,Whole Blood 166 mg/dL (75-99)
--- NOTE | 2018-01-03 12:26 | P.PN ---
Subjective Progress Note Date: 01/03/18 Principal diagnosis: Acute hypoxic respiratory failure post-bladder surgery 87-year-old male patient who is being seen in the recovery room as the patient failed postoperative extubation. The patient was taken to the operating room for gross hematuria. The patient was having significant amount of hematuria associated with drop in hemoglobin from 13.2 down to 9.0 since this current admission and earlier this morning his hemoglobin was down to 7.6. The patient has intermittent hematuria since 2013. 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 He is a chronic smoker. The patient underwent a cystoscopy and the patient was found to have a bladder tumor that was resected using a transurethral approach. Following that the patient was found to have a bladder perforation. This was not related to the tumor resection and apparently the tumor was a 4 cm papillary tumor overlying the right trigone of securing the right ureteral orifice and the perforation was in the anterior bladder wall. In any rate, the patient underwent expiratory laparotomy, evacuation of intra-abdominal fluid collection and closure of a bladder perforation. Estimated blood loss was 75 mL. Total amount of fluid was 1.3 L given during the surgery. The patient also received a total of 2 units of packed RBCs. I saw this patient in the recovery room. Apparently he was extubated in recovery however he had weak breathing effort and he subsequently went into respiratory failure. He was reintubated within 10 minutes. Post intubation blood gas showed a pH of 7.19 with a pCO2 of 39 and pO2 of 339. The patient accordingly was placed on assist controlled rate of 22 tidal volume was brought up from 350 up to 500 and FiO2 is up to 60%. Pulse ox remains above 90% on the monitor. The patient is on no pressors at this point in time. A triple-lumen catheter was inserted. An outlying catheter was inserted. The patient has a component of non-anion gap metabolic acidosis with a bicarb level of 14 and a anion gap level of 9 and the patient was started on bicarb drip with D5 3 amps of bicarb at the rate of 1 100 mL an hour. Note that the patient was in acute kidney injury in the creatinine was up to 0.6 and dropped down to 1.9 and his calcium level was at 8 point further down to 6.2 total non-ionize. Post intubation chest x-ray showed questionable air under the left hemidiaphragm. ET tube is in a good location. 2 triple-lumen cath is also in good location. Coagulation profile is within normal limits. The patient is known to have coronary artery disease. On 12/27/2007 and I'm seeing this patient for a follow-up. The patient remains intubated on a mechanical ventilator. Currently is an assist-control mode at the rate of 22 with a tidal volume of 500 and FiO2 has been weaned down to order percent with a PEEP of 5. Morning blood gases showed a pH of 7.41 with a pCO2 of 29 and pO2 of 105. The patient's chest x-ray shows adequate positioning of the 82. The patient has a small left-sided pleural effusion. He is sedated with propofol and is calm and comfortable. Abdominal wound is dry clean and intact. There is some bruising around the JERMAINE drain site. The drain has without approximately 200 mL of serosanguineous and bloody drainage over the past 8 hours. The patient is producing adequate amount of urine output. And the urine output for now is approximately 2.2 L since he arrived to the intensive care units. The patient overnight was resuscitated with IV fluids. He received several boluses and he remained borderline lower blood pressure with a systolic in the mid 90s. Subsequently this morning he dropped down to a systolic of 78. He was started on and after infusion and currently the patient's BP is under better control with a map of around 65-70. The patient has also component of non-anion gap metabolic acidosis and hyponatremia. The hyponatremia probably due to excessive fluid irrigation of the bladder which probably get absorbed into his system and intravascular system and his sodium is at 122. The patient is currently on a bicarb drip with D5 with 3 ampules of bicarb running at 100 mL an hour. The patient also is on empiric antibiotic coverage with IV Zosyn. The patient was noted to have a low calcium and he will be given a gram of calcium chloride. Not ready for any weaning at this point in time. Function continues to improve and the creatinine is down to 1.8 from a baseline of 2.6 at time of admission. The hematuria is also improving. Reevaluated today on 12/27/2017, patient remains on mechanical ventilation, and his ventilator settings are assist control rate of 22, tidal volume of 500, FiO2 of 40%, and PEEP is 5. Patient is hemodynamically unstable, requiring levo fed at 40 mcg/m. Patient will be given more fluid boluses, apparently he received so far at least 6 L of fluids his urine output is over 200 mL per hour. Remains on antibiotics empirically, today I recommended a dose of Solu- Cortef, and I plan to change his arterial line since it doesn't seem to be functional. Family is at bedside including his 2 nieces, and his condition was discussed with both of them. ABG showed a pO2 of 108 pCO2 of 33 pH of 7.48. Patient is arousable, and he was following simple instructions quite well. Noted to have some coffee ground material in the nasogastric tube, hence his Protonix dose was doubled. Labs were reviewed, sodium is a bit low at 130. BUN is 23 creatinine is 1.70. WBC count is 14.3 hemoglobin is 8.7. Gastric aspirate is Hemoccult positive. Chest x-ray showed minimal left pleural effusion and minimal atelectasis at the left base. No evidence of pneumonia. His echocardiogram is relatively normal. Surgical pathology is still pending from his bladder tumor. Brain CT is unremarkable, EEG is being done for questionable witnessed seizure, results of which are pending. Blood cultures were sent, and urine cultures were sent today. Patient is presently off propofol, arousable, followed simple instructions, but blood pressure remains low. Hence we will continue norepinephrine and continue fluid boluses. Reevaluated today on 12/28/2017, remains on mechanical ventilation, sedated, on propofol, remains on levo fed at 70 mcg/m. His ventilator settings are tidal volume of 500 assist control rate of 2240% FiO2 and PEEP of 5. His ABG showed a pO2 of 164, pCO2 of 30, PH of 7.48. Hence the patient was cut down to FiO2 of 30%, and INR of the patient, with held his propofol, and I'm planning to give him a spontaneous breathing trial, and possibly extubate the patient today. Chest x-ray was reviewed all left-sided pleural effusion was noted, and a smaller effusion was noted on the right side. Rest of the labs were noted to be unremarkable, creatinine is improving down to 1.60. Basic metabolic profile is normal CBC is relatively normal except for hemoglobin of 7.4.The patient is seen today 12/29/2017 in follow-up on the selective care unit. He was extubated yesterday and transferred here last evening. Earlier this morning he developed increasing shortness of breath. His chest x-ray showed persistent small bilateral effusions left greater than right with bibasilar atelectasis. There was a new mild to moderate bilateral interstitial edema and developing focal right suprahilar interstitial infiltrate. He did receive 40 mg of Lasix IV push and placed on AirVo oxygenation high flow at 45 L and 65% FiO2. Ultrasound of the left chest with markings are pending. White count 9.9. Hemoglobin 8.2. Bicarb 22. Creatinine 1.40. Currently in a -1550 ML balance. Remains in atrial fibrillation somewhat tachycardic and Cardizem drip is at 10 mg per hour. The patient is seen again today 12/30/2017 in follow-up on the selective care unit. He is awake and alert in no acute distress. He is breathing quite a bit better today as compared to yesterday. He did undergo thoracentesis with Dr. Hinton in approximately 1100 ML's of serosanguineous fluid was removed. Analysis pending. He is continuing to require 15 L high flow nasal cannula to maintain O2 saturations in the 90s. Afebrile. His rate is better controlled. He remains on a Cardizem drip. Remains on IV Lasix. Creatinine 1.39. The patient is seen again today 12/31/2017 in follow-up on the selective care unit. He is currently sitting up in a chair at the bedside. He is awake and alert in no acute distress. He is quite a bit stronger today as compared to yesterday. His breathing is easier as well. His been titrated down to 8 L high flow nasal cannula and maintaining good O2 saturations in the mid 90s. He remains in a negative balance. Approximately 5 L urine out today. A 6 had been decreased to 40 mg IV daily. White count 10.9. Hemoglobin 8.4. Creatinine 1.20. He is currently in sinus rhythm heart rate in the 80s. Reevaluated today on 01/01/2018, patient seems to be doing well, were still tapering down his FiO2 I hope to get him down to at least 4 L via nasal cannula , patient is maintaining his O2 saturation while on 6 L today. Patient is already on low dose of Lasix 20 mg daily, I have switched his Solu-Medrol to Medrol Dosepak, plan to cut down his FiO2 to 2.4 L via nasal cannula, and we will anticipate discharge planning in the next 48 hours. Needs to be seen by physical therapy, and needs to ambulate. May eventually require referral to a rehab facility. Last chest x-ray 2 days ago was reassuring. Patient denies any shortness of breath, no cough no wheezing no chest pain. And his JERMAINE drain has been removed. Reevaluated today on 01/02/2018, patient continues to do gradually well, he is presently on 4 L nasal cannula, and his O2 saturation is 95%. He is hemodynamically stable, relatively asymptomatic, no cough no wheezing no shortness of breath even his abdominal pain is significantly improved. Labs from today showed WBC count of 15.2 hemoglobin is 8.2 electrolytes and renal profile were noted BUN is 42 creatinine is 1.5. His creatinine has been gradually improving, it was 2.60 on 12/25/2017, and has been gradually better and improved. On 01/03/2018 patient seen again in follow-up on selective care unit. He is resting comfortably in bed, denies any distress. Pulse ox is 94%, home oxygen assessment was completed, room air pulse ox with exercise was 91%, post exercise was 89%. Patient denies any worsening dyspnea, denies any chest pain. Lung sounds are positive for fine crackles diminished breath sounds at the bases. Afebrile. Today's labs show sodium 134, potassium is 4, CO2 32, BUN is 41, creatinine is 1.27. Patient is status post left thoracentesis, and pleural fluid cultures are negative. Patient's renal profile is improving, B1 is down to 41, creatinine is 1.27, nephrology is following. No fever, no chills. Patient is tolerating oral intake. No vomiting or diarrhea. Patient is receiving IV Lasix a daily basis, and he is maintaining negative fluid balance. Objective - Vital Signs Vital signs: Vital Signs Temp 98.4 F 01/03/18 08:00 Pulse 82 01/03/18 11:44 Resp 18 01/03/18 08:00 BP 131/69 01/03/18 08:00 Pulse Ox 96 01/03/18 11:44 Intake & Output 01/02/18 01/03/18 01/03/18 18:59 06:59 18:59 Intake Total 1080 525 Output Total 1999 1099 Balance -930 573 Weight 48 kg Intake: IV 300 0.9 NACL 300 Intake, IV Titration 100 Amount Piperacillin-Tazobactam 3 100 .375 gm In Dextrose/Water 1 50ml.bag @ 12.5 mls/hr IVPB Q8HR [facility] Rx#: [id number] Oral 1080 125 Output: Urine 1999 1099 Other: Voiding Method Indwelling Catheter Indwelling Catheter Indwelling Catheter # Voids 600 ABP, PAP, CO, CI - Last Documented Arterial Blood Pressure 91/79 - Exam Physical Exam: Revealed a 67-year-old white male, in no distress, on 4 L nasal cannula O2 sat is 95% Head: Atraumatic, normocephalic. HEENT:[Neck is supple.] [No neck masses.] [No thyromegaly.] [No JVD.] Moist mucous membranes, no icterus, PERRLA, EOMI. Chest: [Clear throughout, no crackles, no rhonchi, no wheezes.] Cardiac Exam: [Normal S1 and S2, no S3 gallop, no murmur.] Abdomen: [Soft, nontender, no megaly, no rebound, no guarding,] postsurgical tenderness noted in the lower abdomen. Extremities: [No clubbing, no edema, no cyanosis.] Neurological Exam: [No focal neurologic deficit. Alert and oriented 3. Psychiatric: Patient is arousable, but sleepy. Lymphatics: No lymphadenopathy. Musculoskeletal: Grossly intact.] - Labs CBC & Chem 7: 01/02/18 05:40 01/03/18 05:32 Labs: Abnormal Lab Results - Last 24 Hours (Table) 01/02/18 01/02/18 01/03/18 Range/Units 16:23 21:06 05:32 Sodium 134 L (137-145) mmol/L Carbon Dioxide 32 H (22-30) mmol/L BUN 41 H (9-20) mg/dL Creatinine 1.27 H (0.66-1.25) mg/dL POC Glucose (mg/dL) 157 H 199 H (75-99) mg/dL 01/03/18 Range/Units 11:32 Sodium (137-145) mmol/L Carbon Dioxide (22-30) mmol/L BUN (9-20) mg/dL Creatinine (0.66-1.25) mg/dL POC Glucose (mg/dL) 166 H (75-99) mg/dL Microbiology - Last 24 Hours (Table) 12/29/17 15:43 Gram Stain - Preliminary Pleural Fluid Body Fluid Culture - Preliminary Assessment and Plan Plan: Assessment: 1 acute hypoxic respiratory failure post general anesthesia, post bladder surgery. Exact cause is not clear. Could be that the patient was extubated prematurely prior to compared to being recovered from his anesthetic agents. Other causes need to be considered including severe metabolic acidosis which we have attributed to his respiratory failure. No history of any myasthenia gravis of any neuromuscular weakness or neuromuscular disorders. Neurologically , the patient was stated to be awake prior to surgery and the patient was apparently was moving all 4 extremities without any limitation. 12/29/2017: The patient was extubated yesterday to 4 L/m per nasal cannula. He developed increasing shortness of breath requiring AirVo high flow oxygenation at 45 L and 65% FiO2. Chest x-ray reveals evidence of pulmonary edema. 12/30/2017: Patient did undergo thoracentesis of the left chest with approximately 1100 ML's removed. Analysis showed exudative fluid, cytology showed mesothelial cells, macrophages and mixed inflammatory cells, but no cytologically malignant cells.. Breathing easier today. Currently on 15 L high flow nasal cannula. 12/31/2017: The patient is down to 8 L high flow nasal cannula. He sitting up in a chair at the bedside. He denies any shortness of breath, cough or congestion. On 01/03/2018 patient is down to room air, his pulse ox is 95%, no dyspnea, no chest pain, no cough, no phlegm production. Renal profile is improving, is on IV diuretics, a negative fluid balance. 2 massive hematuria secondary to bladder tumor, status post transurethral resection of a bladder tumor 3 resection of a bladder tumor from the trigone, the patient underwent transurethral resection of the bladder tumor. 4 bladder perforation, involving the anterior bladder wall, status post expiratory laparotomy and repair of a laceration. 5 severe and non-anion gap metabolic acidosis him a currently on a bicarb drip 6 acute kidney injury, improving and creatinine is down trending for now 7 anemia, secondary to blood loss from massive hematuria, status post packed RBC transfusion the patient's hemoglobin is stable 8 coronary artery disease with decreased AL and stenting of RCA 9 smoker with possible COPD 10 hyponatremia, probably dilutional, secondary to extensive letter irrigation and fluid leaking into the abdominal cavity. Nephrology has been consult on the case. 11 hypocalcemia 12 hypotension currently on pressors after being resuscitated adequately with IV fluids. Rule out underlying septic event and the patient is covered with empiric antibiotics with IV Zosyn. Echocardiogram is unremarkable 13 suspected upper GI bleeding, has Protonix dose was doubled. Continue to monitor closely, if bleeding gets any worse, may have to consider EGD. Recommendation: Patient remains stable, currently on room air, denies any dyspnea, renal profile is improving. Vital signs remain stable, he is in negative fluid balance. Increase activity, increase ambulation. From pulmonary standpoint patient is stable for discharge once cleared by other consultants. Follow-up with Dr. Pickard in 1 week I performed a history & physical examination of the patient and discussed their management with my nurse practitioner, Marcia Roque. I reviewed the nurse practitioner's note and agree with the documented findings and plan of care. Lung sounds are positive for diffuse wheezes throughout the lung wei. The findings and the impression was discussed with the patient. I attest to the documentation by the nurse practitioner. Time with Patient: Less than 30
--- NOTE | 2018-01-03 12:30 | P.DS ---
Providers Date of admission: 12/25/17 01:04 Attending physician: Ankit Miles MD Consults: 12/25/17 01:04 Consult Physician Urgent Consulting Provider: Hong Kenny Consult Reason/Comments: hematuria Do you want consulting provider notified?: Yes 12/25/17 18:26 Consult Physician Stat Consulting Provider: Jeremie Wing Consult Reason/Comments: ICU management Do you want consulting provider notified?: Already Contacted 12/25/17 18:27 Consult Physician Stat Consulting Provider: Jeremie Wing Consult Reason/Comments: ICU management Do you want consulting provider notified?: Already Contacted 12/26/17 07:43 Consult Physician Routine Consulting Provider: Kushal Hathaway Consult Reason/Comments: hyponatremia after bladder sx Do you want consulting provider notified?: Yes 12/29/17 13:59 Consult Physician Stat Consulting Provider: Dajuan Arrington Consult Reason/Comments: Afib RVR Do you want consulting provider notified?: Yes 12/31/17 10:03 Consult Physician Routine Consulting Provider: Timbo Jung Consult Reason/Comments: rehab Do you want consulting provider notified?: Yes Primary care physician: Stated None Hospital Course: Discharge diagnoses Bladder tumor and anterior Bladder perforation-status post repair and TURBT with urothelial carcinoma Steroid induced hyperglycemia Leukocytosis due to steroids Possible upper GI bleed Paroxysmal A fib, now in NSR. 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 On arrival to the ER he was tachycardic with a pulse of 118. Initial laboratory analysis showed a leukocytosis of 13.5, anemia with a hemoglobin of 9 (down from 13.2 in 48 hours) . He underwent ultrasound of the kidneys and bladder which showed normal- appearing right kidney without evidence of obstruction and a urinary bladder filled with complex density that could be blood clot versus bladder tumor. After admission his hemoglobin continued to downtrend. He was seen by Dr. Negron in the morning of 12/25 and taken for cystoscopy. On Cystoscopy he was found to have a bladder tumor and anterior bladder perforation. He subsequently had an open closure of his bladder perforation as well as a transurethral resection of his bladder tumor. He failed postoperative extubation, was reintubated, and was sent to the ICU. Dr. Wing saw the patient in PACU in order to serum bicarb drip after he found have a pH of 7.19. On arrival to the ICU he was 93.4 F and had lost a tooth. He was started on zosyn as prophylaxis. His blood pressure dropped early in the morning on 12/26 and he was started on levophed and covered with Zosyn for concern for sepsis which was eventually ruled out. The patient was also noted to be profoundly hyponatremic dilutional secondary to extensive bladder irrigation and fluid leaking into the abdominal cavity. He was extubated on the morning of 12/28 and transferred to [facility] care. He hen developed A fib with RVR and was placed on a cardizem gtt and cardio was consulted, also going to have a significant pleural effusion requiring significant thoracentesis of approximately 1100 mL of fluid removed. He has a positive gastoroccult and was started on protonix. He had 1 episode of possible seizure activity but his EEG showed diffuse slowing no definitive seizure activity, he has not had any seizure since extubation. The patient was noted to have acute blood loss anemia secondary to massive hematuria from his bladder tumor,she was transfused a total of 2 units of packed RBCs with his hemoglobin stabilizing. Has improved slowly. He converted to normal sinus rhythm. They were unable to D/C his JERMAINE drain on 12/31 due to increased resistance. His diet was increased to regular for breakfast on 01/01. Urology pulled JERMAINE drain on 01/01 Patient's status gradually improved and he was subsequently discharged home in stable condition with plans to follow -up with all the consultants (see discharge follow-up plan). new prescriptions for Lasix metoprolol and a steroid taper, discharge process took approximately 35 minutes Discharge physical Physical Exam: Revealed a 67-year-old white male, in no distress, on 4 L nasal cannula O2 sat is 95% Head: Atraumatic, normocephalic. HEENT:[Neck is supple.] [No neck masses.] [No thyromegaly.] [No JVD.] Moist mucous membranes, no icterus, PERRLA, EOMI. Chest: [Clear throughout, no crackles, no rhonchi, no wheezes.] Cardiac Exam: [Normal S1 and S2, no S3 gallop, no murmur.] Abdomen: [Soft, nontender, no megaly, no rebound, no guarding,] postsurgical tenderness noted in the lower abdomen. Extremities: [No clubbing, no edema, no cyanosis.] Neurological Exam: [No focal neurologic deficit. Alert and oriented 3. Psychiatric: Patient is arousable, but sleepy. Lymphatics: No lymphadenopathy. Musculoskeletal: Grossly intact.] Patient Condition at Discharge: Good Plan - Discharge Summary Discharge Rx Participant: No New Discharge Prescriptions: New Furosemide [Lasix] 20 mg PO DAILY #30 tab Metoprolol Tartrate [Lopressor] 50 mg PO TID #90 tab methylPREDNISolone Dose Pack [Medrol Dose Pack] 4 mg PO DIRECTED #21 package Discontinued Sulfamethox-Tmp 800-160Mg [Bactrim DS 800-160 mg] 1 each PO Q12HR #14 tab Discharge Medication List Furosemide [Lasix] 20 mg PO DAILY #30 tab 01/03/18 [Rx] Metoprolol Tartrate [Lopressor] 50 mg PO TID #90 tab 01/03/18 [Rx] methylPREDNISolone Dose Pack [Medrol Dose Pack] 4 mg PO DIRECTED #21 package 01/03/18 [Rx] Follow up Appointment(s)/Referral(s): Hong Kenny MD [STAFF PHYSICIAN] - 1 Week (Office will call with instructions on catheter removal.) Shannon Carpio NPC [REFERRING] - 01/07/18 1:30 pm (Primary care physician.) [facility], [NON-STAFF] - Manas Daigle MD [STAFF PHYSICIAN] - 1 Week Kushal Hathaway DO [STAFF PHYSICIAN] - 1 Week (Office will call if follow up appointment is requested.) Jeremie Wing MD [STAFF PHYSICIAN] - 01/13/18 2:00 pm (Pulmonary with Constance ALVAREZ.) Patient Instructions/Handouts: *Surgery [facility] - [facility] Catheter Instructions, A- fib (Atrial Fibrillation) (DC), Hematuria (GEN) Discharge Disposition: DC/[facility] INTERMEDIATE CARE FAC
[2018-01-03 12:42] LABS: HCT 28.9 % (39.0-53.0); HGB 9.4 gm/dL (13.0-17.5); MCH 30.1 pg (25.0-35.0); MCHC 32.4 g/dL (31.0-37.0); MCV 92.9 fL (80.0-100.0); Mean Platelet Volume 6.6; Platelet Count 636 k/uL (150-450); RBC 3.11 m/uL (4.30-5.90); RDW 14.3 % (11.5-15.5); WBC 15.2 k/uL (3.8-10.6)
[2018-01-03 13:26] VITALS: BMI 18.7
[2018-01-03 16:00] VITALS: BP 113/62; PULSE 73; TEMP 98.1
[2018-01-03 16:59] LABS: Glucose,Whole Blood 188 mg/dL (75-99)
== END 2018-01-03 19:45 | disposition home health service (06) | DRG 653 ==
LOC: EC 00:03 → 5ONC 01:04 → 6ICU 17:24 → 6SEL 12-28 20:31
PROVIDERS: ADMIT Internal Medicine; ATTEND Internal Medicine
PROC: 0TCB8ZZ Extirpation of Matter from Bladder, Via Natural or Artificial Opening Endoscopic (ICD-10-PCS; 2017-12-25)
PROC: 03HY32Z Insertion of Monitoring Device into Upper Artery, Percutaneous Approach (ICD-10-PCS; 2017-12-25)
PROC: 5A1945Z Respiratory Ventilation, 24-96 Consecutive Hours (ICD-10-PCS; 2017-12-25)
PROC: 0BH17EZ Insertion of Endotracheal Airway into Trachea, Via Natural or Artificial Opening (ICD-10-PCS; 2017-12-25)
PROC: 30233N1 Transfusion of Nonautologous Red Blood Cells into Peripheral Vein, Percutaneous Approach (ICD-10-PCS; 2017-12-25)
PROC: 0TBB8ZZ Excision of Bladder, Via Natural or Artificial Opening Endoscopic (ICD-10-PCS; principal; 2017-12-25 09:27)
PROC: 0TQB0ZZ Repair Bladder, Open Approach (ICD-10-PCS; 2017-12-25 09:27)
PROC: 0W9B3ZX Drainage of Left Pleural Cavity, Percutaneous Approach, Diagnostic (ICD-10-PCS; 2017-12-29)
DX: C67.0 Malignant neoplasm of trigone of bladder (principal); J96.01 Acute respiratory failure with hypoxia; N17.0 Acute kidney failure with tubular necrosis; D62 Acute posthemorrhagic anemia; E87.1 Hypo-osmolality and hyponatremia; E87.2 Acidosis; J90 Pleural effusion, not elsewhere classified; J98.11 Atelectasis; I97.89 Other postprocedural complications and disorders of the circulatory system, not elsewhere classified; E16.2 Hypoglycemia, unspecified; E83.51 Hypocalcemia; E87.5 Hyperkalemia; E87.70 Fluid overload, unspecified; F17.210 Nicotine dependence, cigarettes, uncomplicated; I25.10 Atherosclerotic heart disease of native coronary artery without angina pectoris; I25.2 Old myocardial infarction; I48.0 Paroxysmal atrial fibrillation; N13.9 Obstructive and reflux uropathy, unspecified; N18.3 Chronic kidney disease, stage 3 (moderate); T38.0X5A Adverse effect of glucocorticoids and synthetic analogues, initial encounter; E83.42 Hypomagnesemia; I95.9 Hypotension, unspecified; J44.9 Chronic obstructive pulmonary disease, unspecified; R73.9 Hyperglycemia, unspecified; D72.829 Elevated white blood cell count, unspecified; R31.0 Gross hematuria; Z95.5 Presence of coronary angioplasty implant and graft; Z52.89 Donor of other specified organs or tissues; Z90.5 Acquired absence of kidney; Y84.4 Aspiration of fluid as the cause of abnormal reaction of the patient, or of later complication, without mention of misadventure at the time of the procedure
CPT/HCPCS: 36415; 36600; 51702; 51798; 70450; 71045; 76604; 76770; 80048; 80051; 80053; 81001; 82150; 82271; 82330; 82533; 82550; 82553; 82728; 82805; 82945; 83540; 83550; 83605; 83615; 83735; 83930; 83935; 84100; 84155; 84157; 84300; 84439; 84443; 84484; 85025; 85027; 85610; 85730; 86850; 86900; 86901; 86920; 87040; 87070; 87086; 87205; 88108; 88305; 88307; 88341; 88342; 89050; 93306; 94002; 94003; 94640; 94760; 95819; 96360; 96374; 99284

== ENCOUNTER → 2018-01-07 | Outpatient (CLI) | payer MEDICARE ==
--- NOTE | 2018-01-07 15:04 | FL ---
EXAMINATION TYPE: FL cystogram DATE OF EXAM: 01/07/2018 COMPARISON: NONE HISTORY: Status post urinary bladder tumor resection. TECHNIQUE: Fluoroscopy. Approximately 250 cc of Cystografin was utilized during the examination with 2 minutes and 6 seconds of fluoroscopy time utilized and 24 fluoroscopic images saved. FINDINGS: The patient was catheterized upon arriving to the radiology department. History was elicite d from the patient. Preprocedural turning and beading machine operator image demonstrates no dilated large or small bowel and air wi thin the urinary bladder. Atherosclerosis is also noted of the common iliac arteries and their branch es also seen on fluoroscopy real-time. Cystografin was injected through the Tierney catheter into the urinary bladder and sequential imaging w as obtained during filling. There is diffuse irregularity of the urinary bladder wall with more focal defect seen at the right lateral margin. No evidence of contrast extravasation is seen throughout th e examination on the lateral, oblique, or frontal imaging. A urinary bladder diverticulum is seen ruben nating from the bladder dome. Postevacuation images demonstrate no extravasation of contrast or urete rovesicular reflux. IMPRESSION: 1. No evidence of contrast extravasation from the urinary bladder. 2. Irregularity along the right lateral urinary bladder wall could relate to postoperative change. 3. No ureterovesicular reflux. 4. Solitary urinary bladder diverticulum at the dome on complete distention images only.
== END | disposition home or self-care (01) ==
LOC: RADFLWHC 13:32
PROVIDERS: ATTEND Urology
DX: N32.3 Diverticulum of bladder (principal); R93.41 Abnormal radiologic findings on diagnostic imaging of renal pelvis, ureter, or bladder; Z98.890 Other specified postprocedural states
CPT/HCPCS: 74430; Q9962

== ENCOUNTER → 2018-01-28 | Outpatient (CLI) | payer SELFPAY ==
--- NOTE | 2018-01-28 14:32 | US ---
EXAMINATION TYPE: US kidneys/renal and bladder DATE OF EXAM: 01/28/2018 COMPARISON: US, CT CLINICAL HISTORY: C67.6 Staging following Bladder CA. 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 Left Kidney: surgically absent Bladder: right posterior wall, hypoechoic mass is noted near urethral opening and size = 1.2 x 0.8 x 0.6cm, also noted pre and post void. Right ureteral Jet seen consistent with left nephrectomy: Normal Post Void Residual: yes, as is less than 50.0ml. IMPRESSION: 1. Redemonstration of a sessile hypoechoic area posterior urinary bladder wall mass measuring up to 1 .2 cm. With a history of recent bladder surgery in December 2017 this could represent residual tumor or g ranulation tissue No extension outside of the bladder wall is identified sonographically. Right kidne y demonstrates a simple appearing benign cyst but is otherwise unremarkable. No hydronephrosis. 2. Status post left nephrectomy.
== END | disposition home or self-care (01) ==
LOC: RADUSWWP 13:35
PROVIDERS: ATTEND Urology
DX: D49.4 Neoplasm of unspecified behavior of bladder (principal); N28.89 Other specified disorders of kidney and ureter; Z90.5 Acquired absence of kidney
CPT/HCPCS: 76770

== ENCOUNTER → 2018-04-21 | Outpatient (CLI) | payer MEDICARE ==
[2018-04-21 14:42] LABS: Basophils # (A) 0.1 k/uL (0-0.2); Basophils % (A) 1 %; Eosinophils # (A) 0.1 k/uL (0-0.7); Eosinophils % (A) 1 %; HCT 43.6 % (39.0-53.0); HGB 14.5 gm/dL (13.0-17.5); Lymphocytes % (A) 26 %; MCH 29.3 pg (25.0-35.0); MCHC 33.2 g/dL (31.0-37.0); MCV 88.4 fL (80.0-100.0); Mean Platelet Volume 6.9; Monocytes # (A) 0.5 k/uL (0-1.0); Monocytes % (A) 7 %; Neutrophils % (A) 64 %; Platelet Count 286 k/uL (150-450); RBC 4.93 m/uL (4.30-5.90); RDW 14.3 % (11.5-15.5); WBC 7.8 k/uL (3.8-10.6)
[2018-04-21 14:55] LABS: Calcium 9.6 mg/dL (8.4-10.2); Potassium 4.8 mmol/L (3.5-5.1)
== END ==
LOC: LABPAT 13:00
PROVIDERS: ATTEND Urology
DX: Z01.812 Encounter for preprocedural laboratory examination (principal); C67.6 Malignant neoplasm of ureteric orifice
CPT/HCPCS: 36415; 80048; 85025; 87086

== ENCOUNTER 2018-04-28 07:56 | Day surgery (SDC) | payer SELFPAY ==
[2018-04-20 14:11] VITALS: BMI 17.3
--- NOTE | 2018-04-25 21:25 | P.GSHP ---
History of Present Illness H&P Date: 04/25/18 Chief Complaint: Bladder Cancer The patient is a 68-year-old white male hospitalized in December 2017 with gross hematuria with clots. He was found to have 1 L of clot within his urinary bladder, due to a 4 cm papillary tumor overlying the right hemitrigone. An anterior bladder wall perforation was noted, requiring exploratory laparotomy with open repair of bladder laceration. 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 Recent cystoscopy has shown superficial tumor on the right posterolateral bladder wall, and he comes for transurethral resection. Mitomycin-C will be instilled intravesically. It should be noted that smoking cessation has been discussed on multiple occasions. - Genitourinary (Female) Genitourinary: Denies dysuria, Denies hematuria Past Medical History Past Medical History: Coronary Artery Disease (CAD), Cancer, COPD, Myocardial Infarction ([place]), Renal Disease Additional Past Medical History / Comment(s): COPD (CHEST X-RAY), HX OF POSITIVE TB TEST WITH TX (1998), BLADDER CANCER & RUPTURED BLADDER DECEMBER 2017- HOSPITALIZED AT [facility] - HX STATES CHRONIC KIDNEY DISEASE ., PATIENT HAS ONLY 1 KIDNEY -(DONATED KIDNEY). , BACK PAIN. EPISODE OF A-FIB (DECEMBER 2017) Last Myocardial Infarction Date:: 07/08/15 History of Any Multi-Drug Resistant Organisms: None Reported Past Surgical History: Bladder Surgery, Heart Catheterization With Stent, Orthopedic Surgery Additional Past Surgical History / Comment(s): LT kidney donation 1999, finger surgery ON LT HAND, RHINOPLASTY, HEART CATH WITH STENT JUNE 2015 ( [facility]) ., CLOSURE OF BLADDER PERFORATION (DECEMBER2017). Past Anesthesia/Blood Transfusion Reactions: No Reported Reaction, Previous Problems w/ Anesthesia Additional Past Anesthesia/Blood Transfusion Reaction / Comment(s): PT RECEIVED BLOOD TRANSFUSION (DECEMBER 2017). RESPIRATORY FAILURE & WAS ON VENTILATOR AFTER SURGERY DECEMBER 2017. Date of Last Stent Placement:: 2015 Past Psychological History: No Psychological Hx Reported Smoking Status: Current every day smoker Past Alcohol Use History: None Reported Additional Past Alcohol Use History / Comment(s): STARTED SMOKING AT AGE 9, CURRENTLY SMOKING 1/2 PPD., (HX OF 1 1/2 PPD) Past Drug Use History: Marijuana Additional Drug Use History / Comment(s): DAILY MARIJUANA - Past Family History Father Additional Family Medical History / Comment(s): FROM A BRAIN TUMOR and tb Mother Additional Family Medical History / Comment(s): FROM INJURIES SUSTAINED FROM MVA. 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 The procedure was reviewed in detail with the patient. He understands potential risks to include anesthesia, bleeding, infection, and bladder perforation. Mitomycin-C will be instilled into the bladder to reduce the likelihood of recurrent future tumors.
[~2018-04-28 07:56] MED LIST: DEXAMETHASONE SOD PHOSPHATE 10 MG/ML 1 ML VIAL IV ONE; LACTATED RINGERS 1,000 ML IV SCH; LIDOCAINE 1% 20 ML VIAL (10MG/ML) FOR IV START INTRADERMA PRN; MIDAZOLAM 2 MG/2 ML VIAL IV PRN; ONDANSETRON 4 MG/2 ML VIAL IVP ONE; ceFAZolin IN SWFI 2 GM/20 ML SYRINGE IVP ONE; fentaNYL (PF) 50 MCG/ML 2 ML AMP IV PRN
[2018-04-28] MEDS ORDERED: ePHEDrine SULFATE/0.9% NACL/PF 50 MG/5 ML SYRINGE IV ONE (11:19)
[2018-04-28] MEDS ORDERED: SUCCINYLCHOLINE CHLORIDE 100 MG/5 ML SYR IV ONE (11:19)
[2018-04-28] MEDS ORDERED: PROPOFOL 10 MG/ML 20 ML VIAL IV ONE (11:19)
[2018-04-28] MEDS ORDERED: MIDAZOLAM 2 MG/2 ML VIAL ONE (11:19)
[2018-04-28] MEDS ORDERED: fentaNYL (PF) 50 MCG/ML 2 ML AMP ONE (11:19)
[2018-04-28] MEDS ORDERED: LIDOCAINE 1% INJ 10MG/ML (20 ML MDV) ONE (11:19)
[2018-04-28] MEDS ORDERED: mitoMYcin 20 MG in EMPTY SYRINGE 1 SYR MISCELLANE ONE (12:00)
--- NOTE | 2018-04-28 12:13 | P.OP ---
Date of Procedure: 04/28/18 Preoperative Diagnosis: Urothelial Carcinoma of the Bladder Postoperative Diagnosis: Same Procedure(s) Performed: Cystoscopy, fulguration of recurrent tumor (Medium), Instillation of Intravesical Mitomycin C Anesthesia: BRIAN Surgeon: Hong Kenny Estimated Blood Loss (ml): 0 IV fluids (ml): 400 Pathology: none sent Condition: stable Disposition: PACU Indications for Procedure: The patient is a 68-year-old white male hospitalized in December 2017 with gross hematuria with clots. He was found to have 1 L of clot within his urinary bladder, due to a 4 cm papillary tumor overlying the right hemitrigone. An anterior bladder wall perforation was noted, requiring exploratory laparotomy with open repair of bladder laceration. 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 Recent cystoscopy has shown superficial tumor on the right posterolateral bladder wall, and he comes for transurethral resection. Mitomycin-C will be instilled intravesically. It should be noted that smoking cessation has been discussed on multiple occasions. Operative Findings: Mucosal irregularity on right posterolateral bladder wall, consistent with low- grade superficial urothelial carcinoma. Description of Procedure: The patient was taken in the operating room and placed in the dorsal lithotomy position, with his legs supported in Bladimir stirrups. The external genitalia was prepped and draped sterilely. The 24-Sammarinese Storz resectoscope sheath was introduced into the bladder. The bladder was inspected. Both ureteral orifices were of normal anatomic location and configuration, and clear urine effluxed from both. The entire bladder was examined, revealing mucosal irregularity on the right posterolateral bladder wall, including the area surrounding the right ureteral orifice. The prostate was partially obstructed, without mucosal abnormalities. Using the cutting loop, the tumor on the right lateral bladder wall was fulgurated. A strong obturator reflex was noted, and therefore the decision was made to fulgurate the tumor rather than resected to avoid the risk of bladder perforation. An attempt was made to resect the tissue at the right ureteral orifice, but it did not cut cleanly. To minimize the risk of a scarred orifice, the mucosa surrounding the orifice was carefully fulgurated, sparing the orifice itself. Clear urine continued to effluxed from it. Excellent hemostasis was attained. A 16-Sammarinese Tierney catheter was inserted. The return was clear. 20 mg of mitomycin C was instilled into the bladder, and the catheter was then plugged. The patient tolerated the procedure well and was taken to the recovery room in stable condition.
[2018-04-28 12:31] VITALS: RESP 16; TEMP 97.6
[2018-04-28 14:00] VITALS: BP 117/71; PULSE 85
== END 2018-04-28 14:47 | disposition home or self-care (01) ==
LOC: OR 07:56
PROVIDERS: ATTEND Urology
DX: C67.6 Malignant neoplasm of ureteric orifice (principal); N40.0 Benign prostatic hyperplasia without lower urinary tract symptoms; Z95.5 Presence of coronary angioplasty implant and graft; I25.2 Old myocardial infarction; I25.10 Atherosclerotic heart disease of native coronary artery without angina pectoris; J44.9 Chronic obstructive pulmonary disease, unspecified; F17.210 Nicotine dependence, cigarettes, uncomplicated; Z86.79 Personal history of other diseases of the circulatory system
CPT/HCPCS: 52235; 51720; J2250; J1100; J2405; J2001; J9280; J3010; J0330; J2704; J0690

== ENCOUNTER 2018-05-08 18:01 | Emergency (ER) | payer MEDICARE ==
[2018-05-08] MEDS ORDERED: SODIUM CHLORIDE 0.9% 1,000 ML IV ONE (18:26)
[2018-05-08 18:39] LABS: Basophils % (A) 0 %; Eosinophils # (A) 0.1 k/uL (0-0.7); Eosinophils % (A) 2 %; HGB 14.7 gm/dL (13.0-17.5); Lymphocytes # (A) 2.1 k/uL (1.0-4.8); Lymphocytes % (A) 28 %; MCH 29.2 pg (25.0-35.0); MCHC 34.3 g/dL (31.0-37.0); MCV 85.3 fL (80.0-100.0); Mean Platelet Volume 6.4; Monocytes # (A) 0.5 k/uL (0-1.0); Monocytes % (A) 7 %; Neutrophils # (A) 4.6 k/uL (1.3-7.7); Neutrophils % (A) 61 %; Platelet Count 306 k/uL (150-450); RBC 5.04 m/uL (4.30-5.90); RDW 14.1 % (11.5-15.5); WBC 7.5 k/uL (3.8-10.6)
[2018-05-08 18:43] LABS: Appearance,Urine Cloudy (Clear); Bilirubin,Urine Negative (Negative); Blood,Urine Large (Negative); Color,Urine Red; Glucose,Urine (UA) Negative (Negative); Ketones,Urine Trace (Negative); Leukocyte Esterase,Urine Large (Negative); Nitrite,Urine Negative (Negative); PH, Urine 5.5 (5.0-8.0); Protein,Urine 2+ (Negative); RBC,Urine >182 /hpf (0-5); Specific Gravity,Urine 1.013 (1.001-1.035); Urobilinogen,Urine <2.0 mg/dL (<2.0)
[2018-05-08 18:44] LABS: Calcium 9.3 mg/dL (8.4-10.2); Potassium 4.2 mmol/L (3.5-5.1); Total Bilirubin 0.5 mg/dL (0.2-1.3); Total Protein 6.7 g/dL (6.3-8.2)
[2018-05-08 19:14] VITALS: RESP 18
--- NOTE | 2018-05-08 20:05 | ED ---
General Adult HPI - General Chief complaint: Urogenital Stated complaint: blood in urine Source: EMS, RN notes reviewed, old records reviewed Mode of arrival: EMS Limitations: no limitations - History of Present Illness Initial comments: 68-year-old male patient with past medical history of bladder cancer presents with hematuria, frequency, urgency. Patient was first treated for bladder cancer in December 2017. Patient follow procedure approximately 2 weeks ago in which they did a cystoscopy, cauterization. Patient had approximately 1 day. Hematuria after that procedure. Patient states that he has had hematuria today. Patient additionally also has frequency and urgency with urination. Patient has some mild suprapubic pressure sensation. Patient denies fever/ chills, nausea vomiting diarrhea. Patient denies chest pain, shortness of breath. Systemic: Pt denies fatigue, myalgia, fever/chills, rash. Pt denies weakness, night sweats, weight loss. Neuro: Pt denies headache, visual disturbances, syncope or pre-syncope. HEENT: Pt denies ocular discharge or irritation, otalgia, rhinorrhea, pharyngitis or notable lymphadenopathy. Cardiopulmonary: Pt denies chest pain, SOB, heart palpitations, dyspnea on exertion. Abdominal/GI: Pt denies abdominal pain, n/v/d. : Denies new onset urinary or bowel incontinence. MSK: Pt denies myalgia, loss of strength or function in extremities. - Related Data Previous Rx's Medication Instructions Recorded Ciprofloxacin HCl [Cipro] 500 mg PO Q12HR 7 Days #14 day 05/08/18 Allergies Allergy/AdvReac Type Severity Reaction Status Date / Time No Known Allergies Allergy Verified 05/08/18 18:05 Review of Systems ROS Statement: Those systems with pertinent positive or pertinent negative responses have been documented in the HPI. ROS Other: All systems not noted in ROS Statement are negative. Past Medical History Past Medical History: Coronary Artery Disease (CAD), Cancer, COPD, Myocardial Infarction ([place]), Renal Disease Additional Past Medical History / Comment(s): COPD (CHEST X-RAY), HX OF POSITIVE TB TEST WITH TX (1998), BLADDER TUMOR & RUPTURED BLADDER DECEMBER 2017- HOSPITALIZED AT [facility] - HX STATES CHRONIC KIDNEY DISEASE ., PATIENT HAS ONLY 1 KIDNEY -(DONATED KIDNEY). , BACK PAIN. EPISODE OF A-FIB (DECEMBER 2017) Last Myocardial Infarction Date:: 1/25/16 History of Any Multi-Drug Resistant Organisms: None Reported Past Surgical History: Bladder Surgery, Heart Catheterization With Stent, Orthopedic Surgery Additional Past Surgical History / Comment(s): LT kidney donation 1999, finger surgery ON LT HAND, RHINOPLASTY, HEART CATH WITH STENT JUNE 2015 ( [facility]) ., CLOSURE OF BLADDER PERFORATION (DECEMBER2017). Past Anesthesia/Blood Transfusion Reactions: No Reported Reaction, Previous Problems w/ Anesthesia Additional Past Anesthesia/Blood Transfusion Reaction / Comment(s): PT RECEIVED BLOOD TRANSFUSION (DECEMBER 2017). RESPIRATORY FAILURE & WAS ON VENTILATOR AFTER SURGERY DECEMBER 2017. Date of Last Stent Placement:: 2015 Past Psychological History: No Psychological Hx Reported Smoking Status: Current every day smoker Past Alcohol Use History: None Reported Past Drug Use History: Marijuana - Past Family History Father Additional Family Medical History / Comment(s): FROM A BRAIN TUMOR and tb Mother Additional Family Medical History / Comment(s): FROM INJURIES SUSTAINED FROM MVA. General Exam - General Exam Comments Initial Comments: Constitutional: NAD, AOX3, Pt has pleasant affect. HEENT: NC/AT, trachea midline, neck supple, no lymphadenopathy. Posterior pharynx non erythematous, without exudates. External ears appear normal, without discharge. Mucous membranes moist. Eyes PERRLA, EOM intact. There is no scleral icterus. No pallor noted. Cardiopulmonary: RRR, no murmurs, rubs or gallops, no JVD noted. Lungs CTAB in anterior and posterior wei. No peripheral edema. Abdominal exam: Abdomen soft and non-distended. Abdomen nontender to palpation , no ecchymoses. Bowel sounds active in LLQ. No hepatosplenomegaly. Neuro: CN II-XII grossly intact. Limitations: no limitations Course Vital Signs 05/08/18 18:03 Temperature 97.6 F Pulse Rate 89 Respiratory 18 Rate Blood Pressure 139/78 O2 Sat by Pulse 94 L Oximetry Medical Decision Making - Medical Decision Making 68-year-old male patient presents in ED with hematuria. Patient history of bladder cancer, had procedure approximately 2 weeks ago. Patient is seen by Dr. Jose for his bladder cancer. Physical exam didn't display any acute pathology. Abdomen soft, non tender to palpation. No ecchymoses. UA displayed gross hematuria, 88 WBC. Patient to be started on antibiotics for UTI. Patient to follow up with Dr. Jose in 1-2 days. Patient to follow-up with PCP in 1-2 days. Patient to return to ED if any new signs or symptoms develop including, either chills, nausea vomiting diarrhea, worsening hematuria, worsening frequency or urgency, abdominal pain, or any other new symptoms. Case discussed with Dr. Gutierrez. - Lab Data Result diagrams: 05/08/18 18:02 05/08/18 18:02 Lab Results 05/08/18 05/08/18 05/08/18 Range/Units 18:02 18:02 18:02 WBC 7.5 (3.8-10.6) k/uL RBC 5.04 (4.30-5.90) m/uL Hgb 14.7 (13.0-17.5) gm/dL Hct 43.0 (39.0-53.0) % MCV 85.3 (80.0-100.0) fL MCH 29.2 (25.0-35.0) pg MCHC 34.3 (31.0-37.0) g/dL RDW 14.1 (11.5-15.5) % Plt Count 306 (150-450) k/uL Neutrophils % 61 % Lymphocytes % 28 % Monocytes % 7 % Eosinophils % 2 % Basophils % 0 % Neutrophils # 4.6 (1.3-7.7) k/uL Lymphocytes # 2.1 (1.0-4.8) k/uL Monocytes # 0.5 (0-1.0) k/uL Eosinophils # 0.1 (0-0.7) k/uL Basophils # 0.0 (0-0.2) k/uL Sodium 136 L (137-145) mmol/L Potassium 4.2 (3.5-5.1) mmol/L Chloride 103 (98-107) mmol/L Carbon Dioxide 22 (22-30) mmol/L Anion Gap 11 mmol/L BUN 16 (9-20) mg/dL Creatinine 1.32 H (0.66-1.25) mg/dL Est GFR (CKD-EPI)AfAm 65 (>60 ml/min/1.73 sqM) Est GFR (CKD-EPI)NonAf 56 (>60 ml/min/1.73 sqM) Glucose 96 (74-99) mg/dL Calcium 9.3 (8.4-10.2) mg/dL Total Bilirubin 0.5 (0.2-1.3) mg/dL AST 35 (17-59) U/L ALT 27 (21-72) U/L Alkaline Phosphatase 63 (38-126) U/L Total Protein 6.7 (6.3-8.2) g/dL Albumin 4.0 (3.5-5.0) g/dL Urine Color Red Urine Appearance Cloudy (Clear) Urine pH 5.5 (5.0-8.0) Ur Specific [place] 1.013 (1.001-1.035) Urine Protein 2+ H (Negative) Urine Glucose (UA) Negative (Negative) Urine Ketones Trace H (Negative) Urine Blood Large H (Negative) Urine Nitrite Negative (Negative) Urine Bilirubin Negative (Negative) Urine Urobilinogen <2.0 (<2.0) mg/dL Ur Leukocyte Esterase Large H (Negative) Urine RBC >182 H (0-5) /hpf Urine WBC 88 H (0-5) /hpf Disposition Clinical Impression: Hematuria Disposition: HOME SELF-CARE Condition: Good Instructions: Bladder Cancer (DC) Additional Instructions: Patient to adhere to previously discussed treatment plan and will take medication(s) as directed. Patient to follow up with PCP and urology in 1-2 days. Patient to return to ED if symptoms do not improve. Prescriptions: Ciprofloxacin HCl [Cipro] 500 mg PO Q12HR 7 Days #14 day Is patient prescribed a controlled substance at d/c from ED?: No Referrals: None,Stated [Primary Care Provider] - 1-2 days Hong Kenny MD [STAFF PHYSICIAN] - 1-2 days Time of Disposition: 20:15
[2018-05-08] MEDS ORDERED: cefTRIAXone 1,000 MG VIAL (IM USE) IM STA (20:11)
--- NOTE | 2018-05-08 20:31 | ED ---
Medical Decision Making - Medical Decision Making Bladder scan repeated, 15 mL after void. Patient not retaining urine. - Lab Data Result diagrams: 05/08/18 18:02 05/08/18 18:02 Lab Results 05/08/18 05/08/18 05/08/18 Range/Units 18:02 18:02 18:02 WBC 7.5 (3.8-10.6) k/uL RBC 5.04 (4.30-5.90) m/uL Hgb 14.7 (13.0-17.5) gm/dL Hct 43.0 (39.0-53.0) % MCV 85.3 (80.0-100.0) fL MCH 29.2 (25.0-35.0) pg MCHC 34.3 (31.0-37.0) g/dL RDW 14.1 (11.5-15.5) % Plt Count 306 (150-450) k/uL Neutrophils % 61 % Lymphocytes % 28 % Monocytes % 7 % Eosinophils % 2 % Basophils % 0 % Neutrophils # 4.6 (1.3-7.7) k/uL Lymphocytes # 2.1 (1.0-4.8) k/uL Monocytes # 0.5 (0-1.0) k/uL Eosinophils # 0.1 (0-0.7) k/uL Basophils # 0.0 (0-0.2) k/uL Sodium 136 L (137-145) mmol/L Potassium 4.2 (3.5-5.1) mmol/L Chloride 103 (98-107) mmol/L Carbon Dioxide 22 (22-30) mmol/L Anion Gap 11 mmol/L BUN 16 (9-20) mg/dL Creatinine 1.32 H (0.66-1.25) mg/dL Est GFR (CKD-EPI)AfAm 65 (>60 ml/min/1.73 sqM) Est GFR (CKD-EPI)NonAf 56 (>60 ml/min/1.73 sqM) Glucose 96 (74-99) mg/dL Calcium 9.3 (8.4-10.2) mg/dL Total Bilirubin 0.5 (0.2-1.3) mg/dL AST 35 (17-59) U/L ALT 27 (21-72) U/L Alkaline Phosphatase 63 (38-126) U/L Total Protein 6.7 (6.3-8.2) g/dL Albumin 4.0 (3.5-5.0) g/dL Urine Color Red Urine Appearance Cloudy (Clear) Urine pH 5.5 (5.0-8.0) Ur Specific [place] 1.013 (1.001-1.035) Urine Protein 2+ H (Negative) Urine Glucose (UA) Negative (Negative) Urine Ketones Trace H (Negative) Urine Blood Large H (Negative) Urine Nitrite Negative (Negative) Urine Bilirubin Negative (Negative) Urine Urobilinogen <2.0 (<2.0) mg/dL Ur Leukocyte Esterase Large H (Negative) Urine RBC >182 H (0-5) /hpf Urine WBC 88 H (0-5) /hpf Disposition Clinical Impression: Hematuria Disposition: HOME SELF-CARE Condition: Good Instructions: Bladder Cancer (DC) Additional Instructions: Patient to adhere to previously discussed treatment plan and will take medication(s) as directed. Patient to follow up with PCP and urology in 1-2 days. Patient to return to ED if symptoms do not improve. Prescriptions: Ciprofloxacin HCl [Cipro] 500 mg PO Q12HR 7 Days #14 day Is patient prescribed a controlled substance at d/c from ED?: No Referrals: Hong Kenny MD [STAFF PHYSICIAN] - 1-2 days None,Stated [Primary Care Provider] - 1-2 days
[2018-05-08 20:52] VITALS: BP 132/77; PULSE 79; TEMP 97.8
== END 2018-05-08 20:51 | disposition home or self-care (01) ==
LOC: EC 18:01
DX: R31.9 Hematuria, unspecified (principal); R35.0 Frequency of micturition; R39.15 Urgency of urination; I25.10 Atherosclerotic heart disease of native coronary artery without angina pectoris; I25.2 Old myocardial infarction; J44.9 Chronic obstructive pulmonary disease, unspecified; J96.90 Respiratory failure, unspecified, unspecified whether with hypoxia or hypercapnia; I48.91 Unspecified atrial fibrillation; Z85.51 Personal history of malignant neoplasm of bladder; F17.200 Nicotine dependence, unspecified, uncomplicated; Z95.5 Presence of coronary angioplasty implant and graft; Z52.4 Kidney donor
CPT/HCPCS: 36415; 80053; 81001; 85025; 87086; 96360; 96361; 99284

== ENCOUNTER 2023-02-13 03:33 | Inpatient (IN) | payer MEDICARE ==
[2023-02-13] MEDS ORDERED: MORPHINE SULFATE 4 MG/ML SYRINGE IV STA (03:53)
[2023-02-13] MEDS ORDERED: NITROGLYCERIN SL TABS 0.4 MG TAB SUBLINGUAL PRN (03:54)
[2023-02-13] MEDS ORDERED: HEPARIN SODIUM 1,000 UN/ML (10ML VL) IV ONE (03:54)
[2023-02-13] MEDS ORDERED: ASPIRIN 81 MG PO STA (03:54)
--- NOTE | 2023-02-13 03:56 | ED ---
Chest Pain HPI - General Chief Complaint: Chest Pain Stated Complaint: Chest pain Time Seen by Provider: 02/13/23 03:51 Source: patient, EMS, RN notes reviewed, old records reviewed Mode of arrival: EMS Limitations: no limitations - History of Present Illness Initial Comments: This is a 73-year-old male to the emergency department for evaluation today. Patient presents us today for evaluation of chest pain. Severe chest pain prior to arrival presents by EMS for persistent chest pain here in the ER. Does admit to some shortness of breath and does have history of prior myocardial infarction, ST elevated WY with stent placement Complaint: chest pain -: hour(s) Onset: during rest, awoke with symptoms Pain Location: substernal Pain Radiation: back Severity: severe Severity scale (1-10): 9 Quality: tightness, heaviness, similar to prior [place] Consistency: constant Improves With: nothing Worsens With: nothing Anginal Symptoms: diaphoresis, dyspnea Other Symptoms: palpitations Treatments Prior to Arrival: none - Related Data Previous Rx's Medication Instructions Recorded Aspirin 81 mg PO DAILY #30 tab 02/16/23 Atorvastatin [Lipitor] 40 mg PO DAILY #30 tab 02/16/23 Losartan [Cozaar] 25 mg PO DAILY #30 tab 02/16/23 Metoprolol Succinate (ER) [Toprol 25 mg PO DAILY #30 tab 02/16/23 XL] Nitroglycerin Sl Tabs [Nitrostat] 0.4 mg SUBLINGUAL Q5M PRN 30 Days 02/16/23 #30 tab Ticagrelor [Brilinta] 90 mg PO BID #60 tab 02/16/23 Allergies Allergy/AdvReac Type Severity Reaction Status Date / Time No Known Allergies Allergy Verified 02/13/23 11:17 Review of Systems ROS Statement: Those systems with pertinent positive or pertinent negative responses have been documented in the HPI. ROS Other: All systems not noted in ROS Statement are negative. Past Medical History Past Medical History: Coronary Artery Disease (CAD), Cancer, COPD, Myocardial Infarction ([place]), Renal Disease Additional Past Medical History / Comment(s): COPD (CHEST X-RAY), HX OF POSITIVE TB TEST WITH TX (1998), BLADDER TUMOR & RUPTURED BLADDER DECEMBER 2017- HOSPITALIZED AT [facility] - HX STATES CHRONIC KIDNEY DISEASE ., PATIENT HAS ONLY 1 KIDNEY -(DONATED KIDNEY). , BACK PAIN. EPISODE OF A-FIB (DECEMBER 2017) Last Myocardial Infarction Date:: 07/08/15 History of Any Multi-Drug Resistant Organisms: None Reported Past Surgical History: Bladder Surgery, Heart Catheterization With Stent, Orthopedic Surgery Additional Past Surgical History / Comment(s): LT kidney donation 1999, finger surgery ON LT HAND, RHINOPLASTY, HEART CATH WITH STENT JUNE 2015 ([facility]) ., CLOSURE OF BLADDER PERFORATION (DECEMBER2017). Past Anesthesia/Blood Transfusion Reactions: No Reported Reaction, Previous Problems w/ Anesthesia Additional Past Anesthesia/Blood Transfusion Reaction / Comment(s): PT RECEIVED BLOOD TRANSFUSION (DECEMBER 2017). RESPIRATORY FAILURE & WAS ON VENTILATOR AFTER SURGERY DECEMBER 2017. Date of Last Stent Placement:: 2015 Past Psychological History: No Psychological Hx Reported Smoking Status: Current every day smoker Past Alcohol Use History: None Reported Past Drug Use History: Marijuana - Past Family History Father Additional Family Medical History / Comment(s): FROM A BRAIN TUMOR and tb Mother Additional Family Medical History / Comment(s): FROM INJURIES SUSTAINED FROM MVA. General Exam Limitations: no limitations General appearance: anxious Head exam: Present: atraumatic, normocephalic, normal inspection Eye exam: Present: normal appearance, PERRL, EOMI. Absent: scleral icterus, conjunctival injection, periorbital swelling ENT exam: Present: normal exam, mucous membranes moist Neck exam: Present: normal inspection. Absent: tenderness, meningismus, lymphadenopathy Respiratory exam: Present: normal lung sounds bilaterally. Absent: respiratory distress, wheezes, rales, rhonchi, stridor Cardiovascular Exam: Present: regular rate, normal rhythm, normal heart sounds. Absent: systolic murmur, diastolic murmur, rubs, gallop, clicks GI/Abdominal exam: Present: soft, normal bowel sounds. Absent: distended, tenderness, guarding, rebound, rigid Extremities exam: Present: normal inspection, full ROM, normal capillary refill. Absent: tenderness, pedal edema, joint swelling, calf tenderness Back exam: Present: normal inspection Neurological exam: Present: alert, oriented X3, CN II-XII intact Psychiatric exam: Present: normal affect, normal mood Skin exam: Present: warm, dry, intact, normal color. Absent: rash Course Vital Signs 02/13/23 02/13/23 02/13/23 03:39 03:45 03:55 Temperature 97.1 F L Pulse Rate 65 74 68 Pulse Rate [ 73 Sales Enablement Manager ] Respiratory 18 20 20 Rate Blood Pressure 176/99 170/98 165/91 O2 Sat by Pulse 98 98 100 Oximetry 02/13/23 02/13/23 02/13/23 04:00 04:05 04:10 Temperature Pulse Rate 73 73 68 Pulse Rate [ Sales Enablement Manager ] Respiratory 20 20 20 Rate Blood Pressure 175/93 164/86 161/86 O2 Sat by Pulse 100 100 100 Oximetry 02/13/23 04:15 Temperature Pulse Rate 67 Pulse Rate [ Sales Enablement Manager ] Respiratory 20 Rate Blood Pressure 153/81 O2 Sat by Pulse 100 Oximetry - Reevaluation(s) Reevaluation #1: 02/13/23 04:52 Medical record is reviewed STEMI was paged and onset of EKG Reevaluation #2: 02/13/23 04:52 Patient symptoms are unchanged, still chest pain Reevaluation #3: 02/13/23 04:52 Patient form of results and questions answered Reevaluation #4: 02/13/23 04:52 Was pt. sent in by a medical professional or institution (, PA, FRICKERTRON CHECKER, urgent care, hospital, or group home...) When possible be specific @ -no Did you speak to anyone other than the patient for history (EMS, parent, family, police, friend...)? What history was obtained from this source @ -no Did you review nursing and triage notes (agree or disagree)? Why? @ -agree Are old charts reviewed (outside hosp., previous admission, EMS record, old EKG, old radiological studies, urgent care reports/EKG's, group home records)? Report findings @ -yes Differential Diagnosis (chest pain, altered mental status, abdominal pain women, abdominal pain men, vaginal bleeding, weakness, fever, dyspnea, syncope, headache, dizziness, GI bleed, back pain, seizure, CVA, palpatations, mental health, musculoskeletal)? @ -prior EKG interpreted by me (3pts min.). @ -yes X-rays interpreted by me (1pt min.). @ -yes CT interpreted by me (1pt min.). @ -no U/S interpreted by me (1pt. min.). @ -no What testing was considered but not performed or refused? (CT, X-rays, U/S, labs)? Why? @ -none What meds were considered but not given or refused? Why? @ -none Did you discuss the management of the patient with other professionals (professionals i.e. , PA, FRICKERTRON CHECKER, lab, RT, psych nurse, criminal justice social worker, diplomatic interpreter/translator, teacher, community resource officer, case worker)? Give summary @ -no Was smoking cessation discussed for >3mins.? @ -no Was critical care preformed (if so, how long)? @ -yes31 Were there social determinants of health that impacted care today? How? (Homelessness, low income, unemployed, alcoholism, drug addiction, transportation, low edu. Level, literacy, decrease access to med. care, custodial, rehab)? @ -none Was there de-escalation of care discussed even if they declined (Discuss DNR or withdrawal of care, Hospice)? DNR status @ -no What co-morbidities impacted this encounter? (DM, HTN, Smoking, COPD, CAD, Cancer, CVA, ARF, Chemo, Hep., AIDS, mental health diagnosis, sleep apnea, morbid obesity)? @ -none Was patient admitted / discharged? Hospital course, mention meds given and route, prescriptions, significant lab abnormalities, going to OR and other pertinent info. @ -73 male to the emergency department for evaluation. Patient be admitted for ST elevated WY to the catheter lab, significant chest pain severe with sudden onset with history of acute [place] Undiagnosed new problem with uncertain prognosis? @ -no Drug Therapy requiring intensive monitoring for toxicity (Heparin, Nitro, Insulin, Cardizem)? @ -no Were any procedures done? @ -no Diagnosis/symptom? @ -STEMI Acute, or Chronic, or Acute on Chronic? @ -Acute Uncomplicated (without systemic symptoms) or Complicated (systemic symptoms)? @ -Complicated Side effects of treatment? @ -no Exacerbation, Progression, or Severe Exacerbation? @ -exacerbation Poses a threat to life or bodily function? How? (Chest pain, [place], [place], pneumonia, PE, COPD, DKA, ARF, appy, cholecystitis, CVA, Diverticulitis, Homicidal, Suicidal, threat to staff... and all critical care pts) @ -yes with significant ST elevated WY Reevaluation #5: 02/13/23 04:53 Differential Chest Pain: Stable Angina, Unstable Angina, STEMI, NSTEMI Aortic Dissection, Pneumothorax, Musculoskeletal, Esophageal Spasm GERD, Cholecystitis, Pancreatitis, Zoster, this is not meant to be an all-inclusive list. - Consultations Consultation #1: Spoke with who agrees to admit this patient Consultation #2: spoke with cardiology media production operator who will see the patient for ST elevated WY Chest Pain MDM - MDM 73 male to the emergency department for evaluation. Patient be admitted for ST elevated WY to the catheter lab, significant chest pain severe with sudden onset with history of acute [place] Critical Care Time Critical Care Time: Yes Total Critical Care Time: 31 Disposition Clinical Impression: Unstable angina pectoris, ST elevation myocardial infarction (STEMI), S/P right coronary artery (RCA) stent placement Disposition: ADMITTED IP TO THIS HOSP Condition: Good Is patient prescribed a controlled substance at d/c from ED?: No Time of Disposition: 03:55
[2023-02-13] MEDS ORDERED: HEPARIN SOD,PORK IN 0.45% NACL 25,000 UNIT in 0.45% NACL 1 250ML.BAG IV SCH (04:00)
[2023-02-13 04:09] LABS: Basophils # (A) 0.1 k/uL (0-0.2); Basophils % (A) 1 %; Eosinophils # (A) 0.2 k/uL (0-0.7); Eosinophils % (A) 2 %; HCT 44.2 % (39.0-53.0); Lymphocytes # (A) 2.6 k/uL (1.0-4.8); Lymphocytes % (A) 29 %; MCHC 33.9 g/dL (31.0-37.0); MCV 88.4 fL (80.0-100.0); Mean Platelet Volume 7.6; Monocytes # (A) 0.8 k/uL (0-1.0); Monocytes % (A) 9 %; Neutrophils % (A) 57 %; Platelet Count 343 k/uL (150-450); RBC 5.01 m/uL (4.30-5.90); WBC 8.9 k/uL (3.8-10.6)
[2023-02-13] MEDS ORDERED: HEPARIN SODIUM 1,000 UN/ML (10ML VL) ONE (04:20)
[2023-02-13] MEDS ORDERED: VERAPAMIL 2.5 MG/ML 2 ML AMP ONE (04:20)
[2023-02-13] MEDS ORDERED: IV FLUID CONTINUATION 1,000 ML IV ONE (04:20)
[2023-02-13 04:22] LABS: ALT 16 U/L (4-49); AST 28 U/L (17-59); African American GFR (CKD) 58 (>60 ml/min/1.73 sqM); Albumin 3.9 g/dL (3.5-5.0); Alkaline Phosphatase 58 U/L (38-126); Anion Gap 7 mmol/L; Blood Urea Nitrogen 24 mg/dL (9-20); Calcium 9.1 mg/dL (8.4-10.2); Carbon Dioxide 25 mmol/L (22-30); Chloride 103 mmol/L (98-107); Glucose 120 mg/dL (74-99); Magnesium 1.8 mg/dL (1.6-2.3); Non-African American GFR(CKD) 50 (>60 ml/min/1.73 sqM); Phosphorus 3.1 mg/dL (2.5-4.5); Potassium 3.7 mmol/L (3.5-5.1); Sodium 135 mmol/L (137-145); Total Bilirubin 0.4 mg/dL (0.2-1.3); Total Protein 6.6 g/dL (6.3-8.2)
[2023-02-13 04:23] LABS: INR 0.9 (<1.2); Partial Thromboplastin Time 24.3 sec (22.0-30.0); Prothrombin Time 9.9 sec (9.0-12.0)
[2023-02-13] MEDS: HEPARIN SODIUM 1,000 UN/ML (10ML VL) IVP ONE ×2 (04:25→04:43)
[2023-02-13 04:30] LABS: NT-Pro-B-Type Natriuretic Pept 335 pg/mL
[2023-02-13] MEDS ORDERED: LIDOCAINE 1% INJ 10MG/ML (20 ML MDV) SQ ONE (04:34)
[2023-02-13] MEDS ORDERED: fentaNYL (PF) 50 MCG/ML 2 ML AMP ONE (04:35)
[2023-02-13] MEDS ORDERED: fentaNYL (PF) 50 MCG/ML 2 ML AMP IVP ONE (04:35)
[2023-02-13] MEDS ORDERED: MIDAZOLAM 2 MG/2 ML VIAL IVP ONE (04:35)
[2023-02-13] MEDS ORDERED: VERAPAMIL SYRINGE (5 MG/10 ML) INTRAARTER ONE (04:43)
[2023-02-13] MEDS ORDERED: TICAGRELOR 90 MG TAB ONE (04:49)
[2023-02-13] MEDS ORDERED: TICAGRELOR 90 MG TAB PO ONE (04:50)
--- NOTE | 2023-02-13 04:58 | XR ---
EXAM: XR Chest, 1 View CLINICAL HISTORY: ITS.REASON XR Reason: cp TECHNIQUE: Frontal view of the chest. COMPARISON: 01/13/2018 FINDINGS: Artifacts: Multiple overlying artifacts. Lungs: Mild hyperinflation of lungs. Pleural space: Unremarkable. No pneumothorax. Heart: Unremarkable. No cardiomegaly. Mediastinum: Unremarkable. Bones/joints: Unremarkable. IMPRESSION: No acute findings in the chest.
[2023-02-13] MEDS ORDERED: IOPAMIDOL-370 100ML BTL INJ ONE ×2 (04:59→05:42)
[2023-02-13] MEDS: NITROGLYCERIN 1000MCG/10ML SYRINGE INTRACORON ONE ×2 (05:00→05:06)
[2023-02-13] MEDS ORDERED: NITROGLYCERIN 1000MCG/10ML SYRINGE INTRAARTER ONE (05:00)
--- NOTE | 2023-02-13 05:14 | P.CARDCATH ---
Date of Procedure: 02/13/23 Description of Procedure: DIAGNOSTIC CORONARY ANGIOGRAPHY and LEFT HEART CATH REPORT PROCEDURES PERFORMED: Left heart catheterization Selective coronary angiography Moderate conscious sedation [17] mins Right radial access INDICATION: STEMI Cardiology notified at 4:00 am. Procedure start time 4:33 am. EKG shoes [address] elevations in anterior leads with reciprocal ST depressions in inferior leads with Q wave in V1 and V2. Active chest pain. Symptoms start time 2:00 AM. CONSENT: I have discussed the risks, benefits and alternative therapies for the above-mentioned procedure, sedation/analgesia and necessary blood product administration (if indicated, as they pertain to this patient). The patient has indicated understanding and acceptance of the risks and procedures discussed. Conscious Sedation: Patient's ECG, heart rate, blood pressure, pulse oximetry was monitored throughout the duration of procedure under the direct supervision. [1] mg Versed and [50] mg Fentanyl were used for induction of moderate conscious sedation. Total duration of [17] minutes. PROCEDURE: After the risks, benefits and alternatives of the above mentioned procedure explained in detail with the patient, informed consent was obtained. Patient was taken to the catheterization lab and prepped and draped in usual sterile fashion. 1% lidocaine was infiltrated over the right radial artery. A 6-Guyanese sheath was placed in the right radial artery using modified Seldinger technique. The sheath was flushed 5 mg verapamil was administered intra- arterially. J tipped wire was advanced under fluoroscopic guidance. Once the wire tip reached aortic root [2500] units of IV heparin was given. Over the wire JL3.5 diagnostic catheter was advanced. Wire was removed, catheter was flushed and manipulated under fluoroscopy to selectively engaged the left coronary ostium. Left coronary angioplasty was performed in different angiographic projections. This catheter was exchanged for a JR4 diagnostic catheter over the wire. The catheter was flushed and manipulated to cross the aortic valve. LV pressures were obtained. Pullback was performed across aortic valve and catheter was manipulated to selectively engage the right coronary ostium under fluoroscopic guidance. Right coronary angiography was performed in different angiographic projections. Catheter was removed over the wire. Radial sheath was flushed. After review of images, and discussion with interventionalist, we decided to proceed with intervention of Diagonal1 artery which is the culprit. HEMODYNAMICS: Aortic Pressure: [154/78] mmHg. LV pressure: [156/20] mmHg. LVEDP [16] mmHg. SELECTIVE CORONARY ARTERIOGRAPHY: LEFT MAIN: The left main is a large caliber vessel which essentially gives 4 branches, LAD, LCx, Ramus intermidius and High diagonal 1 artery. There is no significant stenosis. LEFT ANTERIOR DESCENDING CORONARY ARTERY: LAD is a large caliber vessel which wraps around to the apex. There is no significant stenosis. High high Diagonal 1 branch essentially originates from LM. It has 99% stenosis in proximal segment. It appears to be a 2 mm vessel. RAMUS INTERMIDIUS: Medisum size 2.5 mm vessel which is angiographically normal. LEFT CIRCUMFLEX CORONARY ARTERY: It is nondominant vessel. Left circumflex is a moderate caliber vessel with minimal luminal irregularities. It gives OM branches which are small and doesnot have angigraphically significant disease. RIGHT CORONARY ARTERY: Dominant vessel. The right coronary artery is a large caliber vessel which gives off a small PDA and PLV branch. Proximal RCA has 50% calcific disease which is unchanged from 2016. Mid RCA stent is patent with 10-20% instent disease. Distal RCA, PDA and PL branches has mild luminal irregularities IMPRESSION: STEMI with active chest pain 99% Proximal Diagonal 1 stenosis Normal left sided filling pressures Non compliance with cardiac medications Active tobacco smoking Marijuana Use PLAN: Plan for PCI of diagonal 1 which is the culprit due to active EKG changes and active chest pain. Follow-up in the office in 1-2 weeks. Performing Physician Contreras Leija MD
--- NOTE | 2023-02-13 05:23 | P.CRDCN ---
History of Present Illness Consult date: 02/13/23 Consult reason: chest pain Chief complaint: STEMI History of present illness: 73 y/o with PMH of CAD with prior STEMI in 2016 requiring intervention to mid RCA, smoker, marijuana use, non compliance to cardiac meds presents to ER due to chest pain. It started around 2:00 am woke up from sleep. Describes as chest tightness and similar to 2016 symptoms. Associated difficulty in breathing and sense of impending doom. EKG shows sinus rhythm with q wave in V1 and V2 with ST elevations in V2, V3 with no lateral extension and reciprocal ST depression in inferior leads. He has not been taking his cardiac medications. He is not on aspirin. reports h/o of TIA, no bleeding recently. Has bladder cancer, not sure if completely in remission. Review of Systems 14 point ROS is negative except what is mentioned above in HPI Past Medical History Past Medical History: Coronary Artery Disease (CAD), Cancer, COPD, Myocardial Infarction ([place]), Renal Disease Additional Past Medical History / Comment(s): COPD (CHEST X-RAY), HX OF POSITIVE TB TEST WITH TX (1998), BLADDER TUMOR & RUPTURED BLADDER DECEMBER 2017- HOSPITALIZED AT [facility] - HX STATES CHRONIC KIDNEY DISEASE ., PATIENT HAS ONLY 1 KIDNEY -(DONATED KIDNEY). , BACK PAIN. EPISODE OF A-FIB (DECEMBER 2017) Last Myocardial Infarction Date:: 07/08/15 History of Any Multi-Drug Resistant Organisms: None Reported Past Surgical History: Bladder Surgery, Heart Catheterization With Stent, Orthopedic Surgery Additional Past Surgical History / Comment(s): LT kidney donation 1999, finger surgery ON LT HAND, RHINOPLASTY, HEART CATH WITH STENT JUNE 2015 ([facility]) ., CLOSURE OF BLADDER PERFORATION (DECEMBER2017). Past Anesthesia/Blood Transfusion Reactions: No Reported Reaction, Previous Problems w/ Anesthesia Additional Past Anesthesia/Blood Transfusion Reaction / Comment(s): PT RECEIVED BLOOD TRANSFUSION (DECEMBER 2017). RESPIRATORY FAILURE & WAS ON VENTILATOR AFTER SURGERY DECEMBER 2017. Date of Last Stent Placement:: 2015 Past Psychological History: No Psychological Hx Reported Smoking Status: Current every day smoker Past Alcohol Use History: None Reported Past Drug Use History: Marijuana - Past Family History Father Additional Family Medical History / Comment(s): FROM A BRAIN TUMOR and tb Mother Additional Family Medical History / Comment(s): FROM INJURIES SUSTAINED FROM MVA. Medications and Allergies Home Medications Medication Instructions Recorded Confirmed Type Ciprofloxacin HCl [Cipro] 500 mg PO Q12HR 7 Days #14 day 05/08/18 Rx Allergies Allergy/AdvReac Type Severity Reaction Status Date / Time No Known Allergies Allergy Verified 02/13/23 03:45 Physical Exam Vitals: Vital Signs Temp Pulse Pulse Resp BP Pulse Ox 02/13/23 04:15 67 20 153/81 100 02/13/23 04:10 68 20 161/86 100 02/13/23 04:05 73 20 164/86 100 02/13/23 04:00 73 20 175/93 100 02/13/23 03:55 68 20 165/91 100 02/13/23 03:45 74 73 20 170/98 98 02/13/23 03:39 97.1 F L 65 18 176/99 98 Intake and Output 02/12/23 02/12/23 02/13/23 14:59 22:59 06:59 Other: Weight 41.73 kg - Constitutional General appearance: thin - EENT Eyes: PERRLA - Neck Neck: normal ROM - Respiratory Respiratory: bilateral: CTA, negative: rhonchi, wheezing - Cardiovascular Rhythm: regular Heart sounds: normal: S1, S2 - Gastrointestinal General gastrointestinal: normal bowel sounds - Neurologic Neurologic: CNII-XII intact - Psychiatric Psychiatric: A&O x's 3 Results 02/13/23 04:00 02/13/23 04:00 Cardiac Enzymes 02/13/23 02/13/23 Range/Units 04:00 04:00 AST 28 (17-59) U/L Troponin I 0.022 (0.000-0.034) ng/mL Coagulation 02/13/23 Range/Units 04:00 PT 9.9 (9.0-12.0) sec APTT 24.3 (22.0-30.0) sec CBC 02/13/23 Range/Units 04:00 WBC 8.9 (3.8-10.6) k/uL RBC 5.01 (4.30-5.90) m/uL Hgb 15.0 (13.0-17.5) gm/dL Hct 44.2 (39.0-53.0) % Plt Count 343 (150-450) k/uL Comprehensive Metabolic Panel 02/13/23 Range/Units 04:00 Sodium 135 L (137-145) mmol/L Potassium 3.7 (3.5-5.1) mmol/L Chloride 103 (98-107) mmol/L Carbon Dioxide 25 (22-30) mmol/L BUN 24 H (9-20) mg/dL Creatinine 1.40 H (0.66-1.25) mg/dL Glucose 120 H (74-99) mg/dL Calcium 9.1 (8.4-10.2) mg/dL AST 28 (17-59) U/L ALT 16 (4-49) U/L Alkaline Phosphatase 58 (38-126) U/L Total Protein 6.6 (6.3-8.2) g/dL Albumin 3.9 (3.5-5.0) g/dL Current Medications Generic Name Dose Route Start Last Admin Trade Name Freq PRN Reason Stop Dose Admin Aspirin 325 mg 02/14/23 09:00 Aspirin 325 Mg Tab PO DAILY [facility] Atorvastatin Calcium 80 mg 02/13/23 09:00 Atorvastatin 80 Mg Tab PO DAILY [facility] Heparin Sodium/Sodium Chloride 250 mls @ 5.008 mls/hr 02/13/23 04:00 25,000 unit/ Sodium Chloride IV .Q24H [facility] Protocol 12 UNITS/KG/HR Metoprolol Tartrate 25 mg 02/13/23 09:00 Metoprolol Tartrate 25 Mg Tab PO BID [facility] Nitroglycerin 0.4 mg 02/13/23 03:54 Nitroglycerin Sl Tabs 0.4 Mg Tab SUBLINGUAL Q5M PRN Chest Pain Intake and Output 02/12/23 02/12/23 02/13/23 14:59 22:59 06:59 Other: Weight 41.73 kg Patient Weight 02/13/23 06:59 Weight 41.73 kg 02/13/23 04:00 02/13/23 04:00 Assessment and Plan Assessment: Anterior STEMI Prior H/o of inferior STEMI in 2016 with PCI to mid RCA Non compliance to cardiac meds Tobacco smoking 1 PPD Marijuana Use H/o of bladder cancer CKD stage II Plan Urgent cardiac cath Echocardiogram Further recs to follow cath report. Pls refer to that document smoking and marijuana cessation Verbal consent obtained after explaining risks and benefit of the procedure (1) S/P right coronary artery (RCA) stent placement Current Visit: Yes Status: Acute Code(s): Z95.5 - PRESENCE OF CORONARY ANGIOPLASTY IMPLANT AND GRAFT SNOMED Code(s): 136245162 (2) ST elevation myocardial infarction (STEMI) Current Visit: Yes Status: Acute Code(s): I21.3 - ST ELEVATION (STEMI) MYOCARDIAL INFARCTION OF UNSP SITE SNOMED Code(s): 87235886 (3) Family history of ischemic heart disease Current Visit: No Status: Acute Code(s): Z82.49 - FAMILY HX OF ISCHEM HEART DIS AND OTH DIS OF THE CIRC SYS SNOMED Code(s): 551959714 (4) 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
[2023-02-13 06:02] LABS: Glucose,Whole Blood 118 mg/dL (70-110)
[2023-02-13] MEDS ORDERED: SODIUM CHLORIDE 0.9% 1,000 ML IV SCH (06:10)
[2023-02-13] MEDS ORDERED: Potassium Replacement Protocol 1 EACH MISC MISCELLANE PRN (07:54)
[2023-02-13] MEDS ORDERED: Magnesium Replacement Protocol 1 EACH MISC MISCELLANE PRN (07:54)
[2023-02-13] MEDS ORDERED: MAGNESIUM SULFATE-D5W PMX 1 GM in DEXTROSE/WATER 1 100ML.BAG IVPB ONE (07:54)
[2023-02-13] MEDS ORDERED: POTASSIUM CHLORIDE ER 20 MEQ TAB.ER PO SCH (08:00)
[2023-02-13] MEDS ORDERED: METOPROLOL TARTRATE 25 MG TAB PO SCH (09:00)
[2023-02-13] MEDS ORDERED: ATORVASTATIN 80 MG TAB PO SCH (09:00)
[2023-02-13] MEDS: LOSARTAN 25 MG TAB PO SCH (09:30)
[2023-02-13] MEDS: METOPROLOL SUCCINATE (ER) 25 MG TAB.ER.24H PO SCH (09:30)
[2023-02-13] MEDS: ATORVASTATIN 40 MG TAB PO SCH (09:30)
--- NOTE | 2023-02-13 09:51 | P.PN ---
Subjective Progress Note Date: 02/13/23 PROGRESS NOTE The patient is a 73-year-old male with a known history of CAD status post stenting of the RCA in 2016, noncompliance, has not been taking any medication. He has a history of chronic tobacco use and presented with evidence of acute STEMI underwent cardiac catheterization and was found to have subtotally occluded branch and underwent stenting of that vessel by Dr. Card early this morning. He is doing well at this time, denies any chest discomfort, dizziness or palpitations. He is in sinus mechanism. Hemodynamically stable. Medications: Aspirin, losartan 12.5 mg daily, Lipitor 40 mg daily, metoprolol succinate 25 mg daily, Brilinta 90 mg twice a day PHYSICAL EXAMINATION: Blood pressure 130/80 heart rate 70 LUNGS: Clear to auscultation HEART: Regular rate and rhythm, S1, S2. No S3. No systolic murmur ABDOMEN: Soft, nontender, no organomegaly EXTREMETIES: No edema LAB: BUN 24, creatinine 1.4, troponin 4.9 IMPRESSION: 1. Status post STEMI with stenting of the diagonal branch 2. Prior history of stenting of the RCA in 2016 3. Chronic tobacco use 4. None compliance 5. Abnormal kidney function of unknown duration PLAN: 1. The patient will continue on the present therapy 2. Obtain an echocardiogram with Doppler 3. Follow renal functions 4. Depending on his progress further recommendations will be made Objective - Vital Signs Vital signs: Vital Signs Temp 97.1 F L 02/13/23 03:39 Pulse 74 02/13/23 07:10 Resp 15 02/13/23 07:10 BP 131/85 02/13/23 07:10 Pulse Ox 99 02/13/23 07:10 FiO2 Intake & Output 02/12/23 02/13/23 02/13/23 18:59 06:59 18:59 Intake Total 350 150 Balance 350 150 Weight 41.73 kg Intake: IV 350 150 0.9 NS @ 150 150 150 - Labs CBC & Chem 7: 02/13/23 04:00 02/13/23 04:00 Labs: Abnormal Lab Results - Last 24 Hours (Table) 02/13/23 02/13/23 02/13/23 Range/Units 04:00 06:01 06:02 Sodium 135 L (137-145) mmol/L BUN 24 H (9-20) mg/dL Creatinine 1.40 H (0.66-1.25) mg/dL Glucose 120 H (74-99) mg/dL POC Glucose (mg/dL) 118 H (70-110) mg/dL Troponin I 4.940 H* (0.000-0.034) ng/mL
--- NOTE | 2023-02-13 11:52 | P.PRCINT ---
Percutaneous Coronary Int. - Percutaneous Coronary Intervention Percutaneous Coronary Intervention: PROCEDURES PERFORMED: Left coronary angiography, PCI diagonal 1 with a 3.25 x 18mm Xience ALMA, kissing balloon angioplasty of proximal LAD and diagonal branch with a 2.25 x 12mm NC and 2.25 x 12mm balloon respectively, IVUS diagonal 1 and LAD INDICATION: STEMI CONSENT:I have discussed the risks, benefits and alternative therapies for the above-mentioned procedure and for both sedation/analgesia as well as necessary blood product administration, if indicated, as they pertain to this patient. The patient has indicated understanding and acceptance of the risks and procedures discussed. PROCEDURE: After the risks, benefits and alternatives of the above mentioned procedure explained in detail with the patient, informed consent was obtained. Patient was taken to the catheterization lab and prepped and draped in usual fashion. A 6Fr sheath had previously been placed in the right radial artery. The decision was made to perform PCI of the diagonal 1 branch. Heparin was given. A 6-Sinhala CLS 3.5 guide was used to engage the left main. A 0.014 BMW wire was advanced into the distal diagonal 1. Balloon angioplasty was performed with a 2.0 x 12mm balloon. Next a 3.25 x 18mm Xience ALMA was deployed in the proximal diagonal 1 branch. There was some "pinching" of the proximal LAD and therefore IVUS was performed down the diagonal 1 branch however IVUS catheter unable to be advanced down the LAD in part related to angulation but also felt to be some degree of plaque shift resulting in stenosis. Therefore kissing balloon angioplasty was performed of the LAD and diagonal 1 branch using a 2.25 x 12mm NC in the LAD and a 2.25 x 12mm balloon in the diagonal 1 branch. Repeat IVUS able to be advanced to the level of the bifurcation with no dissection. There was mild 30% disease of the LAD similar to prior. The wire was pulled and final angiograms were performed. Preintervention there was 99% proximal diagonal 1 stenosis and NYASIA-2 flow and postintervention there was less than 10% stenosis with NYASIA 3 flow. The right radial sheath was removed and a TR band was placed with hemostasis achieved. The patient tolerated the procedure well. Patient was transported back to the post catheterization holding area in stable condition. Conscious Sedation: Patient was monitored under the direct supervision of myself for conscious sedation using Versed and fentanyl for a total duration of 57 mi nutes HEMODYNAMICS: Aorta: 141/79 SELECTIVE CORONARY ARTERIOGRAPHY: LEFT MAIN: Left main is moderate caliber with diffuse 20-30% disease noted on IVUS. The left main bifurcates into the LAD and the circumflex with high OM and high diagonal branch. LEFT ANTERIOR DESCENDING CORONARY ARTERY: LAD is a moderate caliber vessel which reaches to the apex. There are mild luminal irregularities of the LAD including 30-40% proximal LAD stenosis. Diagonal 1 has a 99% proximal stenosis and otherwise mild luminal irregularities. LEFT CIRCUMFLEX CORONARY ARTERY: Left circumflex is small to moderate caliber vessel with mild luminal irregularities. RIGHT CORONARY ARTERY: The right coronary artery was not imaged. FINAL IMPRESSION: 1. CAD as described above diagonal 1 99% stenosis 2. S/p PCI diagonal 1 with a 3.25 x 18mm Xience ALMA, kissing balloon angioplasty of proximal LAD and diagonal branch with a 2.25 x 12mm NC and 2.25 x 12mm balloon respectively PLAN: 1. Aggressive risk factor modification per most recent ACC/AHA guidelines. 2. Continue dual antiplatelets with aspirin and Brillinta for 12 months
--- NOTE | 2023-02-13 13:16 | P.HPIM ---
History of Present Illness H&P Date: 02/13/23 History of present illness; patient 73-year-old gentleman with past medical hist ory significant for coronary artery disease who presented to the ER because of chest pain. Patient stated that he was all right when he was wakened up from sleep at around 2 AM with chest pain. Chest pain was central in location, felt like chest tightness, constant, nonradiating, no aggravating or relieving factors associated with chest pain. Patient was complaining of shortness of breath that time. Denied any palpitation. Because of this chest pain, patient came to the ER Initial lab work done in the ER showed WBC 8.9, hemoglobin 15, platelet count 343, sodium 135, potassium 3.7, BUN 24, creatinine 1.4, troponin 0.0-2 EKG done in the ER showed heart rate 65, QRS 93, ST segment depression noticeable in leads 2, 3, aVF, ST segment elevation in leads V2 V3 Lab was activated and patient was taken for cardiac cath. Cardiac cath done showed 99% Proximal Diagonal 1 stenosis S/p PCI diagonal 1 with a 3.25 x 18mm Xience ALMA, kissing balloon angioplasty of proximal LAD and diagonal branch with a 2.25 x 12mm NC and 2.25 x 12mm balloon respectively Patient was admitted to ICU after procedure REVIEW OF SYSTEMS: CONSTITUTIONAL: No fever, no malaise, no fatigue. HEENT: No recent visual problems or hearing problems. Denied any sore throat. CARDIOVASCULAR: As mentioned in HPI PULMONARY: As mentioned in HPI GASTROINTESTINAL: No diarrhea, no nausea, no vomiting, no abdominal pain. NEUROLOGICAL: No headaches, no weakness, no numbness. HEMATOLOGICAL: Denies any bleeding or petechiae. GENITOURINARY: Denies any burning micturition, frequency, or urgency. MUSCULOSKELETAL/RHEUMATOLOGICAL: Denies any joint pain, swelling, or any muscle pain. ENDOCRINE: Denies any polyuria or polydipsia. The rest of the 14-point review of systems is negative. PHYSICAL EXAMINATION: GENERAL: The patient is alert and oriented x3, not in any acute distress. Well developed, well nourished. HEENT: Pupils are round and equally reacting to light. EOMI. No scleral icterus. No conjunctival pallor. Normocephalic, atraumatic. No pharyngeal erythema. No thyromegaly. CARDIOVASCULAR: S1 and S2 present. No murmurs, rubs, or gallops. PULMONARY: Chest is clear to auscultation, no wheezing or crackles. ABDOMEN: Soft, nontender, nondistended, normoactive bowel sounds. No palpable organomegaly. MUSCULOSKELETAL: No joint swelling or deformity. EXTREMITIES: No cyanosis, clubbing, or pedal edema. NEUROLOGICAL: Gross neurological examination did not reveal any focal deficits. SKIN: No rashes. Assessment and plan Acute ST elevation [place] Hypertension History of Coronary artery disease Monitor vital signs Monitor CBC Monitor CMP Continue telemetry monitoring Cardiac cath done showed 99% Proximal Diagonal 1 stenosis S/p PCI diagonal 1 with a 3.25 x 18mm Xience ALMA, kissing balloon angioplasty of proximal LAD and diagonal branch with a 2.25 x 12mm NC and 2.25 x 12mm balloon respectively Continue aspirin, brilinta Continue Lipitor Follow-up on 2-D echo Follow-up on cardiology recommendations critical care following Labs and medication were reviewed.. Continue same treatment. Continue with symptomatic treatment. Resume home medication. Monitor labs and vitals. DVT and GI prophylaxis. Further recommendations as per clinical course of the patient Dictation was produced using Sunshine dictation software. please excuse any grammatical, word or spelling errors. 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 , BACK PAIN. EPISODE OF A-FIB (DECEMBER 2017) Last Myocardial Infarction Date:: 07/08/15 History of Any Multi-Drug Resistant Organisms: None Reported Past Surgical History: Bladder Surgery, Heart Catheterization With Stent, Orthopedic Surgery Additional Past Surgical History / Comment(s): LT kidney donation 1999, finger surgery ON LT HAND, RHINOPLASTY, HEART CATH WITH STENT JUNE 2015 (KRISTIN ) ., CLOSURE OF BLADDER PERFORATION (DECEMBER2017). Past Anesthesia/Blood Transfusion Reactions: No Reported Reaction, Previous Problems w/ Anesthesia Additional Past Anesthesia/Blood Transfusion Reaction / Comment(s): PT RECEIVED BLOOD TRANSFUSION (DECEMBER 2017). RESPIRATORY FAILURE & WAS ON VENTILATOR AFTER SURGERY DECEMBER 2017. Date of Last Stent Placement:: 2015 Past Psychological History: No Psychological Hx Reported Smoking Status: Current every day smoker Past Alcohol Use History: None Reported Past Drug Use History: Marijuana - Past Family History Father Additional Family Medical History / Comment(s): FROM A BRAIN TUMOR and tb Mother Additional Family Medical History / Comment(s): FROM INJURIES SUSTAINED FROM MVA. Medications and Allergies Home Medications Medication Instructions Recorded Confirmed Type No Known Home Medications 02/13/23 02/13/23 History Allergies Allergy/AdvReac Type Severity Reaction Status Date / Time No Known Allergies Allergy Verified 02/13/23 11:17 Physical Exam Vitals: Vital Signs Temp Pulse Pulse Resp BP Pulse Ox 02/13/23 07:10 74 15 131/85 99 02/13/23 07:00 102 H 21 137/81 97 02/13/23 06:50 81 23 137/81 98 02/13/23 06:40 75 27 H 136/78 98 02/13/23 06:30 80 16 132/82 93 L 02/13/23 06:20 76 8 L 132/82 97 02/13/23 06:10 86 18 136/75 96 02/13/23 06:00 99 38 H 96 02/13/23 05:59 28 H 02/13/23 04:15 67 20 153/81 100 02/13/23 04:10 68 20 161/86 100 02/13/23 04:05 73 20 164/86 100 02/13/23 04:00 73 20 175/93 100 02/13/23 03:55 68 20 165/91 100 02/13/23 03:45 74 73 20 170/98 98 02/13/23 03:39 97.1 F L 65 18 176/99 98 Intake and Output 02/12/23 02/13/23 02/13/23 22:59 06:59 14:59 Intake Total 350 150 Balance 350 150 Intake: IV 350 150 0.9 NS @ 150 150 150 Other: Weight 41.73 kg Results CBC & Chem 7: 02/13/23 04:00 02/13/23 04:00 Labs: Abnormal Lab Results - Last 24 Hours (Table) 02/13/23 02/13/23 02/13/23 Range/Units 04:00 06:01 06:02 Sodium 135 L (137-145) mmol/L BUN 24 H (9-20) mg/dL Creatinine 1.40 H (0.66-1.25) mg/dL Glucose 120 H (74-99) mg/dL POC Glucose (mg/dL) 118 H (70-110) mg/dL Troponin I 4.940 H* (0.000-0.034) ng/mL
--- NOTE | 2023-02-13 14:49 | CA ---
Transthoracic Echo Report Name: Spencer Merchant Age: 73 Gender: M : 1950 Exam Date: 02/13/2023 13:14 Exam Location: [place] [facility] Ht (in): 63 Wt (lb): 92 Ordering Physician: Nahum Allan MD ([id number]) Attending/Referring Phys: Wireworker Supervisor Isabelle Stephens RDCS Procedure CPT: Indications: MD Cardiac Hx: Technical Quality: Contrast 1: Total Dose (mL): Contrast 2: Total Dose (mL): MEASUREMENTS (Male / Female) Normal Values 2D ECHO LV Diastolic Diameter PLAX 3.2 cm 4.2 - 5.9 / 3.9 - 5.3 cm LV Systolic Diameter PLAX 2.1 cm IVS Diastolic Thickness 1.3 cm 0.6 - 1.0 / 0.6 - 0.9 cm LVPW Diastolic Thickness 1.3 cm 0.6 - 1.0 / 0.6 - 0.9 cm LV Relative Wall Thickness 0.8 LA Volume 28.9 cm??? 18 - 58 / 22 - 52 cm??? DOPPLER AV Peak Velocity 112.6 cm/s AV Peak Gradient 5.1 mmHg AV Mean Velocity 73.8 cm/s AV Mean Gradient 2.4 mmHg AV Velocity Time Integral 23.6 cm LVOT Peak Velocity 83.5 cm/s LVOT Peak Gradient 2.8 mmHg LVOT Velocity Time Integral 15.7 cm MV Area PHT 4.6 cm??? Mitral E Point Velocity 125.6 cm/s Mitral A Point Velocity 68.3 cm/s Mitral E to A Ratio 1.8 MV Deceleration Time 164.5 ms MV E' Velocity 7.4 cm/s Mitral E to MV E' Ratio 16.9 TR Peak Velocity 186.5 cm/s TR Peak Gradient 13.9 mmHg Right Ventricular Systolic Press 18.9 mmHg FINDINGS Left Ventricle Mildly increased left ventricular wall thickness. Left ventricular cavity size normal. Hypokinetic anterolateral apical . Left ventricular ejection fraction is estimated at 45-50 %. Right Ventricle Normal right ventricular size and function. Right ventricular systolic pressure within normal limits. Right Atrium Normal right atrial size. Left Atrium Normal left atrial size. Mitral Valve Structurally normal mitral valve. Mild mitral annular calcification. Mild mitral regurgitation. Aortic Valve Trileaflet aortic valve. No aortic valve stenosis or regurgitation. Thickened aortic valve without stenosis. Tricuspid Valve Structurally normal tricuspid valve. Mild tricuspid regurgitation. Pulmonic Valve Pulmonic valve not well visualized. Pericardium No pericardial effusion. Aorta Normal size aortic root and proximal ascending aorta. CONCLUSIONS 1. Mildly impaired left ventricle systolic function with segmental wall motion abnormality 2. Mild mitral and tricuspid regurgitation Previewed by: Dr. Nahum Allan MD (Electronically Signed) Final Date: 13 February 2023 14:48
[2023-02-13] MEDS: TICAGRELOR 90 MG TAB PO SCH (20:27)
[2023-02-13 23:53] LABS: Chol/HDL Ratio 3.06 Ratio; LDL Cholesterol,Calculated 68.3 mg/dL (0.0-131.0)
[2023-02-14 05:33] LABS: Mean Platelet Volume 7.6; Platelet Count 268 k/uL (150-450)
[2023-02-14 05:42] LABS: African American GFR (CKD) 62 (>60 ml/min/1.73 sqM); Anion Gap 6 mmol/L; Blood Urea Nitrogen 19 mg/dL (9-20); Calcium 8.9 mg/dL (8.4-10.2); Carbon Dioxide 23 mmol/L (22-30); Chloride 104 mmol/L (98-107); Glucose 91 mg/dL (74-99); Non-African American GFR(CKD) 54 (>60 ml/min/1.73 sqM); Potassium 4.4 mmol/L (3.5-5.1); Sodium 133 mmol/L (137-145)
[2023-02-14] MEDS: ASPIRIN 81 MG PO SCH (08:07)
[2023-02-14] MEDS: METOPROLOL SUCCINATE (ER) 25 MG TAB.ER.24H PO SCH (08:08)
[2023-02-14] MEDS: ATORVASTATIN 40 MG TAB PO SCH (08:08)
[2023-02-14] MEDS: TICAGRELOR 90 MG TAB PO SCH ×2 (08:08→20:43)
[2023-02-14] MEDS: LOSARTAN 25 MG TAB PO SCH (08:08)
[2023-02-14] MEDS ORDERED: ASPIRIN 325 MG TAB PO SCH (09:00)
--- NOTE | 2023-02-14 09:27 | P.PN ---
Subjective Progress Note Date: 02/14/23 PROGRESS NOTE The patient is a 73-year-old male with a known history of CAD status post stenting of the RCA in 2016, noncompliance, has not been taking any medication. He has a history of chronic tobacco use and presented with evidence of acute STEMI underwent cardiac catheterization and was found to have subtotally occluded branch and underwent stenting of that vessel by Dr. Card early this morning. He is doing well at this time, denies any chest discomfort, dizziness or palpitations. He is in sinus mechanism. Hemodynamically stable. February 14: The patient feels well today, he denies any chest discomfort, dizziness or palpitations. He continues to be in sinus mechanism. His echocardiogram showed a mildly impaired systolic function with segmental wall motion abnormality. There is no evidence of arrhythmia. He has no nausea or vomiting. Medications: Aspirin, losartan 12.5 mg daily, Lipitor 40 mg daily, metoprolol succinate 25 mg daily, Brilinta 90 mg twice a day PHYSICAL EXAMINATION: Blood pressure 125/60 heart rate 60 LUNGS: Clear to auscultation HEART: Regular rate and rhythm, S1, S2. No S3. No systolic murmur ABDOMEN: Soft, nontender, no organomegaly EXTREMETIES: No edema, right radial pulse intact LAB: BUN 19, creatinine 1.3, potassium 4.4 IMPRESSION: 1. Status post STEMI with stenting of the diagonal branch 2. Prior history of stenting of the RCA in 2016 3. Chronic tobacco use 4. None compliance 5. Abnormal kidney function of unknown duration, improving PLAN: 1. Increase losartan 2. Increase physical activity and transfer to telemetry 3. Depending on his heart rate and blood pressure adjust beta jose antonio dose Objective - Vital Signs Vital signs: Vital Signs Temp 97.9 F 02/14/23 04:00 Pulse 63 02/14/23 09:00 Resp 11 L 02/14/23 09:00 BP 125/59 02/14/23 09:00 Pulse Ox 98 02/14/23 09:00 FiO2 Intake & Output 02/13/23 02/14/23 02/14/23 18:59 06:59 18:59 Intake Total 1000 Output Total 1250 975 150 Balance -250 -975 -150 Weight 44.4 kg Intake: IV 900 0.9 NS @ 150 900 Intake, IV Titration 100 Amount Magnesium Sulfate-D5w Pmx 100 1 gm In Dextrose/Water 1 100ml.bag @ 100 mls/hr IVPB ONCE ONE Rx#: [id number] Output: Urine 1250 975 150 Other: Voiding Method Toilet Toilet Urinal Urinal # Voids 1 # Bowel Movements 1 - Labs CBC & Chem 7: 02/14/23 05:04 02/14/23 05:04 Labs: Abnormal Lab Results - Last 24 Hours (Table) 02/13/23 02/14/23 Range/Units 11:13 05:04 APTT 31.5 H (22.0-30.0) sec Sodium 133 L (137-145) mmol/L Creatinine 1.33 H (0.66-1.25) mg/dL
[2023-02-14 09:38] LABS: Chol/HDL Ratio 3.08 Ratio
[2023-02-14] MEDS: NICOTINE 21MG/24HR PATCH TRANSDERM SCH (10:57)
[2023-02-14 12:12] VITALS: BMI 17.3
--- NOTE | 2023-02-14 13:06 | P.PN ---
Subjective Progress Note Date: 02/14/23 patient 73-year-old gentleman with past medical history significant for coronary artery disease who presented to the ER because of chest pain. Patient stated that he was all right when he was wakened up from sleep at around 2 AM with chest pain. Chest pain was central in location, felt like chest tightness, constant, nonradiating, no aggravating or relieving factors associated with chest pain. Patient was complaining of shortness of breath that time. Denied any palpitation. Because of this chest pain, patient came to the ER Initial lab work done in the ER showed WBC 8.9, hemoglobin 15, platelet count 343, sodium 135, potassium 3.7, BUN 24, creatinine 1.4, troponin 0.0-2 EKG done in the ER showed heart rate 65, QRS 93, ST segment depression noticeable in leads 2, 3, aVF, ST segment elevation in leads V2 V3 Lab was activated and patient was taken for cardiac cath. Cardiac cath done showed 99% Proximal Diagonal 1 stenosis S/p PCI diagonal 1 with a 3.25 x 18mm Xience ALMA, kissing balloon angioplasty of proximal LAD and diagonal branch with a 2.25 x 12mm NC and 2.25 x 12mm balloon respectively Patient was admitted to ICU after procedure 02/14. Patient seen and examined. Laying comfortably in the bed. Denies any chest pain. Vital signs stable. Labs done this morning showed sodium 133, potassium 4.4, BUN 19, creatinine 1.33 REVIEW OF SYSTEMS: CONSTITUTIONAL: No fever, no malaise,. CARDIOVASCULAR: No chest pain, no palpitations, no syncope. PULMONARY: No shortness of breath, no cough, GASTROINTESTINAL: No diarrhea, no nausea, no vomiting, no abdominal pain. NEUROLOGICAL: No headaches, no weakness, PHYSICAL EXAMINATION: GENERAL: The patient is alert and oriented x3, not in any acute distress. Well developed, well nourished. HEENT: Pupils are round and equally reacting to light. EOMI. No scleral icterus. No conjunctival pallor. Normocephalic, atraumatic. No pharyngeal erythema. No thyromegaly. CARDIOVASCULAR: S1 and S2 present. No murmurs, rubs, or gallops. PULMONARY: Chest is clear to auscultation, no wheezing or crackles. ABDOMEN: Soft, nontender, nondistended, normoactive bowel sounds. No palpable o rganomegaly. MUSCULOSKELETAL: No joint swelling or deformity. EXTREMITIES: No cyanosis, clubbing, or pedal edema. NEUROLOGICAL: Gross neurological examination did not reveal any focal deficits. SKIN: No rashes. Assessment and plan Acute ST elevation [place] Hypertension History of Coronary artery disease Monitor vital signs Monitor CBC Monitor CMP Cardiac cath done showed 99% Proximal Diagonal 1 stenosis S/p PCI diagonal 1 with a 3.25 x 18mm Xience ALMA, kissing balloon angioplasty of proximal LAD and diagonal branch with a 2.25 x 12mm NC and 2.25 x 12mm balloon respectively Continue aspirin, brilinta Continue Lipitor Patient started on losartan Follow-up on 2-D echo Follow-up on cardiology recommendations Labs and medication were reviewed.. Continue same treatment. Continue with symptomatic treatment. Resume home medication. Monitor labs and vitals. DVT and GI prophylaxis. Further recommendations as per clinical course of the patient Dictation was produced using [employer] dictation software. please excuse any grammatical, word or spelling errors. Objective - Vital Signs Vital signs: Vital Signs Temp 97.9 F 02/14/23 04:00 Pulse 62 02/14/23 08:00 Resp 12 02/14/23 08:00 BP 143/71 02/14/23 08:00 Pulse Ox 97 02/14/23 08:00 FiO2 Intake & Output 02/13/23 02/14/23 02/14/23 18:59 06:59 18:59 Intake Total 1000 Output Total 1250 975 150 Balance -250 -975 -150 Weight 44.4 kg Intake: IV 900 0.9 NS @ 150 900 Intake, IV Titration 100 Amount Magnesium Sulfate-D5w Pmx 100 1 gm In Dextrose/Water 1 100ml.bag @ 100 mls/hr IVPB ONCE ONE Rx#: [id number] Output: Urine 1250 975 150 Other: Voiding Method Toilet Toilet Urinal Urinal # Voids 1 # Bowel Movements 1 - Labs CBC & Chem 7: 02/14/23 05:04 02/14/23 05:04 Labs: Abnormal Lab Results - Last 24 Hours (Table) 02/13/23 02/14/23 Range/Units 11:13 05:04 APTT 31.5 H (22.0-30.0) sec Sodium 133 L (137-145) mmol/L Creatinine 1.33 H (0.66-1.25) mg/dL
[2023-02-15] MEDS: ATORVASTATIN 40 MG TAB PO SCH (07:51)
[2023-02-15] MEDS: LOSARTAN 25 MG TAB PO SCH (07:51)
[2023-02-15] MEDS: NICOTINE 21MG/24HR PATCH TRANSDERM SCH (07:51)
[2023-02-15] MEDS: ASPIRIN 81 MG PO SCH (07:51)
[2023-02-15] MEDS: TICAGRELOR 90 MG TAB PO SCH ×2 (07:51→21:37)
[2023-02-15] MEDS: METOPROLOL SUCCINATE (ER) 25 MG TAB.ER.24H PO SCH (07:52)
[2023-02-15 09:45] LABS: Mean Platelet Volume 7.5; Platelet Count 292 k/uL (150-450)
[2023-02-15 09:55] LABS: African American GFR (CKD) 58 (>60 ml/min/1.73 sqM); Anion Gap 9 mmol/L; Blood Urea Nitrogen 25 mg/dL (9-20); Calcium 9.4 mg/dL (8.4-10.2); Carbon Dioxide 24 mmol/L (22-30); Chloride 102 mmol/L (98-107); Glucose 170 mg/dL (74-99); Non-African American GFR(CKD) 50 (>60 ml/min/1.73 sqM); Potassium 4.4 mmol/L (3.5-5.1); Sodium 135 mmol/L (137-145)
--- NOTE | 2023-02-15 11:53 | P.PN ---
Subjective Progress Note Date: 02/15/23 PROGRESS NOTE The patient is a 73-year-old male with a known history of CAD status post stenting of the RCA in 2016, noncompliance, has not been taking any medication. He has a history of chronic tobacco use and presented with evidence of acute STEMI underwent cardiac catheterization and was found to have subtotally occluded branch and underwent stenting of that vessel by Dr. Card early this morning. He is doing well at this time, denies any chest discomfort, dizziness or palpitations. He is in sinus mechanism. Hemodynamically stable. February 14: The patient feels well today, he denies any chest discomfort, dizziness or palpitations. He continues to be in sinus mechanism. His echocardiogram showed a mildly impaired systolic function with segmental wall motion abnormality. There is no evidence of arrhythmia. He has no nausea or vomiting. February 15: The patient feels well today, he denies any chest discomfort, dizziness or palpitations. He continues to be in sinus mechanism. Hemodynamically stable. He denies any nausea or vomiting. Medications: Aspirin, losartan 25 mg daily, Lipitor 40 mg daily, metoprolol succinate 25 mg daily, Brilinta 90 mg twice a day PHYSICAL EXAMINATION: Blood pressure 134/60 heart rate 70 LUNGS: Clear to auscultation HEART: Regular rate and rhythm, S1, S2. No S3. No systolic murmur ABDOMEN: Soft, nontender, no organomegaly EXTREMETIES: No edema, LAB: BUN 25, creatinine 1.4, potassium 4.4 IMPRESSION: 1. Status post STEMI with stenting of the diagonal branch 2. Prior history of stenting of the RCA in 2016 3. Chronic tobacco use 4. None compliance 5. Abnormal kidney function of unknown duration, PLAN: 1. Follow renal functions 2. Increase physical activity and transfer to telemetry 3. Depending on his heart rate and blood pressure adjust beta jose antonio dose 4. If stable probable discharge home tomorrow Objective - Vital Signs Vital signs: Vital Signs Temp 98 F 02/15/23 07:50 Pulse 76 02/15/23 07:50 Resp 16 02/15/23 10:47 BP 134/63 02/15/23 07:50 Pulse Ox 97 02/15/23 08:03 FiO2 Intake & Output 02/14/23 02/15/23 02/15/23 18:59 06:59 18:59 Intake Total 150 118 Output Total 150 0 Balance 0 0 118 Weight 44.4 kg 40.1 kg Intake: Oral 150 118 Output: Urine 150 0 Other: Voiding Method Toilet Toilet Urinal Urinal # Voids 3 # Bowel Movements 1 - Labs CBC & Chem 7: 02/15/23 08:43 02/15/23 08:43 Labs: Abnormal Lab Results - Last 24 Hours (Table) 02/15/23 Range/Units 08:43 Sodium 135 L (137-145) mmol/L BUN 25 H (9-20) mg/dL Creatinine 1.41 H (0.66-1.25) mg/dL Glucose 170 H (74-99) mg/dL
--- NOTE | 2023-02-15 14:06 | P.PN ---
Subjective Progress Note Date: 02/15/23 patient 73-year-old gentleman with past medical history significant for coronary artery disease who presented to the ER because of chest pain. Patient stated that he was all right when he was wakened up from sleep at around 2 AM with chest pain. Chest pain was central in location, felt like chest tightness, constant, nonradiating, no aggravating or relieving factors associated with chest pain. Patient was complaining of shortness of breath that time. Denied any palpitation. Because of this chest pain, patient came to the ER Initial lab work done in the ER showed WBC 8.9, hemoglobin 15, platelet count 343, sodium 135, potassium 3.7, BUN 24, creatinine 1.4, troponin 0.0-2 EKG done in the ER showed heart rate 65, QRS 93, ST segment depression noticeable in leads 2, 3, aVF, ST segment elevation in leads V2 V3 Lab was activated and patient was taken for cardiac cath. Cardiac cath done showed 99% Proximal Diagonal 1 stenosis S/p PCI diagonal 1 with a 3.25 x 18mm Xience ALMA, kissing balloon angioplasty of proximal LAD and diagonal branch with a 2.25 x 12mm NC and 2.25 x 12mm balloon respectively Patient was admitted to ICU after procedure 02/14. Patient seen and examined. Laying comfortably in the bed. Denies any chest pain. Vital signs stable. Labs done this morning showed sodium 133, potassium 4.4, BUN 19, creatinine 1.33 02/15. Patient seen and examined. No acute issues overnight. REVIEW OF SYSTEMS: CONSTITUTIONAL: No fever, no malaise,. CARDIOVASCULAR: No chest pain, no palpitations, no syncope. PULMONARY: No shortness of breath, no cough, GASTROINTESTINAL: No diarrhea, no nausea, no vomiting, no abdominal pain. NEUROLOGICAL: No headaches, no weakness, PHYSICAL EXAMINATION: GENERAL: The patient is alert and oriented x3, not in any acute distress. Well developed, well nourished. HEENT: Pupils are round and equally reacting to light. EOMI. No scleral icterus. No conjunctival pallor. Normocephalic, atraumatic. No pharyngeal erythema. No thyromegaly. CARDIOVASCULAR: S1 and S2 present. No murmurs, rubs, or gallops. PULMONARY: Chest is clear to auscultation, no wheezing or crackles. ABDOMEN: Soft, nontender, nondistended, normoactive bowel sounds. No palpable organomegaly. MUSCULOSKELETAL: No joint swelling or deformity. EXTREMITIES: No cyanosis, clubbing, or pedal edema. NEUROLOGICAL: Gross neurological examination did not reveal any focal deficits. SKIN: No rashes. Assessment and plan Acute ST elevation AL Hypertension History of Coronary artery disease Monitor vital signs Monitor CBC Monitor CMP Cardiac cath done showed 99% Proximal Diagonal 1 stenosis S/p PCI diagonal 1 with a 3.25 x 18mm Xience ALMA, kissing balloon angioplasty of proximal LAD and diagonal branch with a 2.25 x 12mm NC and 2.25 x 12mm balloon respectively Continue aspirin, brilinta Continue Lipitor Continue Toprol and losartan 2-D echo done showed mildly impaired left ventricular systolic function with segmental wall motion normality, mild mitral and tricuspid regurg Follow-up on cardiology recommendations Labs and medication were reviewed.. Continue same treatment. Continue with symptomatic treatment. Resume home medication. Monitor labs and vitals. DVT and GI prophylaxis. Further recommendations as per clinical course of the patient Dictation was produced using [employer] dictation software. please excuse any grammatical, word or spelling errors. Objective - Vital Signs Vital signs: Vital Signs Temp 98 F 02/15/23 07:50 Pulse 76 02/15/23 07:50 Resp 16 02/15/23 07:50 BP 134/63 02/15/23 07:50 Pulse Ox 97 02/15/23 08:03 FiO2 Intake & Output 02/14/23 02/15/23 02/15/23 18:59 06:59 18:59 Intake Total 150 118 Output Total 150 0 Balance 0 0 118 Weight 44.4 kg 40.1 kg Intake: Oral 150 118 Output: Urine 150 0 Other: Voiding Method Toilet Toilet Urinal Urinal # Voids 3 # Bowel Movements 1 - Labs CBC & Chem 7: 02/15/23 08:43 02/14/23 05:04
[2023-02-16 08:24] VITALS: RESP 16
[2023-02-16] MEDS: TICAGRELOR 90 MG TAB PO SCH (09:03)
[2023-02-16] MEDS: LOSARTAN 25 MG TAB PO SCH (09:03)
[2023-02-16] MEDS: ASPIRIN 81 MG PO SCH (09:03)
[2023-02-16 09:04] LABS: Potassium 4.7 mmol/L (3.5-5.1)
[2023-02-16] MEDS: ATORVASTATIN 40 MG TAB PO SCH (09:04)
[2023-02-16] MEDS: METOPROLOL SUCCINATE (ER) 25 MG TAB.ER.24H PO SCH (09:04)
[2023-02-16 09:05] LABS: African American GFR (CKD) 64 (>60 ml/min/1.73 sqM); Anion Gap 10 mmol/L; Blood Urea Nitrogen 30 mg/dL (9-20); Calcium 9.6 mg/dL (8.4-10.2); Carbon Dioxide 20 mmol/L (22-30); Chloride 104 mmol/L (98-107); Glucose 90 mg/dL (74-99); Non-African American GFR(CKD) 55 (>60 ml/min/1.73 sqM); Sodium 134 mmol/L (137-145)
[2023-02-16] MEDS: NICOTINE 21MG/24HR PATCH TRANSDERM SCH (09:05)
[2023-02-16 12:06] VITALS: BP 96/64; TEMP 97.5
[2023-02-16] MEDS ORDERED: CLOPIDOGREL 75 MG TAB PO STA (14:17)
--- NOTE | 2023-02-16 14:38 | P.PN ---
Subjective HISTORY OF PRESENT ILLNESS: Patient examined this morning at the bedside. Patient denies chest pain or pressure. He denies shortness of breath. Vital signs are stable. PHYSICAL EXAM: VITAL SIGNS: Reviewed. GENERAL: Well-developed in no acute distress. NECK: Supple. No JVD or thyromegaly LUNGS: Respirations even and unlabored. Lungs essentially clear to auscultation bilaterally. HEART: Regular rate and rhythm. S1 and S2 heard. EXTREMITIES: Normal range of motion. No clubbing or cyanosis. Peripheral pulses intact. No lower extremity edema ASSESSMENT: STEMI, status post stenting of diagonal branch Coronary artery disease with previous stenting of the RCA Acute kidney injury Nicotine dependence PLAN: Continue dual antiplatelet therapy. Patient unable to afford Brilinta as this is $450 a month. Will provide patient 1 month of Brilinta and then transition to Plavix in the office Continue high intensity statin Continue additional cardiac medications Patient is stable for discharge home today from a cardiac standpoint Nurse practitioner note has been reviewed by physician. Signing provider agrees with the documented findings, assessment, and plan of care. Objective - Vital Signs Vital signs: Vital Signs Temp 97.5 F L 02/16/23 12:00 Pulse 97 02/16/23 12:00 Resp 16 02/16/23 12:00 BP 96/64 02/16/23 12:00 Pulse Ox 98 02/16/23 12:00 FiO2 Intake & Output 02/15/23 02/16/23 02/16/23 18:59 06:59 18:59 Intake Total 118 540 120 Balance 118 540 120 Intake: Oral 118 540 120 Other: Voiding Method Toilet Bedside Commode # Voids 2 - Labs CBC & Chem 7: 02/15/23 08:43 02/16/23 07:56 Labs: Abnormal Lab Results - Last 24 Hours (Table) 02/16/23 Range/Units 07:56 Sodium 134 L (137-145) mmol/L Carbon Dioxide 20 L (22-30) mmol/L BUN 30 H (9-20) mg/dL Creatinine 1.30 H (0.66-1.25) mg/dL
[2023-02-16 16:44] VITALS: PULSE 69
== END 2023-02-16 16:22 | disposition home or self-care (01) | DRG 247 ==
LOC: EC 03:33 → 2SICU 03:54 → 3SCARD 02-14 20:36
PROVIDERS: ADMIT Hospitalist; ATTEND Hospitalist
PROC: 027034Z Dilation of Coronary Artery, One Artery with Drug-eluting Intraluminal Device, Percutaneous Approach (ICD-10-PCS; principal; 2023-02-13 04:17)
PROC: 4A023N7 Measurement of Cardiac Sampling and Pressure, Left Heart, Percutaneous Approach (ICD-10-PCS; 2023-02-13 04:17)
PROC: B2111ZZ Fluoroscopy of Multiple Coronary Arteries using Low Osmolar Contrast (ICD-10-PCS; 2023-02-13 04:17)
DX: I21.09 ST elevation (STEMI) myocardial infarction involving other coronary artery of anterior wall (principal); N17.9 Acute kidney failure, unspecified; I25.110 Atherosclerotic heart disease of native coronary artery with unstable angina pectoris; J44.9 Chronic obstructive pulmonary disease, unspecified; C67.9 Malignant neoplasm of bladder, unspecified; I12.9 Hypertensive chronic kidney disease with stage 1 through stage 4 chronic kidney disease, or unspecified chronic kidney disease; I08.1 Rheumatic disorders of both mitral and tricuspid valves; T46.6X6A Underdosing of antihyperlipidemic and antiarteriosclerotic drugs, initial encounter; T46.5X6A Underdosing of other antihypertensive drugs, initial encounter; N18.2 Chronic kidney disease, stage 2 (mild); F17.210 Nicotine dependence, cigarettes, uncomplicated; I25.2 Old myocardial infarction; Z95.5 Presence of coronary angioplasty implant and graft; Z79.82 Long term (current) use of aspirin; Z79.899 Other long term (current) drug therapy; Z79.02 Long term (current) use of antithrombotics/antiplatelets; Z90.5 Acquired absence of kidney; Z87.448 Personal history of other diseases of urinary system; Z91.148 Patient's other noncompliance with medication regimen for other reason; Z86.73 Personal history of transient ischemic attack (TIA), and cerebral infarction without residual deficits; Z86.79 Personal history of other diseases of the circulatory system
CPT/HCPCS: 36415; 71045; 80048; 80053; 80061; 83735; 83880; 84100; 84484; 85025; 85049; 85610; 85730; 92921; 92978; 93005; 93306; 93458; 94760; 96374; 96375; 99291